=== PATIENT | female | born 1950 | race Caucasian/White ===

== ENCOUNTER → 2017-12-22 08:23 | Outpatient (CLI) | payer MEDICARE, OTHER, SELFPAY ==
--- NOTE | 2017-12-22 08:25 | BI_ITS ---
MAMMOGRAPHY - BILATERAL SCREENING REASON FOR EXAM: Female, 67 years old. Routine annual screening examination. PERTINENT HISTORY: Non-contributory. TECHNIQUE: Digital bilateral breast elisabeth (3D mammographic acquisition) in the CC and MLO projections. 2-D mediolateral oblique (MLO) and craniocaudad (CC) views of both breasts were obtained. CAD: Full Field Digital Mammography with Computer Added Detection was performed. COMPARISON: Comparison is made with prior study dated December 04, 2016 and November 27, 2015. FINDINGS: Breast Composition: The breasts are heterogeneously dense, which may obscure small masses. There are no dominant masses or suspicious calcifications. Stable small bilateral axillary lymph nodes. No other significant abnormalities are identified. There has been no significant change since the prior study. BI/SCREENING MAMM (CAD), BILAT IMPRESSION: Stable bilateral screening mammogram. Yearly follow-up mammogram recommended. (A) ASSESSMENT CATEGORY: BIRADS Category 2: Benign. A letter regarding these results will be sent to the patient by the facility within 30 days. Approximately 10% of breast cancers are not detected by mammography. A normal mammogram should not delay biopsy of a clinically suspicious abnormality. [id number] Electronically Signed: Alvarado Jacobo MD at 9:27 EST Tel [phone], Service support ,
== END ==
PROVIDERS: Family Provider Family Medicine; PCP Family Medicine; Visit Provider Obstetrics & Gynecology
DX: Z12.31 Encounter for screening mammogram for malignant neoplasm of breast (principal)
CPT/HCPCS: 77063; 77067

== ENCOUNTER → 2018-12-23 10:18 | Outpatient (CLI) | payer MEDICARE, OTHER, SELFPAY ==
--- NOTE | 2018-12-23 10:26 | BI_ITS ---
MAMMOGRAPHY - BILATERAL SCREENING REASON FOR EXAM: Female, 68 years old. Routine annual screening examination. PERTINENT HISTORY: Non-contributory. TECHNIQUE: Digital bilateral breast michelle (3D mammographic acquisition) in the CC and MLO projections. 2-D mediolateral oblique (MLO) and craniocaudad (CC) views of both breasts were obtained. CAD: Full Field Digital Mammography with Computer Added Detection was performed. COMPARISON: Comparison is made with prior study dated December 22, 2017 and December 04, 2016. FINDINGS: Breast Composition: The breasts are heterogeneously dense, which may obscure small masses. There are no dominant masses or suspicious calcifications. Stable small benign appearing bilateral axillary lymph nodes. No other significant abnormalities are identified. There has been no significant change since the prior study. BI/SCREEN MAMM (CAD) W/MICHELLE BILAT IMPRESSION: Stable bilateral screening mammogram. Yearly follow-up mammogram recommended. (A) ASSESSMENT CATEGORY: BIRADS Category 2: Benign. A letter regarding these results will be sent to the patient by the facility within 30 days. Approximately 10% of breast cancers are not detected by mammography. A normal mammogram should not delay biopsy of a clinically suspicious abnormality. [id number] Electronically Signed: Alvarado Jacobo, at 12:38 EST , Service support ,
== END ==
PROVIDERS: Family Provider Family Medicine; PCP Family Medicine; Referring Provider Obstetrics & Gynecology; Visit Provider Obstetrics & Gynecology
DX: Z12.31 Encounter for screening mammogram for malignant neoplasm of breast (principal)
CPT/HCPCS: 77063; 77067

== ENCOUNTER → 2019-12-29 09:29 | Outpatient (CLI) | payer MEDICARE, OTHER, SELFPAY ==
--- NOTE | 2019-12-29 09:34 | BI_ITS ---
MAMMOGRAPHY - BILATERAL SCREENING REASON FOR EXAM: Female, 69 years old. Routine annual screening examination. PERTINENT HISTORY: Non-contributory. TECHNIQUE: Digital bilateral breast michelle (3D mammographic acquisition) in the CC and MLO projections. 2-D mediolateral oblique (MLO) and craniocaudad (CC) views of both breasts were obtained. CAD: Full Field Digital Mammography with Computer Added Detection was performed. COMPARISON: Comparison is made with prior study dated 12/23/2018 and 12/22/2017. FINDINGS: Breast Composition: The breasts are heterogeneously dense, which may obscure small masses. There are no dominant masses or suspicious calcifications. Stable small benign appearing bilateral axillary lymph nodes. No other significant abnormalities are identified. There has been no significant change since the prior study. BI/SCREEN MAMM (CAD) W/MICHELLE BILAT IMPRESSION: Stable bilateral screening mammogram. Yearly follow-up mammogram recommended. (A) ASSESSMENT CATEGORY: BIRADS Category 2: Benign. A letter regarding these results will be sent to the patient by the facility within 30 days. Approximately 10% of breast cancers are not detected by mammography. A normal mammogram should not delay biopsy of a clinically suspicious abnormality. [id number] Electronically Signed: Alvarado Jacobo, at 10:32 EST , Service support ,
--- NOTE | 2019-12-29 09:38 | BD_ITS ---
STUDY: DUAL ENERGY X-RAY ABSORPTIOMETRY / DXA REASON FOR EXAM: Female, 69 years old. [employer] -- TAKES MULTIVITAMIN AND HX OF TAKING CALCIUM -- TAKES FOSAMAX- BEEN ON x10 YRS -- DOES MODERATE AMOUNT OF EXERCISE -- FAMILY HX OF OSTEO- AUNT, GRANDMOTHER -- NO RADHA TECHNIQUE: Bone Mineral Density (BMD) measurements of lumbar spine and bilateral hips were obtained. COMPARISON: Comparison is made with prior study dated 05/21/2011. FINDINGS: Lumbar Spine (L1-L4): g/cm2 (1.251) / T-score (0.7) / Z-score (2.3) Findings are suggestive of normal bone density with a low fracture risk. Left Femur Total: g/cm2 (1.014) / T-score (0.0) / Z-score (1.5) Left Femoral Neck: g/cm2 (0.934) / T-score (-0.7) / Z-score (0.9) Right Femur Total: g/cm2 (0.959) / T-score (-0.4) / Z-score (1.0) Right Femoral Neck: g/cm2 (0.920) / T-score (-0.8) / Z-score (0.8) The T-Scores on the most recent prior examination were: Lumbar Spine (L1-L4): There has been improvement of bone density since the previous examination. Left Femur Total: which represents a worsening of 2.8%. Right Femur Total: which represents a worsening of 2.3%. BD/Dexa Bone Density Study IMPRESSION: The patient is considered normal as outlined below according to World Gaurav Organization (WHO) criteria with a low fracture risk. There has been worsening of bone density since the previous examination. Reference Information: The T-score is the number of standard deviations above or below the standard which is normal for young adults at their peak bone mineral density. The World Health Organization (WHO) interprets the T-scores as follows: Above -1 Normal bone density Between -1 and -2.5 Osteopenia Equal to / or below -2.5 Osteoporosis As a practical clinical guideline, osteopenia may be graded as follows: Mild -1 through -1.5 Moderate -1.6 through -2.0 Severe -2.1 through -2.4 The Z-score is the number of standard deviations above or below age-matched controls. A Z-score of less than -1.5 would be considered abnormal. References: 1. NIH Osteoporosis and Related Bone Diseases www osteo.org 2. International Society for Clinical Densitometry www iscd.org 3. National Osteoporosis Foundation www nof.org Electronically Signed: Alvarado Jacobo, at 13:46 EST , Service support ,
== END ==
PROVIDERS: PCP Family Medicine; Referring Provider Obstetrics & Gynecology; Visit Provider Obstetrics & Gynecology
DX: Z12.31 Encounter for screening mammogram for malignant neoplasm of breast (principal); Z78.0 Asymptomatic menopausal state
CPT/HCPCS: 77063; 77067; 77080

== ENCOUNTER → 2020-12-28 07:26 | Outpatient (CLI) | payer MEDICARE, OTHER, SELFPAY ==
--- NOTE | 2020-12-28 07:36 | BI_ITS ---
MAMMOGRAPHY - BILATERAL SCREENING REASON FOR EXAM: Female, 70 years old. Routine annual screening examination. PERTINENT HISTORY: Non-contributory. TECHNIQUE: Digital bilateral breast michelle (3D mammographic acquisition) in the CC and MLO projections. 2-D mediolateral oblique (MLO) and craniocaudad (CC) views of both breasts were obtained. CAD: Full Field Digital Mammography with Computer Added Detection was performed. COMPARISON: Comparison is made with prior study dated 12/29/2019 and 12/23/2018. FINDINGS: Breast Composition: The breasts are heterogeneously dense, which may obscure small masses. There are no is evidence of a cluster microcalcifications seen on the mediolateral oblique view in the deep midportion of the right breast. The patient will be recalled for additional views including an exaggerated craniocaudad view of the right breast. Stable small benign-appearing bilateral axillary lymph nodes. There is also evidence of a 5.4 mm well-defined nodule in the upper lateral portion of the right breast for which ultrasound is recommended. No other significant abnormalities are identified. BI/SCRN MAMM (CAD)W/MICHELLE BILAT IMPRESSION: 5.4 mm well-defined nodule in the upper lateral portion of the right breast. Correlation with ultrasound is recommended. Microcalcifications are seen in the mediolateral oblique view in the deep portion of the right breast. The patient will be recalled for exaggerated craniocaudad view of the right breast. ASSESSMENT CATEGORY: BIRADS Category 0: Incomplete. Need additional imaging evaluation. A letter regarding these results will be sent to the patient by the facility within 30 days. Approximately 10% of breast cancers are not detected by mammography. A normal mammogram should not delay biopsy of a clinically suspicious abnormality. [id number] Electronically Signed: Alvarado Jacobo MD at 8:39 EST , Service support ,
== END ==
PROVIDERS: PCP Family Medicine; Referring Provider Obstetrics & Gynecology; Visit Provider Obstetrics & Gynecology
DX: Z12.31 Encounter for screening mammogram for malignant neoplasm of breast (principal)
CPT/HCPCS: 77063; 77067

== ENCOUNTER → 2021-01-01 08:55 | Outpatient (CLI) | payer MEDICARE, OTHER, SELFPAY ==
--- NOTE | 2021-01-01 08:58 | US_ITS ---
STUDY: ULTRASOUND BREAST - RIGHT REASON FOR EXAM: Female, 70 years old. Evaluation of nodule in the right breast seen on prior screening mammogram. Diagnostic mammogram performed today. TECHNIQUE: Axial and longitudinal images of the RIGHT breast were performed with a high resolution ultrasound transducer. # OF IMAGES: 11 COMPARISON: Screening mammogram dated 12/28/2020. FINDINGS: RIGHT Breast: Lesion at the 9 o''clock position of the right breast 8 cm from the nipple represents a simple cyst measuring 4 mm x 9 mm. US/Breast Limited Unilateral IMPRESSION: Nodule in the right breast represents a simple cyst. ASSESSMENT CATEGORY: BIRADS Category 2: Benign. A letter regarding these results will be sent to the patient by the facility within 30 days. Electronically Signed: Jarad Rowell MD at 10:09 EST , Service support ,
--- NOTE | 2021-01-01 08:58 | BI_ITS ---
MAMMOGRAPHY - UNILATERAL DIAGNOSTIC: RIGHT BREAST REASON FOR EXAM: Female, 70 years old. Workup of microcalcifications and nodule in right breast on prior screening mammogram. PERTINENT HISTORY: Non-contributory. TECHNIQUE: Digital examination. Compression MLO and cc views of the right breast were obtained on 6 images. CAD: CAD was performed on this study. COMPARISON: 12/28/2020. FINDINGS: Breast Composition: There are scattered areas of fibroglandular density. Cluster of microcalcifications 12.6 cm behind the nipple on the MLO view. The coned compression view show these calcifications slightly lateral to the nipple. The nipple is not included on the CC compression view. These calcifications are very close to the chest wall. Needle localization for these calcifications is recommended given their appearance. Nodule in the right breast represents a cyst (see detailed right breast ultrasound report. BI/DIAG MAMM W/CAD, UNILAT IMPRESSION: Cluster of calcifications in the right breast very close to the chest wall for which needle localization and excision are recommended. ASSESSMENT CATEGORY: BIRADS Category 4: Suspicious - Biopsy Should Be Considered. A letter regarding these results will be sent to the patient by the facility within 30 days. FOLLOW-UP RECOMMENDATION: Breast needle localization and biopsy recommended. (M) Approximately 10% of breast cancers are not detected by mammography. A normal mammogram should not delay biopsy of a clinically suspicious abnormality. Electronically Signed: Jarad Rowell MD at 10:08 EST , Service support ,
== END ==
PROVIDERS: PCP Family Medicine; Referring Provider Obstetrics & Gynecology; Visit Provider Obstetrics & Gynecology
DX: R92.8 Other abnormal and inconclusive findings on diagnostic imaging of breast (principal)
CPT/HCPCS: 76642; 77065

== ENCOUNTER → 2021-01-10 09:44 | Outpatient (CLI) | payer MEDICARE, OTHER, SELFPAY ==
--- NOTE | 2021-01-10 09:45 | HP.PCM_ITS ---
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 Abram Velasco MD) Abnormal mammogram of right breast Hyperglycemia Hypoxemia Ketosis MVP (mitral valve prolapse) Nephrolithiasis Thrombocytopenia Surgical History (Updated 01/08/21 @ 09:09 by Jessica Rivero) History of cataract surgery History of mitral valve repair Family History (Updated 01/08/21 @ 09:10 by Jessica Rivero) Father Heart disease Brother Heart disease Social History Smoking Status: Never smoker alcohol intake: never substance use type: does not use HPI HPI HPI: FABY ZAMORA, is a 70 F who presents to the office today for surgical consultation regarding abnormal mammograms BI-RADS Category 4. The patient is referred by Dr. Fermín Sanchez her primary care physician is Dr. Vinayak Ordaz. Written copies of this surgical consultation will be continued deviated to them both. January 03, 2021 diagnostic right mammograms were obtained because of microcalcifications and right breast nodule seen on the screening examination of December 28, 2020. The compression views suggest a cluster of microcalcifications 12.6 cm behind the nipple of the right breast on the MLO view. These may be slightly lateral to the nipple. Very close to the chest wall. BI-RADS Category 4. She had a right breast ultrasound on January 03, 2021 as well. The nodule at the right breast 9 o'clock position 8 cm from the nipple on ultrasound was felt to represent a simple cyst measuring 4 x 9 mm. BI-RADS Category 2 70-year-old female. G0. Menarche at age 13. No previous breast biopsies. Not on estrogen replacement. Family history is negative for breast cancer. The patient however has had trauma to the right breast in the form of a mitral valve minimally invasive surgery requiring a oblique incision in the lateral right breast. She is persistently tender in that area. She had that procedure 5 years ago. She is on a low-dose aspirin. ROS General General: No weight change, appetite, fatigue, colon cancer, breast cancer or weakness HEENT HEENT: Yes eye surgery; No difficulty swallowing, eye injury, swollen glands or hoarseness Endo Endocrine: No thyroid disease, diabetes mellitus, thyroid cancer, Hair loss, heat intolerance or cold intolerance Skin Skin: No rash or changing moles Breast Breast: Yes abnormal mammogram; No left breast lump, right breast lump, nipple discharge, breast pain, abnormal US or breast enlargement Additional Details: Right Musc Musculoskeletal: No back problems, arthritis, rheumatoid arthritis, gout or joint pain Cardio Cardiovascular: No murmur, pacemaker, heart disease, atrial fibrillation, high blood pressure, heart attack, heart stent, palpitations, shortness of breat with exertion or chest pain Psych Psychiatric: No depression, anxiety or hearing voices Resp Respiratory: No shortness of breath, No sleep apnea, No cough, No COPD, No asthma, No emphysema and No wheezing Gastro Gastrointestinal: No abdominal pain, No nausea or vomiting, No diarrhea, No constipation, No blood in stool, No acid reflux, No hemorrhoids, No ulcers, No gallbladder problem and No black,tarry stools Uziel Hematologic: Yes blood thinners, No blood disorders, No bleeding, No anemia and No blood clots Neuro Neurologic: No system reviewed and no additional complaints, except as documented, No as per HPI, No abnormal gait, No abnormal hearing, No abnormal movements, No abnormal speech, No behavioral changes, No burning sensations, No confusion, No convulsions, No disequilibrium, No dizziness, No localized weakness, No frequent falls, No headache(s), No lack of coordination, No loss of vision, No memory loss, No numbness, No other visual disturbances, No radicular pain, No restless legs, No sensory deficit, No syncope, No tingling, No tremor(s), No weakness and No other Exam Const General: cooperative, comfortable and no acute distress Nutritional Appearance: overweight Orientation: alert and awake Chest Other: Right breast: Oblique incision outer right breast. Mildly tender the entire upper outer quadrant right breast. No focal mass. No nipple discharge. No axillary clavicular adenopathy Left breast: No focal mass. No nipple discharge. No axillary clavicular adenopathy Resp Effort & Inspection: normal respiratory effort Auscultation: clear to auscultation bilaterally Cardio Rate: regular rate Rhythm: regular rhythm Assessment and Plan Plan Details Additional Comments: I recommended the patient a stereotactic core biopsy upper outer right breast. I described technique, benefit, risk, alternatives. Based upon her incision for her minimally invasive mitral valve repair I anticipate that these calcifications may be related to cicatrix and related to that procedure. I will temporarily have the patient hold her aspirin as I anticipate the stereotactic biopsy be performed quickly within the next 2 maybe 3 days. She and her have had an opportunity ask and have questions answered. We will schedule and expedite her care. I appreciate the opportunity of assisting with her surgical management. Copy: Dr. Fermín Sanchez and Dr. Vinayak Velasco M.D., F.A.C.S. I have re-examined the patient. There are no clinical changes since date of exam. Abram Velasco M.D., F.A.C.S.
--- NOTE | 2021-01-10 10:15 | BRBX_PTH ---
PATIENT: FABY ZAMORA LOC: DEV U#:[id number] AGE/SX: 74/F ROOM: RE01/10/[address]: Dr. Abram Velasco MD : 1950 BED: DIS: SPEC #: [id number] RECD: 01/10/21 10:42 STATUS: ASHLEY JULIENNE #: [id number] DINORAH: 01/10/21 10:[address]: Abram Velasco DEPT: SURGICAL PATHOLOGY RECD BY: Joan Lyon ENTERED: 01/10/21 11:13 SP TYPE: BREAST BX OTHR DR: Dr. Vinayak Ordaz MD Tissues: Right breast, NOS Procedures: Surgery Specimen Level IV HEADER OPERATION: Right stereotactic breast biopsy PRE-OP DIAGNOSIS: Right lateral posterior depth breast microcalcifications TISSUE SUBMITTED: Right breast core tissue ISCHEMIC TIME: 2 minutes FIXATION TIME: 8 hours MICROSCOPIC DIAGNOSIS Right breast, lateral posterior depth breast microcalcifications, stereotactic core biopsy: Hyalinized fibroadenoma with focal calcifications. Focal fibrocystic changes. Negative for atypia or malignancy. See comment. MICHAEL:coby 01/11/2021 COMMENT Correlation with clinical, radiologic findings and appropriate follow up are necessary. MICROSCOPIC DESCRIPTION Slides are reviewed. GROSS DESCRIPTION Received in fixative is one container labeled with the patient's name and designated right breast. The specimen consists of multiple elongated fragments of velazquez-yellow fibroadipose tissue that in aggregate measure 5 x 3 x 0.3 cm. The entire specimen is submitted in two cassettes. / MICHAEL:coby 01/10/21 TC:1 CPT: 72840
--- NOTE | 2021-01-10 10:23 | OP.PCM_ITS ---
Problems Associated Problem List Diagnoses (1) Abnormal mammogram of right breast: Report of Operation Date of Procedure: 01/10/21 Pre-Operative Diagnosis: Abnormal right mammogram with clustered microcalcifications identified laterally in the mediolateral oblique view only Post-Operative Diagnosis: Same Surgery/Procedure Performed:: Stereotactic needle core biopsy upper outer right breast Description of Surgical Findings:: Timeout informed consent was obtained. 7-year-old female was taken to the mammography suite placed prone table. The right breast was placed in a lateral medial view. The microcalcifications in question rapidly identified. The breast was prepped with Betadine. 1% lidocaine was used as a local anesthetic. Throughout the procedure a total of 9 cc was used. A small stab incision was created. 8 gauge mammotome was advanced to prefire depth. Prefire films were obtained demonstrating adequate localization. The device was fired. 6 cores were obtained. Specimen mammograms demonstrated 3 cores with multiple microcalcifications. A small dumbbell marking clip was left at 12:00. Follow-up imaging demonstrated removal of most but not all of the microcalcifications. Marking clip in good position. She was released from the device. Pressure was held for hemostasis. Steri- Strip Telfa OpSite dressing applied followed by ice pack. She was given activity wound care instructions. The specimens had been immediately transferred to formalin for analysis. Specimen breast cores. Blood loss minimal. Drains none. Abram Velasco M.D., F.A.C.S. Surgeon: Abram Velasco Type of Anesthesia: Local
== END ==
PROVIDERS: PCP Family Medicine; Referring Provider Surgery; Visit Provider Surgery
DX: D24.1 Benign neoplasm of right breast (principal); R92.0 Mammographic microcalcification found on diagnostic imaging of breast; Z79.82 Long term (current) use of aspirin
CPT/HCPCS: 19081; 88305; J7050

== ENCOUNTER → 2022-01-02 | Outpatient (CLI) | payer MEDICARE, OTHER, SELFPAY ==
--- NOTE | 2022-01-02 10:25 | BI_ITS ---
MAMMOGRAPHY - BILATERAL SCREENING REASON FOR EXAM: Female, 71 years old. Routine annual screening examination. PERTINENT HISTORY: No personal history of breast cancer. Negative right stereotactic biopsy on 01/10/2021. Multiple keratosis. TECHNIQUE: Digital bilateral breast michelle (3D mammographic acquisition) in the CC and MLO projections. 2-D mediolateral oblique (MLO) and craniocaudad (CC) views of both breasts were obtained. CAD: Full Field Digital Mammography with Computer Added Detection was performed. COMPARISON: Right breast diagnostic mammogram from 01/01/2021. Bilateral screening mammogram from 12/28/2020, 12/29/2019. FINDINGS: Breast Composition: The breasts are heterogeneously dense, which may obscure small masses. There are a few punctate microcalcifications in the right axillary tail in the area that was previously biopsied on 01/10/2021 and found to be negative. Quantitatively, these do not qualify as a cluster, however, the entirety of the axillary tail is not completely included in [id number] and recurrence of calcifications cannot be excluded without further imaging. Further assessment with magnification views is recommended. No other significant abnormalities are identified. Remainder of the breasts are stable from prior study. BI/SCRN MAMM (CAD)W/MICHELLE BILAT IMPRESSION: Further imaging evaluation recommended, as described above. (E) Recall Side: Right Breast ASSESSMENT CATEGORY: BIRADS Category 0: Incomplete. Need additional imaging evaluation. A letter regarding these results will be sent to the patient by the facility within 30 days. Approximately 10% of breast cancers are not detected by mammography. A normal mammogram should not delay biopsy of a clinically suspicious abnormality. Electronically Signed: Hang Frye, at 15:31 EST ,
== END | disposition home or self-care (01) ==
LOC: OPBI 10:24
PROVIDERS: PCP Family Medicine; Visit Provider Surgery
DX: Z12.31 Encounter for screening mammogram for malignant neoplasm of breast (principal)
CPT/HCPCS: 77063; 77067

== ENCOUNTER → 2022-01-10 | Outpatient (CLI) | payer MEDICARE, OTHER, SELFPAY ==
--- NOTE | 2022-01-10 08:59 | BI_ITS ---
MAMMOGRAPHY - UNILATERAL DIAGNOSTIC: RIGHT BREAST REASON FOR EXAM: Female, 71 years old. Localization of a prior biopsy clip. PERTINENT HISTORY: Non-contributory. Prior right stereotactic breast biopsy. TECHNIQUE: Compression spot magnification views of the right breast were obtained. CAD: Full Field Digital Mammography with Computer Added Detection was performed. COMPARISON: Comparison is made with prior study 01/02/2022. FINDINGS: Breast Composition: The breasts are heterogeneously dense, which may obscure small masses. A tissue clip marker from prior biopsy is seen in the deep slightly lateral aspect of the right breast at the site of the microcalcifications. No other significant abnormalities are identified. BI/DIAG MAMM W/CAD, UNILAT IMPRESSION: Stable unilateral diagnostic mammogram. One year follow-up mammogram recommended. (A) ASSESSMENT CATEGORY: BIRADS Category 2: Benign. A letter regarding these results will be sent to the patient by the facility within 30 days. Approximately 10% of breast cancers are not detected by mammography. A normal mammogram should not delay biopsy of a clinically suspicious abnormality. Electronically Signed: Alvarado Jacobo MD at 10:17 EST ,
== END | disposition home or self-care (01) ==
PROVIDERS: PCP Family Medicine; Visit Provider Surgery
DX: R92.0 Mammographic microcalcification found on diagnostic imaging of breast (principal)
CPT/HCPCS: 77065

== ENCOUNTER → 2023-01-06 | Outpatient (CLI) | payer MEDICARE, OTHER, SELFPAY ==
--- NOTE | 2023-01-06 10:09 | BI_ITS ---
MAMMOGRAPHY - BILATERAL SCREENING REASON FOR EXAM: Female, 72 years old. Routine annual screening examination. PERTINENT HISTORY: Non-contributory. Prior right stereotactic breast biopsy. TECHNIQUE: Digital bilateral breast michelle (3D mammographic acquisition) in the CC and MLO projections. 2-D mediolateral oblique (MLO) and craniocaudad (CC) views of both breasts were obtained. CAD: Full Field Digital Mammography with Computer Added Detection was performed. COMPARISON: Comparison is made with prior examination dated January 02, 2022 and January 10, 2022. FINDINGS: Breast Composition: The breasts are heterogeneously dense, which may obscure small masses. There are no dominant masses or suspicious calcifications. A tissue clip marker is seen in the deep central portion of the right breast. No other significant abnormalities are identified. There has been no significant change since the prior study. BI/SCRN MAMM (CAD)W/MICHELLE BILAT IMPRESSION: Stable bilateral screening mammogram. Yearly follow-up mammogram recommended. (A) ASSESSMENT CATEGORY: BIRADS Category 2: Benign. A letter regarding these results will be sent to the patient by the facility within 30 days. Approximately 10% of breast cancers are not detected by mammography. A normal mammogram should not delay biopsy of a clinically suspicious abnormality. [id number] Electronically Signed: Alvarado Jacobo MD at 13:05 EST ,
== END | disposition home or self-care (01) ==
LOC: OPBI 09:59
PROVIDERS: PCP Family Medicine; Referring Provider Surgery; Visit Provider Surgery
DX: Z12.31 Encounter for screening mammogram for malignant neoplasm of breast (principal)
CPT/HCPCS: 77063; 77067

== ENCOUNTER → 2024-01-09 | Outpatient (CLI) | payer MEDICARE, OTHER, SELFPAY | END | disposition home or self-care (01) | LOC: OPBI 12:40 | PROVIDERS: PCP Family Medicine; Referring Provider Family Medicine; Visit Provider Family Medicine | DX: Z12.31 Encounter for screening mammogram for malignant neoplasm of breast (principal) | CPT/HCPCS: 77063; 77067 ==

== ENCOUNTER → 2025-01-14 | Outpatient (CLI) | payer MEDICARE, OTHER, SELFPAY ==
--- NOTE | 2025-01-14 08:40 | BI_ITS ---
EXAM: SCRN MAMM (CAD)W/MICHELLE BILAT DATE: 01/14/2025 CLINICAL HISTORY: F, Age 74 y/o , SCREENING TECHNIQUE: Procedure Code: [id number] Modality: MG Procedure: SCRN MAMM (CAD)W/MICHELLE BILAT COMPARISON: Prior exam(s) dated 01/09/2024.. FINDINGS: TISSUE DENSITY: There are scattered areas of fibroglandular density. Bilateral Breast Mammographic Findings: Nodular asymmetry is noted at the 3 o'clock location of the left breast at a posterior depth, indeterminate. No suspicious mass, density, or microcalcifications within the right breast. BI/SCRN MAMM (CAD)W/MICHELLE BILAT IMPRESSION: OVERALL FINAL ASSESSMENT BI-RADS 0: INCOMPLETE - NEED ADDITIONAL IMAGING EVALUATION. RECOMMENDATION: Additional Views obtained/call backs Additional Recommendation spot compressed and rolled left mammograms. Possible left breast ultrasound. A letter with findings and recommendations will be mailed to the patient. Reading Location: [id number]
--- OUTSIDE RECORDS SUMMARY | 2025-01-14 09:01 | XMS RPT_ITS | CCD ---
Author Organization [facility] Care Team Providers Care Fabric Worker Name Role Phone DAVID MARTÍNEZ E Unavailable Unavailable DAVID MARTÍNEZ E Unavailable Unavailable GREY MARTÍNEZNETH Unavailable Unavailable GREY MARTÍNEZNETH Unavailable Unavailable DAVID MARTÍNEZ Unavailable Unavailable DAVID MARTÍNEZ Unavailable Unavailable Vinayak Reyes MD Primary Care Provider Vinayak Reyes MD Primary Care Provider Vinayak Reyes MD Primary Care Provider VINAYAK REYES Primary Care Unavailable PINEDA FRENCH Referring Unavailab PINEDA Rodriguez Attending Unavailab Vinayak Luciano MD Primary Care Provider Abram Velasco Attending Unavailable Vinayak Reyes Referring Unavailable Vinayak Reyes Primary Care Unavailable Vinayak Reyes Referring Unavailable Vinayak Reyes Attending Unavailable Vinayak Reyes Primary Care Unavailable Eda WELT BUTTER HAND.ASUNCION Nola Unavailable Suppan WELT BUTTER HAND.ASUNCION, Yoana A Unavailable Suppan WELT BUTTER HAND.LEAD RAMP AGENT, Yoana A Unavailable Suppan WELT BUTTER HAND.ASUNCION, Yoana A Unavailable VINAYAK REYES Primary Care Unavailable VINAYAK REYES Primary Care Unavailable PINEDA FRENCH Referring Unavailab VINAYAK Luciano Primary Care Unavailable VINAYAK REYES Primary Care Unavailable SELF Referring Unavailable JAEL OLSON Attending Unavailable VINAYAK REYES Primary Care Unavailable PINEDA FRENCH Attending Unavailab VINAYAK Luciano Attending Unavailable VINAYAK REYES Primary Care Unavailable VINAYAK REYES Referring Unavailable VINAYAK REYES Primary Care Unavailable VINAYAK REYES Primary Care Unavailable VINAYAK REYES Referring Unavailable VINAYAK REYES Primary Care Unavailable VINAYAK REYES Attending Unavailable Allergies Allergy Classification Reported Allergen(s) Allergy Type Date of Onset Reaction(s) Facility (20 sources) Penicillins; Translations: [PENICILLINS] Propensity to adverse reactions to drug (disorder) 6 [facility] Repository (20 sources) NITROFURANTOIN MONOHYD/M-CRYST; Translations: [NITROFURANTOIN MONOHYD/M-CRYST] Propensity to adverse reactions to drug (disorder) 4 [facility] Repository (4 sources) nitrofurantoin macrocrystalline; Translations: [nitrofurantoin macrocrystalline] Allergy to substance 1 [facility] Medications Current Medications Medication Drug Class(es) Dates Sig (Normalized) Sig (Original) aspirin 81 mg delayed release oral tablet (20 sources) Platelet Aggregation Inhibitor, Nonsteroidal Anti-inflammatory Drug Start: 01-08-2021 take 81 mg by mouth once daily Aspirin Active 81 MG PO DAILY January 08, 2021 12:00am Start: 02-15-2016 take 1 tablet by paramjit th once daily aspirin 81 mg chewable tablet Take 1 tablet by mouth once daily. 0 02/15/2016 Active Comment on above: Take 1 tablet by paramjit th once daily. atorvastatin 10 mg oral tablet (20 sources) HMG-CoA Reductase Inhibitor Start: 3 End: 4 take 1 tablet by mouth once daily atorvastatin (LIPITOR) 10 mg tablet Take 1 tablet by mouth once daily. 90 tablet 3 01/09/2024 Active Start: 11-15-2020 End: 07-15-2022 take 1 tablet by mouth once daily atorvastatin (LIPITOR) 10 mg tablet Take 1 tablet by mouth once daily. 30 tablet 5 01/08/2022 07/15/2022 Discontinued Comment on above: Take 1 tablet by paramjit th once daily. calcium carbonate/vitamin D2 (CALCIUM + VITAMIN D ORAL) (3 sources) calcium carbonate/vitamin D2 (CALCIUM + VITAMIN D ORAL) Take by mouth. Active fluticasone propionate 0.05 mg/actuat metered dose nasal spray (20 sources) Corticosteroid Start: 02-06-20 End: 02-27-19 23 take 2 spray(s) by mouth once daily fluticasone (FLONASE) 50 mcg/actuation nasal spray USE 2 SPRAYS IN EACH NOSTRIL ONCE DAILY. RINSE MOUTH AFTER USE. 16 mL 3 02/27/2022 Active Comment on above: USE 2 SPRAYS IN EACH NOSTRIL ONCE DAILY. RINSE MOUTH AFTER USE. Multivitamin,Tx-Iron- Minerals (Therems-M) 1 TABLET tablet (3 sources) Start: 09-01-19 take 1 tablet by mouth once daily Multivitamin,Tx-Iron -Minerals (Therems-M) 1 TABLET tablet Active 1 TABLET PO DAILY August 30, 2013 11:00pm MV-MN/FA/D3/LYCOPENE/ LUT/COQ10 (DAILY MULTIVITAMIN ORAL) (20 sources) take 1 tablet by mouth once daily MV-MN/FA/D3/LYCOPENE /LUT/COQ10 (DAILY MULTIVITAMIN ORAL) Take 1 tablet by mouth once daily. Active take 1 tablet by paramjit th once daily MV-MN/FA/D3/LYCOPENE/LUT/COQ10 (DAILY MU LTIVITAMIN ORAL) Take 1 tablet by mouth once daily. 0 Active Comment on above: Take 1 tablet by paramjit th once daily. nystatin [id number] unt/ml oral suspension (2 sources) Polyene Antifungal Start: 04-04-2023 End: 04-18-2023 nystatin (MYCOSTATIN) 100,000 unit/mL suspension Indications: Thrush (oral) Take 5 mL by mouth four times daily for 14 days. 1tsp swish in mouth for several minutes, then swallow (or expectorate) 4 times daily until gone. 280 mL 0 04/04/2023 04/18/2023 Active Comment on above: Take 5 mL by mouth f our times daily for 14 days. 1tsp swish in mouth for several minutes, then swallow (or expectorate) 4 times daily until gone. sodium chloride 0.111 meq/ml nasal spray (20 sources) Start: 02-05-2022 sodium chloride (SALINE MIST) 0.65 % nasal spray Use 1 [place] in the nose as needed for cold/allergy symptoms. 15 mL 02/05/2022 Active Start: 01-16-2021 End: 04-17-2022 sodium chloride 0.9 % (flush ) 10 mL (BD POSIFLUSH) Comment on above: Use 1 [place] in the n ose as needed for cold/allergy symptoms. Completed/Discontinued Medications Medication Drug Class(es) Dates Sig (Normalized) Sig (Original) alendronic acid 70 mg oral tablet (3 sources) Bisphosphonate Start: 08-31-2013 End: 01-08-2021 take 70 mg by mouth every week Alendronate Discontinued 70 MG PO Q7D@0700 August 30, 2013 11:00pm January 08, 2021 9:12am Calcium (13 sources) Phosphate Binder, Calcium End: 01-18-2022 take 1 tablet by mouth once daily [id number]- [id number]-[id number] 600 mg calcium- 800 unit-50 mg tab Take 1 tablet by mouth once daily. 0 01/18/2022 Discontinued take 1 tablet by paramjit th once daily [id number] 600 mg ca lcium- 800 unit-50 mg tab Take 1 tablet by mouth once daily. 0 Active Comment on above: Take 1 tablet by paramjit th once daily. cefdinir 300 mg oral capsule (3 sources) Cephalosporin Antibacterial Start: 09-03-19 14 End: 01-09-20 21 take 600 mg by mouth once daily Cefdinir Discontinued 600 MG PO DAILY September 01, 2013 11:00pm January 08, 2021 9:12am clotrimazole 10 mg oral lozenge (4 sources) Azole Antifungal Start: 03-21-19 24 End: 04-04-19 24 clotrimazole (MYCELEX) 10 mg nikki Indications: Thrush Use 1 Nikki as instructed five times a day for 14 days. 70 tablet 0 03/21/2023 04/04/2023 Discontinued (Course of therapy completed) Comment on above: Use 1 Nikki as inst ructed five times a day for 14 days. hydrOXYzine hydrochloride 25 mg oral tablet (3 sources) Antihistamine Start: 09-03-19 14 End: 01-09-20 21 take 1 tablet by mouth three times daily as needed Hydroxyzine (Atarax) 25 MG tablet Discontinued 25 MG PO 3 TIMES DAILY NEEDED September 01, 2013 11:00pm January 08, 2021 9:12am nitrofurantoin, macrocrystals 100 mg oral capsule (3 sources) Nitrofuran Antibacterial Start: 09-01-19 14 End: 09-03-19 14 take 100 mg by mouth every twelve hours Nitrofurantoin Monohyd/M-Cryst Discontinued 100 MG PO EVERY 12 HOURS August 30, 2013 11:00pm September 02, 2013 8:19am perflutren lipid microspheres 1.3 mL in NaCl (PF) 0.9% 10 mL injection (DEFINITY) (16 sources) Start: 01-17-20 21 End: 04-18-19 23 perflutren lipid microspheres 1.3 mL in NaCl (PF) 0.9% 10 mL injection (DEFINITY) predniSONE 20 mg oral tablet (3 sources) Start: 09-03-19 14 End: 01-09-20 21 take 20 mg by mouth once daily Prednisone Discontinued 20 MG PO DAILY@0800 3 September 01, 2013 11:00pm January 08, 2021 9:12am Problems Active Problems Problem Classification Problem Date Documented Date Episodic/Chronic Calculus of urinary tract (3 sources) Kidney stone; Translations: [Calculus of kidney] 01-08-2021 Episodic Coagulation and hemorrhagic disorders (3 sources) Thrombocytopenic disorder; Translations: [Thrombocytopenia, unspecified] 01-08-2021 Chronic Coronary atherosclerosis and other heart disease (20 sources) Coronary atherosclerosis; Translations: [Atherosclerotic heart disease of [place] coronary artery without angina pectoris] Onset: 07-27-2015 02-05-2021 Chronic Diabetes mellitus without complication (20 sources) Hyperglycemia; Translations: [Hyperglycemia, unspecified] Onset: 07-25-2015 Resolved: 07-26-2015 01-08-2021 Episodic Disorders of lipid metabolism (20 sources) Mixed hyperlipidemia; Translations: [Mixed hyperlipidemia] Onset: 11-02-2015 11-02-2015 Chronic Fluid and electrolyte disorders (3 sources) Dehydration; Translations: [Dehydration] 08-31-2013 Episodic Fracture of lower limb (5 sources) Closed fracture of right ankle; Translations: [Other fracture of right lower leg, initial encounter for closed fracture] Episodic Immunizations and screening for infectious disease (1 source) Viral screening status; Translations: [Encounter for screening for other viral diseases] Episodic Mycoses (2 sources) Candidiasis of mouth; Translations: [Candidal stomatitis] 03-21-2023 Episodic Other bone disease and musculoskeletal deformities (3 sources) Disorder of skeletal system; Translations: [Disorder of bone, unspecified] 04-07-2024 Episodic Other congenital anomalies (1 source) Porokeratosis; Translations: [Other specified congenital malformations of skin] 05-15-2023 Chronic Other connective tissue disease (1 source) Muscle pain; Translations: [Myalgia, unspecified site] 03-21-2023 Episodic Other connective tissue disease (1 source) Pain in bilateral legs; Translations: [Pain in right leg] 03-21-2023 Episodic Other connective tissue disease (1 source) Metatarsalgia of right foot; Translations: [Metatarsalgia, right foot] 02-12-2024 Episodic Other connective tissue disease (4 sources) History of osteopenia; Translations: [Personal history of other diseases of the musculoskeletal system and connective tissue] Onset: 10-08-2024 10-08-2024 Episodic Other connective tissue disease (1 source) Personal history of other diseases of the musculoskeletal system and connective tissue; Translations: [History of osteopenia] Onset: 10-08-2024 Episodic Other injuries and conditions due to external causes (1 source) Injury of right ankle; Translations: [Unspecified injury of right ankle, initial encounter] Episodic Other lower respiratory disease (3 sources) Hypoxemia; Translations: [Hypoxemia] 01-08-2021 Episodic Other lower respiratory disease (1 source) Cough; Translations: [Acute cough] 04-08-2023 Episodic Other nutritional; endocrine; and metabolic disorders (3 sources) Ketosis; Translations: [Other specified metabolic disorders] 01-08-2021 Chronic Other screening for suspected conditions (not mental disorders or infectious disease) (9 sources) Mammography abnormal; Translations: [Other abnormal and inconclusive findings on diagnostic imaging of breast] Onset: 01-12-2024 01-06-2023 Episodic Other skin disorders (2 sources) Foot callus; Translations: [Corns and callosities] 05-12-2023 Episodic Other upper respiratory infections (1 source) Acute upper respiratory infection; Translations: [Acute upper respiratory infection, unspecified] Episodic Residual codes; unclassified (2 sources) Postmenopausal state; Translations: [Asymptomatic menopausal state] Episodic Screening and history of mental health and substance abuse codes (2 sources) Patient encounter status; Translations: [Encounter for screening for depression] 04-07-2024 Episodic Unclassified (1 source) Other specified postprocedural states; Translations: [Other specified postprocedural states] Onset: 11-27-2016 Unclassified (1 source) Unknown / UNK(Unknown) Onset: 11-27-2016 Urinary tract infections (3 sources) Lower urinary tract infectious disease; Translations: [Urinary tract infection, site not specified] 09-02-2013 Episodic Past or Other Problems Problem Classification Problem Date Documented Da te Episodic/Chronic Administrative/social admission (17 sources) Discharge status; Translations: [Other problems related to medical facilities and other health care] Onset: 07-20-2015 Resolved: 11-02-2015 02-05-2021 Episodic Allergic reactions (20 sources) Phototoxic drug eruption; Translations: [Drug phototoxic response] Onset: 11-07-2010 Resolved: 11-02-2015 09-02-2013 Episodic Biliary tract disease (20 sources) Cholelithiasis without obstruction; Translations: [Calculus of gallbladder without cholecystitis without obstruction] Onset: 02-25-2017 Resolved: 10-08-2024 02-25-2017 Episodic Heart valve disorders (20 sources) Mitral valve prolapse; Translations: [Nonrheumatic mitral (valve) prolapse] Onset: 07-25-2015 Resolved: 01-13-2019 01-08-2021 Chronic Other and unspecified benign neoplasm (20 sources) History of polyp of colon; Translations: [Personal history of colonic polyps] Onset: 04-30-2023 04-30-2023 Episodic Other and unspecified benign neoplasm (17 sources) Melanocytic nevus of scalp; Translations: [Melanocytic nevi of scalp and neck] Onset: 11-07-2010 Resolved: 11-02-2015 11-02-2015 Episodic Other and unspecified benign neoplasm (17 sources) Senile angioma; Translations: [Hemangioma of skin and subcutaneous tissue] Onset: 11-07-2010 Resolved: 11-02-2015 11-02-2015 Episodic Other and unspecified benign neoplasm (1 source) Benign neoplasm of right breast; Translations: [Benign neoplasm of right breast] Onset: 01-27-2023 Episodic Other bone disease and musculoskeletal deformities (20 sources) Osteopenia; Translations: [Other specified disorders of bone density and structure, unspecified site] Resolved: 10-08-2024 01-14-2020 Episodic Other bone disease and musculoskeletal deformities (1 source) Other specified disorders of bone density and structure, right thigh; Translations: [Osteopenia of neck of right femur] Onset: 04-07-2024 Episodic Other bone disease and musculoskeletal deformities (1 source) Disorder of bone, unspecified; Translations: [Disorder of bone and cartilage] Onset: 05-20-2024 Episodic Other bone disease and musculoskeletal deformities (1 source) Disorder of cartilage, unspecified; Translations: [Disorder of bone and cartilage] Onset: 05-20-2024 Episodic Other lower respiratory disease (20 sources) Multiple nodules of lung; Translations: [Other nonspecific abnormal finding of lung field] Onset: 02-25-2017 01-14-2020 Episodic Other nervous system disorders (17 sources) Postoperative pain ; Translations: [Other acute postprocedural pain] Onset: 07-24-2015 Resolved: 07-27-2015 02-05-2021 Episodic Other skin disorders (20 sources) Actinic keratosis; Translations: [Actinic keratosis] Onset: 11-07-2010 09-25-2011 Episodic Other skin disorders (20 sources) Scar; Translations: [Scar conditions and fibrosis of skin] Onset: 12-16-2010 09-25-2011 Episodic Other skin disorders (17 sources) Inflamed seborrheic keratosis; Translations: [Inflamed seborrheic keratosis] Onset: 11-07-2010 Resolved: 11-02-2015 11-02-2015 Episodic Other skin disorders (17 sources) Solar lentigo; Translations: [Other melanin hyperpigmentation] Onset: 11-07-2010 Resolved: 11-02-2015 11-02-2015 Episodic Other skin disorders (17 sources) Seborrheic keratosis; Translations: [Other seborrheic keratosis] Onset: 11-07-2010 Resolved: 11-02-2015 11-02-2015 Episodic Other skin disorders (17 sources) Skin tag; Translations: [Other hypertrophic disorders of the skin] Onset: 11-07-2010 Resolved: 11-02-2015 11-02-2015 Episodic Other skin disorders (1 source) Actinic keratosis; Translations: [Actinic keratosis] Onset: 01-18-2022 Episodic Pleurisy; pneumothorax; pulmonary collapse (17 sources) Atelectasis; Translations: [Atelectasis] Onset: 07-24-2015 Resolved: 07-27-2015 02-05-2021 Episodic Residual codes; unclassified (20 sources) History of repair of mitral valve; Translations: [Other specified postprocedural states] Onset: 10-06-2015 10-06-2015 Episodic Residual codes; unclassified (2 sources) Other specified postprocedural states; Translations: [S/P MVR (mitral valve repair)] Onset: 10-06-2015 Episodic Residual codes; unclassified (17 sources) Mild memory disturbance ; Translations: [Other amnesia] Onset: 01-17-2021 Resolved: 01-17-2021 01-17-2021 Episodic Unclassified (1 source) Other specified postprocedural states Onset: 11-27-2016 Episodic Unclassified (20 sources) SUMMARY Onset: 07-27-2015 Resolved: 01-18-2022 02-05-2021 Unclassified (1 source) Patient encounter status 10-08-2024 Viral infection (17 sources) Verruca vulgaris; Translations: [Viral wart, unspecified] Onset: 11-07-2010 Resolved: 01-14-2020 01-14-2020 Episodic Results Test Name Value Interpretation Reference Range Facility ECHOon 12-13-2024 Echocardiography Echocardiography Rep ort: Transthoracic Echo [facility] Office Date of service: 12/13/2024 12:53:36 PM CLASSIFIER Ordering physician: PINEDA FRENCH Exam indication: Hx: MVr Technologist: Joan Ferro Interpreting physician: Shane Sargent MD PATIENT: Name: MRS. FABY ZAMORA : 1950 Age: 74 years Gender: F History of dyslipidemia, coronary artery disease and valvular heart disease. Previous cardiovascular interventions: Mitral valve repair (07/24/2015) Primary rhythm: sinus. Height: 165.10 cm BSA: 1.85 m Weight: 74.70 kg BMI: 27.4 kg/m Heart rate 67 bpm Technically difficult exam due to body habitus. Color Doppler was utilized to interrogate the cardiac valves assessed and spectral Doppler was utilized to determine the flow velocities and pressure gradients reported in this exam. Myocardial strain analysis was performed in this exam to aid in the assessment of cardiac function. MEASUREMENTS: Value Indexed Normal Max aortic dimension 3.5 cm Ao < 3.8 Left atrial volume 44 ml (Clayton's) 24 ml/m Sayda <= 34 LV ID (diastole) 4.1 cm (2D) 2.19 cm/m LV ID (systole) 2.7 cm (2D) 1.44 cm/m IVS, leaflet tips 0.7 cm (2D) Posterior wall thickness 1.0 cm (2D) Left ventricular mass 103 g (2D) 55 g/m Global peak long strain -18.6 % LV stroke volume 41 ml (2D biplane) LV end diastolic volume 70 ml (2D biplane) 37.8 ml/m 29<=EDVi<62 LV end systolic volume 29 ml (2D biplane) 15.9 ml/m Ejection Fraction 58 % (2D biplane) EF > 54 FINDINGS: LEFT VENTRICLE The left ventricle is normal in size. Left ventricular systolic function is normal. Global LV myocardial strain is normal. Left ventricular diastolic function was not evaluated due to mitral valve surgery. Mitral annular lateral E/e': 13.4. Mitral annular septal E/e': 22.0. Wall Motion: All scored segments are normal. RIGHT VENTRICLE The right ventricle is normal in size. Right ventricular systolic function is normal. RV systolic tissue Doppler velocity is 12.3 cm/s. Tricuspid annular displacement is 2.8 cm. Estimated right ventricular systolic pressure is not reported due to an insufficient tricuspid regurgitation signal. Estimated right atrial pressure is 3 mmHg based on IVC assessment. LEFT ATRIUM The left atrial cavity is normal in size. RIGHT ATRIUM The right atrial cavity is normal in size (RA area = 14.2 cm ). Inferior Vena Cava: The inferior vena cava appears normal measuring 2.08 cm. The vessel decreases greater than 50 percent with inspiration. MITRAL VALVE Post mitral valve repair. Espino Mitral Valve Annuloplasty Ring size #33. There is trace (trace - 1+) mitral valve regurgitation. The peak valve gradient is 8 mmHg. The mean valve gradient is 3 mmHg. The pressure half time is 68 msec. The peak mitral E/A ratio is 0.74. The average mitral E/e' ratio is 17.7. The mitral flow deceleration time is 235 msec. TRICUSPID VALVE The tricuspid valve leaflets are structurally normal. There is trace tricuspid valve regurgitation. The hepatic venous pattern showed normal systolic flow. AORTIC VALVE The aortic valve cusps are structurally normal. There is no aortic valve regurgitation. Tricuspid aortic valve. The peak gradient is 7 mmHg (peak velocity = 128.0 cm/s). PULMONIC VALVE There is mild (1+) pulmonic valve regurgitation. There is no thickening. AORTA The visualized aorta is normal in size. Measurements - Sinus: 3.2 cm. Mid ascending aorta 3.5 cm. Mid arch 3.1 cm. INTERATRIAL SEPTUM There is no evidence of intracardiac shunting as detected by Doppler. INTERVENTRICULAR SEPTUM There is no flow through the interventricular septum as detected by Doppler. PERICARDIUM There is no pericardial effusion. CONCLUSIONS: - Technically difficult exam due to body habitus. - Exam indication: Hx: MVr - The left ventricle is normal in size. Left ventricular systolic function is normal. EF = 58 5% (2D biplane) Left ventricular diastolic function was not evaluated due to mitral valve surgery. - The right ventricle is normal in size. Right ventricular systolic function is normal. - Post mitral valve repair. Espnio Mitral Valve Annuloplasty Ring (size #33). There is trace (trace - 1+) mitral valve regurgitation. The peak gradient is 8 mmHg and the mean gradient is 3 mmHg. Transmitral gradients obtained at HR of 62 bpm. Prior pk/mn gradients of 8/2 mmHg at HR of 58 bpm. - Estimated right ventricular systolic pressure is not reported due to an insufficient tricuspid regurgitation signal. Estimated right atrial pressure is 3 mmHg based on IVC assessment. - Exam was compared with the prior CC echocardiographic exam performed on 12/17/2021. There is no significant change. * * * Final * * * [employer] Medical Image : [id number]. (more content not included)... Normal [facility] CNOVon 10-08-2024 CNOV Office Visit (FAMPWS ) FABY ZAMORA ([id number]) 1950 F Date Time Provider Department 10/08/24 10:20 AM VINAYAK REYES FAMPWS During your visit today, we recorded the following information about you: Pulse Blood pressure 70/minute 122/82 Vinayak Reyes MD 10/08/2024 12:32 PM Signed Faby Zamora is a 74 year old female here for a Medicare wellness visit. Medicare Health Risk Assessment General Health Good Exercise: Minutes/Day 20 min Exercise: Days/Week 2 days Alcohol: Daily Use Never Alcohol: Drinks/Day Patient does not drink Alcohol: 6 or more drinks Never Feel off balance No Concerns: Teeth/Dentures No Concerns: Sexual function No Troubled by feelings None of the above Frequency: Eating healthy diet Several days ADLs requiring help None of the above Safety precautions in home/vehicle Throw rugs Smoke, vape, chews tobacco No Difficulty hearing No Difficulty seeing No Current Providers Specialists: I have reviewed specialist-related care of the patient in the medical record. Current care team: Patient Care Team: Vinayak Reyes MD as PCP - General (Family Medicine) Nola Veras APRN.LEAD RAMP AGENT as Extrusion Die Repairer (Family Medicine) Yoana Steen APRN.CNP as Extrusion Die Repairer (Family Medicine) [facility] cardiology [facility], Derm. Dr. Alvarez, optometry. Medical/Family history review Reviewed and updated problem list, medical/surgical/family/social history, medications, and allergies. Opioid use review Opioid Medications (last 90 days) No data to display Anxiety/Depression screening PHQ-9 Score: 1 (Minimal Depression) TAYLER-7 Score: 1 (Minimal Anxiety) Recommendation: no further intervention at this time Cognitive screening Mini Cog Score: 5 Cognitive screening reviewed and No further action needed (score 3-5). Functional Observation Was the patient's Timed Up AND Go test unsteady or >= 12 seconds? No Advance Care Planning Patient did not wish or was not able to name a surrogate decision maker or provide an advance care plan ADDITIONAL INFO: Annual Wellness Exam: - Faby Zamora's general health is reported as pretty good. - Faby engages in walking and stays active several days a week. - Faby eats a healthy diet, including salads with vegetables. - Faby denies alcohol consumption, tobacco use, or vaping. - No issues with Faby's balance, hearing, vision, or sexual functioning. - No concerns about Faby's feelings or mental health. - Faby performs all ADLs independently. - Faby uses seatbelts and has adequate lighting and handrails at home. - Faby denies headaches, tremors, or falls. - Faby denies chest pain, dyspnea, abdominal pain, or urinary issues. - Faby denies hematochezia or melena. - Faby denies eyes, ears, or throat issues. - Faby has allergies to Macrobid and penicillin. - No changes in Faby's family history. - Faby has no living will. Coronary Artery Disease: - Mild LAD and moderate RCA disease, managed medically. - No chest pain or dyspnea. - Follow-up with cardiology scheduled in February with Nichole Cruz NP. Mitral Valve Repair: - History of mitral valve repair. Hyperlipidemia: - Managed with Lipitor. Osteopenia: - Previously on Fosamax; currently taking calcium and vitamin D supplements. - Faby engages in regular walking. Post-Nasal Drip: - Faby uses Flonase PRN. - Faby reports persistent morning cough, unsure if related to allergies. ROS: GENERAL: No weight loss, generalized discomfort, or fever. HEENT: Negative for frequent or significant headaches, no changes in vision or hearing, no nosebleeds or other nasal problems. NECK: Negative for lumps, goiter, pain, and significant neck swelling. RESPIRATORY: Positive for morning cough; negative for dyspnea or shortness of breath. CARDIOVASCULAR: Negative for chest pain, leg swelling, CHF, or palpitations. GI: No nausea, vomiting, diarrhea, heartburn, abdominal pain, blood in stool, or black stool. GENITOURINARY: No history of dysuria, frequency, or incontinence. MUSCULOSKELETAL: Negative for joint pain or swelling, or muscle pain. No back pain. SKIN: Negative for lesions, rash, and itching. PSYCH: Negative for anxiety or depression. HEMATOLOGY/LYMPHOLOGY: No bleeding concerns. NEURO: No history of headaches, syncope, paralysis, seizures, tremors, or balance problems. PE: GENERAL: NAD, alert and oriented. SKIN: Unremarkable, no rash or skin lesions. HEAD: Normocephalic. NECK: Supple, no lymphadenopathy, normal thyroid, no carotid bruits. LUNGS: Clear to auscultation bilaterally, no wheezes/rhonchi/rales. HEART: Regular rate and rhythm, no murmurs. No ectopy. EXTREMITIES: Normal, no deformities, no skin discoloration, no edema. NEURO: Awake, alert and oriented x3, cranial nerves II (more content not included)... [facility] FABY ZAMORA ([id number]) 1950 F Date Time Provider Department 10/08/24 VINAYAK REYES [facility] During your visit today, we recorded the following information about you: Allergies As of Date: 10/08/2024 Noted Allergy Reaction MACROBID (NITROFURANTOIN MONOHYD/*08/31/2013 2 - Rash PENICILLINS 04/29/2005 2 - Rash Date Reviewed: 10/08/2024 Reviewed by: Vinayak Reyes MD - Fully Assessed Reason for Visit: Orders [681] Primary Visit Diagnosis:Mixed hyperlipidemia [E78.2] Order(s):COMPLETE BLOOD COUNT AND DIFFERENTIAL [SQCBCDIF] Order #: [id number] FUTURE COMPREHENSIVE METABOLIC PANEL [SQCMP] Order #: [id number] FUTURE LIPID PANEL, FASTING [SQLIPB] Order #: [id number] FUTURE Prescriptions as of 10/08/2024 - calcium carbonate/vitamin D2 (CALCIUM + VITAMIN D ORAL) Take by mouth. - atorvastatin (LIPITOR) 10 mg tablet Take 1 tablet by mouth once daily. - fluticasone (FLONASE) 50 mcg/actuation nasal spray USE 2 SPRAYS IN EACH NOSTRIL ONCE DAILY. RINSE MOUTH AFTER USE. - sodium chloride (SALINE MIST) 0.65 % nasal spray Use 1 [place] in the nose as needed for cold/allergy symptoms. - aspirin 81 mg chewable tablet Take 1 tablet by mouth once daily. - MV-MN/FA/D3/LYCOPENE/LUT/COQ10 (DAILY MULTIVITAMIN ORAL) Take 1 tablet by mouth once daily. Problem List As Of Date 10/08/2024 Noted Resolved Actinic Keratoses (Premalignant AK's [L57.0] 11/07/2010 Irritated//Inflamed Seborrheic Keratoses [L82.0]11/07/2010 11/02/2015 Viral warts, unspecified [B07.9] 11/07/2010 01/14/2020 Solar Lentigines [L81.4] 11/07/2010 11/02/2015 Other Seborrheic Keratoses [L82.1] 11/07/2010 11/02/2015 Actinic skin damage [L57.8] 11/07/2010 11/02/2015 Cutaneous skin tags [L91.8] 11/07/2010 11/02/2015 Melanocytic nevus of scalp: L scalp yarsani hair*11/07/2010 11/02/2015 Beck Angiomas [D18.01] 11/07/2010 11/02/2015 Scars: Cryosurgical [place] [L90.5] 12/16/2010 Osteopenia [M85.80] 10/08/2024 Mitral regurgitation, 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] 01/13/2019 Discharge planning issues [Z75.8] 07/20/2015 11/02/2015 Atelectasis [J98.11] 07/24/2015 07/27/2015 Postoperative pain [G89.18] 07/24/2015 07/27/2015 Non-rheumatic mitral regurgitation [I34.0] 07/25/2015 01/13/2019 Stress hyperglycemia [R73.9] 07/25/2015 07/26/2015 SUMMARY 07/27/2015 01/18/2022 Coronary artery disease involving [place] olson*07/27/2015 S/P MVR (mitral valve repair) [Z98.890] 10/06/2015 Mixed hyperlipidemia [E78.2] 11/02/2015 Calculus of gallbladder without cholecystitis w*02/25/2017 10/08/2024 Lung nodules [R91.8] 02/25/2017 Mild memory disturbances not amounting to demen*01/17/2021 01/17/2021 Prediabetes [R73.03] 03/24/2023 History of colonic polyps [Z86.0100] 04/30/2023 History of osteopenia [Z87.39] 10/08/2024 Encounter Status:Closed by VINAYAK REYES on 10/08/24 Normal [facility] CNCOon 07-23-2024 CNCO Letter Text Letter Text Normal [facility] CNCOon 07-22-2024 CNCO Letter Text Letter Text Normal [facility] BD DXA - AXIAL SKELETONon BD DXA - AXIAL SKELETON * * *Final Report* * * DATE OF EXAM: May 20 2024 8:52AM WRB 0804 - BD DXA - AXIAL SKELETON / PROCEDURE REASON: multiple diagnoses * * * * Physician Interpretation * * * * EXAMINATION: DXA BONE DENSITOMETRY BD DXA - AXIAL SKELETON, BD DXA TRABECLR BONE SCORE (TBS) PATIENT DEMOGRAPHICS: Age: 73 years, Gender: Female SCANNER INFORMATION: DXA Model: [employer] C 32660 Date Scanned: 05/20/2024 8:52 AM CLINICAL HISTORY: SCREENING Osteopenia of neck of right femur Disorder of bone and cartilage. RISK FACTORS FOR OSTEOPOROSIS AND ASSOCIATED FRACTURES REPORTED BY THIS PATIENT: Please refer to Bone Health Questionnaire in the EMR CURRENT THERAPY: Please refer to Bone Health Questionnaire in the EMR TECHNICAL LIMITATIONS: RESULTS: Lumbar spine (L1, L2, L3, L4): 1.088 g/cm2, T-score 0.4 , Z-score 2.7 Lumbar spine: 2022 : 1.075 g/cm2 No statistically significant change Right Femoral Neck: 0.718 g/cm2, T-score -1.2 , Z-score 0.8 Right Femoral Neck: 2022 : 0.738 g/cm2 No statistically significant change Right Total Hip: 0.953 g/cm2, T-score 0.1 , Z-score 1.8 Right Total Hip: 2022 : 0.953 g/cm2 No statistically significant change Left Femoral Neck: 0.786 g/cm2, T-score -0.6 , Z-score 1.4 Left Femoral Neck: 2022 : 0.769 g/cm2 No statistically significant change Left Total Hip: 0.984 g/cm2, T-score 0.3 , Z-score 2.1 Left Total Hip: 2022 : 1.039 g/cm2 Statistically significant decrease CHANGE IS STATISTICALLY SIGNIFICANT IN THE SPINE OR HIP IF GREATER THAN OR EQUAL TO 0.04 g/cm2 VERTEBRAL FRACTURE ASSESSMENT Not performed. TRABECULAR BONE ASSESSMENT TBS score: 1.209 Bone micro-architecture: Partially degraded (1.231 - 1.310) IMPRESSION: THE LOWEST T-SCORE IS -1.2 IN THE RIGHT HIP 1) DIAGNOSIS (based on BMD alone): OSTEOPENIA Caution: Medical conditions other than osteoporosis may cause low bone density, such as osteomalacia or renal osteodystrophy. Clinical correlation is necessary. 2) FRACTURE RISK (Based on TBS adjusted FRAX): 10-year absolute fracture risk: - major osteoporotic fracture = 16 % - hip fracture = 2.6 % - A diagnosis of Osteoporosis, a 10 year probability of hip fracture greater than or equal to 3% or a 10 year probability of any major osteoporosis-related fracture greater than or equal to 20% should be considered for treatment. - DXA scanner generated FRAX calculations may slightly differ from online FRAX calculations due to differences in software versions. - All recommendations and calculations are to be considered as guidelines and should not replace sound clinical judgement - Caution: Fracture risk may be increased independent of BMD in patients with corticosteroid use, age greater than 65 years, or a history of prior fragility fracture. RECOMMENDATIONS: Follow-up in 2 years or as clinically indicated. Patients that are taking corticosteroids, are transplant recipients or have hyperparathyroidism should have annual follow-up. Follow-up scans should always be done on the same machine for accurate comparison. FOR MORE INFORMATION ABOUT DIAGNOSIS AND TREATMENT: [facility]osis and Metabolic Bone Disease:? www.ccf.org/arthritis/osteo National Osteoporosis Foundation:? www.nof.org International Society of Clinical Densitometry www.iscd.org Crew Car Driver: NANCY Transcribe Date/Time: May 23 2024 10:20A Dictated by : CHAR IYER MD This examination was interpreted and the report reviewed and electronically signed by: CHAR IYER MD on May 23 2024 10:22AM EST [id number] -1.2 Normal [facility] BD DXA TRABECLR BONE SCORE ( TBS)on 05-20-2024 BD DXA TRABECLR BONE SCORE (TBS) * * *Final Report* * * DATE OF EXAM: May 20 2024 8:52AM WRB 0801 - BD DXA TRABECLR BONE SCORE (TBS) / PROCEDURE REASON: multiple diagnoses * * * * Physician Interpretation * * * * EXAMINATION: DXA BONE DENSITOMETRY BD DXA - AXIAL SKELETON, BD DXA TRABECLR BONE SCORE (TBS) PATIENT DEMOGRAPHICS: Age: 73 years, Gender: Female SCANNER INFORMATION: DXA Model: [employer] C 13740 Date Scanned: 05/20/2024 8:52 AM CLINICAL HISTORY: SCREENING Osteopenia of neck of right femur Disorder of bone and cartilage. RISK FACTORS FOR OSTEOPOROSIS AND ASSOCIATED FRACTURES REPORTED BY THIS PATIENT: Please refer to Bone Health Questionnaire in the EMR CURRENT THERAPY: Please refer to Bone Health Questionnaire in the EMR TECHNICAL LIMITATIONS: RESULTS: Lumbar spine (L1, L2, L3, L4): 1.088 g/cm2, T-score 0.4 , Z-score 2.7 Lumbar spine: 2022 : 1.075 g/cm2 No statistically significant change Right Femoral Neck: 0.718 g/cm2, T-score -1.2 , Z-score 0.8 Right Femoral Neck: 2022 : 0.738 g/cm2 No statistically significant change Right Total Hip: 0.953 g/cm2, T-score 0.1 , Z-score 1.8 Right Total Hip: 2022 : 0.953 g/cm2 No statistically significant change Left Femoral Neck: 0.786 g/cm2, T-score -0.6 , Z-score 1.4 Left Femoral Neck: 2022 : 0.769 g/cm2 No statistically significant change Left Total Hip: 0.984 g/cm2, T-score 0.3 , Z-score 2.1 Left Total Hip: 2022 : 1.039 g/cm2 Statistically significant decrease CHANGE IS STATISTICALLY SIGNIFICANT IN THE SPINE OR HIP IF GREATER THAN OR EQUAL TO 0.04 g/cm2 VERTEBRAL FRACTURE ASSESSMENT Not performed. TRABECULAR BONE ASSESSMENT TBS score: 1.209 Bone micro-architecture: Partially degraded (1.231 - 1.310) IMPRESSION: THE LOWEST T-SCORE IS -1.2 IN THE RIGHT HIP 1) DIAGNOSIS (based on BMD alone): OSTEOPENIA Caution: Medical conditions other than osteoporosis may cause low bone density, such as osteomalacia or renal osteodystrophy. Clinical correlation is necessary. 2) FRACTURE RISK (Based on TBS adjusted FRAX): 10-year absolute fracture risk: - major osteoporotic fracture = 16 % - hip fracture = 2.6 % - A diagnosis of Osteoporosis, a 10 year probability of hip fracture greater than or equal to 3% or a 10 year probability of any major osteoporosis-related fracture greater than or equal to 20% should be considered for treatment. - DXA scanner generated FRAX calculations may slightly differ from online FRAX calculations due to differences in software versions. - All recommendations and calculations are to be considered as guidelines and should not replace sound clinical judgement - Caution: Fracture risk may be increased independent of BMD in patients with corticosteroid use, age greater than 65 years, or a history of prior fragility fracture. RECOMMENDATIONS: Follow-up in 2 years or as clinically indicated. Patients that are taking corticosteroids, are transplant recipients or have hyperparathyroidism should have annual follow-up. Follow-up scans should always be done on the same machine for accurate comparison. FOR MORE INFORMATION ABOUT DIAGNOSIS AND TREATMENT: [facility] Osteoporosis and Metabolic Bone Disease:? www.ccf.org/arthritis/osteo National Osteoporosis Foundation:? www.nof.org International Society of Clinical Densitometry www.iscd.org Crew Car Driver: NANCY Transcribe Date/Time: May 23 2024 10:20A Dictated by : CHAR IYER MD This examination was interpreted and the report reviewed and electronically signed by: CHAR IYER MD on May 23 2024 10:22AM EST [id number] -1.2 Normal [facility] CBC W Auto Differential pane l (Bld)on 04-07-2024 Basophils (Bld) [#/Vol] 0.04 10*3/uL [facility] Basophils/100 WBC (Bld) 0.5 % [facility] Differential cell count method Nom (Bld) Auto [facility] Eosinophils (Bld) [#/Vol] 0.17 10*3/uL [facility] Eosinophils/100 WBC (Bld) 2.1 % [facility] Erythrocyte distribution width (RBC) [Ratio] 12.2 % 11.5 - 15.0 % [facility] Hematocrit (Bld) [Volume fraction] 45.5 % 36.0 - 46.0 % [facility] Hemoglobin (Bld) [Mass/Vol] 15 g/dL 11.5 - 15.5 g/dL [facility] Immature granulocytes (Bld) [#/Vol] 0.03 10*3/[facility] Immature granulocytes/100 WBC (Bld) 0.4 % [facility] Lymphocytes (Bld) [#/Vol] 2.32 10*3/uL [facility] Lymphocytes/100 WBC (Bld) 28.4 % [facility] MCH (RBC) [Entitic mass] 30.2 pg 26.0 - 34.0 pg [facility] MCHC (RBC) [Mass/Vol] 33 g/dL 30.5 - 36.0 g/dL [facility] MCV (RBC) [Entitic vol] 91.7 fL 80.0 - 100.0 fL [facility] Monocytes (Bld) [#/Vol] 0.48 10*3/uL [facility] Monocytes/100 WBC (Bld) 5.9 % [facility] Neutrophils (Bld) [#/Vol] 5.12 10*3/uL [facility] Neutrophils/100 WBC (Bld) 62.7 % [facility] Nucleated RBC (Bld) [#/Vol] [facility] Nucleated RBC/100 WBC (Bld) [Ratio] 0 % /100 WBC [facility] Platelet mean volume (Bld) [Entitic vol] 11.2 fL 9.0 - 12.7 fL [facility] Platelets (Bld) [#/Vol] 201 10*3/uL [facility] RBC (Bld) [#/Vol] 4.96 10*6/uL 3.90 - 5.20 m/uL [facility] WBC (Bld) [#/Vol] 8.16 10*3/uL [facility] Basophils (Bld) [#/Vol] 0.04 10*3/uL Normal <0.11 [facility] Comment on above: Order Comment: Speci men Type: BLOOD SPECIMENOrdering Facility: [facility] Address: [address] [place], [place] [id number] Performed By: #### 5 7021-8 ####[facility] CENTERJAYSONGIOVANNA [id number] [address] [place] Basophils/100 WBC (Bld) 0.5 % Normal [facility] Comment on above: Order Comment: Speci men Type: BLOOD SPECIMENOrdering Facility: [facility] Address: [address] [place] [address] Performed By: #### 5 7021-8 ####[facility] BOYDWDILLANLIA [id number] [place] [address] [place] Differential cell count method Nom (Bld) Auto Normal [facility] Comment on above: Order Comment: Speci men Type: BLOOD SPECIMENOrdering Facility: [facility] Address: [address] [place] [address] Performed By: #### 5 7021-8 ####[facility] LACYKAUSHALLIA [id number] [place] [address] [place] Eosinophils (Bld) [#/Vol] 0.17 10*3/uL Normal <0.46 [facility] Comment on above: Order Comment: Speci men Type: BLOOD SPECIMENOrdering Facility: [facility] Address: [address] [place] [address] Performed By: #### 5 7021-8 ####[facility]ENTERWDILLANLIA [id number] [place] [address] [place] Eosinophils/100 WBC (Bld) 2.1 % Normal [facility] Comment on above: Order Comment: Speci men Type: BLOOD SPECIMENOrdering Facility: [facility] Address: [address] [place] [address] Performed By: #### 5 7021-8 ####[facility] LACYWNCLIA [id number] [place] [address] [place] Erythrocyte distribution width (RBC) [Ratio] 12.2 % Normal 11.5-15.0 [facility] Comment on above: Order Comment: Speci men Type: BLOOD SPECIMENOrdering Facility: [facility] Address: [address] [place] [address] Performed By: #### 5 7021-8 ####[facility] ORLANDODILLANLIA [id number] [place] [address] [place] Hematocrit (Bld) [Volume fraction] 45.5 % Normal 36.0-46.0 [facility] Comment on above: Order Comment: Speci men Type: BLOOD SPECIMENOrdering Facility: [facility] Address: [address] [place] [address] Performed By: #### 5 7021-8 ####[facility] [id number] [place] [address] [place] Hemoglobin (Bld) [Mass/Vol] 15.0 g/dL Normal 11.5-15.5 [facility] Comment on above: Order Comment: Speci men Type: BLOOD SPECIMENOrdering Facility: [facility] Address: [address] [place] [address] Performed By: #### 5 7021-8 ####[facility] [id number] [place] [address] [place] Immature granulocytes (Bld) [#/Vol] 0.03 10*3/uL Normal <0.10 [facility] Comment on above: Order Comment: Speci men Type: BLOOD SPECIMENOrdering Facility: [facility] Address: [address] [place] [address] Performed By: #### 5 7021-8 ####[facility] [id number] [place] [address] [place] Immature granulocytes/100 WBC (Bld) 0.4 % Normal [facility] Comment on above: Order Comment: Speci men Type: BLOOD SPECIMENOrdering Facility: [facility] Address: [address] [place] [address] Performed By: #### 5 7021-8 ####[facility] [id number] [place] [address] [place] Lymphocytes (Bld) [#/Vol] 2.32 10*3/uL Normal 1.00-4.00 [facility] Comment on above: Order Comment: Speci men Type: BLOOD SPECIMENOrdering Facility: [facility] Address: [address] [place] [address] Performed By: #### 5 7021-8 ####[facility] [id number] [place] [address] [place] Lymphocytes/100 WBC (Bld) 28.4 % Normal [facility] Comment on above: Order Comment: Speci men Type: BLOOD SPECIMENOrdering Facility: [facility] Address: [address] [place] [address] Performed By: #### 5 7021-8 ####[facility] ORLANDONCLI [id number] [place] [address] [place] MCH (RBC) [Entitic mass] 30.2 pg Normal 26.0-34.0 [facility] Comment on above: Order Comment: Speci men Type: BLOOD SPECIMENOrdering Facility: [facility] Address: [address] [place] [address] Performed By: #### 5 7021-8 ####[facility] [id number] [place] [address] [place] MCHC (RBC) [Mass/Vol] 33.0 g/dL Normal 30.5-36.0 [facility] Comment on above: Order Comment: Speci men Type: BLOOD SPECIMENOrdering Facility: [facility] Address: [address] [place] [address] Performed By: #### 5 7021-8 ####[facility] [id number] [place] [address] [place] MCV (RBC) [Entitic vol] 91.7 fL Normal 80.0-100.0 [facility] Comment on above: Order Comment: Speci men Type: BLOOD SPECIMENOrdering Facility: [facility] Address: [address] [place] [address] Performed By: #### 5 7021-8 ####[facility] MILLJAYSONWNCLIA [id number] [place] [address] [place] Monocytes (Bld) [#/Vol] 0.48 10*3/uL Normal <0.87 [facility] Comment on above: Order Comment: Speci men Type: BLOOD SPECIMENOrdering Facility: [facility] Address: [address] [place] [address] Performed By: #### 5 7021-8 ####[facility] MILLWNCLIA [id number] [place] [address] [place] Monocytes/100 WBC (Bld) 5.9 % Normal [facility] Comment on above: Order Comment: Speci men Type: BLOOD SPECIMENOrdering Facility: [facility] Address: [address] [place] [address] Performed By: #### 5 7021-8 ####[facility] LACYWNCLIA [id number] [place] [address] [place] Neutrophils (Bld) [#/Vol] 5.12 10*3/uL Normal 1.45-7.50 [facility] Comment on above: Order Comment: Speci men Type: BLOOD SPECIMENOrdering Facility: [facility] Address: [address] [place] [address] Performed By: #### 5 7021-8 ####[facility] MILLTOWNCLIA [id number] [place] [address] [place] Neutrophils/100 WBC (Bld) 62.7 % Normal [facility] Comment on above: Order Comment: Speci men Type: BLOOD SPECIMENOrdering Facility: [facility] Address: [address] [place] [address] Performed By: #### 5 7021-8 ####[facility] MILLTOWNCLIA [id number] [place] [address] [place] Nucleated RBC (Bld) [#/Vol] 10*3/uL Normal <0.01 [facility] Comment on above: Order Comment: Speci men Type: BLOOD SPECIMENOrdering Facility: [facility] Address: [address] [place] [address] Performed By: #### 5 7021-8 ####[facility] [id number] [place] [address] [place] Nucleated RBC/100 WBC (Bld) [Ratio] 0.0 /100 WBC Normal [facility] Comment on above: Order Comment: Speci men Type: BLOOD SPECIMENOrdering Facility: [facility] Address: [address] [place] [address] Performed By: #### 5 7021-8 ####[facility] [id number] [place] [address] [place] Platelet mean volume (Bld) [Entitic vol] 11.2 fL Normal 9.0-12.7 [facility] Comment on above: Order Comment: Speci men Type: BLOOD SPECIMENOrdering Facility: [facility] Address: [address] [place] [address] Performed By: #### 5 7021-8 ####[facility]PITALJENNIFERA [id number] [place] [address] [place] Platelets (Bld) [#/Vol] 201 10*3/uL Normal 150-400 [facility] Comment on above: Order Comment: Speci men Type: BLOOD SPECIMENOrdering Facility: [facility] Address: [address] [place] [address] Performed By: #### 5 7021-8 ####[facility] [id number] [place] [address] [place] RBC (Bld) [#/Vol] 4.96 10*6/uL Normal 3.90-5.20 [facility] Comment on above: Order Comment: Speci men Type: BLOOD SPECIMENOrdering Facility: [facility] Address: [address] [place] [address] Performed By: #### 5 7021-8 ####[facility] [id number] [place] [address] [facility] [place] WBC (Bld) [#/Vol] 8.16 10*3/uL Normal 3.70-11.00 [facility] Comment on above: Order Comment: Speci men Type: BLOOD SPECIMENOrdering Facility: [facility] Address: [address] [place] [address] Performed By: #### 5 7021-8 ####[facility]LAND[facility]CL[facility] [id number] [address] OF [facility] CNOVon 04-07-2024 [facility] FABY ZAMORA ([id number]) 1950 F Date Time Provider Department 04/07/24 9:00 AM VINAYAK REYESWS During your visit today, we recorded the following information about you: Pulse Blood pressure Weight Height 73/minute 134/72 73.5 kg 1.651 m Vinayak Reyes MD 04/07/2024 9:18 AM Signed Patient presents with: Follow Up HPI: Patient presents today for office visit for routine 6 month follow up. No concerns today. HLD: No myalgias Sees cardiololgy. Remains on asa. No chest pain or shortness of breath. No edema. No dizziness or lightheadedness. MEDICATIONS: Current Outpatient Medications Medication Sig atorvastatin (LIPITOR) 10 mg tablet Take 1 tablet by mouth once daily. fluticasone (FLONASE) 50 mcg/actuation nasal spray USE 2 SPRAYS IN EACH NOSTRIL ONCE DAILY. RINSE MOUTH AFTER USE. sodium chloride (SALINE MIST) 0.65 % nasal spray Use 1 [place] in the nose as needed for cold/allergy symptoms. aspirin 81 mg chewable tablet Take 1 tablet by mouth once daily. MV-MN/FA/D3/LYCOPENE/LUT/COQ10 (DAILY MULTIVITAMIN ORAL) Take 1 tablet by mouth once daily. No current facility-administered medications for this visit. ALLERGIES: ALLERGIES Allergen Reactions Macrobid [Nitrofura* Rash Penicillins Rash PAST MEDICAL HISTORY Diagnosis Date Acute diverticulitis 02/25/2023 Callus of foot Right foot Mitral regurgitation, myxomatous Severe MR (echo 09/30/11) Osteopenia Routine gynecological examination Dr Sanchez PAST SURGICAL HISTORY Procedure Laterality Date APPENDECTOMY HX CATARACT EXTRACTION HX Right 10/29/2019 COLONOSCOPY AND POLYPECTOMY 03/19/2005 Dr Quinn COLONOSCOPY FLX DX W/COLLJ SPEC WHEN PFRMD 07/17/2015 Colonoscopy COLONOSCOPY FLX DX W/COLLJ SPEC WHEN PFRMD 12/07/2018 Colonoscopy PAST SURGICAL HISTORY OF ovarian cyst PAST SURGICAL HISTORY OF 07/24/2015 Mitral Valve Repair FAMILY HISTORY Problem Relation Age of Onset Diabetes Father Ischemic Heart Disease Father Thyroid Mother Alzheimer's Disease Mother Cancer Maternal Grandfather unknown Thyroid Sister x3 Social History Tobacco Use Smoking status: Never Smokeless tobacco: Never Vaping Use Vaping status: Never Used Substance Use Topics Alcohol use: No Drug use: No Reviewed current medications, allergies, past medical history, surgical history, family history and social history today. REVIEW OF SYSTEMS No gi ro gu issues. All other reviewed and negative other than HPI. HEALTH MAINTENANCE: Reviewed health maintenance issues today and recommended the following in detail. Depression Screening Never done Anxiety Screening Never done Shingrix Vaccine(1 of 2) Never done DTaP,Tdap,Td Vaccine(2 - Td or Tdap) due on 09/24/2021 LDL Cholesterol due on 01/23/2024 Advance Directive Discussion due on 02/11/2024 VITALS: BP 134/72 Pulse 73 Ht 165.1 cm (5' 5) Wt 73.5 kg (162 lb) SpO2 99% BMI 26.96 kg/m? Last 4 Encounter Wt Readings: Date: Wt: 04/07/2024 73.5 kg (162 lb) 03/01/2024 74.7 kg (164 lb 10.9 oz) 05/12/2023 74.4 kg (164 lb) 04/30/2023 73.3 kg (161 lb 9.6 oz) PHYSICAL EXAMINATION: General appearance: Well appearing, alert, in no acute distress, well-hydrated, well nourished. Skin: Skin color, texture, turgor normal, no suspicious rashes or lesions Head: Normocephalic, no masses, lesions, tenderness or abnormalities Lungs: Lungs clear to auscultation. No wheezing, rhonchi, rales Heart: RRR without murmur, gallop, or rubs. No ectopy Abdomen: Normal abdominal exam, Abdomen soft, non-tender. Bowel sounds normal. No masses, organomegaly Extremities: No deformities, edema, skin discoloration, clubbing or cyanosis. Good capillary refill. Musculoskeletal: No joint swelling, deformity, or tenderness Peripheral pulses: Normal ASSESSMENT/PLAN: 1. S/P MVR (mitral valve repair) - ICD9: V45.89, ICD10: Z98.890 (primary diagnosis) - per cardiology. Stable. 2. Screening for depression - ICD9: V79.0, ICD10: Z13.31 - DEPRESSION SCREENING 3. Encounter for screening examination for other mental health and behavioral disorders - ICD9: V79.8, ICD10: Z13.39 - ANXIETY SCREENING 4. Coronary artery disease involving [place] coronary artery of [place] heart without angina pectoris - ICD9: 414.01, ICD10: I25.10 - doing well. Continue asa and statin. - LIPID PANEL BASIC 5. Mixed hyperlipidemia - ICD9: 272.2, ICD10: E78.2 - Control undetermined, due for labs - Continue current medications - Counseled on healthy diet and regular exercise - COMPLETE BLOOD COUNT AND DIFFERENTIAL - COMPREHENSIVE METABOLIC PANEL 6. Prediabetes - ICD9: 790.29, ICD10: R73.0 - HEMOGLOBIN A1C 7. Osteopenia of neck of right femur - ICD9: 733.90, ICD10: M85.851 - DXA-AXIAL SKELETON - BD DXA TRABECULAR BONE SCORE (TBS)-will make sure is stable since (more content not included)... Normal [facility] metabolic 2000 panelOrdered By: Rhonda Mars on 04-07-2024 Albumin [Mass/Vol] 4 g/dL 3.9 - 4.9 g/dL [facility] ALP [Catalytic activity/Vol] 81 U/L 34 - 123 U/L [facility] ALT [Catalytic activity/Vol] 18 U/L 7 - 38 U/L [facility] Anion gap [Moles/Vol] 11 mmol/L 8 - 15 mmol/L [facility] AST [Catalytic activity/Vol] 16 U/L 13 - 35 U/L [facility] Bilirubin [Mass/Vol] 0.5 mg/dL 0.2 - 1.3 mg/dL [facility] Calcium [Mass/Vol] 9.5 mg/dL 8.5 - 10. 2 mg/dL [facility] Chloride [Moles/Vol] 100 mmol/L 98 - 107 mmol/L [facility] CO2 [Moles/Vol] 28 mmol/L 22 - 30 mmol/L [facility] Creatinine [Mass/Vol] 0.63 mg/dL 0.58 - 0.96 mg/dL [facility] GFR/1.73 sq M.predicted among non-blacks MDRD (S/P/Bld) [Vol rate/Area] 94 mL/min/{1.73_m2} - PINF [facility] Comment on above: Estimated Glomerular Filtration Rate (eGFR) is calculated using the 2020 CKD-EPI creatinine equation. This equation utilizes serum creatinine, sex, and age as parameters. The creatinine assay has traceable calibration to isotope dilution-mass spectrometry. Refer to KDIGO guidelines for clinical interpretation. In patients with unstable renal function, e.g. those with acute kidney injury, the eGFR may not accurately reflect actual GFR. Glucose [Mass/Vol] 115 mg/dL High 74 - 99 mg/dL [facility] Comment on above: The [place] Diabete s Association (ADA) provides guidance for cutoff values for fasting glucose and random glucose. The ADA defines fasting as no caloric intake for at least 8 hours. Fasting plasma glucose results between 100 to 125 mg/dL indicate increased risk for diabetes (prediabetes). Fasting plasma glucose results greater than or equal to 126 mg/dL meet the criteria for diagnosis of diabetes. In the absence of unequivocal hyperglycemia, results should be confirmed by repeat testing. In a patient with classic symptoms of hyperglycemia or hyperglycemic crisis, random plasma glucose results greater than or equal to 200 mg/dL meet the criteria for diagnosis of diabetes. Reference: Standards of Medical Care in Diabetes 2016, [place] Diabetes Association. Diabetes Care. 2016.39(Suppl 1). Interpretation and review of laboratory results Abnormal [facility] Potassium [Moles/Vol] 4.5 mmol/L 3.7 - 5.1 mmol/L [facility] Protein [Mass/Vol] 6.7 g/dL 6.3 - 8.0 g/dL [facility] Sodium [Moles/Vol] 139 mmol/L 136 - 144 mmol/L [facility] Urea nitrogen [Mass/Vol] 18 mg/dL 7 - 21 mg/dL [facility] Comprehensive metabolic 2000 panelon 04-07-2024 Albumin [Mass/Vol] 4.0 g/dL Normal 3.9-4.9 [facility] Comment on above: Order Comment: Speci men Type: BLOOD SPECIMENOrdering Facility: [facility] Address: [address] [place] [address] Performed By: #### 2 4323-8 ####[facility] MILLTOWNCLIA [id number] [address]#### 28205-0 ####[facility]ORATORYCLIA [id number] [address] [id number] [place] [address] [place] ALP [Catalytic activity/Vol] 81 U/L Normal 34-123 [facility] Comment on above: Order Comment: Speci men Type: BLOOD SPECIMENOrdering Facility: [facility] Address: [address] [place] [address] Performed By: #### 2 4323-8 ####[facility] MILLTOWNCLIA [id number] [place] [address] [place]#### 58889-4 ####[facility]ORATORYCLIA [id number] [address] [id number] [place] [address] [place] ALT [Catalytic activity/Vol] 18 U/L Normal 7-38 [facility] Comment on above: Order Comment: Speci men Type: BLOOD SPECIMENOrdering Facility: [facility] Address: [address] [place] [address] Performed By: #### 2 4323-8 ####[facility] CENTERWNCLIA [id number] [place] [address] [place]#### 18918-1 ####[facility] LABORATORYCLIA [id number] [address] STATES OF [facility] [id number] [place] [address] [place] Anion gap [Moles/Vol] 11 mmol/L Normal 8-15 [facility] Comment on above: Order Comment: Speci men Type: BLOOD SPECIMENOrdering Facility: [facility] Address: [address] [place] [address] Performed By: #### 2 4323-8 ####[facility] [id number] [place] [address] [place]#### 62768-2 ####[facility] LABORATORYCLIA [id number] [address] STATES OF [facility]HABIL[facility]ATIONLIA [id number] [place] [address] [place] AST [Catalytic activity/Vol] 16 U/L Normal 13-35 [facility] Comment on above: Order Comment: Speci men Type: BLOOD SPECIMENOrdering Facility: [facility] Address: [address] [place], [place] [address] Performed By: #### 2 4323-8 ####[facility] CENTERWNCLIA [id number] [address] [place]#### 02104-4 ####[facility]ORATORYCLIA [id number] [address] [id number] [place] [address] [place] Bilirubin [Mass/Vol] 0.5 mg/dL Normal 0.2-1.3 [facility] Comment on above: Order Comment: Speci men Type: BLOOD SPECIMENOrdering Facility: [facility] Address: [address] [place] [address] Performed By: #### 2 4323-8 ####[facility]ITALLIA [id number] [place] [address] [place]#### 69266-7 ####[facility] LABORATORYCLIA [id number] [address] [id number] [place] [address] [place] Calcium [Mass/Vol] 9.5 mg/dL Normal 8.5-10.2 [facility] Comment on above: Order Comment: Speci men Type: BLOOD SPECIMENOrdering Facility: [facility] Address: [address] [place] [address] Performed By: #### 2 4323-8 ####[facility]ITALLIA [id number] [place] [address] [place]#### 51022-0 ####[facility]ORATORYCLIA [id number] [address] OF [facility] [place] [id number] [place] [address] [place] Chloride [Moles/Vol] 100 mmol/L Normal 98-107 [facility] Comment on above: Order Comment: Speci men Type: BLOOD SPECIMENOrdering Facility: [facility] Address: [address] [place] [address] Performed By: #### 2 4323-8 ####[facility] MILLTOWNCLIA [id number] [place] [address] [place]#### 28657-7 ####[facility]ORATORYCLIA [id number] [address] STATES [facility] MILLWVALIA [id number] [place] [address] [place] CO2 [Moles/Vol] 28 mmol/L Normal 22-30 [facility] Comment on above: Order Comment: Speci men Type: BLOOD SPECIMENOrdering Facility: [facility] Address: [address] [place] [address] Performed By: #### 2 4323-8 ####[facility] CENTERWNCLIA [id number] [place] [address] [place]#### 29910-4 ####[facility]ORATORYCLIA [id number] [address] STATES OF [facility] [id number] [place] [address] [place] Creatinine [Mass/Vol] 0.63 mg/dL Normal 0.58-0.96 [facility] Comment on above: Order Comment: Speci men Type: BLOOD SPECIMENOrdering Facility: [facility] Address: [address] [place] [address] Performed By: #### 2 4323-8 ####[facility] MILLWNCLIA [id number] [place] [address] [place]#### 15886-9 ####[facility]ORATORYCLIA [id number] [address] STATES OF [facility] MILLWVALIA [id number] [address] STATES OF [facility] Creatinine and Glomerular filtration rate.predicted panel (S/P/Bld) 94 mL/min/1.73m??? Normal >=60 [facility] Comment on above: Order Comment: Cory irizarry Type: BLOOD SPECIMENOrdering Facility: [facility] Address: [address] [place] [address] Result Comment: [place] mated Glomerular Filtration Rate (eGFR) is calculated using the 2020 CKD-EPI creatinine equation. This equation utilizes serum creatinine, sex, and age as parameters. The creatinine assay has traceable calibration to isotope dilution-mass spectrometry. Refer to KDIGO guidelines for clinical interpretation. In patients with unstable renal function, e.g. those with acute kidney injury, the eGFR may not accurately reflect actual GFR. Performed By: #### 2 4323-8 ####[facility] [id number] [address] OF [facility]#### 88448-8 ####[facility] LABORATORYCLIA [id number] [address] STATES [facility] [id number] [place] [address] [place] Glucose [Mass/Vol] 115 mg/dL High 74-99 [facility] Comment on above: Order Comment: Cory irizarry Type: BLOOD SPECIMENOrdering Facility: [facility] Address: [address] [place] [address] Result Comment: The [place] Diabetes Association (ADA) provides guidance for cutoff values for fasting glucose and random glucose. The ADA defines fasting as no caloric intake for at least 8 hours. Fasting plasma glucose results between 100 to 125 mg/dL indicate increased risk for diabetes (prediabetes). Fasting plasma glucose results greater than or equal to 126 mg/dL meet the criteria for diagnosis of diabetes. In the absence of unequivocal hyperglycemia, results should be confirmed by repeat testing. In a patient with classic symptoms of hyperglycemia or hyperglycemic crisis, random plasma glucose results greater than or equal to 200 mg/dL meet the criteria for diagnosis of diabetes. Reference: Standards of Medical Care in Diabetes 2016, [place] Diabetes Association. Diabetes Care. 2016.39(Suppl 1). Performed By: #### 2 4323-8 ####[facility]ITALLIA [id number] [place] [address] [place]#### 38203-8 ####[facility]ORATORYCLIA [id number] [address] [id number] [place] [address] [place] Potassium [Moles/Vol] 4.5 mmol/L Normal 3.7-5.1 [facility] Comment on above: Order Comment: Speci men Type: BLOOD SPECIMENOrdering Facility: [facility] Address: [address] [place] [address] Performed By: #### 2 4323-8 ####[facility] [id number] [place] [address] [place]#### 33606-0 ####[facility]ORATORYCLIA [id number] [address] [id number] [address] STATES [facility] Protein [Mass/Vol] 6.7 g/dL Normal 6.3-8.0 [facility] Comment on above: Order Comment: Speci men Type: BLOOD SPECIMENOrdering Facility: [facility] Address: [address] [place] [address] Performed By: #### 2 4323-8 ####[facility] [id number] [place] [address] [place]#### 37006-2 ####[facility]ORATORYCLIA [id number] [address] [id number] [place] [address] [place] Sodium [Moles/Vol] 139 mmol/L Normal 136-144 [facility] Comment on above: Order Comment: Speci men Type: BLOOD SPECIMENOrdering Facility: [facility] Address: [address] [place] [address] Performed By: #### 2 4323-8 ####[facility] [id number] [place] [address] [place]#### 14168-7 ####[facility]ORATORYCLIA [id number] [address] [id number] [place] [address] [place] Urea nitrogen [Mass/Vol] 18 mg/dL Normal 7-21 [facility] Comment on above: Order Comment: Speci men Type: BLOOD SPECIMENOrdering Facility: [facility] Address: [address] [place] [address] Performed By: #### 2 4323-8 ####[facility] [id number] [place] [address] [place]#### 52023-1 ####[facility]ORATORYCLIA [id number] [address] STATES OF [facility] [id number] [address] [place] HbA1c (Bld)on 04-07-2024 Average glucose Estimated from glycated hemoglobin (Bld) [Mass/Vol] 111 mg/dL Normal [facility] Comment on above: Order Comment: Speci men Type: BLOOD SPECIMENOrdering Facility: [facility] Address: [address] [place] [address] Result Comment: eAG: (Estimated average glucose) is a calculated value from HgbA1c and is senior patient account representative of the average blood glucose level in the last 2-3 month period. Performed By: #### 5 5454-3 ####[facility] LABCLIA [id number] [place] [address] [place] HbA1c (Bld) [Mass fraction] 5.5 % Normal 4.3-5.6 [facility] Comment on above: Order Comment: Speci men Type: BLOOD SPECIMENOrdering Facility: [facility] Address: [address] [place] [address] Result Comment: [place] Diabetes Association guidelines indicate that patients with HgbA1c in the range 5.7-6.4% are at increased risk for development of diabetes, and intervention by lifestyle modification may be beneficial. HgbA1c greater or equal to 6.5% is considered diagnostic of diabetes. Performed By: #### 5 5454-3 ####[facility] LABCLIA [id number] [place] [address] [place] Lipid 1996 panelon 5 Cholesterol [Mass/Vol] 159 mg/dL Normal <200 [facility] Comment on above: Order Comment: Speci men Type: BLOOD SPECIMENOrdering Facility: [facility] Address: [address] [place] [address] Result Comment: <200 mg/dL, Desirable 200-239 mg/dL, Borderline high >239 mg/dL, High Performed By: #### 2 4323-8 ####[facility] [id number] [place] [address] [place]#### 34481-4 ####[facility] LABORATORYCLIA [id number] [place] [address] [place] [facility] [id number] [place] [address] [place] Cholesterol in HDL [Mass/Vol] 51 mg/dL Normal >39 [facility] Comment on above: Order Comment: Speci men Type: BLOOD SPECIMENOrdering Facility: [facility] Address: [address] [place] [address] Result Comment: 40-5 9 mg/dL, Acceptable >59 mg/dL, High: Negative risk factor for coronary heart disease <40 mg/dL, Low: Positive risk factor for coronary heart disease Performed By: #### 2 4323-8 ####[facility] [id number] [place] [address] [place]#### 91057-9 ####[facility] LABORATORYCLIA [id number] [address] STATES OF [facility] [id number] [place] [address] [place] Cholesterol in LDL [Mass/Vol] 76 mg/dL Normal <100 [facility] Comment on above: Order Comment: Speci men Type: BLOOD SPECIMENOrdering Facility: [facility] Address: [address] [place] [address] Result Comment: <100 mg/dL, Optimal 100-129 mg/dL, Near optimal/above optimal 130-159 mg/dL, Borderline high 160-189 mg/dL, High >189 mg/dL, Very high Secondary prevention optimal LDL Cholesterol levels are recommended to be < 70 mg/dL Performed By: #### 2 4323-8 ####[facility] [id number] [place] [address] [place]#### 78386-0 ####[facility] LABORATORYCLIA [id number] [address] STATES OF [facility] [id number] [place] [address] [place] Cholesterol in LDL/Cholesterol in HDL [Mass ratio] 1.49 {ratio} Normal <2.54 [facility] Comment on above: Order Comment: Speci men Type: BLOOD SPECIMENOrdering Facility: [facility] Address: [address] [place] [address] Result Comment: Philip chatman: 1. National Cholesterol Education Program ATP III Guideline At-A-Glance Quick Desk Reference: National Heart, Lung, and Blood Pierz. National Institutes of Health. 2001: NIH Publication No. 01-3305. 2. An International Atherosclerosis Society position paper: global recommendations for the management of dyslipidemia: executive summary, Atherosclerosis. 2014: 232(2):410-413. Performed By: #### 2 4323-8 ####[facility]CLIA [id number] [address]#### 36466-6 ####[facility]ATORYCLIA [id number] [address] [id number] [address] Cholesterol in VLDL [Mass/Vol] 32 mg/dL High <30 [facility] Comment on above: Order Comment: Speci men Type: BLOOD SPECIMENOrdering Facility: [facility] Address: [address] [place] [address] Performed By: #### 2 4323-8 ####[facility] [id number] [address]#### 01521-7 ####[facility]ORATORYCLIA [id number] [address] [id number] [address] Cholesterol non HDL [Mass/Vol] 108 mg/dL Normal <130 [facility] Comment on above: Order Comment: Cory irizarry Type: BLOOD SPECIMENOrdering Facility: [facility] Address: [address] [place] [address] Result Comment: <130 mg/dL, Optimal 130-159 mg/dL, Near optimal/above optimal 160-189 mg/dL, Borderline high 190-219 mg/dL, High >219 mg/dL, Very high Secondary prevention optimal non HDL Cholesterol levels are recommended to be <100 mg/dL Performed By: #### 2 4323-8 ####[facility] MILLTOWNCLIA [id number] [place] [address] [place]#### 31838-0 ####[facility]ORATORYCLIA [id number] [address] MILLWVALIA [id number] [place] [address] [place] Cholesterol.total/ Cholesterol in HDL [Mass ratio] 3.12 {ratio} Normal <5.10 [facility] Comment on above: Order Comment: Speci men Type: BLOOD SPECIMENOrdering Facility: [facility] Address: [address] [place] [address] Performed By: #### 2 4323-8 ####[facility] CENTERWNCLIA [id number] [address] [place]#### 36521-8 ####[facility]ORATORYCLIA [id number] [address] [id number] [address] [place] FASTING TIME 12 hrs Normal [facility] Comment on above: Order Comment: Speci men Type: BLOOD SPECIMENOrdering Facility: [facility] Address: [address] [place] [address] Performed By: #### 2 4323-8 ####[facility] MILLTOWNCLIA [id number] [place] [address] [place]#### 67997-9 ####[facility]ORATORYCLIA [id number] [address] OF [facility] KALIA MILLWVALIA [id number] [place] [address] [place] Triglyceride [Mass/Vol] 160 mg/dL High <150 [facility] Comment on above: Order Comment: Speci men Type: BLOOD SPECIMENOrdering Facility: [facility] Address: [address] [place] [address] Result Comment: <150 mg/dL, Normal 150-199 mg/dL, Borderline high 200-499 mg/dL, High >499 mg/dL, Very high Performed By: #### 2 4323-8 ####[facility] [id number] [address]#### 08957-5 ####[facility] LABORATORYCLIA [id number] [address] [id number] [address] CNOVon 03-01-2024 CNOV Office Visit (JOSE G ) FABY ZAMORA ([id number]) 1950 F Date Time Provider Department 03/01/24 11:40 AM PINEDA FRENCH During your visit today, we recorded the following information about you: Pulse Blood pressure Weight Height 62/minute 126/62 74.7 kg 1.651 m Pineda French DO 03/01/2024 12:12 PM [facility] SECTION OF REGIONAL CARDIOLOGY [facility] OUTPATIENT VISIT DATE March 01, 2024 PRIMARY CARE PHYSICIAN: Vinayak Reyes [address] [place] [address] HISTORY OF PRESENT ILLNESS: Ms. Zamora is a 73 year old female. The patient turns for her for follow-up secondary to a history of mitral valve repair with plaque coronary disease discovered at the time and additional history of prediabetes and hyperlipidemia. She has not had lipids done in over a year. She denies chest discomfort, dyspnea, orthopnea, paroxysmal nocturnal dyspnea, palpitations, near-syncope or syncope. Currently she is not exercising to any great degree. She is not following that much of a heart healthy diet. She was unaware of her prediabetes and has not been limiting some foods as well. EKG performed today demonstrates sinus rhythm at 62 bpm with an age undetermined septal infarct, similar to previous. PLAN AND RECOMMENDATIONS: The patient from a cardiovascular standpoint appears stable without apparent symptoms that would suggest angina or cardiac decompensation on her current optimal medical therapy. Heart rate and blood pressure are favorable. Cholesterol profile will need updated which we will leave to your discretion. We recommend a target LDL less than 70 given her plaque CAD and prediabetic predisposition. Dietary and more important lifestyle modification was reemphasized to facilitate risk factor reduction. We will look forward to reevaluate her in 1 years time and we will update an echocardiogram prior to that visit. Vitals: BP 126/62 Pulse 62 Ht 165.1 cm (5' 5) Wt 74.7 kg (164 lb 10.9 oz) SpO2 96% BMI 27.40 kg/m? Physical Exam Vitals reviewed. Constitutional: Appearance: She is well-developed. HENT: Head: Normocephalic and atraumatic. Eyes: Pupils: Pupils are equal, round, and reactive to light. Neck: Thyroid: No thyromegaly. Vascular: No JVD. Cardiovascular: Rate and Rhythm: Normal rate and regular rhythm. Heart sounds: Normal heart sounds. No murmur heard. No friction rub. No gallop. Pulmonary: Effort: Pulmonary effort is normal. No respiratory distress. Breath sounds: Normal breath sounds. No wheezing or rales. Abdominal: General: Bowel sounds are normal. Palpations: Abdomen is soft. Musculoskeletal: General: Normal range of motion. Cervical back: Normal range of motion and neck supple. Skin: General: Skin is warm and dry. Coloration: Skin is not pale. Neurological: Mental Status: She is alert and oriented to person, place, and time. Cranial Nerves: No cranial nerve deficit. Psychiatric: Behavior: Behavior normal. Thought Content: Thought content normal. Judgment: Judgment normal. Review of Systems Constitutional: Negative for activity change and fatigue. HENT: Negative for ear pain and facial swelling. Eyes: Negative for pain and discharge. Respiratory: Negative for chest tightness and shortness of breath. Cardiovascular: Negative for chest pain, palpitations and leg swelling. Gastrointestinal: Negative for abdominal pain, blood in stool, nausea and vomiting. Endocrine: Negative for cold intolerance and heat intolerance. Genitourinary: Negative for frequency and hematuria. Musculoskeletal: Negative for arthralgias and gait problem. Skin: Negative for color change, pallor and rash. Allergic/Immunologic: Negative for immunocompromised state. Neurological: Negative for dizziness, syncope, light-headedness and headaches. Hematological: Negative for adenopathy. Does not bruise/bleed easily. Psychiatric/Behavioral: Negative for confusion. The patient is not nervous/anxious. PAST MEDICAL HISTORY Diagnosis Date Acute diverticulitis 02/25/2023 Callus of foot Right foot Mitral regurgitation, myxomatous Severe MR (echo 09/30/11) Osteopenia Routine gynecological examination Dr Sanchez PAST SURGICAL HISTORY Procedure Laterality Date APPENDECTOMY HX CATARACT EXTRACTION HX Right 10/29/2019 COLONOSCOPY AND POLYPECTOMY 03/19/2005 Dr Quinn COLONOSCOPY FLX DX W/COLLJ SPEC WHEN PFRMD 07/17/2015 Colonoscopy COLONOSCOPY FLX DX W/COLLJ SPEC WHEN PFRMD 12/07/2018 Colonoscopy PAST SURGICAL HISTORY OF ovarian cyst PAST SURGICAL HISTORY OF 07/24/2015 Mitral Valve Repair Social History Tobacco Use Smoking status: Never Smokeless tobacco: Never Vaping Use Vaping status: Never Used Substance Use Topics Alcohol (more content not included)... Normal [facility] DOT74gr 03-01-2024 ECG01 Ventricular Rate : 6 2 BPM Atrial Rate : 62 BPM P-R Interval : 142 ms QRS Duration : 76 ms Q-T Interval : 378 ms QTC Calculation(Bazett) : 383 ms Calculated P Morley : 71 degrees Calculated R Morley : 68 degrees Calculated T Morley : 80 degrees NORMAL SINUS RHYTHM Septal Infarct , AGE UNDETERMINED ABNORMAL ECG Confirmed by MD FRENCH GREGORY () on 03/04/2024 12:48:58 PM NAME : FABY ZAMORA PID : [id number] : 1950 Gender : Female Race : ORD : Procedure Date : Mar 01 2024 11:23:38 Edit Date : Mar 04 2024 12:48:59 Diagnosis: NORMAL SINUS RHYTHM Septal Infarct , AGE UNDETERMINED ABNORMAL ECG Confirmed by MD FRENCH GREGORY () on 03/04/2024 12:48:58 PM Test Reason : Location : 211 : MAURY Overread By : MD FRENCH GREGORY Edited By : MD FRENCH GREGORY Referred By : Pineda French Acquired by : Gale MORRIS [facility] CNOVon 02-12-2024 CNOV Office Visit (PODIWS ) FABY ZAMORA ([id number]) 1950 F Date Time Provider Department 02/12/24 3:30 PM JAEL OLSON PODIWS During your visit today, we recorded the following information about you: Jael Olson 02/16/2024 12:46 PM Signed FOLLOW UP PODIATRIC OFFICE VISIT Chief Complaint: This 73 year old who presents for follow up:painful callus of right foot Patient presents to clinic for follow-up callus of right foot Uses inserts and offloading pad and that helps Here for debridement No other complaints PAIN EVALUATION 02/12/2024 1515 Pain Level: 5 Description: Burning;Sharp Duration Units: Months Frequency: Intermittent Comments: when sitting no pain but when walking very painful Hemoglobin A1C Date Value Ref Range Status 03/22/2023 5.8 (H) 4.3 - 5.6 % Final Comment: [place] [employer] guidelines indicate that patients with HgbA1c in the range 5.7-6.4% are at increased risk for development of diabetes, and intervention by lifestyle modification may be beneficial. HgbA1c greater or equal to 6.5% is considered diagnostic of diabetes. PCP: Vinayak Reyes MD PAST MEDICAL HISTORY Diagnosis Date Acute diverticulitis 02/25/2023 Callus of foot Right foot Mitral regurgitation, myxomatous Severe MR (echo 09/30/11) Osteopenia Routine gynecological examination Dr Sanchez Current Outpatient Medications Medication Sig atorvastatin (LIPITOR) 10 mg tablet Take 1 tablet by mouth once daily. fluticasone (FLONASE) 50 mcg/actuation nasal spray USE 2 SPRAYS IN EACH NOSTRIL ONCE DAILY. RINSE MOUTH AFTER USE. sodium chloride (SALINE MIST) 0.65 % nasal spray Use 1 [place] in the nose as needed for cold/allergy symptoms. aspirin 81 mg chewable tablet Take 1 tablet by mouth once daily. MV-MN/FA/D3/LYCOPENE/LUT/COQ10 (DAILY MULTIVITAMIN ORAL) Take 1 tablet by mouth once daily. No current facility-administered medications for this visit. ALLERGIES Allergen Reactions Macrobid [Nitrofura* Rash Penicillins Rash PAST SURGICAL HISTORY Procedure Laterality Date APPENDECTOMY HX CATARACT EXTRACTION HX Right 10/29/2019 COLONOSCOPY AND POLYPECTOMY 03/19/2005 Dr Quinn COLONOSCOPY FLX DX W/COLLJ SPEC WHEN PFRMD 07/17/2015 Colonoscopy COLONOSCOPY FLX DX W/COLLJ SPEC WHEN PFRMD 12/07/2018 Colonoscopy PAST SURGICAL HISTORY OF ovarian cyst PAST SURGICAL HISTORY OF 07/24/2015 Mitral Valve Repair Physical Exam: OBJECTIVE: Constitutional: Pt is a well developed 73 year old female who is alert, oriented, cooperative and in no apparent distress. Eyes: Following during examination. No redness or drainage. Respiratory: RR normal and nonlabored. Even breathing. No evidence of distress. Psychology: Patient is engaged during conversation. Normal affect and mood. Does not appear depressed or anxious. NVSI unchanged from previous visit. Dermatological: Nails 1-5 b/l are normal. Webspaces clean and dry 1-4 b/l. Skin appears well hydrated and supple. good color, texture, turgor. No open lesions present. Callus present to right 2nd metatarsal Musculoskeletal/Orthopaedic: Patient has pain to palpation of right foot along callus of right 2nd/3rd metatarsal ASSESSMENT: Callus of foot (primary encounter diagnosis) Metatarsalgia of right foot PLAN: Callus to right 2nd metatarsal reduced with 15 blade and dremmel Continue with inserts and offloading pad Follow-up prn Jael Olson DPM Referring Provider: SELF [200] Allergies As of Date: 02/12/2024 Noted Allergy Reaction MACROBID (NITROFURANTOIN MONOHYD/*08/31/2013 2 - Rash PENICILLINS 04/29/2005 2 - Rash Date Reviewed: 02/12/2024 Reviewed by: Kari Romero MA - Fully Assessed Reason for Visit: Established Patient [175] Cmt: Callus pain Pain [78] Cmt: Callus pain Primary Visit Diagnosis:Callus of foot [L84] Other Visit Diagnosis:Metatarsalgia of right foot [M77.41] Prescriptions as of 02/16/2024 - atorvastatin (LIPITOR) 10 mg tablet Take 1 tablet by mouth once daily. - fluticasone (FLONASE) 50 mcg/actuation nasal spray USE 2 SPRAYS IN EACH NOSTRIL ONCE DAILY. RINSE MOUTH AFTER USE. - sodium chloride (SALINE MIST) 0.65 % nasal spray Use 1 [place] in the nose as needed for cold/allergy symptoms. - aspirin 81 mg chewable tablet Take 1 tablet by mouth once daily. - MV-MN/FA/D3/LYCOPENE/LUT/COQ10 (DAILY MULTIVITAMIN ORAL) Take 1 tablet by mouth once daily. Problem List As Of Date 02/12/2024 Noted Resolved Actinic Keratoses (Premalignant AK's [L57.0] 11/07/2010 Irritated//Inflamed Seborrheic Keratoses [L82.0]11/07/2010 11/02/2015 Viral warts, unspecified [B07.9] 11/07/2010 01/14/2020 Solar Lentigines [L81.4] 11/07/2010 11/02/2015 Other Seborrheic Keratoses [L82.1] 11/07/2010 11/02/2015 Actinic skin damage [L57.8] 11/07/2010 11/02/2015 Cutaneous skin tags [L91.8] 11/07/2010 (more content not included)... [facility] Tele[facility] (WEND[facility]) FABY ZAMORA ([id number]) 1950 F Date Time Provider Department 01/12/24 VINAYAK REYES During your visit today, we recorded the following information about you: Judy Wakefield MA 01/12/2024 2:44 PM Signed Scan on 01/12/2024 9:20 AM by Provider, SHAYE Pandya: Mammography Vinayak Reyes MD 01/12/2024 2:54 PM Signed Mammogram is ok. Recheck one year. Diana Hamm RN 01/12/2024 3:31 PM Signed Pts called and is notified of providers results and instructions. He voices understanding. Diana Hamm RN Allergies As of Date: 01/12/2024 Noted Allergy Reaction MACROBID (NITROFURANTOIN MONOHYD/*08/31/2013 2 - Rash PENICILLINS 04/29/2005 2 - Rash Date Reviewed: 05/15/2023 Reviewed by: Elen Craft RN - Fully Assessed Reason for Visit: Results [95] Prescriptions as of 01/12/2024 - atorvastatin (LIPITOR) 10 mg tablet Take 1 tablet by mouth once daily. - fluticasone (FLONASE) 50 mcg/actuation nasal spray USE 2 SPRAYS IN EACH NOSTRIL ONCE DAILY. RINSE MOUTH AFTER USE. - sodium chloride (SALINE MIST) 0.65 % nasal spray Use 1 [place] in the nose as needed for cold/allergy symptoms. - aspirin 81 mg chewable tablet Take 1 tablet by mouth once daily. - MV-MN/FA/D3/LYCOPENE/LUT/COQ10 (DAILY MULTIVITAMIN ORAL) Take 1 tablet by mouth once daily. Problem List As Of Date 01/12/2024 Noted Resolved Actinic Keratoses (Premalignant AK's [L57.0] 11/07/2010 Irritated//Inflamed Seborrheic Keratoses [L82.0]11/07/2010 11/02/2015 Viral warts, unspecified [B07.9] 11/07/2010 01/14/2020 Solar Lentigines [L81.4] 11/07/2010 11/02/2015 Other Seborrheic Keratoses [L82.1] 11/07/2010 11/02/2015 Actinic skin damage [L57.8] 11/07/2010 11/02/2015 Cutaneous skin tags [L91.8] 11/07/2010 11/02/2015 Melanocytic nevus of scalp: L scalp yarsani hair*11/07/2010 11/02/2015 Beck Angiomas [D18.01] 11/07/2010 11/02/2015 Scars: Cryosurgical White Scars [L90.5] 12/16/2010 Osteopenia [M85.80] Mitral regurgitation, 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] 01/13/2019 Discharge planning issues [Z75.8] 07/20/2015 11/02/2015 Atelectasis [J98.11] 07/24/2015 07/27/2015 Postoperative pain [G89.18] 07/24/2015 07/27/2015 Non-rheumatic mitral regurgitation [I34.0] 07/25/2015 01/13/2019 Stress hyperglycemia [R73.9] 07/25/2015 07/26/2015 SUMMARY 07/27/2015 01/18/2022 Coronary artery disease involving [place] olson*07/27/2015 S/P MVR (mitral valve repair) [Z98.890] 10/06/2015 Mixed hyperlipidemia [E78.2] 11/02/2015 Calculus of gallbladder without cholecystitis w*02/25/2017 Lung nodules [R91.8] 02/25/2017 Mild memory disturbances not amounting to demen*01/17/2021 01/17/2021 Prediabetes [R73.03] 03/24/2023 History of colonic polyps [Z86.0100] 04/30/2023 Encounter Status:Closed by DIANA HAMM on 01/12/[address] [facility] SCRN MAMM (CAD)W/MICHELLE BILATo n 01-09-2024 SCRN MAMM (CAD)W/MICHELLE BILAT [facility] Imaging Services [address] [place] [id number] SCRN MAMM (CAD)W/MICHELLE BILAT MR#: [id number] Acct: [id number] Name: FABY ZAMORA Rep #: [id number] : 1950 F 73 From: Alvarado carrillo MD PCP: Dr. Vinayak Reyes MD Status: [facility] Study: SCRN MAMM (CAD)W/MICHELLE BILAT Date of Exam: 12/12 11/03 Exam# [id number] Ordering Dr: Vinayak Reyes MD [id number] MAMMOGRAPHY - BILATERAL SCREENING REASON FOR EXAM: Female, 73 years old. Routine annual screening examination. PERTINENT HISTORY: Non-contributory. History of prior right stereotactic breast biopsy. TECHNIQUE: Digital bilateral breast michelle (3D mammographic acquisition) in the CC and MLO projections. 2-D mediolateral oblique (MLO) and craniocaudad (CC) views of both breasts were obtained. CAD: Full Field Digital Mammography with Computer Added Detection was performed. COMPARISON: Comparison is made with prior study January 06, 2023 and January 02, 2022. ___ FINDINGS: Breast Composition: The breasts are heterogeneously dense, which may obscure small masses. There are no dominant masses or suspicious calcifications. A tissue clip marker is once again seen in the central portion of the right breast. No other significant abnormalities are identified. There has been no significant change since the prior study. ___ BI/SCRN MAMM (CAD)W/MICHELLE BILAT IMPRESSION: Stable bilateral screening mammogram. Yearly follow-up mammogram recommended. (A) ___ ASSESSMENT CATEGORY: BIRADS Category 2: Benign. A letter regarding these results will be sent to the patient by the facility within 30 days. Approximately 10% of breast cancers are not detected by mammography. A normal mammogram should not delay biopsy of a clinically suspicious abnormality. [id number] Electronically Signed: Alvarado Jacobo MD at 9:15 EST , CC: Dr. Vinayak Reyes MD Crew Car Driver: Signed Normal [facility] 12-23-2023 [facility] SERAFABY Papi ([id number]) 1950 F Date Time Provider Department 12/23/23 VINAYAK REYES [facility] During your visit today, we recorded the following information about you: Maria Dolores Mosquera RN 12/23/2023 2:46 PM Signed Patient's James calling and requesting non mammogram order be placed for patient. Please fax order to [facility]. Please call James once this has been completed at [phone]. Thank you. Vinayak Reyes MD 12/24/2023 3:36 PM Signed What is a non mammogram??? Judy Wakefield MA 12/24/2023 4:44 PM Signed Typo. Just a mammogram. INGRID Bartholomew William J, MD 12/25/2023 7:26 AM Signed ordered Linda Downey RN 12/25/2023 8:34 AM Signed Patient's James calls and notified that order placed. Faxed order to [facility] as requested. Linda Downey RN Allergies As of Date: 12/23/2023 Noted Allergy Reaction MACROBID (NITROFURANTOIN MONOHYD/*08/31/2013 2 - Rash PENICILLINS 04/29/2005 2 - Rash Date Reviewed: 05/15/2023 Reviewed by: Elen Craft RN - Fully Assessed Reason for Visit: Orders [681] Visit Diagnosis:Encounter for screening mammogram for breast cancer [Z12.31] Order(s):CHRISSIE SCREENING W MICHELLE [[id number]] Order #: [id number] FUTURE Prescriptions as of 12/25/2023 - atorvastatin (LIPITOR) 10 mg tablet Take 1 tablet by mouth once daily. - fluticasone (FLONASE) 50 mcg/actuation nasal spray USE 2 SPRAYS IN EACH NOSTRIL ONCE DAILY. RINSE MOUTH AFTER USE. - sodium chloride (SALINE MIST) 0.65 % nasal spray Use 1 [place] in the nose as needed for cold/allergy symptoms. - aspirin 81 mg chewable tablet Take 1 tablet by mouth once daily. - MV-MN/FA/D3/LYCOPENE/LUT/COQ10 (DAILY MULTIVITAMIN ORAL) Take 1 tablet by mouth once daily. Problem List As Of Date 12/23/2023 Noted Resolved Actinic Keratoses (Premalignant AK's [L57.0] 11/07/2010 Irritated//Inflamed Seborrheic Keratoses [L82.0]11/07/2010 11/02/2015 Viral warts, unspecified [B07.9] 11/07/2010 01/14/2020 Solar Lentigines [L81.4] 11/07/2010 11/02/2015 Other Seborrheic Keratoses [L82.1] 11/07/2010 11/02/2015 Actinic skin damage [L57.8] 11/07/2010 11/02/2015 Cutaneous skin tags [L91.8] 11/07/2010 11/02/2015 Melanocytic nevus of scalp: L scalp yarsani hair*11/07/2010 11/02/2015 Beck Angiomas [D18.01] 11/07/2010 11/02/2015 Scars: Cryosurgical White Scars [L90.5] 12/16/2010 Osteopenia [M85.80] Mitral regurgitation, 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] 01/13/2019 Discharge planning issues [Z75.8] 07/20/2015 11/02/2015 Atelectasis [J98.11] 07/24/2015 07/27/2015 Postoperative pain [G89.18] 07/24/2015 07/27/2015 Non-rheumatic mitral regurgitation [I34.0] 07/25/2015 01/13/2019 Stress hyperglycemia [R73.9] 07/25/2015 07/26/2015 SUMMARY 07/27/2015 01/18/2022 Coronary artery disease involving [place] olson*07/27/2015 S/P MVR (mitral valve repair) [Z98.890] 10/06/2015 Mixed hyperlipidemia [E78.2] 11/02/2015 Calculus of gallbladder without cholecystitis w*02/25/2017 Lung nodules [R91.8] 02/25/2017 Mild memory disturbances not amounting to demen*01/17/2021 01/17/2021 Prediabetes [R73.03] 03/24/2023 History of colonic polyps [Z86.0100] 04/30/2023 Encounter Status:Closed by LINDA DOWNEY on 12/25/23 Normal [facility] Colonoscopy Study observatio non 04-30-2023 [facility] HbA1c (Bld)on 03-23-2023 Average glucose Estimated from glycated hemoglobin (Bld) [Mass/Vol] 120 mg/dL [facility] HbA1c (Bld) [Mass fraction] 5.8 % High 4.3 - 5.6 % [facility] CBC W Auto Differential pane l (Bld)on 03-21-2023 Basophils (Bld) [#/Vol] 0.04 10*3/uL <0.11 k/uL [facility] Basophils/100 WBC (Bld) 0.6 % [facility] Differential cell count method Nom (Bld) Auto [facility] Eosinophils (Bld) [#/Vol] 0.18 10*3/uL <0.46 k/uL [facility] Eosinophils/100 WBC (Bld) 2.5 % [facility] Erythrocyte distribution width (RBC) [Ratio] 12.4 % 11.5 - 15.0 % [facility] Hematocrit (Bld) [Volume fraction] 47.9 % High 36.0 - 46.0 % [facility] Hemoglobin (Bld) [Mass/Vol] 15.7 g/dL High 11.5 - 15.5 g/dL [facility] Immature granulocytes (Bld) [#/Vol] 0.04 10*3/uL <0.10 k/uL [facility] Immature granulocytes/100 WBC (Bld) 0.6 % [facility] Lymphocytes (Bld) [#/Vol] 2.16 10*3/uL 1.00 - 4.00 k/uL [facility] Lymphocytes/100 WBC (Bld) 30.3 % [facility] MCH (RBC) [Entitic mass] 30.3 pg 26.0 - 34.0 pg [facility] MCHC (RBC) [Mass/Vol] 32.8 g/dL 30.5 - 36.0 g/dL [facility] MCV (RBC) [Entitic vol] 92.5 fL 80.0 - 100.0 fL [facility] Monocytes (Bld) [#/Vol] 0.45 10*3/uL <0.87 k/uL [facility] Monocytes/100 WBC (Bld) 6.3 % [facility] Neutrophils (Bld) [#/Vol] 4.26 10*3/uL 1.45 - 7.50 k/uL [facility] Neutrophils/100 WBC (Bld) 59.7 % [facility] Nucleated RBC (Bld) [#/Vol] <0.01 k/uL [facility] Nucleated RBC/100 WBC (Bld) [Ratio] 0.0 /100 WBC [facility] Platelet mean volume (Bld) [Entitic vol] 11.6 fL 9.0 - 12.7 fL [facility] Platelets (Bld) [#/Vol] 194 10*3/uL 150 - 400 k/uL [facility] RBC (Bld) [#/Vol] 5.18 10*6/uL 3.90 - 5.20 m/uL [facility] WBC (Bld) [#/Vol] 7.13 10*3/uL 3.70 - 11.00 k/uL [facility] Surgery Visit Reporton 01-27 Surgery Visit Report [facility] [address] [place] [address] [address] [place] [address] OFFICE VISIT Date of Service: 01/27/23 MR#: [id number] Acct: [id number] Name: FABY ZAMORA Papi Rep #: [id number] : 1950 Provider: Dr. Abram aguilar MD Age/Sex: 72/F Location: [facility] Status: Signed Intake Vital Signs 01/08/21 09:10 01/27/23 12:44 Height 5 ft 5 in 5 ft 5 in Weight: 163 lb 6 oz BMI 27.1 BP 154/74 H Blood Pressure Location Rt brachial Position Sitting Respiration 15 Pulse 76 Pulse Source NIBP Temp 97.1 F L Temp Source Temporal Pulse Oximetry (%) 96 Oxygen Delivery Method room air Intake Visit Reasons: f/u mammo and breast check Chief Complaint: breast check Composite Assembler Required: No Is patient in pain?: No Allergies nitrofurantoin macrocrystalline [From Macrodantin] Allergy (Verified 01/27/23 12:45) Rash Penicillins Allergy (Verified 01/27/23 12:45) Rash Is last menstrual period known: No Post menopausal: Yes Patient : No PFS Medical History (Updated 01/27/23 @ 05:[address] Abram Velasco MD) Abnormal mammogram of right breast Hyperglycemia Hypoxemia Ketosis MVP (mitral valve prolapse) Nephrolithiasis Thrombocytopenia Surgical History (Updated 01/08/21 @ 09:09 by Jessica Rivero) History of cataract surgery History of mitral valve repair Family History (Updated 01/08/21 @ 09:10 by Jessica Rivero) Father Heart disease Brother Heart disease Social History (Updated 01/08/21 @ 09:10 by Jessica Rivero) Smoking Status: Never smoker alcohol intake: never substance use type: does not use HPI HPI HPI: 72-year-old female. My most recent office visit with her was January 10, 2021. I performed a stereotactic needle core biopsy upper outer right breast for microcalcifications for her. Pathology demonstrated hyalinized fibroadenoma with focal calcifications. Fibrocystic change. No atypia or malignancy. She has had updated bilateral screening mammograms January 06, 2023. No change from the prior study. BI-RADS Category 2. I have personally reviewed those images. Has no specific concerns or complaints today. No focal masses. No nipple discharge or bleeding January 06, 2023 MAMMOGRAPHY - BILATERAL SCREENING REASON FOR EXAM: Female, 72 years old. Routine annual screening examination. PERTINENT HISTORY: Non-contributory. Prior right stereotactic breast biopsy. TECHNIQUE: Digital bilateral breast michelle (3D mammographic acquisition) in the CC and MLO projections. 2-D mediolateral oblique (MLO) and craniocaudad (CC) views of both breasts were obtained. CAD: Full Field Digital Mammography with Computer Added Detection was performed. COMPARISON: Comparison is made with prior examination dated January 02, 2022 and January 10, 2022. ___ FINDINGS: Breast Composition: The breasts are heterogeneously dense, which may obscure small masses. There are no dominant masses or suspicious calcifications. A tissue clip marker is seen in the deep central portion of the right breast. No other significant abnormalities are identified. There has been no significant change since the prior study. ___ BI/SCRN MAMM (CAD)W/MICHELLE BILAT IMPRESSION: Stable bilateral screening mammogram. Yearly follow-up mammogram recommended. (A) ___ ASSESSMENT CATEGORY: BIRADS Category 2: Benign. A letter regarding these results will be sent to the patient by the facility within 30 days. Approximately 10% of breast cancers are not detected by mammography. A normal mammogram should not delay biopsy of a clinically suspicious abnormality. [id number] Electronically Signed: lAvarado Jacobo MD at 13:05 EST , ROS General General: Yes fatigue; No weight change, appetite, colon cancer, breast cancer or weakness HEENT HEENT: No difficulty swallowing, eye injury, eye surgery, swollen glands or hoarseness Endo Endocrine: No thyroid disease, diabetes mellitus, thyroid cancer, Hair loss, heat intolerance or cold intolerance Breast Breast: No left breast lump, right breast lump, nipple discharge, breast pain, abnormal mammogram, abnormal US or breast enlargement Musc Musculoskeletal: Yes arthritis; No back problems, rheumatoid arthritis, gout or joint pain Cardio Cardiovascular: No murmur, pacemaker, heart disease, atrial fibrillation, high blood pressure, heart attack, heart stent, palpitations, shortness of breat with exertion or chest pain Psych Psychiatric: No depression, anxiety or hearing voices Resp Respiratory: No shortne (more content not included)... Normal [facility] EKGon 01-22-2023 Electrocardiogram Ventricular Rate : 7 2 BPM Atrial Rate : 72 BPM P-R Interval : 142 ms QRS Duration : 80 ms Q-T Interval : 388 ms QTC Calculation(Bazett) : 424 ms Calculated P Morley : 69 degrees Calculated R Morley : 61 degrees Calculated T Morley : 73 degrees NORMAL SINUS RHYTHM ANTEROSEPTAL INFARCT , AGE UNDETERMINED ABNORMAL ECG NO PREVIOUS ECGS AVAILABLE Confirmed by MD FRENCH GREGORY () on 01/24/2023 4:24:42 PM NAME : FABY ZAMORA PID : [id number] : 1950 Gender : Female Race : ORD : Procedure Date : Jan 21 2023 23:52:52 Edit Date : Jan 24 2023 16:24:45 Diagnosis: NORMAL SINUS RHYTHM ANTEROSEPTAL INFARCT , AGE UNDETERMINED ABNORMAL ECG NO PREVIOUS ECGS AVAILABLE Confirmed by MD FRENCH GREGORY () on 01/24/2023 4:24:42 PM Test Reason : Location : 659 : [facility] Overread By : MD FRENCH GREGORY Edited By : MD FRENCH GREGORY Referred By : PINEDA FRENCH [facility] Office Visit (HANS ) FABY ZAMORA ([id number]) 1950 F Date Time Provider Department 01/21/23 11:20 AM PINEDA FRENCH During your visit today, we recorded the following information about you: Pulse Blood pressure Weight Height 72/minute 120/66 71.7 kg 1.626 m Pineda French DO 01/21/2023 12:20 PM Signed [facility] SECTION [facility] CARDIOLOGY [facility] OUTPATIENT VISIT DATE January 21, 2023 PRIMARY CARE PHYSICIAN: Vinayak Reyes [address] [place] [id number] HISTORY OF PRESENT ILLNESS: Ms. Zamora is a 72 year old female. The patient returns for follow-up second history of mitral valve repair with plaque coronary disease and associated hyperlipidemia. She is with her again today. She denies chest discomfort, dyspnea, orthopnea, paroxysmal nocturnal dyspnea, palpitations, near-syncope or syncope. PLAN AND RECOMMENDATIONS: The patient remained stable without apparent symptoms that would suggest angina or cardiac decompensation. Heart rate, blood pressure are favorable. Cholesterol profile will need updated which she states she is planning on doing next week. Her EKG is stable. We have made no additions or changes. Dietary and lifestyle modification was reemphasized to facilitate risk factor reduction. Will look forward to reevaluating her in 1 years time. Vitals: BP 120/66 Pulse 72 Ht 162.6 cm (5' 4) Wt 71.7 kg (158 lb) SpO2 97% BMI 27.12 kg/m? Physical Exam Vitals reviewed. Constitutional: Appearance: She is well-developed. HENT: Head: Normocephalic and atraumatic. Eyes: Pupils: Pupils are equal, round, and reactive to light. Neck: Thyroid: No thyromegaly. Vascular: No JVD. Cardiovascular: Rate and Rhythm: Normal rate and regular rhythm. Heart sounds: Normal heart sounds. No murmur heard. No friction rub. No gallop. Pulmonary: Effort: Pulmonary effort is normal. No respiratory distress. Breath sounds: Normal breath sounds. No wheezing or rales. Abdominal: General: Bowel sounds are normal. Palpations: Abdomen is soft. Musculoskeletal: General: Normal range of motion. Cervical back: Normal range of motion and neck supple. Skin: General: Skin is warm and dry. Coloration: Skin is not pale. Neurological: Mental Status: She is alert and oriented to person, place, and time. Cranial Nerves: No cranial nerve deficit. Psychiatric: Behavior: Behavior normal. Thought Content: Thought content normal. Judgment: Judgment normal. Review of Systems Constitutional: Negative for activity change and fatigue. HENT: Negative for ear pain and facial swelling. Eyes: Negative for pain and discharge. Respiratory: Negative for chest tightness and shortness of breath. Cardiovascular: Negative for chest pain, palpitations and leg swelling. Gastrointestinal: Negative for abdominal pain, blood in stool, nausea and vomiting. Endocrine: Negative for cold intolerance and heat intolerance. Genitourinary: Negative for frequency and hematuria. Musculoskeletal: Negative for arthralgias and gait problem. Skin: Negative for color change, pallor and rash. Allergic/Immunologic: Negative for immunocompromised state. Neurological: Negative for dizziness, syncope, light-headedness and headaches. Hematological: Negative for adenopathy. Does not bruise/bleed easily. Psychiatric/Behavioral: Negative for confusion. The patient is not nervous/anxious. PAST MEDICAL HISTORY Diagnosis Date Mitral regurgitation, myxomatous Severe MR (echo 09/30/11) Osteopenia Routine gynecological examination Dr Sanchez PAST SURGICAL HISTORY Procedure Laterality Date CATARACT EXTRACTION HX Right 10/29/2019 COLONOSCOPY AND POLYPECTOMY 03/19/2005 Dr Quinn COLONOSCOPY FLX DX W/COLLJ SPEC WHEN PFRMD 07/17/2015 Colonoscopy COLONOSCOPY FLX DX W/COLLJ SPEC WHEN PFRMD 12/07/2018 Colonoscopy PAST SURGICAL HISTORY OF ovarian cyst PAST SURGICAL HISTORY OF 07/24/15 Mitral Valve Repair Social History Tobacco Use Smoking status: Never Smokeless tobacco: Never Vaping Use Vaping Use: Never used Substance Use Topics Alcohol use: No Drug use: No FAMILY HISTORY Problem Relation Age of Onset Diabetes Father Ischemic Heart Disease Father Thyroid Mother Alzheimer's Disease Mother Cancer Maternal Grandfather unknown Thyroid Sister x3 ALLERGIES Allergen Reactions Macrobid [Nitrofura* Rash Penicillins Rash CURRENT MEDICATIONS: atorvastatin (LIPITOR) 10 mg tablet Take 1 tablet by mouth once daily. fluticasone (FLONASE) 50 mcg/actuation nasal spray USE 2 SPRAYS IN EACH NOSTRIL ONCE DAILY. RINSE MOUTH AFTER USE. sodium chloride (SALINE MIST) 0.65 % nasal spray Use 1 [place] in the nose as needed for cold/allergy symptoms. aspirin 81 mg chewable table (more content not included)... Normal [facility] Influenza virus A and B RNA and SARS-CoV-2 (COVID-19) N gene panel TAMARA+probe (Resp)on 03-19-2022 FLUAV RNA TAMARA+probe Ql (Unsp spec) Not detected Not Detected [facility] FLUBV RNA TAMARA+probe Ql (Unsp spec) Not detected Not Detected [facility] SARS-CoV-2 (COVID-19) RNA TAMARA+probe Ql (Resp) Not detected See comment [facility] DXA-AXIAL SKELETONon 023 LOWEST T-SCORE -1.0 [facility] XR ANKLE GENERAL 3V AP/LAT/O BL RIGHTon 07-04-2021 [facility] XR Ankle - right AP and Late ral and obliqueon 07-04-2021 IMPRESSION: Acute, essentially nondisplaced fracture of the lateral malleolus with associated soft tissue swelling. Crew Car Driver: [facility]ITALMargaret Transcribe Date/Time: Jul 04 2021 3:20P Dictated by : GUILLERMINA VIVEROS MD This examination was interpreted and the report reviewed and electronically signed by: GUILLERMINA VIVEROS MD on Jul 04 2021 3:21PM EST ZZZ_DO_NOT _USE_DIVIS ION OF RADIOLOGY * * *Final Report* * * DATE OF EXAM: Jul 04 2021 3:14PM WOX [id number] - XR ANKLE 3V AP/LAT/OBL RT / PROCEDURE REASON: Ankle injuries, right, initial encounter * * * * Physician Interpretation * * * * CLINICAL INDICATION: Ankle injury TECHNIQUE: 3 view radiographic study of the right ankle COMPARISON: None FINDINGS: Marked lateral soft tissue swelling and ankle joint effusion present. Acute, essentially nondisplaced, transverse oblique fracture of the lateral malleolus. No additional acute osseous injury identified. Plantar calcaneal enthesophyte. ZZZ_DO_NOT _USE_DIVIS ION OF RADIOLOGY Provider, [facility] - 07/04/2021 * * *Final Report* * * DATE OF EXAM: Jul 04 2021 3:14PM WOX 5297 - XR ANKLE 3V AP/LAT/OBL RT / PROCEDURE REASON: Ankle injuries, right, initial encounter * * * * Physician Interpretation * * * * CLINICAL INDICATION: Ankle injury TECHNIQUE: 3 view radiographic study of the right ankle COMPARISON: None FINDINGS: Marked lateral soft tissue swelling and ankle joint effusion present. Acute, essentially nondisplaced, transverse oblique fracture of the lateral malleolus. No additional acute osseous injury identified. Plantar calcaneal enthesophyte. IMPRESSION IMPRESSION: Acute, essentially nondisplaced fracture of the lateral malleolus with associated soft tissue swelling. Crew Car Driver: [facility] Transcribe Date/Time: Jul 04 2021 3:20P Dictated by : GUILLERMINA VIVEROS MD This examination was interpreted and the report reviewed and electronically signed by: GUILLERMINA VIVEROS MD on Jul 04 2021 3:21PM EST [facility] Rad[facility]ative) [facility] and Late ral and obliqueOrdered By: [facility] Provider on 07-04-2021 [facility] CNOVon 11-27-2016 CNOV Office Visit (AGCARDWST) FABY AMEZQUITA ([id number]) 1950 FDate Time Provider Pebpubufwg94/18/17 3:00 PM DAVID MARTÍNEZ AGCARDWST During your visit today, we recorded the following information about you: Pulse Blood pressure Weight 74/minute 123/81 74.8 kgDavid Martínez MD 11/27/2016 3:54 PM AddendumPERTINENT CARDIAC HISTORYMitral regurgitation - repair (#33 Espino) 2016Minimal ASHDADHERENCE TO GUIDELINESACE-I or ARB for HF with prior LVEFANDlt;40 (NQF 0081) - N/AASA or Plavix for ASHD (NQF 0067) - metBeta saul for ASHD with prior MD or prior LVEFANDlt;40 (NQF 0070) - N/ABeta saul for HF with prior LVEFANDlt;40 (NQF 0083) - N/AACE-I or ARB for ASHD with DM or prior LVEFANDlt;40 (NQF 0066) - N/AStatin therapy for ASHD or FHL or DM - metBMI documented and plan if ANDgt;25 (NQF 0421) - lifestyle recommendation formTobacco use screening and referral (NQF 0028) - lifestyle recommendation formRecommendation for whole food, plant based diet - lifestyle recommendation formCLINICAL IMPRESSION/PLAN:Faby Zamora is doing well. She's been advised to continue her currentactivity and try to get her weight under better control.She's had a good result from her mitral valve repair. She has been asked tocontinue her current medication.I will see her in 12 months or as needed. If there is increased chest pain orshortness of breath, she has been advised to contact me.Written and verbal health teaching given to patient, patient verbalizesunderstanding and agrees with treatment plan.This note was generated using Currensee voice recognition system, and there may besome incorrect words, spellings, and punctuation that were not noted inchecking the note before saving.DIAGNOSIS FOR VISIT:Mitral valve repairHISTORY OF PRESENT ILLNESSFaby Zamora returns for follow-up of her mitral valve disease. Shereports stable exercise tolerance. She's been walking regularly. She denieschest discomfort. She's had no orthopnea, edema, syncope. She deniespalpitations, TIAs, amaurosis and claudication.ALLERGIES:ALLERGIES Allergen Reactions- Macrobid [Nitrofura* Rash- Penicillins RashCURRENT OUTPATIENT MEDICATIONS:atorvastatin (LIPITOR) 10 mg tablet Take 1 tablet by mouth once daily.aspirin 81 mg chewable tablet Take 1 tablet by mouth once daily.calcium carbonate-vitamin D3 (OSCAL+D) 500 mg(1,250mg) -400 unit chewabletablet Take 1 tablet by mouth twice daily.acetaminophen (TYLENOL) 325 mg tablet Take 2 tablets by mouth every 4 hours asneeded for Pain or Fever.MV-MN/FA/D3/LYCOPENE/LUT/C OQ10 (DAILY MULTIVITAMIN ORAL) Take 1 tablet by mouthonce daily.alendronate (FOSAMAX) 70 mg ORAL Tab Take once per week in the morning with afull glass of water, on an empty stomach, and do not take anything else bymouth or lie down for the next 30 minutes.PHYSICAL EXAMINATION:VITAL SIGNS: BP 123/81 Pulse 74 Wt 164 lb 14.4 oz (74.8kg)Chest: Clear to percussion and auscultation. Trachea is midline. Air entry isequal. Cardiac: Regular rhythm. S1 and S2 are normal. PMI is nondisplaced.There are no murmurs, rubs or gallops. There is no mitral insufficiency murmur. Carotids are brisk without bruits. JVP is less than 10 cm. Abdomen: Soft andnontender. There are no pulsatile masses or bruits. No liver enlargement.Bowel sounds are active. Extremities: No edema. Pulses are intact andsymmetrical.EKG shows sinus rhythm. There is slow R wave progression, similar to tracing of07/24/15. There is no significant change.Electronically Signed:David Martínez MDNovember 27, 2016 3:25 [facility]: Steven Bustos MD 11/27/2016 3:25 PM SignedLIFESTYLE CHANGEA healthy lifestyle is the most important component of your overall treatmentplan. Please give serious thought to the following areas and commit to makinglong term changes.EAT A WHOLE FOOD, PLANT BASED DIETThe nutrition your body gets is more important than the medicine you take.What matters most is the overall way you eat. We encourage you to minimize theuse of animal products (which include dairy and all meats except fatty fish)and use whole, unprocessed plant foods to provide your protein, vitamins andother nutrients. We have a lot of information to share with you on this topic. We also hold Shared Medical Appointments, where you can come visit with in the company of other patients and spend over an hour talking aboutthe challenges of changing the way you eat. This is not a ANDquot;dietANDquot;.It is a way of life that you will keep with you.EXERCISE REGULARLYIt is not important to spend hours in the gym, lifting weights and perspiringheavily. A total of 2-3 hours per week of aerobic (causing you to bemoderately short of breath) exercise is sufficient to improve your health.Talk to us before you begin a new exercise program, if you have heart diseaseor experience shortness of breath or chest pain.REDUCE STRESSChronic emotional and physical stress leads to disease. Ways of reducingstress include meditation, visualization, prayer, yoga and other forms ofrelaxation therapy. Consistency is the skaggs. Find a technique that works foryou and do it every day.CULTIVATE RELATIONSHIPSLoneliness and isolation have a major negative impact on health. Seek outothers who can love, care for and nurture you. Avoid hurtful relationships.MAINTAIN IDEAL BODY WEIGHTThe best way to do this is to do all the things above. Our bodies naturallyfind the right weight if we keep moving and feed ourselves the right food. Ifyour BMI is greater than 25, we strongly recommend a referral to a weightmanagement program. Please speak to us or your family physician aboutavailable programs.AVOID NICOTINE IN ALL FORMSThis includes all tobacco products, whether chewed, smoked, vaped, or rubbed onthe skin. Smoking cessation programs, which can make use of tobaccosubstitutes, medications to suppress cravings and behavior management, areavailable. Please contact your family physician about programs in your area.Referring Provider: DAVID MARTÍNEZ [[id number]]Allergies As of Date: 11/27/2016 Noted Allergy ReactionMACROBID (NITROFURANTOIN MONOHYD/*08/31/2013 2 - RashPENICILLINS 04/29/2005 2 - RashDate Reviewed: 11/27/2016Reviewed by: Poornima (Production Administrator) Lina - Fully AssessedReason for Visit: Recheck [92]Primary Visit Diagnosis:S/P MVR (mitral valve repair) [Z98.890]Order(s):ECG B/O W INTERP (MED OFFICE) [ECG06] Order #: [id number] as of 11/27/2016 Sig: ATORVASTATIN 10 MG TABLET Take 1 tablet by mouth once d* ASPIRIN 81 MG CHEWABLE TABLET Take 1 tablet by mouth once d* CALCIUM CARBONATE 500 MG(1,25* Take 1 tablet by mouth twice * ACETAMINOPHEN 325 MG TABLET Take 2 tablets by mouth every* DAILY MULTIVITAMIN ORAL Take 1 tablet by mouth once d* * FOSAMAX 70 MG TAB Take once per week in the mor*Problem List As Of Date 11/27/2016 Noted Resolved Actinic Keratoses (Premalignant AK's [L57.0] INVALID FOR* Priority: D Irritated//Inflamed Seborrheic Keratoses [L82.0]INVALID FOR*11/02/2015 Priority: D Viral warts, unspecified [B07.9] INVALID FOR* Priority: D Solar Lentigines [L81.4] INVALID FOR*11/02/2015 Priority: D Other Seborrheic Keratoses [L82.1] INVALID FOR*11/02/2015 Priority: D Actinic skin damage [L57.8] INVALID FOR*11/02/2015 Priority: D Cutaneous skin tags [L91.8] INVALID FOR*11/02/2015 Priority: D Melanocytic nevus of scalp: L scalp yarsani hair*INVALID FOR*11/02/2015 Priority: D Beck Angiomas [I78.1] INVALID FOR*11/02/2015 Priority: D Scars: Cryosurgical White Scars [L90.5] INVALID FOR* Priority: D Osteopenia [M85.80] Priority: B Mitral regurgitation, 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 More... Discharge planning issues [Z02.9] INVALID FOR*11/02/2015 Priority: M More... Atelectasis [J98.11] INVALID FOR*07/27/2015 Priority: B More... Postoperative pain [G89.18] INVALID FOR*07/27/2015 Priority: D More... Non-rheumatic mitral regurgitation [I34.0] INVALID FOR* Priority: A More... Stress hyperglycemia [R73.9] INVALID FOR*07/26/2015 Priority: E More... SUMMARY INVALID FOR* Priority: Mild More... CAD (coronary artery disease) [I25.10] INVALID FOR* Priority: A More... More... S/P MVR (mitral valve repair) [Z98.890] INVALID FOR* Mixed hyperlipidemia [E78.2] INVALID FOR* Other instructions from your clinician: LIFESTYLE CHANGE A healthy lifestyle is the most important component of your overall treatment plan. Please give serious thought to the following areas and commit to making chcf changes. EAT A WHOLE FOOD, PLANT BASED DIET The nutrition your body gets is more important than the medicine you take. What matters most is the overall way you eat. We encourage you to minimize the use of animal products (which include dairy and all meats except fatty fish) and use whole, unprocessed plant foods to provide your protein, vitamins and other nutrients. We have a lot of information to share with you on this topic. We also hold Shared Medical Appointments, where you can come visit with Dr. Martínez in the company of other patients and spend over an hour talking about the challenges of changing the way you eat. This is not a diet. It is a way of life that you will keep with you. EXERCISE REGULARLY It is not important to spend hours in the gym, lifting weights and perspiring heavily. A total of 2-3 hours per week of aerobic (causing you to be moderately short of breath) exercise is sufficient to improve your health. Talk to us before you begin a new exercise program, if you have heart disease or experience shortness of breath or chest pain. REDUCE STRESS Chronic emotional and physical stress leads to disease. Ways of reducing stress include meditation, visualization, prayer, yoga and other forms of relaxation therapy. Consistency is the ksaggs. Find a technique that works for you and do it every day. CULTIVATE RELATIONSHIPS Loneliness and isolation have a major negative impact on health. Seek out others who can love, care for and nurture you. Avoid hurtful relationships. MAINTAIN IDEAL BODY WEIGHT The best way to do this is to do all the things above. Our bodies naturally find the right weight if we keep moving and feed ourselves the right food. If your BMI is greater than 25, we strongly recommend a referral to a weight management program. Please speak to us or your family physician about available programs. AVOID NICOTINE IN ALL FORMS This includes all tobacco products, whether chewed, smoked, vaped, or rubbed on the skin. Smoking cessation programs, which can make use of tobacco substitutes, medications to suppress cravings and behavior management, are available. Please contact your family physician about programs in your area. Status:Closed by DAVID MARTÍNEZ MD on 11/27/16 [facility] PROGRESSon 11-27-2016 PROGRESS HNO ID: [id number] thor: David Medrano: (none)Author Type: PhysicianType: Progress NotesFiled: 11/27/2016 3:54 PMNote Text:PERTINENT CARDIAC HISTORYMitral regurgitation - repair (#33 Espino) 2016Minimal ASHDADHERENCE TO GUIDELINESACE-I or ARB for HF with prior LVEF<40 (NQF 0081) - N/AASA or Plavix for ASHD (NQF 0067) - metBeta saul for ASHD with prior MD or prior LVEF<40 (NQF 0070) - N/ABeta saul for HF with prior LVEF<40 (NQF 0083) - N/AACE-I or ARB for ASHD with DM or prior LVEF<40 (NQF 0066) - N/AStatin therapy for ASHD or FHL or DM - metBMI documented and plan if >25 (NQF 0421) - lifestyle recommendation formTobacco use screening and referral (NQF 0028) - lifestyle recommendationformRecommendation for whole food, plant based diet - lifestyle recommendationformCLINICAL IMPRESSION/PLAN:Faby Zamora is doing well. She's been advised to continue hercurrent activity and try to get her weight under better control.She's had a good result from her mitral valve repair. She has been askedto continue her current medication.I will see her in 12 months or as needed. If there is increased chest painor shortness of breath, she has been advised to contact me.Written and verbal health teaching given to patient, patient verbalizesunderstanding and agrees with treatment plan.This note was generated using Currensee voice recognition system, and theremay be some incorrect words, spellings, and punctuation that were notnoted in checking the note before saving.DIAGNOSIS FOR VISIT:Mitral valve repairHISTORY OF PRESENT ILLNESSFaby Zamora returns for follow-up of her mitral valve disease. Shereports stable exercise tolerance. She's been walking regularly. Shedenies chest discomfort. She's had no orthopnea, edema, syncope. Shedenies palpitations, TIAs, amaurosis and claudication.ALLERGIES:ALLERGIES Allergen Reactions- Macrobid [Nitrofura* Rash- Penicillins RashCURRENT OUTPATIENT MEDICATIONS:atorvastatin (LIPITOR) 10 mg tablet Take 1 tablet by mouth once daily.aspirin 81 mg chewable tablet Take 1 tablet by mouth once daily.calcium carbonate-vitamin D3 (OSCAL+D) 500 mg(1,250mg) -400 unit chewabletablet Take 1 tablet by mouth twice daily.acetaminophen (TYLENOL) 325 mg tablet Take 2 tablets by mouth every 4hours as needed for Pain or Fever.MV-MN/FA/D3/LYCOPENE/LUT/C OQ10 (DAILY MULTIVITAMIN ORAL) Take 1 tablet bymouth once daily.alendronate (FOSAMAX) 70 mg ORAL Tab Take once per week in the morningwith a full glass of water, on an empty stomach, and do not take anythingelse by mouth or lie down for the next 30 minutes.PHYSICAL EXAMINATION:VITAL SIGNS: BP 123/81 Pulse 74 Wt 164 lb 14.4 oz (74.8kg)Chest: Clear to percussion and auscultation. Trachea is midline. Airentry is equal. Cardiac: Regular rhythm. S1 and S2 are normal. PMI isnondisplaced. There are no murmurs, rubs or gallops. There is no mitralinsufficiency murmur. Carotids are brisk without bruits. JVP is lessthan 10 cm. Abdomen: Soft and nontender. There are no pulsatile massesor bruits. No liver enlargement. Bowel sounds are active. Extremities:No edema. Pulses are intact and symmetrical.EKG shows sinus rhythm. There is slow R wave progression, similar totracing of 07/24/15. There is no significant change.Electronically Signed:David Martínez MDTr[facility] Health [facility]2016 3:25 PMCC: Vinayak Reyes MD [facility] Vital Signs Date Time Vital Sign Value Performing Clinician Faci lity 10-08-2024 10:32-0400 Diastolic blood pressure 82 mm[Hg] Vinayak Reyes MD Work Phone: [facility] 10-08-2024 10:32-0400 Heart rate 70 /min Vinayak Reyes MD Work Phone: [facility] 10-08-2024 10:32-0400 SaO2% (BldA) [Mass fraction] 100 % Vinayak Reyes MD Work Phone: [facility] 10-08-2024 10:32-0400 Systolic blood pressure 122 mm[Hg] Vinayak Reyes MD Work Phone: [facility] 04-07-2024 08:56-0500 Body height 165.1 cm Vinayak Reyes MD Work Phone: [facility] 04-07-2024 08:56-0500 Body mass index (BMI) [Ratio] 26.96 kg/m2 Vinayak Reyes MD Work Phone: [facility] 04-07-2024 08:56-0500 Body weight 73.48 kg Vinayak Reyes MD Work Phone: [facility] 04-07-2024 08:56-0500 Diastolic blood pressure 72 mm[Hg] Vinayak Reyes MD Work Phone: [facility] 04-07-2024 08:56-0500 Heart rate 73 /min Vinayak Reyes MD Work Phone: [facility] 04-07-2024 08:56-0500 SaO2% (BldA) [Mass fraction] 99 % Vinayak Reyes MD Work Phone: [facility] 04-07-2024 08:56-0500 Systolic blood pressure 134 mm[Hg] Vinayak Reyes MD Work Phone: [facility] 03-01-2024 11:10-0500 Body height 165.1 cm Pineda French DO Work Phone: [facility] 03-01-2024 11:10-0500 Body mass index (BMI) [Ratio] 27.4 kg/m2 Pineda French DO Work Phone: [facility] 03-01-2024 11:10-0500 Body weight 74.7 kg Pineda French DO Work Phone: [facility] 03-01-2024 11:10-0500 Diastolic blood pressure 62 mm[Hg] Pineda French DO Work Phone: [facility] 03-01-2024 11:10-0500 Heart rate 62 /min Pineda French DO Work Phone: [facility] 03-01-2024 11:10-0500 SaO2% (BldA) [Mass fraction] 96 % Pineda French DO Work Phone: [facility] 03-01-2024 11:10-0500 Systolic blood pressure 126 mm[Hg] Pineda French DO Work Phone: [facility] 05-12-2023 11:36-0400 Body weight 74.39 kg Vniayak Reyes MD Work Phone: [facility] 05-12-2023 11:36-0400 Diastolic blood pressure 76 mm[Hg] Vinayak Reyes MD Work Phone: [facility] 05-12-2023 11:36-0400 Heart rate 70 /min Vinayak Reyes MD Work Phone: [facility] 05-12-2023 11:36-0400 SaO2% (BldA) [Mass fraction] 96 % Vinayak Reyes MD Work Phone: [facility] 05-12-2023 11:36-0400 Systolic blood pressure 122 mm[Hg] Vinayak Reyes MD Work Phone: [facility] 04-30-2023 09:03-0400 Diastolic blood pressure 67 mm[Hg] Carmita Lawrence MD Work Phone: [facility] 04-30-2023 09:03-0400 Heart rate 67 /min Carmita Lawrence MD Work Phone: [facility] 04-30-2023 09:03-0400 Respiratory rate 16 /min Carmita Lawrence MD Work Phone: [facility] 04-30-2023 09:03-0400 SaO2% (BldA) [Mass fraction] 97 % Carmita Lawrence MD Work Phone: [facility] 04-30-2023 09:03-0400 Systolic blood pressure 158 mm[Hg] Carmita Lawrence MD Work Phone: [facility] 04-30-2023 07:40-0400 Body temperature 97.5 [degF] Carmita Lawrence MD Work Phone: [facility] 04-30-2023 07:40-0400 Body weight 73.3 kg Carmita Lawrence MD Work Phone: [facility] 04-08-2023 14:56-0500 Body temperature 100.2 [degF] Marianne Stein APRN.LEAD RAMP AGENT Work Phone: [facility] 04-08-2023 14:56-0500 Body weight 73.3 kg Marianne Stein APRN.LEAD RAMP AGENT Work Phone: [facility] 04-08-2023 14:56-0500 Diastolic blood pressure 80 mm[Hg] Marianne Stein APRN.LEAD RAMP AGENT Work Phone: [facility] 04-08-2023 14:56-0500 Heart rate 92 /min Marianne Stein APRN.LEAD RAMP AGENT Work Phone: [facility] 04-08-2023 14:56-0500 Respiratory rate 18 /min Marianne Stein APRN.LEAD RAMP AGENT Work Phone: [facility] 04-08-2023 14:56-0500 SaO2% (BldA) [Mass fraction] 95 % Marianne Stein [employer].LEAD RAMP AGENT Work Phone: [facility] 04-08-2023 14:56-0500 Systolic blood pressure 142 mm[Hg] Marianne Stein W[employer].LEAD RAMP AGENT Work Phone: [facility] 04-04-2023 13:47-0500 Body weight 74.66 kg Yoana Suppan W[employer].PRINT COLOR MATCHER Work Phone: [facility] 04-04-2023 13:47-0500 Diastolic blood pressure 70 mm[Hg] Yoana Suppan W[employer].PRINT COLOR MATCHER Work Phone: [facility] 04-04-2023 13:47-0500 Heart rate 67 /min Yoana Suppan [employer].PRINT COLOR MATCHER Work Phone: [facility] 04-04-2023 13:47-0500 Respiratory rate 16 /min Yoana Suppan [employer].PRINT COLOR MATCHER Work Phone: [facility] 04-04-2023 13:47-0500 SaO2% (BldA) [Mass fraction] 95 % Yoana Suppan [employer].PRINT COLOR MATCHER Work Phone: [facility] 04-04-2023 13:47-0500 Systolic blood pressure 122 mm[Hg] Yoana Suppan [employer].PRINT COLOR MATCHER Work Phone: [facility] 03-21-2023 08:50-0500 Body weight 73.03 kg Vinayak Reyes MD Work Phone: [facility] 03-21-2023 08:50-0500 Diastolic blood pressure 73 mm[Hg] Vinayak Reyes MD Work Phone: [facility] 03-21-2023 08:50-0500 Heart rate 79 /min Vinayak Reyes MD Work Phone: [facility] 03-21-2023 08:50-0500 SaO2% (BldA) [Mass fraction] 92 % Vinayak Reyes MD Work Phone: [facility] 03-21-2023 08:50-0500 Systolic blood pressure 118 mm[Hg] Vinayak Reyes MD Work Phone: [facility] 01-21-2023 11:43-0500 Body height 162.6 cm Pineda French DO Work Phone: [facility] 01-21-2023 11:43-0500 Body weight 71.67 kg Pineda French DO Work Phone: [facility] 01-21-2023 11:43-0500 Diastolic blood pressure 66 mm[Hg] Pineda French DO Work Phone: [facility] 01-21-2023 11:43-0500 Heart rate 72 /min Pineda French DO Work Phone: [facility] 01-21-2023 11:43-0500 SaO2% (BldA) [Mass fraction] 97 % Pineda rFench DO Work Phone: [facility] 01-21-2023 11:43-0500 Systolic blood pressure 120 mm[Hg] Pineda French DO Work Phone: [facility] 01-20-2023 09:44-0500 Body height 162.5 cm Nola Haagen [employer].LEAD RAMP AGENT Work Phone: [facility] 01-20-2023 09:44-0500 Body weight 73.03 kg Nola Haagen [employer].LEAD RAMP AGENT Work Phone: [facility] 01-20-2023 09:44-0500 Diastolic blood pressure 72 mm[Hg] Nola Haagen [employer].LEAD RAMP AGENT Work Phone: [facility] 01-20-2023 09:44-0500 Heart rate 77 /min Nola Haagen [employer].LEAD RAMP AGENT Work Phone: [facility] 01-20-2023 09:44-0500 Respiratory rate 16 /min Nola Haagen [employer].LEAD RAMP AGENT Work Phone: [facility] 01-20-2023 09:44-0500 SaO2% (BldA) [Mass fraction] 96 % Nola Haagen [employer].LEAD RAMP AGENT Work Phone: [facility] 01-20-2023 09:44-0500 Systolic blood pressure 120 mm[Hg] Nola Haagen [employer].LEAD RAMP AGENT Work Phone: [facility] 03-18-2022 14:30-0500 Diastolic blood pressure 84 mm[Hg] Nola Haagen [employer].LEAD RAMP AGENT Work Phone: [facility] 03-18-2022 14:30-0500 Heart rate 81 /min Nola Haagen [employer].LEAD RAMP AGENT Work Phone: [facility] 03-18-2022 14:30-0500 Respiratory rate 18 /min Nola Haagen [employer].LEAD RAMP AGENT Work Phone: [facility] 03-18-2022 14:30-0500 SaO2% (BldA) [Mass fraction] 94 % Nola Haagen [employer].LEAD RAMP AGENT Work Phone: [facility] 03-18-2022 14:30-0500 Systolic blood pressure 122 mm[Hg] Nola Haagen [employer].LEAD RAMP AGENT Work Phone: [facility] 01-18-2022 13:41-0500 Diastolic blood pressure 70 mm[Hg] Vinayak Reyes MD Work Phone: [facility] 01-18-2022 13:41-0500 Systolic blood pressure 132 mm[Hg] Vinayak Reyes MD Work Phone: [facility] 01-18-2022 13:10-0500 Body height 161 cm Vinayak Reyes MD Work Phone: [facility] 01-18-2022 13:10-0500 Body weight 75.3 kg Vinayak Reyes MD Work Phone: [facility] 01-18-2022 13:10-0500 Heart rate 68 /min Vinayak Reyes MD Work Phone: [facility] 01-18-2022 13:10-0500 SaO2% (BldA) [Mass fraction] 99 % Vinayak Reyes MD Work Phone: [facility] 01-16-2022 09:59-0500 Body height 165.1 cm Pineda French DO Work Phone: [facility] 01-16-2022 09:59-0500 Body weight 73.48 kg Pineda French DO Work Phone: [facility] 01-16-2022 09:59-0500 Diastolic blood pressure 70 mm[Hg] Pineda French DO Work Phone: [facility] 01-16-2022 09:59-0500 Heart rate 76 /min Pineda French DO Work Phone: [facility] 01-16-2022 09:59-0500 SaO2% (BldA) [Mass fraction] 96 % Pineda French DO Work Phone: [facility] 01-16-2022 09:59-0500 Systolic blood pressure 114 mm[Hg] Pineda French DO Work Phone: [facility] 07-04-2021 14:54-0400 Body temperature 98.71 [degF] Robert Israel W[employer].LEAD RAMP AGENT Work Phone: [facility] 07-04-2021 14:54-0400 Body weight 74.84 kg Robert Israel [employer].LEAD RAMP AGENT Work Phone: [facility] 07-04-2021 14:54-0400 Diastolic blood pressure 72 mm[Hg] Robert Israel W[employer].LEAD RAMP AGENT Work Phone: [facility] 07-04-2021 14:54-0400 Heart rate 100 /min Robert Israel [employer].LEAD RAMP AGENT Work Phone: [facility] 07-04-2021 14:54-0400 Respiratory rate 18 /min Robert Israel [employer].LEAD RAMP AGENT Work Phone: [facility] 07-04-2021 14:54-0400 SaO2% (BldA) [Mass fraction] 99 % Robert Israel [employer].LEAD RAMP AGENT Work Phone: [facility] 07-04-2021 14:54-0400 Systolic blood pressure 128 mm[Hg] Robert Israel [employer].LEAD RAMP AGENT Work Phone: [facility] Encounters Encounter Date Encounter Type Care Provider Facility Start: 12-17-2024 End: 12-17-2024 ambulatory VINAYAK Gardner ERIC Facility:[facility] Start: 12-13-2024 End: 12-13-2024 ambulatory VINAYAK REYES Facility:[facility] Start: 11-26-2024 End: 11-26-2024 ambulatory VINAYAK Gardner ERIC Facility:[facility] Start: 10-15-2024 End: 10-15-2024 ambulatory Laurie Mclean RN Work Phone: [employer] Comment on above: Primary Care Coordin ator- Other (Chart review) Start: 10-08-2024 End: 10-08-2024 Telephone encounter Vinayak Reyes MD Work Phone: [facility] Comment on above: Orders Start: 10-08-2024 End: 10-08-2024 ambulatory VINAYAK REYES Facility:[facility] Start: 10-08-2024 End: 10-08-2024 Patient encounter procedure Vinayak Reyes MD Work Phone: [facility] [place] Comment on above: Coronary artery dise ase involving [place] coronary artery of [place] heart without angina pectoris (Primary Dx); Medicare annual wellness visit, subsequent; Mixed hyperlipidemia; S/P MVR (mitral valve repair); Actinic Keratoses (Premalignant AK's; History of osteopenia; Prediabetes; Encounter for screening mammogram for breast cancer Start: 05-24-2024 End: 07-24-2024 Follow-up encounter Vinayak Reyes MD Work Phone: [facility] [place] Start: 05-20-2024 End: 05-20-2024 ambulatory VINAYAK REYES Facility:[facility] Start: 05-20-2024 End: 05-20-2024 Subsequent hospital visit by physician [facility] Work Phone: Radiology Comment on above: Osteopenia of neck o f right femur [M85.851] Start: 04-08-2024 End: 06-08-2024 Follow-up encounter Vinayak Reyes MD Work Phone: [facility] [place] Start: 04-07-2024 End: 04-07-2024 ambulatory VINAYAK REYES Facility:[facility] Start: 04-07-2024 End: 04-07-2024 Patient encounter procedure Vinayak Reyes MD Work Phone: [facility] [place] Comment on above: S/P MVR (mitral valv e repair) (Primary Dx); Screening for depression; Encounter for screening examination for other mental health and behavioral disorders; Coronary artery disease involving [place] coronary artery of [place] heart without angina pectoris; Mixed hyperlipidemia; Prediabetes; Osteopenia of neck of right femur; Disorder of bone and cartilage Start: 04-05-2024 End: 04-05-2024 ambulatory Mary Mireles MA [facility] Start: 04-05-2024 End: 04-05-2024 Patient encounter procedure Mary Mireles MA [facility] Comment on above: Population Health Na vigation Outreach ([facility]) Start: 03-01-2024 End: 03-01-2024 ambulatory VINAYAK Gardner ERIC Facility:[facility] Start: 03-01-2024 End: 03-01-2024 Patient encounter procedure Pineda French DO Work Phone: Cardiology Comment on above: S/P MVR (mitral valv e repair) (Primary Dx); Coronary artery disease involving [place] coronary artery of [place] heart without angina pectoris; Mixed hyperlipidemia Start: 02-12-2024 End: 02-12-2024 [facility] Start: 02-12-2024 End: 02-12-2024 Patient encounter procedure Jael Olson Work Phone: Podiatry Comment on above: Callus of foot (Prim tj Dx); Metatarsalgia of right foot Start: 01-12-2024 End: 01-12-2024 Telephone encounter Vinayak Reyes MD Work Phone: [facility] [place] Comment on above: Results Start: 01-09-2024 End: 01-09-2024 Refill Vinayak Reyes MD Work Phone: [facility] Comment on above: Refill Request Start: 01-09-2024 End: 01-09-2024 ambulatory Vinayak Reyes Facility:[facility] Start: 12-23-2023 End: 12-25-2023 Telephone encounter Vinayak Reyes MD Work Phone: [facility] Comment on above: Orders Start: 11-08-2023 End: 11-08-2023 ambulatory [facility] [place] Work Phone: [facility] Start: 11-08-2023 End: 11-08-2023 Patient encounter procedure [facility] [place] Work Phone: [facility] Start: 10-16-2023 End: 10-16-2023 E-mail encounter from caregiver Pineda French DO Work Phone: Cardiology Start: 10-16-2023 End: 10-16-2023 Patient encounter procedure Pineda Andrew French DO Work Phone: Cardiology Comment on above: Appointment Start: 05-15-2023 End: 05-15-2023 Patient encounter procedure Jael Olson Work Phone: Podiatry Comment on above: Porokeratosis (Prima ry Dx) Start: 05-12-2023 End: 05-12-2023 Patient encounter procedure Vinayak Reyes MD Work Phone: [facility] Comment on above: Foot callus (Primary Dx) Start: 04-30-2023 End: 04-30-2023 Subsequent hospital visit by physician Carmita Lawrence MD Work Phone: Ambulatory Surgery Comment on above: History of colonic p olyps [Z86.010] Start: 04-08-2023 End: 04-08-2023 Patient encounter procedure Marianne Stein APRN.LEAD RAMP AGENT Work Phone: [facility] Comment on above: Acute cough (Primary Dx) Start: 04-04-2023 End: 04-04-2023 Office outpatient visit 15 minutes Yoana Steen APRN.PRINT COLOR MATCHER Work Phone: [facility] Comment on above: Thrush (oral) (Prima ry Dx) Start: 04-02-2023 Telephone encounter Vinayak Reyes MD Work Phone: [facility] [place] Comment on above: Thrush persisting Start: 03-21-2023 Telephone encounter Vinayak Reyes MD Work Phone: [facility] [place] Comment on above: Results Start: 03-21-2023 End: 03-21-2023 Patient encounter procedure Vinayak Reyes MD Work Phone: [facility] [place] Comment on above: Myalgia (Primary Dx) ; Pain in both lower extremities; Thrush Start: 03-10-2023 End: 12-16-2023 Telephone encounter Carmita Lawrence MD Work Phone: General Surgery Comment on above: 04/30/2023 [facility] Start: 01-27-2023 End: 01-27-2023 ambulatory Abram Velasco Facility[facility] Start: 01-21-2023 End: 01-21-2023 ambulatory VINAYAK REYES Facility:[facility] Start: 01-21-2023 End: 01-21-2023 Patient encounter procedure Pineda Morales [place] [employer] Work Phone: Cardiology Comment on above: S/P MVR (mitral valv e repair) (Primary Dx); Coronary artery disease involving [place] coronary artery of [place] heart without angina pectoris; Mixed hyperlipidemia Start: 01-20-2023 End: 01-20-2023 Office outpatient visit 25 minutes Nola Veras APRN.CNP Work Phone: [facility] Comment on above: Mixed hyperlipidemia (Primary Dx); Coronary artery disease involving [place] coronary artery of [place] heart without angina pectoris; Osteopenia of neck of right femur Start: 01-06-2023 End: 01-06-2023 ambulatory [facility] Work Phone: Start: 01-06-2023 End: 01-06-2023 Patient encounter procedure [facility] Work Phone: Start: 11-09-2022 End: 11-09-2022 ambulatory [facility] [place] Work Phone: [facility] Start: 07-15-2022 Refill Vinayak Reyes MD Work Phone: [facility] Comment on above: Refill Request Start: 03-18-2022 End: 03-18-2022 Office outpatient visit 15 minutes Nola Vears APRN.LEAD RAMP AGENT Work Phone: [facility] Comment on above: Acute upper respirat ory infection, unspecified (Primary Dx) Start: 02-27-2022 Refill Xin JENNINGSLEAD RAMP AGENT Work Phone: [facility] Comment on above: Refill Request Start: 02-13-2022 End: 02-13-2022 Subsequent hospital visit by physician [facility] Work Phone: Radiology Comment on above: Osteopenia of neck o f right femur [M85.851] Start: 01-18-2022 End: 01-18-2022 Patient encounter procedure Vinayak Reyes MD Work Phone: [facility] Comment on above: S/P MVR (mitral valv e repair) (Primary Dx); Coronary artery disease involving [place] coronary artery of [place] heart without angina pectoris; Mixed hyperlipidemia; Osteopenia of neck of right femur; Asymptomatic postmenopausal status; Need for hepatitis C screening test; Actinic Keratoses (Premalignant AK's Start: 01-16-2022 End: 01-16-2022 Patient encounter procedure Pineda French Work Phone: Cardiology Comment on above: S/P MVR (mitral valv e repair) (Primary Dx); Coronary artery disease involving [place] coronary artery of [place] heart without angina pectoris; Mixed hyperlipidemia Start: 01-10-2022 End: 01-10-2022 ambulatory [facility] Work Phone: Start: 01-10-2022 End: 01-10-2022 Patient encounter procedure [facility] Start: 01-08-2022 Refill Vinayak Reyes MD Work Phone: [facility] Comment on above: Refill Request Start: 01-02-2022 End: 01-02-2022 [facility] Work Phone: Start: 01-02-2022 End: 01-02-2022 [facility] Start: 11-20-2021 Patient encounter status Fredy Reyes MD Work Phone: [facility] [place] Start: 11-20-2021 Telephone encounter Vinayak Reyes MD Work Phone: [facility] [place] Comment on above: Orders (Appointment on 01/18) Start: 11-19-2021 Refill Vinayak Reyes MD Work Phone: [facility] [place] Comment on above: Refill Request Start: 11-03-2021 End: 11-03-2021 ambulatory [facility] [place] Work Phone: [facility] [place] Start: 09-07-2021 End: 09-07-2021 Patient encounter procedure Kadeem Bell DO Work Phone: [facility] [place] Comment on above: Closed nondisplaced fracture of lateral malleolus of right fibula, subsequent (Primary Dx) Start: 08-17-2021 End: 08-17-2021 Patient encounter procedure Kadeem Bell DO Work Phone: [facility] [place] Comment on above: Closed nondisplaced fracture of lateral malleolus of right fibula, subsequent (Primary Dx) Start: 07-27-2021 Telephone encounter Vinayak Reyes MD Work Phone: [facility] [place] Comment on above: Erroneous encounter- disregard Start: 07-26-2021 Orders Only Kadeem William Work Phone: Orthopaedics Comment on above: Closed nondisplaced fracture of lateral malleolus of right fibula, initial encounter (Primary Dx) Start: 07-13-2021 End: 07-13-2021 Patient encounter procedure Kadeem Bell DO Work Phone: [facility] [place] Comment on above: Closed nondisplaced fracture of lateral malleolus of right fibula, initial encounter (Primary Dx) Start: 07-04-2021 End: 07-04-2021 Subsequent hospital visit by physician Xr [facility] [place] Work Phone: Radiology Comment on above: Ankle injuries, righ t, initial encounter [S99.911A] Start: 07-04-2021 End: 07-04-2021 Patient encounter procedure Robert Wood APRN.LEAD RAMP AGENT Work Phone: [facility] Comment on above: Closed fracture of r ight ankle, initial encounter (Primary Dx); Ankle injuries, right, initial encounter Start: 05-21-2021 Refill Vinayak Reyes MD Work Phone: [facility] [place] Comment on above: Refill Request Start: 11-27-2017 Ambulatory DAVID MARTÍNEZ Facility :[facility] Start: 11-27-2016 End: 11-27-2016 Ambulatory DAVID Pedraza MAURICIO [facility] Procedures Date Procedure Procedure Detail Performing Clinician Start: 04-07-2024 Adult depression screening assessment Vinayak Reyes MD Work Phone: Start: 04-07-2024 Lipid 1996 panel - S abbie or Plasma [facility] Work Phone: Start: 03-01-2024 Ecg routine ecg w/le ast 12 lds i&r only [facility] Provider Start: 11-08-2023 PFIZER-BIONTECH COVI D-19 VACCINE AGE 12+ YR (COMIRNATY) Jose Petty MD Work Phone: Start: 04-30-2023 Colonoscopy flx dx w/collj spec when pfrmd Carmita Lawrence MD Work Phone: Start: 04-30-2023 Colonoscopy Carmita Lawrence MD Work Phone: Start: 01-22-2023 Lipid 1996 panel - S abbie or Plasma Vinayak Reyes MD Work Phone: Start: 01-21-2023 Ecg routine ecg w/le ast 12 lds trcg only w/o i&r [facility] Provider Start: 01-06-2023 Screening mammography Start: 11-09-2022 PFIZER-BIONTECH COVI D-19 VACCINE ( SEASON) AGE 12+ YR Jose Petty MD Work Phone: Start: 11-09-2022 INFLUENZA VACCINE, P RSV FREE, AGE 65+ YR, HIGH DOSE, QUADRIVALENT (FLUZONE HIGH-DOSE) Jose Petty MD Work Phone: Start: 03-18-2022 COVID WITH FLUA+B, ROUTINE Nola Veras W[employer].LEAD RAMP AGENT Work Phone: Start: 02-13-2022 Dxa bone density tali dy 1/> sites axial skel Vinayak Reyes MD Work Phone: Start: 01-11-2022 Lipid 1996 panel - S abbie or Plasma [facility] [place] Work Phone: Start: 01-10-2022 End: 01-10-2022 Mammography Start: 01-02-2022 Screening mammography Start: 11-03-2021 [employer] COVI D-19 BIVALENT BOOSTER VACCINE, AGE 12+ YR Vinayak Reyes MD Work Phone: Start: 11-03-2021 INFLUENZA SEASONAL QUADRIVALENT HIGH DOSE AGE 65+ Meghan Rodgers MD Work Phone: Start: 07-04-2021 Radex ankle complete minimum 3 views Robert Wood [employer].LEAD RAMP AGENT Work Phone: Start: 01-01-2021 Mammography Vinayak Samano MD Work Phone: Start: 12-07-2018 Colonoscopy Vinayak Samano MD Work Phone: Start: 08-02-2015 Adult depression screening assessment Vinayak Reyes MD Work Phone: Plan of Treatment Date Care Activity Detail Author Start: 04-07-2029 Lipid panel Lipid Screening [facility] Start: 04-29-2028 Screening for malign ant neoplasm of colon [facility] Start: 01-23-2028 Lipid panel Lipid Screening [facility] Start: 04-07-2027 Diabetes Screening Diabetes Screenin [facility] Start: 01-11-2027 Lipid 1996 panel - S abbie or Plasma Lipid Screening [facility] Start: 01-11-2027 Lipid panel Lipid Screening [facility] Start: 01-11-2027 LIPID SCREEN LIPID SCREEN [facility] Start: 03-22-2026 Diabetes Screening Diabetes Screenin g [facility] Start: 02-24-2026 Diabetes Screening Diabetes Screenin g [facility] Start: 01-09-2026 LIPID SCREEN LIPID SCREEN [facility] Start: 10-08-2025 Annual PCP Team Outside Salesperson abdulkadir Disease Visit Annual PCP Team Chronic Disease Visit [facility] Start: 10-08-2025 Medicare Annual Well ness Visit Medicare Annual Wellness Visit [facility] Start: 2025 RSV Vaccine (1 - 1-d ose 75+ series) RSV Vaccine (1 - 1-dose 75+ series) [facility] [facility] Start: 04-22-2025 End: 04-22-2025 Patient encounter procedure 04/22/2025 9:40 AM EDT Office Visit Family Richi Motta [address] [place], [place] [id number] Vinayak Reyes MD [address] [place], [place] [id number] 6 mo follow up [facility] Richi Motta Comment on above: 6 mo follow up Start: 04-09-2025 End: 07-09-2025 CBC W Auto Differential panel - Blood COMPLETE BLOOD COUNT AND DIFFERENTIAL Lab Routine Mixed hyperlipidemia Expected: 04/09/2025, Expires: 07/09/2025 [facility] Work Phone: Comment on above: Expected: 04/09/2025 , Expires: 07/09/2025 Start: 04-09-2025 End: 07-09-2025 Comprehensive metabolic 2000 panel - Serum or Plasma COMPREHENSIVE METABOLIC PANEL Lab Routine Mixed hyperlipidemia Expected: 04/09/2025, Expires: 07/09/2025 [facility] Comment on above: Expected: 04/09/2025 , Expires: 07/09/2025 Start: 04-09-2025 End: 07-09-2025 Lipid 1996 panel - Serum or Plasma LIPID PANEL, FASTING Lab Routine Mixed hyperlipidemia Expected: 04/09/2025, Expires: 07/09/2025 [facility] Comment on above: Expected: 04/09/2025 , Expires: 07/09/2025 Start: 04-07-2025 Annual PCP Team Outside Salesperson abdulkadir Disease Visit Annual PCP Team Chronic Disease Visit [facility] Start: 04-07-2025 Anxiety Screening Anxiety Screening [facility] Start: 04-07-2025 Depression Screening Depression Scre ening [facility] Start: 04-07-2025 Hepatitis B surface antibody level LDL Cholesterol [facility] Start: 04-07-2025 Shingrix Vaccine (1 of 2) Reyes grix Vaccine (1 of 2) [facility] Comment on above: Postponed from 07/03 (Declined at this time) Start: 04-07-2025 Urine microalbumin profile DTa P,Tdap,Td Vaccine (2 - Td or Tdap) [facility] Comment on above: Postponed from 09/24 (Declined at this time) Start: 03-01-2025 End: 03-01-2025 Patient encounter procedure Cardiology Comment on above: annual follow up Start: 01-11-2025 DIABETES SCREEN DIABETES SCREEN [facility] Start: 01-11-2025 Diabetes Screening Diabetes Screenin g [facility] Start: 01-08-2025 Screening for malign ant neoplasm of breast Mammogram Screening [facility] Start: 12-13-2024 End: 03-01-2025 Echocardiography ECHO Cardiology Routine S/P MVR (mitral valve repair) Coronary artery disease involving [place] coronary artery of [place] heart without angina pectoris Mixed hyperlipidemia Expected: 12/13/2024, Expires: 03/01/2025 [facility] Work Phone: Comment on above: Expected: 12/13/2024 , Expires: 03/01/2025 Start: 12-13-2024 End: 12-13-2024 Patient encounter procedure 12/13/2024 1:00 PM EST Office Visit Cardiology [address] [address] S/P MVR (mitral valve repair) [Z98.890] Cardiology Comment on above: S/P MVR (mitral valv e repair) [Z98.890] Start: 10-11-2024 Influenza vaccination Influenza Vacc ine (#1) [facility] Start: 10-08-2024 End: 10-08-2024 Patient encounter procedure 10/08/2024 10:20 AM EDT Office Visit Family [facility] [place] [address] [place] [address] Vinayak Reyes MD [address] [facility] [place] [address] Medicare Wellness Exam [facility] [place] Comment on above: Medicare Wellness Ex am Start: 05-20-2024 End: 05-20-2024 Patient encounter procedure 05/20/2024 8:20 AM EDT Appointment Radiology [address] [place] [id number] Osteopenia of neck of right femur [M85.851]; Disorder of bone and cartilage [M89.9, M94.9] Radiology Comment on above: Osteopenia of neck o f right femur [M85.851]; Disorder of bone and cartilage [M89.9, M94.9] Start: 05-11-2024 Annual PCP Team Outside Salesperson abdulkadir Disease Visit Annual PCP Team Chronic Disease Visit [facility] Start: 05-07-2024 Covid-19 Vaccine () Covid-19 Vaccine () [facility] Start: 04-07-2024 End: 07-07-2024 Hemoglobin A1c in Blood [facility] Comment on above: Expected: 04/07/2024 , Expires: 07/07/2024 Start: 04-07-2024 End: 07-07-2024 Lipid 1996 panel - Serum or Plasma [facility] Work Phone: Comment on above: Expected: 04/07/2024 , Expires: 07/07/2024 Start: 04-07-2024 End: 04-07-2024 Patient encounter procedure 04/07/2024 9:00 AM EST Office Visit Family Richi [facility] [address] [facility] [place] [address], [place] [id number] Vinayak Reyes MD [address] [facility] [place] [address], [place] [phone] FOLLOW UP Family Richi [facility] Comment on above: FOLLOW UP Start: 03-21-2024 Annual PCP Team Outside Salesperson abdulkadir Disease Visit Annual PCP Team Chronic Disease Visit [facility] Start: 03-21-2024 RSV Vaccine (1 - 1-d ose 60+ series) RSV Vaccine (1 - 1-dose 60+ series) [facility] Comment on above: Postponed from 07/03 (Declined at this time) Start: 03-21-2024 Shingrix Vaccine (1 of 2) Reyes grix Vaccine (1 of 2) [facility] Comment on above: Postponed from 07/03 (Declined at this time) Start: 03-21-2024 Urine microalbumin profile DTa P,Tdap,Td Vaccine (2 - Td or Tdap) [facility] Comment on above: Postponed from 09/24 (Declined at this time) Start: 03-01-2024 End: 03-01-2024 Patient encounter procedure 03/01/2024 11:40 AM EST Office Visit Cardiology [address] [id number] Pineda French, [address] [place] [address] Annunal follow up Cardiology Comment on above: Annunal follow up Start: 02-12-2024 End: 02-12-2024 Patient encounter procedure 02/12/2024 3:30 PM EST Office Visit Podiatry [address] [place] [address] Jael Olson [address] [address] FOOT CALLUS PAIN- Podiatry Comment on above: FOOT CALLUS PAIN- Start: 02-11-2024 Advance Directive Discussion Advance Directive Discussion [facility] Start: 01-23-2024 Hepatitis B surface antibody level LDL Cholesterol [facility] Start: 01-21-2024 Annual PCP Team Outside Salesperson abdulkadir Disease Visit Annual PCP Team Chronic Disease Visit [facility] Start: 01-21-2024 Hepatitis C Screening Hepatitis C [facility] Comment on above: Postponed from 07/03 (Declined at this time) Start: 01-21-2024 Hepatitis C screening Hepatitis C [facility] Comment on above: Postponed from 07/03 (Declined at this time) Start: 01-10-2024 DIABETES SCREEN DIABETES SCREEN [facility] Start: 01-07-2024 Mammography Mammogram Screening [facility] Start: 01-07-2024 Screening for malign ant neoplasm of breast Mammogram Screening [facility] Start: 12-08-2023 Colonoscopy COLONOSCOPY [facility] Start: 12-08-2023 COLORECTAL CANCER SCREENING COLORECTAL CANCER SCREENING [facility] Start: 12-08-2023 Screening for malign ant neoplasm of colon [facility] Start: 11-08-2023 End: 11-08-2023 Patient encounter procedure 11/08/2023 8:30 AM EDT Immunization [facility] [place] [address] [place] [address] [place] Immun[facility] Nurse [address] [place] [address] flu vaccine [facility] [place] Comment on above: flu vaccine Start: 10-12-2023 Covid-19 Vaccine () Covid-19 Vaccine () [facility] Start: 10-12-2023 Influenza vaccination Influenza Vacc ine (#1) [facility] Start: 03-21-2023 End: 06-20-2023 Comprehensive metabolic 2000 panel - Serum or Plasma [facility] Work Phone: Comment on above: Expected: 03/21/2023 , Expires: 06/20/2023 Start: 03-21-2023 End: 06-20-2023 Creatine kinase [Enzymatic activity/volume] in Serum or Plasma [facility] Work Phone: Comment on above: Expected: 03/21/2023 , Expires: 06/20/2023 Start: 03-21-2023 End: 06-20-2023 Magnesium [Mass/volume] in Serum or Plasma [facility] Work Phone: Comment on above: Expected: 03/21/2023 , Expires: 06/20/2023 Start: 03-18-2023 ANNUAL PCP TEAM PIGS FEET FINISHER ABDULKADIR DISEASE VISIT ANNUAL PCP TEAM CHRONIC DISEASE VISIT [facility] Start: 03-11-2023 Covid-19 Vaccine (5 - Pfizer series) Covid-19 Vaccine (5 - Pfizer series) [facility] Start: 02-10-2023 Behavioral Health Screening Behavioral Health Screening [facility] Start: 01-18-2023 ANNUAL PCP TEAM PIGS FEET FINISHER ABDULKADIR DISEASE VISIT ANNUAL PCP TEAM CHRONIC DISEASE VISIT [facility] Start: 01-18-2023 End: 03-20-2023 CBC W Auto Differential panel - Blood CBC + DIFF Lab Routine Coronary artery disease involving [place] coronary artery of [place] heart without angina pectoris Expected: 01/18/2023, Expires: 03/20/2023 [facility] Work Phone: Comment on above: Expected: 01/18/2023 , Expires: 03/20/2023 Start: 01-18-2023 End: 03-20-2023 Comprehensive metabolic 2000 panel - Serum or Plasma COMP METABOLIC PANEL Lab Routine Mixed hyperlipidemia Expected: 01/18/2023, Expires: 03/20/2023 [facility] Work Phone: Comment on above: Expected: 01/18/2023 , Expires: 03/20/2023 Start: 01-18-2023 End: 03-20-2023 Hepatitis C virus Ab [Presence] in Serum HEP C AB IA W/CONF SCRN Lab Routine Need for hepatitis C screening test Expected: 01/18/2023, Expires: 03/20/2023 [facility] Work Phone: Comment on above: Expected: 01/18/2023 , Expires: 03/20/2023 Start: 01-18-2023 End: 03-20-2023 Lipid 1996 panel - Serum or Plasma LIPID PANEL BASIC Lab Routine Mixed hyperlipidemia Expected: 01/18/2023, Expires: 03/20/2023 [facility] Work Phone: Comment on above: Expected: 01/18/2023 , Expires: 03/20/2023 Start: 01-11-2023 Hepatitis B surface antibody level LDL CHOLESTEROL [facility] Start: 01-10-2023 Mammography [facility] Start: 02-10-2022 ADVANCE DIRECTIVE DISCUSSION ADVANCE DIRECTIVE DISCUSSION [facility] Start: 02-10-2022 DEPRESSION ASSESSMENT DEPRESSION ASS ESSMENT [facility] Start: 01-17-2022 ANNUAL PCP TEAM PIGS FEET FINISHER ABDULKADIR DISEASE VISIT ANNUAL PCP TEAM CHRONIC DISEASE VISIT [facility] Start: 01-09-2022 Hepatitis B surface antibody level LDL CHOLESTEROL [facility] Start: 01-01-2022 Mammography MAMMOGRAM [facility] Start: 11-20-2021 End: 11-20-2022 CBC W Auto Differential panel - Blood CBC + DIFF Lab Routine Well adult exam Expected: 11/20/2021, Expires: 11/20/2022 [facility] Work Phone: Comment on above: Expected: 11/20/2021 , Expires: 11/20/2022 Start: 11-20-2021 End: 11-20-2022 Comprehensive metabolic 2000 panel - Serum or Plasma COMP METABOLIC PANEL Lab Routine Well adult exam Expected: 11/20/2021, Expires: 11/20/2022 [facility] Work Phone: Comment on above: Expected: 11/20/2021 , Expires: 11/20/2022 Start: 11-20-2021 End: 11-20-2022 Lipid 1996 panel - Serum or Plasma LIPID PANEL BASIC Lab Routine Well adult exam Expected: 11/20/2021, Expires: 11/20/2022 [facility] Work Phone: Comment on above: Expected: 11/20/2021 , Expires: 11/20/2022 Start: 10-11-2021 Influenza vaccination INFLUENZA (#1) [facility] Start: 09-24-2021 Urine microalbumin profile [facility] Start: 05-18-2021 COVID-19 VACCINE (4 - Booster for Pfizer series) COVID-19 VACCINE (4 - Booster for Pfizer series) [facility] Start: 02-10-2021 ADVANCE DIRECTIVE DISCUSSION ADVANCE DIRECTIVE DISCUSSION [facility] Start: 02-10-2021 DEPRESSION ASSESSMENT DEPRESSION ASS ESSMENT [facility] Start: 08-01-2016 Adult depression scr eening assessment DEPRESSION SCREENING [facility] Start: 06-11-2015 Medicare Annual Well ness Visit Medicare Annual Wellness Visit [facility] Start: 2010 RSV Vaccine (1 - 1-d ose 60+ series) RSV Vaccine (1 - 1-dose 60+ series) [facility] Start: 2000 SHINGRIX VACCINE (1 of 2) REYES GRIX VACCINE (1 of 2) [facility] Start: 07-04-1995 COLOGUARD (FIT-DNA) COLOGUARD (FIT-D NA) [facility] Start: 07-04-[address] COLONOGRAPHY [facility] Start: 07-04-1995 FECAL OCCULT BLOOD FECAL OCCULT BLOO D [facility] Start: 07-04-1995 Screening for malign ant neoplasm of colon [facility] Start: 07-04-1995 SIGMOIDOSCOPY SIGMOIDOSCOPY [facility] Start: 1968 Anxiety Screening Anxiety Screening [facility] Start: 1968 Depression Screening Depression Scre ening [facility] Start: 1968 HEPATITIS C SCREENING HEPATITIS C SC REENING [facility] End: 05-07-2025 BD DXA TRABECULAR BONE SCORE (TBS) BD DXA TRABECULAR BONE SCORE (TBS) Radiology Routine Osteopenia of neck of right femur Disorder of bone and cartilage 1 Occurrences starting 04/07/2024 until 05/07/2025 [facility] Comment on above: 1 Occurrences starti ng 04/07/2024 until 05/07/2025 BD DXA TRABECULAR ARABELLA NE SCORE (TBS) BD DXA TRABECULAR BONE SCORE (TBS) Radiology Routine Osteopenia of neck of right femur Disorder of bone and cartilage 05/20/2024 8:52 AM EDT [facility] COVID & INFLUENZA A/ B & RSV NAAT, ROUTINE COVID & INFLUENZA A/B & RSV NAAT, ROUTINE Microbiology Routine Acute cough 04/08/2023 4:20 PM EST [facility] Work Phone: End: 01-22-2025 DBT Breast - bilateral screening CHRISSIE SCREENING W MICHELLE Radiology Routine Encounter for screening mammogram for breast cancer 1 Occurrences starting 12/25/2023 until 01/22/2025 [facility] Work Phone: Comment on above: 1 Occurrences starti ng 12/25/2023 until 01/22/2025 End: 11-07-2025 DBT Breast - bilateral screening CHRISSIE SCREENING W MICHELLE Radiology Routine Encounter for screening mammogram for breast cancer 1 Occurrences starting 10/08/2024 until 11/07/2025 [facility] Work Phone: Comment on above: 1 Occurrences starti ng 10/08/2024 until 11/07/2025 End: 05-07-2025 DXA Skeletal system.axial Views for bone density DXA-AXIAL SKELETON Radiology Routine Osteopenia of neck of right femur Disorder of bone and cartilage 1 Occurrences starting 04/07/2024 until 05/07/2025 [facility] Comment on above: 1 Occurrences starti ng 04/07/2024 until 05/07/2025 DXA Skeletal system. axial Views for bone density DXA-AXIAL SKELETON Radiology Routine Osteopenia of neck of right femur Disorder of bone and cartilage 05/20/2024 8:52 AM EDT [facility] Work Phone: End: 02-17-2023 DXA-AXIAL SKELETON DXA-AXIAL SKELETON Radiology Routine Osteopenia of neck of right femur Asymptomatic postmenopausal status 1 Occurrences starting 01/18/2022 until 02/17/2023 [facility] Work Phone: Comment on above: 1 Occurrences starti ng 01/18/2022 until 02/17/2023 End: 01-16-2023 ECG COMPLETE ECG COMPLETE ECG Routine Coronary artery disease involving [place] coronary artery of [place] heart without angina pectoris S/P MVR (mitral valve repair) Mixed hyperlipidemia 1 Occurrences starting 01/16/2022 until 01/16/2023 [facility] Work Phone: Comment on above: 1 Occurrences starti ng 01/16/2022 until 01/16/2023 ECG COMPLETE ECG COMPLETE ECG 03/01/2024 11:23 AM EST [facility] Electrocardiogram EKG BIC Routin e 01/21/2023 11:52 PM EST [facility] End: 08-25-2022 XR ANKLE GENERAL 3V AP/LAT/OBL RIGHT XR ANKLE GENERAL 3V AP/LAT/OBL RIGHT Radiology Routine Closed nondisplaced fracture of lateral malleolus of right fibula, initial encounter 1 Occurrences starting 07/26/2021 until 08/25/2022 [facility] Work Phone: Comment on above: 1 Occurrences starti ng 07/26/2021 until 08/25/2022 [facility] Immunizations Immunization Date Immunization Notes Care Provider Adrien nair 12-22-2023 respiratory syncytia l virus (RSV) vaccine, adjuvanted (AREXVY) Vinayak Reyes MD Work Phone: [facility] 11-08-2023 COVID-19 vaccine, ag e 12+ yr ([employer]BION[employer]CH COMIRNATY) Immunization [place] Work Phone: [facility] 11-08-2023 influenza, high dose seasonal, preservative-free Immunization [place] Work Phone: [facility] 11-08-2023 influenza virus vaccine, unspecified formulation Vinayak Reyes MD Work Phone: [facility] 11-09-2022 COVID-19 vaccine, ag e 12+ yr, season ([employer]BIONTECH) Immunization [place] Work Phone: [facility] Work Phone: 11-09-2022 influenza (HD-IIV4) vaccine, age 65+ yr, high dose, quadrivalent, PF (FLUZONE HIGH-DOSE) Immunization [place] Work Phone: [facility] 11-09-2022 influenza virus vaccine, unspecified formulation Pineda French DO Work Phone: [facility] 11-03-2021 COVID-19 booster vaccine, age 12+ yr, bivalent (PFIZER-BIONTECH) Immunization [place] Work Phone: [facility] Work Phone: 11-03-2021 influenza, high-dose , quadrivalent vaccine (FLUZONE HIGH DOSE QUADRIVALENT) Immunization [place] Work Phone: [facility] 01-17-2021 COVID-19 vaccine, ag e 12+ yr (PFIZER-BIONTECH - PURPLE TOP) Vinayak Reyes MD Work Phone: [facility] 11-08-2020 influenza, high-dose , quadrivalent vaccine (FLUZONE HIGH DOSE QUADRIVALENT) Vinayak Reyes MD Work Phone: [facility] 11-13-2019 influenza, high-dose , quadrivalent vaccine (FLUZONE HIGH DOSE QUADRIVALENT) Vinayak Reyes MD Work Phone: [facility] 10-21-2018 influenza, high dose seasonal, preservative-free Vinayak Reyes MD Work Phone: [facility] 10-21-2018 pneumococcal polysaccharide vaccine, 23 valent Vinayak Reyes MD Work Phone: [facility] 11-02-2015 influenza, high dose seasonal, preservative-free Vinayak Reyes MD Work Phone: [facility] 11-02-2015 pneumococcal conjuga te vaccine, 13 valent Vinayak Reyes MD Work Phone: [facility] 01-17-2014 influenza, seasonal, injectable Vinayak Reyes MD Work Phone: [facility] 09-25-2011 tetanus toxoid, redu salima diphtheria toxoid, and acellular pertussis vaccine, adsorbed Vinayak Reyes MD Work Phone: [facility] Work Phone: Payers Date Payer Category Payer Self-pay [id number] 2019 Private Health Insurance MMO MED ICARE SUPPLEMENT [id number] 2019 Unknown MMO MMO MEDICARE SUPPLEMENT [id number] 2019-Present [phone] [address] [place] [address] Indemnity [id number] 2019 Unknown MMO MMO MEDICARE SUPPLEMENT [id number] 2019-Present [phone] [address] [place] [address] Indemnity [id number] 2019 Unknown [id number] 2015 Medicare MEDICARE MEDICAR E A AND B [id number] 2015-Present [phone] [address] [address] [place] [address] Medicare [id number] 2015 Medicare [id number] 2015 Medicare [id number] Medicare [id number] Unknown STATE [employer] OTHER [id number] Unknown [id number] Unknown [id number] Social History Date Type Detail Facility Start: 07-20-2015 Tobacco smoking status NHIS Never smoked tobacco [facility] Start: 01-17-2021 End: 10-08-2024 Alcohol intake Current non-drinker of alcohol (finding) [facility] Start: 1950 Sex Assigned At Female [facility] Start: 06-24-2021 End: 11-03-2021 Exposure to SARS-CoV-2 (event) Not sure [facility] Work Phone: Start: 07-20-2015 Tobacco use and exposure Smokeless tobacco non-user [facility] Work Phone: Start: 01-08-2021 Tobacco smoking status NHIS Unknown if ever smoked [facility] Start: 08-31-2013 Rare [facility] Start: 08-31-2013 None [facility] Start: 08-31-2013 Spouse/ Significant Other [facility] Start: 08-31-2013 Non-smoker [facility] Start: 01-14-2022 History SDOH Alcohol Frequency 1 [facility] Start: 01-14-2022 History SDOH Alcohol Std Drinks 0 [facility] Start: 01-14-2022 History SDOH Social Connections Phone 2 [facility] Start: 01-14-2022 History SDOH Social Connections Get Together 98 [facility] Start: 01-14-2022 History SDOH Social Connections [facility] 3 [facility] Start: 01-14-2022 History SDOH Financial 5 [facility] Start: 01-14-2022 End: 11-09-2022 History of Social function [facility] Start: 01-14-2022 End: 11-09-2022 Social connection and isolation panel [facility] Start: 01-12-2012 How often do you get together with friends or relatives? Patient refused [facility] Do you belong to any clubs or organizations such as shinto groups, unions, fraternal or athletic groups, or school groups? No [facility] Are you now , , , , never or living with a partner? [facility] How often to you hav e a drink containing alcohol? Never [facility] Do you feel stress - tense, restless, nervous, or anxious, or unable to sleep at night because your mind is troubled all the time - these days [OSQ] Not at all [facility] (I/We) worried wheth er (my/our) food would run out before (I/we) got money to buy more. Never true [facility] Start: 01-05-2021 Gender identity Identifies as female gender (finding) [facility] Start: 01-05-2021 Sexual orientation Heterosexual (finding) [facility] Medical Equipment Procedure Code Equipment Code Equipment Origin al Text Equipment Identifier Dates [place] Thk1.65mm P tfe 4x.5in Cardiovascular Sterile - [id number] Start: 07-24-2015 Comment on above: Description: PTFE Fe lt - pledgets Band Espino Ancor e 33mm Annuloplasty Chordal Guide - [id number] Start: 07-24-2015 Comment on above: Description: AnCore Band with Chordal Guide - Mitral Functional Status Date Assessment Result Facility 07-28-2015 Are you deaf, or do you have serious difficulty hearing No 07/28/2015 12:45 PM EDT Anthony Villasenor RN No [facility] 07-28-2015 Are you blind, or do you have serious difficulty seeing, even when wearing glasses No 07/28/2015 12:45 PM EDT Anthony Villasenor RN No [facility] 07-28-2015 Do you have serious difficulty walking or climbing stairs No 07/28/2015 12:45 PM EDT Anthony Villasenor RN No [facility] 07-28-2015 Do you have difficul ty dressing or bathing No 07/28/2015 12:45 PM EDT Anthony Villasenor RN [facility] 07-28-2015 Because of a physica l, mental, or emotional condition, do you have difficulty doing errands alone such as visiting a physician's office or shopping No 07/28/2015 12:45 PM EDT Anthony Villasenor RN No [facility] Mental Status Date Assessment Result Facility 07-28-2015 Because of a physica l, mental, or emotional condition, do you have serious difficulty concentrating, remembering, or making decisions No 07/28/2015 12:45 PM EDT Anthony Villasenor RN [facility] Clinical Notes 01-17-2021 to 10-15-2024 Laurie Mclean RN - 10/15/2024 10:30 AM EDTPatient Vinayak Foreman MD - 10/08/2024 10:44 AM Olu Pickens RT(R) - 05/20/2024 8:20 AM EDTPatient Instructions Note Date & Type Note Facility 10-15-2024 Note HNO ID: [id number] Author: LAURIE MCLEAN RN Service: ? Author Type: Registered Nurse Type: Progress Notes Filed: 10/15/2024 10:31 Note Text: Value Based Care Coordination Chart Review Provider Action / FYI: Upon review of patient chart, the patient is excluded from Chronic Disease Management Patient is not a candidate for CDM at this time and placed in the following status: Deferred Does not meet High Utilization CDM criteria Action taken: No action needed . Laurie Mclean RN October 15, 2024 10:30 AM [facility] 10-15-2024 History of Presen t illness Narrative Value Based Care Coordination Chart Review Provider Action / FYI: Upon review of patient chart, the patient is excluded from Chronic Disease Management Patient is not a candidate for CDM at this time and placed in the following status: Deferred Does not meet High Utilization CDM criteria Action taken: No action needed . Laurie Mclean RN October 15, 2024 10:30 AM documented in this encounter [facility] 10-15-2024 Note Patient Outreach (AM [facility]) FABY ZAMORA ([id number]) 1950 F Date Time Provider Department 10/15/24 LAURIE MCLEANG During your visit today, we recorded the following information about you: Laurie Mclean RN 10/15/2024 10:31 AM Signed Value Based Care Coordination Chart Review Provider Action / FYI: Upon review of patient chart, the patient is excluded from Chronic Disease Management Patient is not a candidate for CDM at this time and placed in the following status: Deferred Does not meet High Utilization CDM criteria Action taken: No action needed . 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 - atorvastatin (LIPITOR) 10 mg tablet Take 1 tablet by mouth once daily. - fluticasone (FLONASE) 50 mcg/actuation nasal spray USE 2 SPRAYS IN EACH NOSTRIL ONCE DAILY. RINSE MOUTH AFTER USE. - sodium chloride (SALINE MIST) 0.65 % nasal spray Use 1 [place] in the nose as needed for cold/allergy symptoms. - aspirin 81 mg chewable tablet Take 1 tablet by mouth once daily. - MV-MN/FA/D3/LYCOPENE/LUT/COQ10 (DAILY MULTIVITAMIN ORAL) Take 1 tablet by mouth once daily. Problem List As Of Date 10/15/2024 Noted Resolved Actinic Keratoses (Premalignant AK's [L57.0] 11/07/2010 Irritated//Inflamed Seborrheic Keratoses [L82.0]11/07/2010 11/02/2015 Viral warts, unspecified [B07.9] 11/07/2010 01/14/2020 Solar Lentigines [L81.4] 11/07/2010 11/02/2015 Other Seborrheic Keratoses [L82.1] 11/07/2010 11/02/2015 Actinic skin damage [L57.8] 11/07/2010 11/02/2015 Cutaneous skin tags [L91.8] 11/07/2010 11/02/2015 Melanocytic nevus of scalp: L scalp yarsani hair*11/07/2010 11/02/2015 Beck Angiomas [D18.01] 11/07/2010 11/02/2015 Scars: Cryosurgical [place] [L90.5] 12/16/2010 Osteopenia [M85.80] 10/08/2024 Mitral regurgitation, 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] 01/13/2019 Discharge planning issues [Z75.8] 07/20/2015 11/02/2015 Atelectasis [J98.11] 07/24/2015 07/27/2015 Postoperative pain [G89.18] 07/24/2015 07/27/2015 Non-rheumatic mitral regurgitation [I34.0] 07/25/2015 01/13/2019 Stress hyperglycemia [R73.9] 07/25/2015 07/26/2015 SUMMARY 07/27/2015 01/18/2022 Coronary artery disease involving [place] olson*07/27/2015 S/P MVR (mitral valve repair) [Z98.890] 10/06/2015 Mixed hyperlipidemia [E78.2] 11/02/2015 Calculus of gallbladder without cholecystitis w*02/25/2017 10/08/2024 Lung nodules [R91.8] 02/25/2017 Mild memory disturbances not amounting to demen*01/17/2021 01/17/2021 Prediabetes [R73.03] 03/24/2023 History of colonic polyps [Z86.0100] 04/30/2023 History of osteopenia [Z87.39] 10/08/2024 Encounter Status:Closed by LAURIE MCLEAN on 10/15/24 [facility] 10-08-2024 Instructions Vinayak Reyes MD - 10/08/2024 11:05 AM EDT - Continue your daily aspirin and Lipitor as prescribed for heart health. - Keep taking your calcium and vitamin D supplements. - Use Flonase nasal spray as needed to relieve your morning cough from post-nasal drip. - Stay active with walking or similar exercise for about 20 minutes a few times each week. - Maintain your healthy diet; when eating salads, limit high-fat dressings and excessive cheese or toppings. - Complete an [place] Living Will form to designate who will make healthcare decisions if you become unable to decide for yourself. - Plan to get your flu shot in early fall (October or November). - Be ready to receive the CDC-recommended COVID-19 vaccine for seniors once it becomes available. - A mammogram order has been placed for your health maintenance--our office will help you schedule it. - Schedule your next routine check-up in six months; we ll arrange blood work to be done beforehand. - Plan to repeat your bone density scan in 2026 to monitor your bone health. documented in this encounter [facility] 10-08-2024 Note HNO ID: [id number] Author: VINAYAK REYES MD Service: ? Author Type: Physician Type: Progress Notes Filed: 10/08/2024 12:32 Note Text: Faby Zamora is a 74 year old female here for a Medicare wellness visit. Medicare Health Risk Assessment General Health Good Exercise: Minutes/Day 20 min Exercise: Days/Week 2 days Alcohol: Daily Use Never Alcohol: Drinks/Day Patient does not drink Alcohol: 6 or more drinks Never Feel off balance No Concerns: Teeth/Dentures No Concerns: Sexual function No Troubled by feelings None of the above Frequency: Eating healthy diet Several days ADLs requiring help None of the above Safety precautions in home/vehicle Throw rugs Smoke, vape, chews tobacco No Difficulty hearing No Difficulty seeing No Current Providers Specialists: I have reviewed specialist-related care of the patient in the medical record. Current care team: Patient Care Team: Vinayak Reyes MD as PCP - General (Family Medicine) Nola Veras APRN.LEAD RAMP AGENT as Extrusion Die Repairer (Family Medicine) Yoana Steen APRN.CNP as Extrusion Die Repairer (Family Medicine) [facility] cardiology [facility], Derm. Dr. Alvarez, optometry. Medical/Family history review Reviewed and updated problem list, medical/surgical/family/social history, medications, and allergies. Opioid use review Opioid Medications (last 90 days) No data to display Anxiety/Depression screening PHQ-9 Score: 1 (Minimal Depression) TAYLER-7 Score: 1 (Minimal Anxiety) Recommendation: no further intervention at this time Cognitive screening Mini Cog Score: 5 Cognitive screening reviewed and No further action needed (score 3-5). Functional Observation Was the patient's Timed Up AND Go test unsteady or >= 12 seconds? No Advance Care Planning Patient did not wish or was not able to name a surrogate decision maker or provide an advance care plan ADDITIONAL INFO: Annual Wellness Exam: - Faby Zamora's general health is reported as pretty good. - Faby engages in walking and stays active several days a week. - Faby eats a healthy diet, including salads with vegetables. - Faby denies alcohol consumption, tobacco use, or vaping. - No issues with Faby's balance, hearing, vision, or sexual functioning. - No concerns about Faby's feelings or mental health. - Faby performs all ADLs independently. - Faby uses seatbelts and has adequate lighting and handrails at home. - Faby denies headaches, tremors, or falls. - Faby denies chest pain, dyspnea, abdominal pain, or urinary issues. - Faby denies hematochezia or melena. - Faby denies eyes, ears, or throat issues. - Faby has allergies to Macrobid and penicillin. - No changes in Faby's family history. - Faby has no living will. Coronary Artery Disease: - Mild LAD and moderate RCA disease, managed medically. - No chest pain or dyspnea. - Follow-up with cardiology scheduled in February with Nichole Cruz NP. Mitral Valve Repair: - History of mitral valve repair. Hyperlipidemia: - Managed with Lipitor. Osteopenia: - Previously on Fosamax; currently taking calcium and vitamin D supplements. - Faby engages in regular walking. Post-Nasal Drip: - Faby uses Flonase PRN. - Faby reports persistent morning cough, unsure if related to allergies. ROS: GENERAL: No weight loss, generalized discomfort, or fever. HEENT: Negative for frequent or significant headaches, no changes in vision or hearing, no nosebleeds or other nasal problems. NECK: Negative for lumps, goiter, pain, and significant neck swelling. RESPIRATORY: Positive for morning cough; negative for dyspnea or shortness of breath. CARDIOVASCULAR: Negative for chest pain, leg swelling, CHF, or palpitations. GI: No nausea, vomiting, diarrhea, heartburn, abdominal pain, blood in stool, or black stool. GENITOURINARY: No history of dysuria, frequency, or incontinence. MUSCULOSKELETAL: Negative for joint pain or swelling, or muscle pain. No back pain. SKIN: Negative for lesions, rash, and itching. PSYCH: Negative for anxiety or depression. HEMATOLOGY/LYMPHOLOGY: No bleeding concerns. NEURO: No history of headaches, syncope, paralysis, seizures, tremors, or balance problems. PE: GENERAL: NAD, alert and oriented. SKIN: Unremarkable, no rash or skin lesions. HEAD: Normocephalic. NECK: Supple, no lymphadenopathy, normal thyroid, no carotid bruits. LUNGS: Clear to auscultation bilaterally, no wheezes/rhonchi/rales. HEART: Regular rate and rhythm, no murmurs. No ectopy. EXTREMITIES: Normal, no deformities, no skin discoloration, no edema. NEURO: Awake, alert and oriented x3, cranial nerves II-XII grossly intact, normal gait, no involuntary motions. Passed get up and go test. Assessment and Plan: 1. Medicare annual wellness visit, subsequent (Z00.00) - Completed Medicare Annual Wellness Visit; patient passed Mini-Cog (5 (more content not included)... [facility] 10-08-2024 History of Presen t illness Narrative Images from the original note were not included. Faby Zamora is a 74 year old female here for a Medicare wellness visit. Medicare Health Risk Assessment General Health Good Exercise: Minutes/Day 20 min Exercise: Days/Week 2 days Alcohol: Daily Use Never Alcohol: Drinks/Day Patient does not drink Alcohol: 6 or more drinks Never Feel off balance No Concerns: Teeth/Dentures No Concerns: Sexual function No Troubled by feelings None of the above Frequency: Eating healthy diet Several days ADLs requiring help None of the above Safety precautions in home/vehicle Throw rugs Smoke, vape, chews tobacco No Difficulty hearing No Difficulty seeing No Current Providers Specialists: I have reviewed specialist-related care of the patient in the medical record. Current care team: Patient Care Team: Vinayak Reyes MD as PCP - General (Family Medicine) Nola Veras APRN.LEAD RAMP AGENT as Extrusion Die Repairer (Family Medicine) Yoana Steen APRN.CNP as Extrusion Die Repairer (Family Medicine) [facility] cardiology [facility], Derm. Dr. Alvarez, optometry. Medical/Family history review Reviewed and updated problem list, medical/surgical/family/social history, medications, and allergies. Opioid use review Opioid Medications (last 90 days) No data to display Anxiety/Depression screening PHQ-9 Score: 1 (Minimal Depression) TAYLER-7 Score: 1 (Minimal Anxiety) Recommendation: no further intervention at this time Cognitive screening Mini Cog Score: 5 Cognitive screening reviewed and No further action needed (score 3-5). Functional Observation Was the patient's Timed Up & Go test unsteady or >= 12 seconds? No Advance Care Planning Patient did not wish or was not able to name a surrogate decision maker or provide an advance care plan ADDITIONAL INFO: Annual Wellness Exam: - Faby Parkss general health is reported as pretty good. - Faby engages in walking and stays active several days a week. - Faby eats a healthy diet, including salads with vegetables. - Faby denies alcohol consumption, tobacco use, or vaping. - No issues with Faby's balance, hearing, vision, or sexual functioning. - No concerns about Faby's feelings or mental health. - Faby performs all ADLs independently. - Faby uses seatbelts and has adequate lighting and handrails at home. - Faby denies headaches, tremors, or falls. - Faby denies chest pain, dyspnea, abdominal pain, or urinary issues. - Faby denies hematochezia or melena. - Faby denies eyes, ears, or throat issues. - Faby has allergies to Macrobid and penicillin. - No changes in Faby's family history. - Faby has no living will. Coronary Artery Disease: - Mild LAD and moderate RCA disease, managed medically. - No chest pain or dyspnea. - Follow-up with cardiology scheduled in February with Nichole Cruz NP. Mitral Valve Repair: - History of mitral valve repair. Hyperlipidemia: - Managed with Lipitor. Osteopenia: - Previously on Fosamax; currently taking calcium and vitamin D supplements. - Faby engages in regular walking. Post-Nasal Drip: - Faby uses Flonase PRN. - Faby reports persistent morning cough, unsure if related to allergies. ROS: GENERAL: No weight loss, generalized discomfort, or fever. HEENT: Negative for frequent or significant headaches, no changes in vision or hearing, no nosebleeds or other nasal problems. NECK: Negative for lumps, goiter, pain, and significant neck swelling. RESPIRATORY: Positive for morning cough; negative for dyspnea or shortness of breath. CARDIOVASCULAR: Negative for chest pain, leg swelling, CHF, or palpitations. GI: No nausea, vomiting, diarrhea, heartburn, abdominal pain, blood in stool, or black stool. GENITOURINARY: No history of dysuria, frequency, or incontinence. MUSCULOSKELETAL: Negative for joint pain or swelling, or muscle pain. No back pain. SKIN: Negative for lesions, rash, and itching. PSYCH: Negative for anxiety or depression. HEMATOLOGY/LYMPHOLOGY: No bleeding concerns. NEURO: No history of headaches, syncope, paralysis, seizures, tremors, or balance problems. PE: GENERAL: NAD, alert and oriented. SKIN: Unremarkable, no rash or skin lesions. HEAD: Normocephalic. NECK: Supple, no lymphadenopathy, normal thyroid, no carotid bruits. LUNGS: Clear to auscultation bilaterally, no wheezes/rhonchi/rales. HEART: Regular rate and rhythm, no murmurs. No ectopy. EXTREMITIES: Normal, no deformities, no skin discoloration, no edema. NEURO: Awake, alert and oriented x3, cranial nerves II-XII grossly intact, normal gait, no involuntary motions. Passed get up and go test. Assessment and Plan: 1. Medicare annual wellness visit, subsequent (Z00.00) - Completed Medicare Annual Wellness Visit; patient passed Mini-Cog (06/14) and Get Up and Go test. - Reviewed and updated problem list, past medical history, allergies, and medications. - Reviewed current specialists: [facility], [facility] (Nichole Cruz NP), and Dr. Milagros Alvarez (Optometry). - Discussed importance of maintaining an active lifestyle and healthy diet. - Advised patient to consider completing a living will. - Follow-up in 6 months with routine blood work prior to visit. 2. Coronary artery disease involving [place] coronary artery of [place] heart without angina pectoris (I25.10) 3. Mixed hyperlipidemia (E78.2) 4. S/P MVR (mitral valve repair) (Z98.890) - Follow-up with [facility] (Nichole Cruz NP) in February. 5. Actinic keratosis (L57.0) - Ongoing dermatology follow-up with Bharti Mendez. 6. History of osteopenia (Z87.39) - Improvement noted on last bone density scan (2023); next scan due in 2026. - Previously treated with Fosamax; currently on calcium and vitamin D supplementation. - Encouraged continuation of weight-bearing exercise. 7. Prediabetes (R73.03) - Last A1c in March was 5.5. - Encouraged continuation of healthy diet and regular exercise. 8. Encounter for screening mammogram for breast cancer (Z12.31) - Last mammogram on 01/09/24; order placed for next screening. Vinayak Reyes MD Recording using mobiDEOS software for draft documentation of the visit was discussed with the patient/authorized senior patient account representative; all questions welcomed and answered. Patient/authorized senior patient account representative agreed to proceed Measurements BP 122/82 Pulse 70 SpO2 100% Vision Screening: Follows with optometry/ophthalmology documented in this encounter [facility] 05-20-2024 History of Presen t illness Narrative Radiology Service Progress Note PATIENT NAME: Faby Zamora DATE OF SERVICE: May 20, 2024 TIME: 8:26 AM PATIENT IDENTITY VERIFICATION COMPLETED USING TWO (2) IDENTIFIERS: Name and Date of confirmed by patient verbally. FALL SCREENING: Has the patient had 2 falls in the last year or 1 fall with injury or currently using an Ambulatory Assistive Device (Walker, Cane, Wheelchair, Crutches, etc.)? No PATIENT GENDER DATA: Assigned female at . status: : No status: NO. PATIENT RELEVANT IMPLANT DATA REVIEWED: Not Applicable PATIENT PRESENTS WITH AN IMPLANTABLE OR ATTACHED AUTOMOBILE MECHANIC RADIATOR: No RADIOLOGY DEPARTMENT: Bone Density PERIPHERAL IV DATA: Not applicable SIGNED BY: RT Erica(Onur) May 20, 2024 8:26 AM documented in this encounter [facility] 05-20-2024 Note HNO ID: [id number] Author: OLU REHMAN RT (R) Service: ? Author Type: Technologist Type: Progress Notes Filed: 05/20/2024 08:35 Note Text: Radiology Service Progress Note PATIENT NAME: Faby Zamora DATE OF SERVICE: May 20, 2024 TIME: 8:26 AM PATIENT IDENTITY VERIFICATION COMPLETED USING TWO (2) IDENTIFIERS: Name and Date of confirmed by patient verbally. FALL SCREENING: Has the patient had 2 falls in the last year or 1 fall with injury or currently using an Ambulatory Assistive Device (Walker, Cane, Wheelchair, Crutches, etc.)? No PATIENT GENDER DATA: Assigned female at . status: : No status: NO. PATIENT RELEVANT IMPLANT DATA REVIEWED: Not Applicable PATIENT PRESENTS WITH AN IMPLANTABLE OR ATTACHED AUTOMOBILE MECHANIC RADIATOR: No RADIOLOGY DEPARTMENT: Bone Density PERIPHERAL IV DATA: Not applicable SIGNED BY: RT Erica(R) May 20, 2024 8:26 AM [facility] 04-07-2024 Instructions Vinayak Reyes MD - 04/07/2024 9:14 AM EST BONE MINERAL DENSITY PATIENT INSTRUCTIONS ========= Bone mineral density testing measures the amount of calcium in certain parts of your bones. This information determines how strong your bones are. The test is used to detect osteoporosis, a disease in which the bone's mineral content and density are low, increasing a person's risk of fractures. The lumbar spine (lower back) and the hip are the skeletal sites usually examined. For the test, remember that: 1. You cannot take this test if you are . 2. Eat a normal diet on the day of the test. 3. Take your medications as you normally would. 4. DO NOT take calcium supplements (such as Tums) for 24 hours before the test. 5. On the day of the test, leave valuables (jewelry or credit cards) at home. 6. The test should be performed prior to oral, rectal or IV contrast studies, or at least 7 days after any of these studies. For the test, you may be asked to wear a hospital gown. You will lie on your back, on a padded table, in a comfortable position. Generally, you can resume your usual activities immediately. documented in this encounter [facility] 04-07-2024 Note HNO ID: [id number] Author: VINAYAK REYES MD Service: ? Author Type: Physician Type: Progress Notes Filed: 04/07/2024 09:18 Note Text: Patient presents with: Follow Up HPI: Patient presents today for office visit for routine 6 month follow up. No concerns today. HLD: No myalgias Sees cardiololgy. Remains on asa. No chest pain or shortness of breath. No edema. No dizziness or lightheadedness. MEDICATIONS: Current Outpatient Medications Medication Sig atorvastatin (LIPITOR) 10 mg tablet Take 1 tablet by mouth once daily. fluticasone (FLONASE) 50 mcg/actuation nasal spray USE 2 SPRAYS IN EACH NOSTRIL ONCE DAILY. RINSE MOUTH AFTER USE. sodium chloride (SALINE MIST) 0.65 % nasal spray Use 1 [place] in the nose as needed for cold/allergy symptoms. aspirin 81 mg chewable tablet Take 1 tablet by mouth once daily. MV-MN/FA/D3/LYCOPENE/LUT/COQ10 (DAILY MULTIVITAMIN ORAL) Take 1 tablet by mouth once daily. No current facility-administered medications for this visit. ALLERGIES: ALLERGIES Allergen Reactions Macrobid [Nitrofura* Rash Penicillins Rash PAST MEDICAL HISTORY Diagnosis Date Acute diverticulitis 02/25/2023 Callus of foot Right foot Mitral regurgitation, myxomatous Severe MR (echo 09/30/11) Osteopenia Routine gynecological examination Dr Sanchez PAST SURGICAL HISTORY Procedure Laterality Date APPENDECTOMY HX CATARACT EXTRACTION HX Right 10/29/2019 COLONOSCOPY AND POLYPECTOMY 03/19/2005 Dr Quinn COLONOSCOPY FLX DX W/COLLJ SPEC WHEN PFRMD 07/17/2015 Colonoscopy COLONOSCOPY FLX DX W/COLLJ SPEC WHEN PFRMD 12/07/2018 Colonoscopy PAST SURGICAL HISTORY OF ovarian cyst PAST SURGICAL HISTORY OF 07/24/2015 Mitral Valve Repair FAMILY HISTORY Problem Relation Age of Onset Diabetes Father Ischemic Heart Disease Father Thyroid Mother Alzheimer's Disease Mother Cancer Maternal Grandfather unknown Thyroid Sister x3 Social History Tobacco Use Smoking status: Never Smokeless tobacco: Never Vaping Use Vaping status: Never Used Substance Use Topics Alcohol use: No Drug use: No Reviewed current medications, allergies, past medical history, surgical history, family history and social history today. REVIEW OF SYSTEMS No gi ro gu issues. All other reviewed and negative other than HPI. HEALTH MAINTENANCE: Reviewed health maintenance issues today and recommended the following in detail. Depression Screening Never done Anxiety Screening Never done Shingrix Vaccine(1 of 2) Never done DTaP,Tdap,Td Vaccine(2 - Td or Tdap) due on 09/24/2021 LDL Cholesterol due on 01/23/2024 Advance Directive Discussion due on 02/11/2024 VITALS: BP 134/72 Pulse 73 Ht 165.1 cm (5' 5) Wt 73.5 kg (162 lb) SpO2 99% BMI 26.96 kg/m? Last 4 Encounter Wt Readings: Date: Wt: 04/07/2024 73.5 kg (162 lb) 03/01/2024 74.7 kg (164 lb 10.9 oz) 05/12/2023 74.4 kg (164 lb) 04/30/2023 73.3 kg (161 lb 9.6 oz) PHYSICAL EXAMINATION: General appearance: Well appearing, alert, in no acute distress, well-hydrated, well nourished. Skin: Skin color, texture, turgor normal, no suspicious rashes or lesions Head: Normocephalic, no masses, lesions, tenderness or abnormalities Lungs: Lungs clear to auscultation. No wheezing, rhonchi, rales Heart: RRR without murmur, gallop, or rubs. No ectopy Abdomen: Normal abdominal exam, Abdomen soft, non-tender. Bowel sounds normal. No masses, organomegaly Extremities: No deformities, edema, skin discoloration, clubbing or cyanosis. Good capillary refill. Musculoskeletal: No joint swelling, deformity, or tenderness Peripheral pulses: Normal ASSESSMENT/PLAN: 1. S/P MVR (mitral valve repair) - ICD9: V45.89, ICD10: Z98.890 (primary diagnosis) - per cardiology. Stable. 2. Screening for depression - ICD9: V79.0, ICD10: Z13.31 - DEPRESSION SCREENING 3. Encounter for screening examination for other mental health and behavioral disorders - ICD9: V79.8, ICD10: Z13.39 - ANXIETY SCREENING 4. Coronary artery disease involving [place] coronary artery of [place] heart without angina pectoris - ICD9: 414.01, ICD10: I25.10 - doing well. Continue asa and statin. - LIPID PANEL BASIC 5. Mixed hyperlipidemia - ICD9: 272.2, ICD10: E78.2 - Control undetermined, due for labs - Continue current medications - Counseled on healthy diet and regular exercise - COMPLETE BLOOD COUNT AND DIFFERENTIAL - COMPREHENSIVE METABOLIC PANEL 6. Prediabetes - ICD9: 790.29, ICD10: R73.0 - HEMOGLOBIN A1C 7. Osteopenia of neck of right femur - ICD9: 733.90, ICD10: M85.851 - DXA-AXIAL SKELETON - BD DXA TRABECULAR BONE SCORE (TBS)-will make sure is stable since has stopped fosamax. 8. Disorder of bone and cartilage - ICD9: 733.90, ICD10: M89.9, M94.9 - DXA-AXIAL SKELETON - BD DXA TRABECULAR BONE SCORE (TBS) Vinayak Reyes MD [facility] 04-07-2024 History of Presen t illness Narrative Patient presents with: Follow Up HPI: Patient presents today for office visit for routine 6 month follow up. No concerns today. HLD: No myalgias Sees cardiololgy. Remains on asa. No chest pain or shortness of breath. No edema. No dizziness or lightheadedness. MEDICATIONS: Current Outpatient Medications Medication Sig atorvastatin (LIPITOR) 10 mg tablet Take 1 tablet by mouth once daily. fluticasone (FLONASE) 50 mcg/actuation nasal spray USE 2 SPRAYS IN EACH NOSTRIL ONCE DAILY. RINSE MOUTH AFTER USE. sodium chloride (SALINE MIST) 0.65 % nasal spray Use 1 [place] in the nose as needed for cold/allergy symptoms. aspirin 81 mg chewable tablet Take 1 tablet by mouth once daily. MV-MN/FA/D3/LYCOPENE/LUT/COQ10 (DAILY MULTIVITAMIN ORAL) Take 1 tablet by mouth once daily. No current facility-administered medications for this visit. ALLERGIES: ALLERGIES Allergen Reactions Macrobid [Nitrofura* Rash Penicillins Rash PAST MEDICAL HISTORY Diagnosis Date Acute diverticulitis 02/25/2023 Callus of foot Right foot Mitral regurgitation, myxomatous Severe MR (echo 09/30/11) Osteopenia Routine gynecological examination Dr Sanchez PAST SURGICAL HISTORY Procedure Laterality Date APPENDECTOMY HX CATARACT EXTRACTION HX Right 10/29/2019 COLONOSCOPY & POLYPECTOMY 03/19/2005 Dr Quinn COLONOSCOPY FLX DX W/COLLJ SPEC WHEN PFRMD 07/17/2015 Colonoscopy COLONOSCOPY FLX DX W/COLLJ SPEC WHEN PFRMD 12/07/2018 Colonoscopy PAST SURGICAL HISTORY OF ovarian cyst PAST SURGICAL HISTORY OF 07/24/2015 Mitral Valve Repair FAMILY HISTORY Problem Relation Age of Onset Diabetes Father Ischemic Heart Disease Father Thyroid Mother Alzheimer's Disease Mother Cancer Maternal Grandfather unknown Thyroid Sister x3 Social History Tobacco Use Smoking status: Never Smokeless tobacco: Never Vaping Use Vaping status: Never Used Substance Use Topics Alcohol use: No Drug use: No Reviewed current medications, allergies, past medical history, surgical history, family history and social history today. REVIEW OF SYSTEMS No gi ro gu issues. All other reviewed and negative other than HPI. HEALTH MAINTENANCE: Reviewed health maintenance issues today and recommended the following in detail. Depression Screening Never done Anxiety Screening Never done Shingrix Vaccine(1 of 2) Never done DTaP,Tdap,Td Vaccine(2 - Td or Tdap) due on 09/24/2021 LDL Cholesterol due on 01/23/2024 Advance Directive Discussion due on 02/11/2024 VITALS: BP 134/72 Pulse 73 Ht 165.1 cm (5' 5) Wt 73.5 kg (162 lb) SpO2 99% BMI 26.96 kg/m Last 4 Encounter Wt Readings: Date: Wt: 04/07/2024 73.5 kg (162 lb) 03/01/2024 74.7 kg (164 lb 10.9 oz) 05/12/2023 74.4 kg (164 lb) 04/30/2023 73.3 kg (161 lb 9.6 oz) PHYSICAL EXAMINATION: General appearance: Well appearing, alert, in no acute distress, well-hydrated, well nourished. Skin: Skin color, texture, turgor normal, no suspicious rashes or lesions Head: Normocephalic, no masses, lesions, tenderness or abnormalities Lungs: Lungs clear to auscultation. No wheezing, rhonchi, rales Heart: RRR without murmur, gallop, or rubs. No ectopy Abdomen: Normal abdominal exam, Abdomen soft, non-tender. Bowel sounds normal. No masses, organomegaly Extremities: No deformities, edema, skin discoloration, clubbing or cyanosis. Good capillary refill. Musculoskeletal: No joint swelling, deformity, or tenderness Peripheral pulses: Normal ASSESSMENT/PLAN: 1. S/P MVR (mitral valve repair) - ICD9: V45.89, ICD10: Z98.890 (primary diagnosis) - per cardiology. Stable. 2. Screening for depression - ICD9: V79.0, ICD10: Z13.31 - DEPRESSION SCREENING 3. Encounter for screening examination for other mental health and behavioral disorders - ICD9: V79.8, ICD10: Z13.39 - ANXIETY SCREENING 4. Coronary artery disease involving [place] coronary artery of [place] heart without angina pectoris - ICD9: 414.01, ICD10: I25.10 - doing well. Continue asa and statin. - LIPID PANEL BASIC 5. Mixed hyperlipidemia - ICD9: 272.2, ICD10: E78.2 - Control undetermined, due for labs - Continue current medications - Counseled on healthy diet and regular exercise - COMPLETE BLOOD COUNT AND DIFFERENTIAL - COMPREHENSIVE METABOLIC PANEL 6. Prediabetes - ICD9: 790.29, ICD10: R73.0 - HEMOGLOBIN A1C 7. Osteopenia of neck of right femur - ICD9: 733.90, ICD10: M85.851 - DXA-AXIAL SKELETON - BD DXA TRABECULAR BONE SCORE (TBS)-will make sure is stable since has stopped fosamax. 8. Disorder of bone and cartilage - ICD9: 733.90, ICD10: M89.9, M94.9 - DXA-AXIAL SKELETON - BD DXA TRABECULAR BONE SCORE (TBS) Vinayak Reyes MD documented in this encounter [facility] 04-05-2024 Note HNO ID: [id number] Author: MARY MIRELES MA Service: ? Author Type: Geospatial Technician Type: Progress Notes Filed: 04/05/2024 13:34 Note Text: POPULATION HEALTH NAVIGATION OUTREACH Action/I Faby son's called and scheduled f/u Reason for Outreach Returned Call/MyChart Patient Contacted: Spoke to patient/parent/or legal guardian Patient identified by name and date of : Yes Returned call/MyChart actions taken: Patient scheduled/pended orders: Follow-up Appointment Navigation Signature: Mary Mireles MA April 05, 2024 1:33 PM [facility] 04-05-2024 History of Presen t illness Narrative POPULATION HEALTH NAVIGATION OUTREACH Action/FYI Faby son's called and scheduled f/u Reason for Outreach Returned Call/MyChart Patient Contacted: Spoke to patient/parent/or legal guardian Patient identified by name and date of : Yes Returned call/MyChart actions taken: Patient scheduled/pended orders: Follow-up Appointment Navigation Signature: Mary Mireles MA April 05, 2024 1:33 PM POPULATION HEALTH NAVIGATION OUTREACH Action/I LVM JamboHART MESSAGE SENT Topic Due (Y or N) Comments Medicare Wellness PCP Follow up Y Colorectal Cancer Screening Controlling Blood Pressure A1C HCC Flu Vaccine Care Everywhere Reviewed MyChart Activation Updated Appointment Note Reason for Outreach Care Gap/HCC or Scheduling Wellness Visits Care Gaps due: Follow-up Appointment Patient Contacted: Unable or unnecessary to reach patient: Left message [employer] message sent Navigation Signature: Mary Mireles MA April 05, 2024 1:19 PM documented in this encounter [facility] 04-05-2024 Note HNO ID: [id number] Author: MARY MIRELES MA Service: ? Author Type: Geospatial Technician Type: Progress Notes Filed: 04/05/2024 13:23 Note Text: POPULATION HEALTH NAVIGATION OUTREACH Action/I LVM MYCHART MESSAGE SENT Topic Due (Y or N) Comments Medicare Wellness PCP Follow up Y Colorectal Cancer Screening Controlling Blood Pressure A1C HCC Flu Vaccine Care Everywhere Reviewed MyChart Activation Updated Appointment Note Reason for Outreach Care Gap/HCC or Scheduling Wellness Visits Care Gaps due: Follow-up Appointment Patient Contacted: Unable or unnecessary to reach patient: Left message Class [employer] message sent Navigation Signature: Mary Mireles MA April 05, 2024 1:19 PM [facility] 04-05-2024 Note Patient Outreach (NE TNAV) FABY ZAMORA ([id number]) 1950 F Date Time Provider Department 04/05/24 MARY MIRELES During your visit today, we recorded the following information about you: Mary Mireles MA 04/05/2024 1:23 PM Signed POPULATION HEALTH NAVIGATION OUTREACH Action/FYI LVM MYCHART MESSAGE SENT Topic Due (Y or N) Comments Medicare Wellness PCP Follow up Y Colorectal Cancer Screening Controlling Blood Pressure A1C HCC Flu Vaccine Care Everywhere Reviewed MyChart Activation Updated Appointment Note Reason for Outreach Care Gap/HCC or Scheduling Wellness Visits Care Gaps due: Follow-up Appointment Patient Contacted: Unable or unnecessary to reach patient: Left message MyChart message sent Navigation Signature: Mary Mireles MA April 05, 2024 1:19 PM Mary Mireles MA 04/05/2024 1:34 PM Signed POPULATION HEALTH NAVIGATION OUTREACH Action/FYI Faby fragoso's called and scheduled f/u Reason for Outreach Returned Call/MyChart Patient Contacted: Spoke to patient/parent/or legal guardian Patient identified by name and date of : Yes Returned call/MyChart actions taken: Patient scheduled/pended orders: Follow-up Appointment Navigation Signature: Mary Mireles MA April 05, 2024 1:33 PM Allergies As of Date: 04/05/2024 Noted Allergy Reaction MACROBID (NITROFURANTOIN MONOHYD/*08/31/2013 2 - Rash PENICILLINS 04/29/2005 2 - Rash Date Reviewed: 03/01/2024 Reviewed by: Pineda French DO - Fully Assessed Reason for Visit: Population Health Navigation Outreach [3910] Cmt: ADRIENNE MOTTA PCSA Prescriptions as of 04/05/2024 - atorvastatin (LIPITOR) 10 mg tablet Take 1 tablet by mouth once daily. - fluticasone (FLONASE) 50 mcg/actuation nasal spray USE 2 SPRAYS IN EACH NOSTRIL ONCE DAILY. RINSE MOUTH AFTER USE. - sodium chloride (SALINE MIST) 0.65 % nasal spray Use 1 [place] in the nose as needed for cold/allergy symptoms. - aspirin 81 mg chewable tablet Take 1 tablet by mouth once daily. - MV-MN/FA/D3/LYCOPENE/LUT/COQ10 (DAILY MULTIVITAMIN ORAL) Take 1 tablet by mouth once daily. Problem List As Of Date 04/05/2024 Noted Resolved Actinic Keratoses (Premalignant AK's [L57.0] 11/07/2010 Irritated//Inflamed Seborrheic Keratoses [L82.0]11/07/2010 11/02/2015 Viral warts, unspecified [B07.9] 11/07/2010 01/14/2020 Solar Lentigines [L81.4] 11/07/2010 11/02/2015 Other Seborrheic Keratoses [L82.1] 11/07/2010 11/02/2015 Actinic skin damage [L57.8] 11/07/2010 11/02/2015 Cutaneous skin tags [L91.8] 11/07/2010 11/02/2015 Melanocytic nevus of scalp: L scalp yarsani hair*11/07/2010 11/02/2015 Beck Angiomas [D18.01] 11/07/2010 11/02/2015 Scars: Cryosurgical [place]ars [L90.5] 12/16/2010 Osteopenia [M85.80] Mitral regurgitation, 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] 01/13/2019 Discharge planning issues [Z75.8] 07/20/2015 11/02/2015 Atelectasis [J98.11] 07/24/2015 07/27/2015 Postoperative pain [G89.18] 07/24/2015 07/27/2015 Non-rheumatic mitral regurgitation [I34.0] 07/25/2015 01/13/2019 Stress hyperglycemia [R73.9] 07/25/2015 07/26/2015 SUMMARY 07/27/2015 01/18/2022 Coronary artery disease involving [place] olson*07/27/2015 S/P MVR (mitral valve repair) [Z98.890] 10/06/2015 Mixed hyperlipidemia [E78.2] 11/02/2015 Calculus of gallbladder without cholecystitis w*02/25/2017 Lung nodules [R91.8] 02/25/2017 Mild memory disturbances not amounting to demen*01/17/2021 01/17/2021 Prediabetes [R73.03] 03/24/2023 History of colonic polyps [Z86.0100] 04/30/2023 Encounter Status:Closed by MARY MIRELES on 04/05/24 [facility] 03-01-2024 Note HNO ID: [id number] Author: PINEDA FRENCH, DO Service: ? Author Type: Physician Type: Progress Notes Filed: 03/01/2024 12:12 Note Text: [facility] SECTION OF [facility] CARDIOLOGY [facility] OUTPATIENT VISIT DATE March 01, 2024 PRIMARY CARE PHYSICIAN: Vinayak Reyes [address] [place] [address] HISTORY OF PRESENT ILLNESS: Ms. Zamora is a 73 year old female. The patient turns for her for follow-up secondary to a history of mitral valve repair with plaque coronary disease discovered at the time and additional history of prediabetes and hyperlipidemia. She has not had lipids done in over a year. She denies chest discomfort, dyspnea, orthopnea, paroxysmal nocturnal dyspnea, palpitations, near-syncope or syncope. Currently she is not exercising to any great degree. She is not following that much of a heart healthy diet. She was unaware of her prediabetes and has not been limiting some foods as well. EKG performed today demonstrates sinus rhythm at 62 bpm with an age undetermined septal infarct, similar to previous. PLAN AND RECOMMENDATIONS: The patient from a cardiovascular standpoint appears stable without apparent symptoms that would suggest angina or cardiac decompensation on her current optimal medical therapy. Heart rate and blood pressure are favorable. Cholesterol profile will need updated which we will leave to your discretion. We recommend a target LDL less than 70 given her plaque CAD and prediabetic predisposition. Dietary and more important lifestyle modification was reemphasized to facilitate risk factor reduction. We will look forward to reevaluate her in 1 years time and we will update an echocardiogram prior to that visit. Vitals: BP 126/62 Pulse 62 Ht 165.1 cm (5' 5) Wt 74.7 kg (164 lb 10.9 oz) SpO2 96% BMI 27.40 kg/m? Physical Exam Vitals reviewed. Constitutional: Appearance: She is well-developed. HENT: Head: Normocephalic and atraumatic. Eyes: Pupils: Pupils are equal, round, and reactive to light. Neck: Thyroid: No thyromegaly. Vascular: No JVD. Cardiovascular: Rate and Rhythm: Normal rate and regular rhythm. Heart sounds: Normal heart sounds. No murmur heard. No friction rub. No gallop. Pulmonary: Effort: Pulmonary effort is normal. No respiratory distress. Breath sounds: Normal breath sounds. No wheezing or rales. Abdominal: General: Bowel sounds are normal. Palpations: Abdomen is soft. Musculoskeletal: General: Normal range of motion. Cervical back: Normal range of motion and neck supple. Skin: General: Skin is warm and dry. Coloration: Skin is not pale. Neurological: Mental Status: She is alert and oriented to person, place, and time. Cranial Nerves: No cranial nerve deficit. Psychiatric: Behavior: Behavior normal. Thought Content: Thought content normal. Judgment: Judgment normal. Review of Systems Constitutional: Negative for activity change and fatigue. HENT: Negative for ear pain and facial swelling. Eyes: Negative for pain and discharge. Respiratory: Negative for chest tightness and shortness of breath. Cardiovascular: Negative for chest pain, palpitations and leg swelling. Gastrointestinal: Negative for abdominal pain, blood in stool, nausea and vomiting. Endocrine: Negative for cold intolerance and heat intolerance. Genitourinary: Negative for frequency and hematuria. Musculoskeletal: Negative for arthralgias and gait problem. Skin: Negative for color change, pallor and rash. Allergic/Immunologic: Negative for immunocompromised state. Neurological: Negative for dizziness, syncope, light-headedness and headaches. Hematological: Negative for adenopathy. Does not bruise/bleed easily. Psychiatric/Behavioral: Negative for confusion. The patient is not nervous/anxious. PAST MEDICAL HISTORY Diagnosis Date Acute diverticulitis 02/25/2023 Callus of foot Right foot Mitral regurgitation, myxomatous Severe MR (echo 09/30/11) Osteopenia Routine gynecological examination Dr Sanchez PAST SURGICAL HISTORY Procedure Laterality Date APPENDECTOMY HX CATARACT EXTRACTION HX Right 10/29/2019 COLONOSCOPY AND POLYPECTOMY 03/19/2005 Dr Quinn COLONOSCOPY FLX DX W/COLLJ SPEC WHEN PFRMD 07/17/2015 Colonoscopy COLONOSCOPY FLX DX W/COLLJ SPEC WHEN PFRMD 12/07/2018 Colonoscopy PAST SURGICAL HISTORY OF ovarian cyst PAST SURGICAL HISTORY OF 07/24/2015 Mitral Valve Repair Social History Tobacco Use Smoking status: Never Smokeless tobacco: Never Vaping Use Vaping status: Never Used Substance Use Topics Alcohol use: No Drug use: No FAMILY HISTORY Problem Relation Age of Onset Diabetes Father Ischemic Heart Disease Father Thyroid Mother Alzheimer's Disease Mother Cancer Maternal Grandfather unknown Thyroid Sister x3 ALLERGIES Allergen Reactions Macrobid [Nitrofura (more content not included)... [facility] 03-01-2024 History of Presen t illness Narrative Images from the original note were not included. [facility] SECTION OF [facility] CARDIOLOGY [facility] OUTPATIENT VISIT DATE March 01, 2024 PRIMARY CARE PHYSICIAN: Vinayak Reyes [address] [place] [address] HISTORY OF PRESENT ILLNESS: Ms. Zamora is a 73 year old female. The patient turns for her for follow-up secondary to a history of mitral valve repair with plaque coronary disease discovered at the time and additional history of prediabetes and hyperlipidemia. She has not had lipids done in over a year. She denies chest discomfort, dyspnea, orthopnea, paroxysmal nocturnal dyspnea, palpitations, near-syncope or syncope. Currently she is not exercising to any great degree. She is not following that much of a heart healthy diet. She was unaware of her prediabetes and has not been limiting some foods as well. EKG performed today demonstrates sinus rhythm at 62 bpm with an age undetermined septal infarct, similar to previous. PLAN AND RECOMMENDATIONS: The patient from a cardiovascular standpoint appears stable without apparent symptoms that would suggest angina or cardiac decompensation on her current optimal medical therapy. Heart rate and blood pressure are favorable. Cholesterol profile will need updated which we will leave to your discretion. We recommend a target LDL less than 70 given her plaque CAD and prediabetic predisposition. Dietary and more important lifestyle modification was reemphasized to facilitate risk factor reduction. We will look forward to reevaluate her in 1 years time and we will update an echocardiogram prior to that visit. Vitals: BP 126/62 Pulse 62 Ht 165.1 cm (5' 5) Wt 74.7 kg (164 lb 10.9 oz) SpO2 96% BMI 27.40 kg/m Physical Exam Vitals reviewed. Constitutional: Appearance: She is well-developed. HENT: Head: Normocephalic and atraumatic. Eyes: Pupils: Pupils are equal, round, and reactive to light. Neck: Thyroid: No thyromegaly. Vascular: No JVD. Cardiovascular: Rate and Rhythm: Normal rate and regular rhythm. Heart sounds: Normal heart sounds. No murmur heard. No friction rub. No gallop. Pulmonary: Effort: Pulmonary effort is normal. No respiratory distress. Breath sounds: Normal breath sounds. No wheezing or rales. Abdominal: General: Bowel sounds are normal. Palpations: Abdomen is soft. Musculoskeletal: General: Normal range of motion. Cervical back: Normal range of motion and neck supple. Skin: General: Skin is warm and dry. Coloration: Skin is not pale. Neurological: Mental Status: She is alert and oriented to person, place, and time. Cranial Nerves: No cranial nerve deficit. Psychiatric: Behavior: Behavior normal. Thought Content: Thought content normal. Judgment: Judgment normal. Review of Systems Constitutional: Negative for activity change and fatigue. HENT: Negative for ear pain and facial swelling. Eyes: Negative for pain and discharge. Respiratory: Negative for chest tightness and shortness of breath. Cardiovascular: Negative for chest pain, palpitations and leg swelling. Gastrointestinal: Negative for abdominal pain, blood in stool, nausea and vomiting. Endocrine: Negative for cold intolerance and heat intolerance. Genitourinary: Negative for frequency and hematuria. Musculoskeletal: Negative for arthralgias and gait problem. Skin: Negative for color change, pallor and rash. Allergic/Immunologic: Negative for immunocompromised state. Neurological: Negative for dizziness, syncope, light-headedness and headaches. Hematological: Negative for adenopathy. Does not bruise/bleed easily. Psychiatric/Behavioral: Negative for confusion. The patient is not nervous/anxious. PAST MEDICAL HISTORY Diagnosis Date Acute diverticulitis 02/25/2023 Callus of foot Right foot Mitral regurgitation, myxomatous Severe MR (echo 09/30/11) Osteopenia Routine gynecological examination Dr Sanchez PAST SURGICAL HISTORY Procedure Laterality Date APPENDECTOMY HX CATARACT EXTRACTION HX Right 10/29/2019 COLONOSCOPY & POLYPECTOMY 03/19/2005 Dr Quinn COLONOSCOPY FLX DX W/COLLJ SPEC WHEN PFRMD 07/17/2015 Colonoscopy COLONOSCOPY FLX DX W/COLLJ SPEC WHEN PFRMD 12/07/2018 Colonoscopy PAST SURGICAL HISTORY OF ovarian cyst PAST SURGICAL HISTORY OF 07/24/2015 Mitral Valve Repair Social History Tobacco Use Smoking status: Never Smokeless tobacco: Never Vaping Use Vaping status: Never Used Substance Use Topics Alcohol use: No Drug use: No FAMILY HISTORY Problem Relation Age of Onset Diabetes Father Ischemic Heart Disease Father Thyroid Mother Alzheimer's Disease Mother Cancer Maternal Grandfather unknown Thyroid Sister x3 ALLERGIES Allergen Reactions Macrobid [Nitrofura* Rash Penicillins Rash CURRENT MEDICATIONS: atorvastatin (LIPITOR) 10 mg tablet Take 1 tablet by mouth once daily. fluticasone (FLONASE) 50 mcg/actuation nasal spray USE 2 SPRAYS IN EACH NOSTRIL ONCE DAILY. RINSE MOUTH AFTER USE. sodium chloride (SALINE MIST) 0.65 % nasal spray Use 1 [place] in the nose as needed for cold/allergy symptoms. aspirin 81 mg chewable tablet Take 1 tablet by mouth once daily. MV-MN/FA/D3/LYCOPENE/LUT/COQ10 (DAILY MULTIVITAMIN ORAL) Take 1 tablet by mouth once daily. Pineda French DO, FAC, [facility] Spot Sprayer, [facility] Ambulatory Cardiology Spot Sprayer, [facility] Cardiac Rehabilitation Spot Sprayer, [facility] Cardiac Rehabilitation Spot Sprayer, [facility] Spot Sprayer, [facility] Ambulatory Cardiology Clinical Division Order Technician Profressor of Medicine, [facility] Staff Application Infrastructure Engineer, Katerin Landis Department of Cardiovascular Medicine/Heart and Vascular [place], [facility] Please note: This note has been produced using speech recognition software and may contain errors related to that system including damon, punctuation, spelling, words, gender and phrases that may be inappropriate. documented in this encounter [facility] 02-16-2024 Note HNO ID: [id number] Author: JAEL OLSON, ? Service: ? Author Type: Physician Type: Progress Notes Filed: 02/16/2024 12:46 Note Text: FOLLOW UP PODIATRIC OFFICE VISIT Chief Complaint: This 73 year old who presents for follow up:painful callus of right foot Patient presents to clinic for follow-up callus of right foot Uses inserts and offloading pad and that helps Here for debridement No other complaints PAIN EVALUATION 02/12/2024 1515 Pain Level: 5 Description: Burning;Sharp Duration Units: Months Frequency: Intermittent Comments: when sitting no pain but when walking very painful Hemoglobin A1C Date Value Ref Range Status 03/22/2023 5.8 (H) 4.3 - 5.6 % Final Comment: [place] [employer] guidelines indicate that patients with HgbA1c in the range 5.7-6.4% are at increased risk for development of diabetes, and intervention by lifestyle modification may be beneficial. HgbA1c greater or equal to 6.5% is considered diagnostic of diabetes. PCP: Vinayak Reyes MD PAST MEDICAL HISTORY Diagnosis Date Acute diverticulitis 02/25/2023 Callus of foot Right foot Mitral regurgitation, myxomatous Severe MR (echo 09/30/11) Osteopenia Routine gynecological examination Dr Sanchez Current Outpatient Medications Medication Sig atorvastatin (LIPITOR) 10 mg tablet Take 1 tablet by mouth once daily. fluticasone (FLONASE) 50 mcg/actuation nasal spray USE 2 SPRAYS IN EACH NOSTRIL ONCE DAILY. RINSE MOUTH AFTER USE. sodium chloride (SALINE MIST) 0.65 % nasal spray Use 1 [place] in the nose as needed for cold/allergy symptoms. aspirin 81 mg chewable tablet Take 1 tablet by mouth once daily. MV-MN/FA/D3/LYCOPENE/LUT/COQ10 (DAILY MULTIVITAMIN ORAL) Take 1 tablet by mouth once daily. No current facility-administered medications for this visit. ALLERGIES Allergen Reactions Macrobid [Nitrofura* Rash Penicillins Rash PAST SURGICAL HISTORY Procedure Laterality Date APPENDECTOMY HX CATARACT EXTRACTION HX Right 10/29/2019 COLONOSCOPY AND POLYPECTOMY 03/19/2005 Dr Quinn COLONOSCOPY FLX DX W/COLLJ SPEC WHEN PFRMD 07/17/2015 Colonoscopy COLONOSCOPY FLX DX W/COLLJ SPEC WHEN PFRMD 12/07/2018 Colonoscopy PAST SURGICAL HISTORY OF ovarian cyst PAST SURGICAL HISTORY OF 07/24/2015 Mitral Valve Repair Physical Exam: OBJECTIVE: Constitutional: Pt is a well developed 73 year old female who is alert, oriented, cooperative and in no apparent distress. Eyes: Following during examination. No redness or drainage. Respiratory: RR normal and nonlabored. Even breathing. No evidence of distress. Psychology: Patient is engaged during conversation. Normal affect and mood. Does not appear depressed or anxious. NVSI unchanged from previous visit. Dermatological: Nails 1-5 b/l are normal. Webspaces clean and dry 1-4 b/l. Skin appears well hydrated and supple. good color, texture, turgor. No open lesions present. Callus present to right 2nd metatarsal Musculoskeletal/Orthopaedic: Patient has pain to palpation of right foot along callus of right 2nd/3rd metatarsal ASSESSMENT: Callus of foot (primary encounter diagnosis) Metatarsalgia of right foot PLAN: Callus to right 2nd metatarsal reduced with 15 blade and dremmel Continue with inserts and offloading pad Follow-up prn Jael Olson, CARMELM [facility] 02-16-2024 History of Presen t illness Narrative FOLLOW UP PODIATRIC OFFICE VISIT Chief Complaint: This 73 year old who presents for follow up:painful callus of right foot Patient presents to clinic for follow-up callus of right foot Uses inserts and offloading pad and that helps Here for debridement No other complaints PAIN EVALUATION 02/12/2024 1515 Pain Level: 5 Description: Burning;Sharp Duration Units: Months Frequency: Intermittent Comments: when sitting no pain but when walking very painful Hemoglobin A1C Date Value Ref Range Status 03/22/2023 5.8 (H) 4.3 - 5.6 % Final Comment: [place] [employer] guidelines indicate that patients with HgbA1c in the range 5.7-6.4% are at increased risk for development of diabetes, and intervention by lifestyle modification may be beneficial. HgbA1c greater or equal to 6.5% is considered diagnostic of diabetes. PCP: Vinayak Reyes MD PAST MEDICAL HISTORY Diagnosis Date Acute diverticulitis 02/25/2023 Callus of foot Right foot Mitral regurgitation, myxomatous Severe MR (echo 09/30/11) Osteopenia Routine gynecological examination Dr Sanchez Current Outpatient Medications Medication Sig atorvastatin (LIPITOR) 10 mg tablet Take 1 tablet by mouth once daily. fluticasone (FLONASE) 50 mcg/actuation nasal spray USE 2 SPRAYS IN EACH NOSTRIL ONCE DAILY. RINSE MOUTH AFTER USE. sodium chloride (SALINE MIST) 0.65 % nasal spray Use 1 [place] in the nose as needed for cold/allergy symptoms. aspirin 81 mg chewable tablet Take 1 tablet by mouth once daily. MV-MN/FA/D3/LYCOPENE/LUT/COQ10 (DAILY MULTIVITAMIN ORAL) Take 1 tablet by mouth once daily. No current facility-administered medications for this visit. ALLERGIES Allergen Reactions Macrobid [Nitrofura* Rash Penicillins Rash PAST SURGICAL HISTORY Procedure Laterality Date APPENDECTOMY HX CATARACT EXTRACTION HX Right 10/29/2019 COLONOSCOPY & POLYPECTOMY 03/19/2005 Dr Quinn COLONOSCOPY FLX DX W/COLLJ SPEC WHEN PFRMD 07/17/2015 Colonoscopy COLONOSCOPY FLX DX W/COLLJ SPEC WHEN PFRMD 12/07/2018 Colonoscopy PAST SURGICAL HISTORY OF ovarian cyst PAST SURGICAL HISTORY OF 07/24/2015 Mitral Valve Repair Physical Exam: OBJECTIVE: Constitutional: Pt is a well developed 73 year old female who is alert, oriented, cooperative and in no apparent distress. Eyes: Following during examination. No redness or drainage. Respiratory: RR normal and nonlabored. Even breathing. No evidence of distress. Psychology: Patient is engaged during conversation. Normal affect and mood. Does not appear depressed or anxious. NVSI unchanged from previous visit. Dermatological: Nails 1-5 b/l are normal. Webspaces clean and dry 1-4 b/l. Skin appears well hydrated and supple. good color, texture, turgor. No open lesions present. Callus present to right 2nd metatarsal Musculoskeletal/Orthopaedic: Patient has pain to palpation of right foot along callus of right 2nd/3rd metatarsal ASSESSMENT: Callus of foot (primary encounter diagnosis) Metatarsalgia of right foot PLAN: Callus to right 2nd metatarsal reduced with 15 blade and dremmel Continue with inserts and offloading pad Follow-up gianni Olson DPM documented in this encounter [facility] 01-12-2024 Telephone encounter Note Pts called and is notified of providers results and instructions. He voices understanding. Diana Hamm RN [facility] 01-12-2024 Miscellaneous Notes Pts called and is notified of providers results and instructions. He voices understanding. Diana Hamm RN Mammogram is ok. Recheck one year. Scan on 01/12/2024 9:20 AM by Provider, SHAYE Pandya: Mammography documented in this encounter [facility] 01-12-2024 Telephone encounter Note Mammogram is ok. Recheck one year. [facility] 01-12-2024 Telephone encounter Note Scan on 01/12/2024 9:20 AM by Provider, SHAYE Pandya: Mammography [facility] 01-09-2024 Telephone encounter Note Prescription Refill Information The patient has been identified by name and date of : Yes Caregiver verified no other encounters exist for this prescription request: Yes Caregiver confirmed with patient/requestor that no other refills are due, in the near future, with this provider at this time: Yes The last office visit in the department: 05/12/23 Does the patient have a future office visit with this provider/department: No Requested Prescriptions Pending Prescriptions Disp Refills atorvastatin (LIPITOR) 10 mg tablet 90 tablet 3 Sig: Take 1 tablet by mouth once daily. Zuly Pedersen MA January 09, 2024 2:11 PM [facility] 01-09-2024 Miscellaneous Notes Prescription Refill Information The patient has been identified by name and date of : Yes Caregiver verified no other encounters exist for this prescription request: Yes Caregiver confirmed with patient/requestor that no other refills are due, in the near future, with this provider at this time: Yes The last office visit in the department: 05/12/23 Does the patient have a future office visit with this provider/department: No Requested Prescriptions Pending Prescriptions Disp Refills atorvastatin (LIPITOR) 10 mg tablet 90 tablet 3 Sig: Take 1 tablet by mouth once daily. Zuly Pedersen MA January 09, 2024 2:11 PM documented in this encounter [facility] 12-25-2023 Telephone encounter Note Patient's James calls and notified that order placed. Faxed order to [facility] as requested. Linda Downey RN [facility] 12-25-2023 Miscellaneous Notes Patient's James calls and notified that order placed. Faxed order to [facility] as requested. Linda Downey RN ordered Typo. Just a mammogram. Judy Wakefield MA What is a non mammogram??? Patient's James calling and requesting non mammogram order be placed for patient. Please fax order to [facility]. Please call [facility] once this has been completed at [phone]. Thank you. documented in this encounter [facility] 12-25-2023 Telephone encounter Note ordered [facility] 12-24-2023 Telephone encounter Note Typo. Just a mammogram. Judy Wakefield MA [facility] 12-24-2023 Telephone encounter Note What is a non mammogram??? [facility] 12-23-2023 Telephone encounter Note Patient's James calling and requesting non mammogram order be placed for patient. Please fax order to [facility]. Please call James once this has been completed at [phone]. Thank you. [facility] 05-15-2023 Instructions Jael Olson - 05/15/2023 9:38 AM EDT Trichloroacetic acid (TCA) has been applied to the plantar warts. Rinse off in 12 hours and keep clean and dry. May bathe and shower normally starting the day after treatment The area is expected to burn and blister in about 1-3 days, if painful soak in plain, cool water. If blistered, you may drain the blister with a clean, STERILIZED needle and apply OTC antibiotic ointment and band aid to area. Repeat 2-3 times daily as needed. Tylenol or Aleve as needed for pain, provided you have no allergies to either of these. Keep scheduled follow up appointment to have wart(s) re-evaluated and/or additional treatments. Powerstep Original Full length. Can purchase at [facility] [employer] and boots,shoes and more here in [place], [employer] in [place] or [place]. Also can find in [employer] in [facility]. Powersteps can also be purchased online, starting around $45.00 If you have a metatarsal or dancer pad for your feet apply the pad directly to the insole so you can interchange between your shoes. Find a shoe with a removable insole and take this out and replace with your powerstep insole. Always bring powersteps with you when shopping for shoes so that you can make sure that everything fits well together documented in this encounter [facility] 05-15-2023 History of Presen t illness Narrative Consultation requested by Dr. Reyes for an opinion regarding callus. My final recommendations will be communicated back to the requesting physician by way of shared Medical record or letter to requesting physician via [place] mail. Initial Podiatric Office Visit: Chief Complaint: This 72 year old female who presents with chief complaint:painful callus of right foot HPI Patient presents to clinic for evaluation of right foot Complains of painful callus of right foot. Has been present x 1 month Patient states the pain in the callus is more severe when walking barefoot. PAIN EVALUATION No data found in the last 1 encounters. Hemoglobin A1C (%) Date Value 03/22/2023 5.8 PCP: Vinayak Reyes MD PAST MEDICAL HISTORY Diagnosis Date Acute diverticulitis 02/25/2023 Mitral regurgitation, myxomatous Severe MR (echo 09/30/11) Osteopenia Routine gynecological examination Dr Sanchez Current Outpatient Medications Medication Sig atorvastatin (LIPITOR) 10 mg tablet Take 1 tablet by mouth once daily. fluticasone (FLONASE) 50 mcg/actuation nasal spray USE 2 SPRAYS IN EACH NOSTRIL ONCE DAILY. RINSE MOUTH AFTER USE. sodium chloride (SALINE MIST) 0.65 % nasal spray Use 1 [place] in the nose as needed for cold/allergy symptoms. aspirin 81 mg chewable tablet Take 1 tablet by mouth once daily. MV-MN/FA/D3/LYCOPENE/LUT/COQ10 (DAILY MULTIVITAMIN ORAL) Take 1 tablet by mouth once daily. No current facility-administered medications for this visit. ALLERGIES Allergen Reactions Macrobid [Nitrofura* Rash Penicillins Rash PAST SURGICAL HISTORY Procedure Laterality Date APPENDECTOMY HX CATARACT EXTRACTION HX Right 10/29/2019 COLONOSCOPY & POLYPECTOMY 03/19/2005 Dr Quinn COLONOSCOPY FLX DX W/COLLJ SPEC WHEN PFRMD 07/17/2015 Colonoscopy COLONOSCOPY FLX DX W/COLLJ SPEC WHEN PFRMD 12/07/2018 Colonoscopy PAST SURGICAL HISTORY OF ovarian cyst PAST SURGICAL HISTORY OF 07/24/2015 Mitral Valve Repair FAMILY HISTORY Problem Relation Age of Onset Diabetes Father Ischemic Heart Disease Father Thyroid Mother Alzheimer's Disease Mother Cancer Maternal Grandfather unknown Thyroid Sister x3 Social History Tobacco Use Smoking status: Never Smokeless tobacco: Never Vaping Use Vaping Use: Never used Substance Use Topics Alcohol use: No Drug use: No REVIEW OF SYSTEMS GENERAL: Negative for Malaise, significant weight loss, fever RESPIRATORY: Negative for cough, wheezing and shortness of breath CARDIOVASCULAR: Negative for chest pain, leg swelling and palpitations GI: Negative for abdominal discomfort, blood in stools or black stools and change in bowel habits : Negative for dysuria, frequency and incontinence MUSCULOSKELETAL: Negative for joint pain or swelling, back pain, and muscle pain. SKIN: Negative for lesions, rash, and itching. HEMATOLOGY/LYMPHOLOGY Negative for prolonged bleeding, bruising easily, and swollen nodes. ENDOCRINE: Negative for cold or heat intolerance, polyuria, polydipsia and goiter. NEURO: negative Physical Exam: Constitutional: Pt is a well developed 72 year old female who is alert, oriented and cooperative Eyes: Following during examination. No redness or drainage. Respiratory: RR normal and nonlabored. Even breathing. No evidence of distress or shortness of breath. Psychology: Patient is engaged during conversation. Normal affect and mood. Does not appear depressed or anxious during encounter. Vascular: Dorsalis pedis and posterior tibial pulses palpable right Capillary Fill time < 5 seconds to digits 1-5 right Skin temperature warm to warm proximal to distal right Hair growth present to digits Neurological: intact light touch/epicritic sensation intact protective sensation no significant neurological deficits Dermatological: Porokeratosis present to right 3rd metatarsal Musculoskeletal/Orthopaedic: Patient has pain to palpation of right 3rd metatarsal at site of porokeratosis Foot type is neutral structurally AJ ROM is full with knee extended and flexed Hallux valgus noted to right foot Hammertoes are present to lesser toes, right foot Radiographs:n/a ASSESSMENT: (Q82.8) Porokeratosis (primary encounter diagnosis) PLAN: 1. History and physical examination performed. 2. Discussed callus of right 3rd metatarsal. Explained the etiology of callus being hammertoe placing pressure on the ball of her foot. Can help to offload this by way of gel insert with offloading pad. These were dispensed. 3. Callus was reduced today with 15 blade and dremmel. Tca applied under occlusion. 4. F/u prn Jael Olson DPM Podiatry [address] [facility] [address] Dept: [phone] Dept documented in this encounter [facility] 05-12-2023 History of Presen t illness Narrative Patient presents with: Wart: right HPI: Patient presents today for office visit for follow up. Patient complains of: believes a plantar. Duration: 1 month Location:right foot Associated Symptoms: pain when walking in house MEDICATIONS: Current Outpatient Medications Medication Sig atorvastatin (LIPITOR) 10 mg tablet Take 1 tablet by mouth once daily. fluticasone (FLONASE) 50 mcg/actuation nasal spray USE 2 SPRAYS IN EACH NOSTRIL ONCE DAILY. RINSE MOUTH AFTER USE. sodium chloride (SALINE MIST) 0.65 % nasal spray Use 1 [place] in the nose as needed for cold/allergy symptoms. aspirin 81 mg chewable tablet Take 1 tablet by mouth once daily. MV-MN/FA/D3/LYCOPENE/LUT/COQ10 (DAILY MULTIVITAMIN ORAL) Take 1 tablet by mouth once daily. No current facility-administered medications for this visit. ALLERGIES: ALLERGIES Allergen Reactions Macrobid [Nitrofura* Rash Penicillins Rash PAST MEDICAL HISTORY Diagnosis Date Acute diverticulitis 02/25/2023 Mitral regurgitation, myxomatous Severe MR (echo 09/30/11) Osteopenia Routine gynecological examination Dr Sanchez PAST SURGICAL HISTORY Procedure Laterality Date APPENDECTOMY HX CATARACT EXTRACTION HX Right 10/29/2019 COLONOSCOPY & POLYPECTOMY 03/19/2005 Dr Quinn COLONOSCOPY FLX DX W/COLLJ SPEC WHEN PFRMD 07/17/2015 Colonoscopy COLONOSCOPY FLX DX W/COLLJ SPEC WHEN PFRMD 12/07/2018 Colonoscopy PAST SURGICAL HISTORY OF ovarian cyst PAST SURGICAL HISTORY OF 07/24/2015 Mitral Valve Repair FAMILY HISTORY Problem Relation Age of Onset Diabetes Father Ischemic Heart Disease Father Thyroid Mother Alzheimer's Disease Mother Cancer Maternal Grandfather unknown Thyroid Sister x3 Social History Tobacco Use Smoking status: Never Smokeless tobacco: Never Vaping Use Vaping Use: Never used Substance Use Topics Alcohol use: No Drug use: No Reviewed current medications, allergies, past medical history, surgical history, family history and social history today. REVIEW OF SYSTEMS All other reviewed and negative other than HPI. HEALTH MAINTENANCE: Reviewed health maintenance issues today and recommended the following in detail. There are no preventive care reminders to display for this patient. VITALS: Wt 74.4 kg (164 lb) BMI 27.29 kg/m Last 4 Encounter Wt Readings: Date: Wt: 05/12/2023 74.4 kg (164 lb) 04/30/2023 73.3 kg (161 lb 9.6 oz) 04/08/2023 73.3 kg (161 lb 9.6 oz) 04/04/2023 74.7 kg (164 lb 9.6 oz) PHYSICAL EXAMINATION: General appearance: Well appearing, alert, in no acute distress, well-hydrated, well nourished. Skin: has what may be a large callus on ball of foot. She was wondering its a plantars wart but unsure given its appearance. No redness or warmth. Normal cap refill. Normal pp's. No signs of infection or trauma. ASSESSMENT/PLAN: 1. Foot callus - ICD9: 700, ICD10: L84 - see podiatry given its size. Good foot wear. Red flags for re-assessment reviewed with patient in detail. \ - CONSULT TO PODIATRY Vinayak Reyes MD documented in this encounter [facility] 04-30-2023 Miscellaneous Notes The patient received a copy of Colonoscopy discharge instructions that contain information for how to contact the physician who performed the procedure and when to seek medical care. documented in this encounter [facility] 04-30-2023 Nurse Note Patient arrived laying on left side. Patient does not appear to be in any pain at this time. Abdomen appears to be nondistended and soft to palpation. Patient encouraged to belch and pass gas as needed. documented in this encounter [facility] 04-30-2023 History and physical note UPDATED PROCEDURAL SEDATION HISTORY AND PHYSICAL EXAMINATION SERVICE DATE: 04/30/2023 SERVICE TIME: 7:33 PHYSICAL EXAM MUST BE COMPLETED ON ADMISSION PROCEDURE: colonoscopy, possible biopsies Procedure Indications: screening for colon cancer, history of colon polyps The History and Physical (completed in the past 30 days) has been reviewed and the patient has been examined. The contents accurately reflect the patient's condition with the following additions or revisions since the H&P was completed. ASA Class: ASA Class:: Patient with mild systemic disease Examination indicates no changes. AIRWAY: Airway Visualization of Uvula: Yes Mouth opening greater than 2 fingerbreadths: Yes Neck Full Range of Motion: Yes LUNGS: Lungs clear to auscultation CARDIAC: Regular rhythm,Regular rate Provisional Diagnosis/Treatment Plan: colonoscopy, possible biopsies SEDATION GOAL: Moderate This H&P can be found in the Electronic Medical Record. SIGNATURE: Carmita Lawrence MD PATIENT NAME: Faby Turpin Sera DATE: April 30, 2023 TIME: 7:34 AM Source Note - Carmita Lawrence MD - 04/30/2023 8:15 AM EDT HISTORY AND PHYSICAL Faby Saucedoiver 1950 REFERRING PHYSICIAN: Nola Veras APRN.C* CHIEF COMPLAINT: Consult (Abnormal CT scan abdomen and pelvis, acute diverticulitis.) HPI: The patient is a 72 year old female referred for endoscopy. Faby notes an episode of acute diverticulitis. This was diagnosed by PE and CT scan on 02/25/2023. She was treated with antibiotics and today, she states that she feels much improved. She denies abdominal pain. She last had a colonoscopy in 2018 - no polyps found, but polyps noted in 2015. She denies noting blood in her stools. She notes no family history of colon cancer. She does have occasional BRBPR. PAST MEDICAL HISTORY PAST MEDICAL HISTORY Diagnosis Date Acute diverticulitis 02/25/2023 Mitral regurgitation, myxomatous Severe MR (echo 09/30/11) Osteopenia Routine gynecological examination Dr Sanchez PAST SURGICAL HISTORY PAST SURGICAL HISTORY Procedure Laterality Date CATARACT EXTRACTION HX Right 10/29/2019 COLONOSCOPY & POLYPECTOMY 03/19/2005 Dr Quinn COLONOSCOPY FLX DX W/COLLJ SPEC WHEN PFRMD 07/17/2015 Colonoscopy COLONOSCOPY FLX DX W/COLLJ SPEC WHEN PFRMD 12/07/2018 Colonoscopy PAST SURGICAL HISTORY OF ovarian cyst PAST SURGICAL HISTORY OF 07/24/15 Mitral Valve Repair CURRENT MEDICATIONS Current Outpatient Medications Medication Sig atorvastatin (LIPITOR) 10 mg tablet Take 1 tablet by mouth once daily. fluticasone (FLONASE) 50 mcg/actuation nasal spray USE 2 SPRAYS IN EACH NOSTRIL ONCE DAILY. RINSE MOUTH AFTER USE. sodium chloride (SALINE MIST) 0.65 % nasal spray Use 1 [place] in the nose as needed for cold/allergy symptoms. aspirin 81 mg chewable tablet Take 1 tablet by mouth once daily. MV-MN/FA/D3/LYCOPENE/LUT/COQ10 (DAILY MULTIVITAMIN ORAL) Take 1 tablet by mouth once daily. peg 3350-Electrolytes (GOLYTELY) 236-22.74-6.74 -5.86 gram suspension Take 4,000 mL by mouth one time only for 1 dose. Refer to printed prep instructions from your provider. No current facility-administered medications for this visit. ALLERGIES: Macrobid [Nitrofurantoin Monohyd/M-Cryst] and Penicillins PERSONAL HISTORY: SOCIAL HISTORY Social History Tobacco Use Smoking status: Never Smokeless tobacco: Never Vaping Use Vaping Use: Never used Substance Use Topics Alcohol use: No Drug use: No FAMILY HISTORY FAMILY HISTORY Problem Relation Age of Onset Diabetes Father Ischemic Heart Disease Father Thyroid Mother Alzheimer's Disease Mother Cancer Maternal Grandfather unknown Thyroid Sister x3 The review of systems data was entered by the nurse and reviewed by ny Nursing Notes: Emelina Hay RN 03/10/2023 3:38 PM Signed REVIEW OF SYSTEMS: General: The patient denies fatigue, denies weight loss, denies weight gain, denies feeling hot, and denies feelings of cold. Eyes: The patient denies glaucoma, NOTES eye injury/surgery, does not wear glasses or contacts. Ear/Nose/Throat: The patient NOTES allergies, denies hayfever, denies ear infections, and denies bloody noses. Cardiovascular: The patient denies chest pain, NOTES heart disease, denies high blood pressure,denies cardiac stent, denies prior heart attack, denies irregular heart beat, NOTES high cholesterol, denies poor circulation, NOTES heart failure, other cardiac issues, denies claudication, denies cold feet, denies peripheral arterial stent. Respiratory: The patient denies tuberculosis, denies pneumonia, denies frequent cough, denies pulmonary embolism, denies shortness of breath, and denies coughing up blood. Gastrointestinal: The patient denies difficulty swallowing, denies acid reflux, denies ulcers, denies vomiting, denies jaundice/hepatitis, NOTES gallbladder problems, denies black or tarry stools, denies hemorrhoids, denies bleeding from rectum, NOTES diverticulitis, denies constipation, denies diarrhea, denies loss of stool control, and denies hernias. Kidney/Bladder: The patient denies kidney stones, denies urine infections, and denies bloody urine. Skin: The patient denies a history of skin cancer, denies bleeding/changing moles, and denies a history of skin rash. Neurologic: The patient denies a history of epilepsy/convulsions, denies headaches, denies head/spinal injuries, and denies stroke/TIA. Psychiatric: The patient denies psychiatric medications, denies depression, and denies voices, denies substance abuse. Endocrine: The patient denies thyroid disorders, denies diabetes, and denies hormonal problems. Hematologic: The patient denies a history of bruising, denies bleeding, and denies anemia, denies blood clots. Infections: The patient denies a history of measles and mumps, denies rheumatic fever, and denies sexually transmitted diseases. Musculoskeletal: The patient denies back pain/injury, denies back problems, denies sciatica, denies knee/foot trouble, denies arthritis, or denies gout. When was patient's last Mammogram screening? 01/06/2023 Last Colonoscopy: 12/07/2018 Emelina Hay RN PHYSICAL EXAMINATION: General: The patient is 72 year old female, well nourished, well hydrated in no acute distress. The patient is oriented to time, place, and person. VITALS: Blood pressure 138/76, pulse 86, temperature 36.1 C (97 F), height 165.1 cm (5' 5), weight 74.8 kg (164 lb 12.8 oz), SpO2 98%. Body mass index is 27.42 kg/m . Head - Normocephalic. EOM intact with sclera clear and no icterus noted. Mouth with mucus membranes moist. Neck - supple with no jugular venous distention noted. Trachea is midline. Lungs - clear to auscultation. Normal breath sounds. No rales/rhonchi/wheezing noted. No labored breathing noted, such as retractions. No cough heard. Heart - normal S1 and S2 auscultated. No rubs/clicks/murmurs noted. Regular rate. Abdomen - soft and benign. Normal bowel sounds. No abdominal bruits noted. Difficult to determine if any masses or organomegaly due to body habitus. Extremities - no calf tenderness noted. No pitting edema noted. Skin - normal skin integrity. Neurological - gait normal, no focal deficits noted. Psych - calm and appropriate IMPRESSION: abnormal CT scan of GI tract - episode of acute diverticulitis - resolved, history of colon polyps, occasional rectal bleeding PLAN: I have discussed the above with the patient. I have offered colonoscopy, possible biopsies I have explained the procedure to the patient. I have counseled the patient as to the risks of the procedure, including but not limited to: infection, bleeding, injury to any intrabdominal organs such as liver/spleen, perforation of the GI tract, inability to complete the procedure, complications of anesthesia, etc. - the patient understands. She agrees to proceed. Diagnoses: (K57.32) Sigmoid diverticulitis (Z12.11) Screening for colon cancer HISTORY AND PHYSICAL Faby Zamora 1950 REFERRING PHYSICIAN: Nola Veras APRN.C* CHIEF COMPLAINT: Consult (Abnormal CT scan abdomen and pelvis, acute diverticulitis.) HPI: The patient is a 72 year old female referred for endoscopy. Faby notes an episode of acute diverticulitis. This was diagnosed by PE and CT scan on 02/25/2023. She was treated with antibiotics and today, she states that she feels much improved. She denies abdominal pain. She last had a colonoscopy in 2019 - no polyps found, but polyps noted in 2016. She denies noting blood in her stools. She notes no family history of colon cancer. She does have occasional BRBPR. PAST MEDICAL HISTORY PAST MEDICAL HISTORY Diagnosis Date Acute diverticulitis 02/25/2023 Mitral regurgitation, myxomatous Severe MR (echo 09/30/11) Osteopenia Routine gynecological examination Dr Sanchez PAST SURGICAL HISTORY PAST SURGICAL HISTORY Procedure Laterality Date CATARACT EXTRACTION HX Right 10/29/2019 COLONOSCOPY & POLYPECTOMY 03/19/2005 Dr Quinn COLONOSCOPY FLX DX W/COLLJ SPEC WHEN PFRMD 07/17/2015 Colonoscopy COLONOSCOPY FLX DX W/COLLJ SPEC WHEN PFRMD 12/07/2018 Colonoscopy PAST SURGICAL HISTORY OF ovarian cyst PAST SURGICAL HISTORY OF 07/24/15 Mitral Valve Repair CURRENT MEDICATIONS Current Outpatient Medications Medication Sig atorvastatin (LIPITOR) 10 mg tablet Take 1 tablet by mouth once daily. fluticasone (FLONASE) 50 mcg/actuation nasal spray USE 2 SPRAYS IN EACH NOSTRIL ONCE DAILY. RINSE MOUTH AFTER USE. sodium chloride (SALINE MIST) 0.65 % nasal spray Use 1 [place] in the nose as needed for cold/allergy symptoms. aspirin 81 mg chewable tablet Take 1 tablet by mouth once daily. MV-MN/FA/D3/LYCOPENE/LUT/COQ10 (DAILY MULTIVITAMIN ORAL) Take 1 tablet by mouth once daily. peg 3350-Electrolytes (GOLYTELY) 236-22.74-6.74 -5.86 gram suspension Take 4,000 mL by mouth one time only for 1 dose. Refer to printed prep instructions from your provider. No current facility-administered medications for this visit. ALLERGIES: Macrobid [Nitrofurantoin Monohyd/M-Cryst] and Penicillins PERSONAL HISTORY: SOCIAL HISTORY Social History Tobacco Use Smoking status: Never Smokeless tobacco: Never Vaping Use Vaping Use: Never used Substance Use Topics Alcohol use: No Drug use: No FAMILY HISTORY FAMILY HISTORY Problem Relation Age of Onset Diabetes Father Ischemic Heart Disease Father Thyroid Mother Alzheimer's Disease Mother Cancer Maternal Grandfather unknown Thyroid Sister x3 The review of systems data was entered by the nurse and reviewed by [place] Nursing Notes: Emelina Hay RN 03/10/2023 3:38 PM Signed REVIEW OF SYSTEMS: General: The patient denies fatigue, denies weight loss, denies weight gain, denies feeling hot, and denies feelings of cold. Eyes: The patient denies glaucoma, NOTES eye injury/surgery, does not wear glasses or contacts. Ear/Nose/Throat: The patient NOTES allergies, denies hayfever, denies ear infections, and denies bloody noses. Cardiovascular: The patient denies chest pain, NOTES heart disease, denies high blood pressure,denies cardiac stent, denies prior heart attack, denies irregular heart beat, NOTES high cholesterol, denies poor circulation, NOTES heart failure, other cardiac issues, denies claudication, denies cold feet, denies peripheral arterial stent. Respiratory: The patient denies tuberculosis, denies pneumonia, denies frequent cough, denies pulmonary embolism, denies shortness of breath, and denies coughing up blood. Gastrointestinal: The patient denies difficulty swallowing, denies acid reflux, denies ulcers, denies vomiting, denies jaundice/hepatitis, NOTES gallbladder problems, denies black or tarry stools, denies hemorrhoids, denies bleeding from rectum, NOTES diverticulitis, denies constipation, denies diarrhea, denies loss of stool control, and denies hernias. Kidney/Bladder: The patient denies kidney stones, denies urine infections, and denies bloody urine. Skin: The patient denies a history of skin cancer, denies bleeding/changing moles, and denies a history of skin rash. Neurologic: The patient denies a history of epilepsy/convulsions, denies headaches, denies head/spinal injuries, and denies stroke/TIA. Psychiatric: The patient denies psychiatric medications, denies depression, and denies voices, denies substance abuse. Endocrine: The patient denies thyroid disorders, denies diabetes, and denies hormonal problems. Hematologic: The patient denies a history of bruising, denies bleeding, and denies anemia, denies blood clots. Infections: The patient denies a history of measles and mumps, denies rheumatic fever, and denies sexually transmitted diseases. Musculoskeletal: The patient denies back pain/injury, denies back problems, denies sciatica, denies knee/foot trouble, denies arthritis, or denies gout. When was patient's last Mammogram screening? 01/06/2023 Last Colonoscopy: 12/07/2018 Emelina Hay RN PHYSICAL EXAMINATION: General: The patient is 72 year old female, well nourished, well hydrated in no acute distress. The patient is oriented to time, place, and person. VITALS: Blood pressure 138/76, pulse 86, temperature 36.1 C (97 F), height 165.1 cm (5' 5), weight 74.8 kg (164 lb 12.8 oz), SpO2 98%. Body mass index is 27.42 kg/m . Head - Normocephalic. EOM intact with sclera clear and no icterus noted. Mouth with mucus membranes moist. Neck - supple with no jugular venous distention noted. Trachea is midline. Lungs - clear to auscultation. Normal breath sounds. No rales/rhonchi/wheezing noted. No labored breathing noted, such as retractions. No cough heard. Heart - normal S1 and S2 auscultated. No rubs/clicks/murmurs noted. Regular rate. Abdomen - soft and benign. Normal bowel sounds. No abdominal bruits noted. Difficult to determine if any masses or organomegaly due to body habitus. Extremities - no calf tenderness noted. No pitting edema noted. Skin - normal skin integrity. Neurological - gait normal, no focal deficits noted. Psych - calm and appropriate IMPRESSION: abnormal CT scan of GI tract - episode of acute diverticulitis - resolved, history of colon polyps, occasional rectal bleeding PLAN: I have discussed the above with the patient. I have offered colonoscopy, possible biopsies I have explained the procedure to the patient. I have counseled the patient as to the risks of the procedure, including but not limited to: infection, bleeding, injury to any intrabdominal organs such as liver/spleen, perforation of the GI tract, inability to complete the procedure, complications of anesthesia, etc. - the patient understands. She agrees to proceed. Diagnoses: (K57.32) Sigmoid diverticulitis (Z12.11) Screening for colon cancer documented in this encounter [facility] 04-08-2023 History of Presen t illness Narrative CC: Patient presents with: Cough: Cough, ST, bodyaches, chills and fever x 2 days Patient reports she started feeling sick on Friday with a scratchy throat. Throat symptoms have improved however she still feels achy with fever and chills. Her tested positive for COVID this morning. HPI: Faby Zamora is a 72 year old female who presents to the office with complaint of respiratory symptoms, cough, nonproductive, and fever for 2 days. Symptoms are staying the same. Associated symptoms includes sore throat, body aches, fever, cough, and fatigue. Denies facial pain/pressure, rash, dyspnea, nausea, vomiting , and diarrhea. Treatments tried include nothing so far. with no relief of symptoms. Sick contacts: yes. History of asthma, frequent episodes of bronchitis, chronic bronchitis, bronchiectasis or COPD: No Smoker: No Seasonal/environmental allergies: No The ROS is otherwise negative. The patient's pmh, medications, allergies, and past visits are reviewed. PHYSICAL EXAM: BP 142/80 Pulse 92 Temp 37.9 C (100.2 F) (Tympanic) Resp 18 Wt 73.3 kg (161 lb 9.6 oz) SpO2 95% BMI 26.89 kg/m General appearance: alert, cooperative, pleasant, in no acute distress Head: Normocephalic Eyes: PERRLA, EOM's intact, conjunctiva pink and moist, no icterus, sclera white, non-injected Ears: Right ear: External ear/canal- Normal, TM - clear with good landmarks. Left ear: External ear/canal- Normal, TM - clear with good landmarks Nose: clear. Oropharynx:moist without lesions, mild erythema, without exudates present Neck:supple and no adenopathy Heart: Negative. RRR without obvious murmur, gallop, or rubs. No ectopy. Lungs: clear to auscultation, without rales or wheeze, good air exchange PAST MEDICAL HISTORY Diagnosis Date Acute diverticulitis 02/25/2023 Mitral regurgitation, myxomatous Severe MR (echo 09/30/11) Osteopenia Routine gynecological examination Dr Sanchez PAST SURGICAL HISTORY Procedure Laterality Date CATARACT EXTRACTION HX Right 10/29/2019 COLONOSCOPY & POLYPECTOMY 03/19/2005 Dr Quinn COLONOSCOPY FLX DX W/COLLJ SPEC WHEN PFRMD 07/17/2015 Colonoscopy COLONOSCOPY FLX DX W/COLLJ SPEC WHEN PFRMD 12/07/2018 Colonoscopy PAST SURGICAL HISTORY OF ovarian cyst PAST SURGICAL HISTORY OF 07/24/15 Mitral Valve Repair ALLERGIES Macrobid [Nitrofurantoin Monohyd/M-Cryst] and Penicillins MEDICATIONS nystatin (MYCOSTATIN) 100,000 unit/mL suspension Take 5 mL by mouth four times daily for 14 days. 1tsp swish in mouth for several minutes, then swallow (or expectorate) 4 times daily until gone. atorvastatin (LIPITOR) 10 mg tablet Take 1 tablet by mouth once daily. fluticasone (FLONASE) 50 mcg/actuation nasal spray USE 2 SPRAYS IN EACH NOSTRIL ONCE DAILY. RINSE MOUTH AFTER USE. sodium chloride (SALINE MIST) 0.65 % nasal spray Use 1 [place] in the nose as needed for cold/allergy symptoms. aspirin 81 mg chewable tablet Take 1 tablet by mouth once daily. MV-MN/FA/D3/LYCOPENE/LUT/COQ10 (DAILY MULTIVITAMIN ORAL) Take 1 tablet by mouth once daily. FAMILY HISTORY Problem Relation Age of Onset Diabetes Father Ischemic Heart Disease Father Thyroid Mother Alzheimer's Disease Mother Cancer Maternal Grandfather unknown Thyroid Sister x3 Social History Tobacco Use Smoking status: Never Smokeless tobacco: Never Vaping Use Vaping Use: Never used Substance Use Topics Alcohol use: No Drug use: No DATA REVIEWED: No new labs ASSESSMENT/PLAN: 1. Acute cough - ICD9: 786.2, ICD10: R05.1 - Encouraged supportive care with fluids, rest, analgesia PRN - COVID & INFLUENZA A/B & RSV NAAT, ROUTINE Discussed antivirals with patient she was not interested at this time. Potential red flag symptoms discussed with the patient. Reviewed appropriate action plan to take if red flag symptoms occur. Patient agreeable to treatment plan. Yulisa Medina Supervising provider was present and guided the care of the patient for the entire session on this date. All documentation was reviewed and agreed upon. Marianne Stein APRN.ASUNCION documented in this encounter [facility] 04-04-2023 Instructions Yoana Steen APRN.CNS - 04/04/2023 2:08 PM EST 1) Start nystatin 1 tsp. 4 x day after meals and bedtime. Swish and swallow. 2) Please update me with MyChart once nystatin complete to make certain resolved 3) Follow up in 12m documented in this encounter [facility] 04-04-2023 History of Presen t illness Narrative This is a 72 year old female who presents today with: Patient presents with: Mouth/Lip Problem: Thrush HISTORY OF PRESENT ILLNESS: Faby Zamora is a 72 year old female. Patient presents with: Mouth/Lip Problem: Thrush Recently DX with thrush. Treated with clotrimazole troches. White coating on tongue. No pain. The troches did not help at all. No fever or chills. Never had this before. Had a bout of diverticulitis and was treated with 2 antibiotics. That is when Sx started. Brushed tongue. PAST MEDICAL HISTORY: PAST MEDICAL HISTORY Diagnosis Date Acute diverticulitis 02/25/2023 Mitral regurgitation, myxomatous Severe MR (echo 09/30/11) Osteopenia Routine gynecological examination Dr Sanchez PAST SURGICAL HISTORY Procedure Laterality Date CATARACT EXTRACTION HX Right 10/29/2019 COLONOSCOPY & POLYPECTOMY 03/19/2005 Dr Quinn COLONOSCOPY FLX DX W/COLLJ SPEC WHEN PFRMD 07/17/2015 Colonoscopy COLONOSCOPY FLX DX W/COLLJ SPEC WHEN PFRMD 12/07/2018 Colonoscopy PAST SURGICAL HISTORY OF ovarian cyst PAST SURGICAL HISTORY OF 07/24/15 Mitral Valve Repair ALLERGIES Macrobid [Nitrofurantoin Monohyd/M-Cryst] and Penicillins MEDICATIONS Current Outpatient Medications Medication Sig atorvastatin (LIPITOR) 10 mg tablet Take 1 tablet by mouth once daily. fluticasone (FLONASE) 50 mcg/actuation nasal spray USE 2 SPRAYS IN EACH NOSTRIL ONCE DAILY. RINSE MOUTH AFTER USE. sodium chloride (SALINE MIST) 0.65 % nasal spray Use 1 [place] in the nose as needed for cold/allergy symptoms. aspirin 81 mg chewable tablet Take 1 tablet by mouth once daily. MV-MN/FA/D3/LYCOPENE/LUT/COQ10 (DAILY MULTIVITAMIN ORAL) Take 1 tablet by mouth once daily. clotrimazole (MYCELEX) 10 mg nikki Use 1 Nikki as instructed five times a day for 14 days. (Patient not taking: Reported on 04/04/2023) No current facility-administered medications for this visit. FAMILY HISTORY Problem Relation Age of Onset Diabetes Father Ischemic Heart Disease Father Thyroid Mother Alzheimer's Disease Mother Cancer Maternal Grandfather unknown Thyroid Sister x3 Social History Tobacco Use Smoking status: Never Smokeless tobacco: Never Vaping Use Vaping Use: Never used Substance Use Topics Alcohol use: No Drug use: No EXAM: BP 122/70 Pulse 67 Resp 16 Wt 74.7 kg (164 lb 9.6 oz) SpO2 95% BMI 27.39 kg/m PHYSICAL EXAM: General Appearance: Well appearing, alert, in no acute distress, well-hydrated, well nourished.. Oropharynx: Thick white plaque on tongue. No palpable nodes in cervical chain. Lungs: Lungs clear to auscultation. No wheezing, rhonchi, rales.. Heart: RRR without murmur, gallop, or rubs. No ectopy. ASSESSMENT/PLAN: 1. Thrush (oral) - ICD9: 112.0, ICD10: B37.0 Persists - NYSTATIN 100,000 UNIT/ML ORAL SUSPENSION 4 x day for 14 days - Educated on use, states understanding and recited back Discussed treatment plan and patient voices understanding. Patient's questions answered appropriately. Medications and potential side effects were discussed and patient voices understanding. Return to the office as scheduled or as needed for worsening/no improvement. Yoana Steen APRN.PRINT COLOR MATCHER The patient indicates understanding of these issues and agrees with the plan. documented in this encounter [facility] 04-02-2023 Miscellaneous Notes Scheduled visit to check on Friday. She has a couple of pills left. Follow up with one of us. If that is not helping, may not be thrush. Spouse calling to report has thrush and the lozengers are not helping. Pt's tongue is still coated. Please advise. Pharmacy updated. Fiona Andrade LPN documented in this encounter [facility] 03-22-2023 Miscellaneous Notes Phoned patient and went over results, notes from Dr Reyes with understanding. Patient said she had come into the lab today and had the HGBA1C drawn. Labs are ok other than sugars are slightly up. Recheck A1c in one to two weeks documented in this encounter [facility] 03-21-2023 History of Presen t illness Narrative Patient presents with: Leg Pain HPI: Patient presents today for office visit for follow up. Patient complains of: bilateral leg pain. Duration: couple of days Location:states they were equal pain [place] Associated Symptoms: aching pain Aggravating factors:Sitting seemed to make them worse. Things that improve symptoms :didn't take anything. When she would get up to walk seemed to be better. Denies any swelling, redness, warmth, cramping. Feels well currently. No back pain. No chest pain or shortness of breath. Recently treated for diverticulitis with flagyl and cipro. Now with a coating on her tongue. Not bothersome. Feeling better from episode of diverticulitis. Tongue is not sore. Stomach feels fine. MEDICATIONS: Current Outpatient Medications Medication Sig atorvastatin (LIPITOR) 10 mg tablet Take 1 tablet by mouth once daily. fluticasone (FLONASE) 50 mcg/actuation nasal spray USE 2 SPRAYS IN EACH NOSTRIL ONCE DAILY. RINSE MOUTH AFTER USE. sodium chloride (SALINE MIST) 0.65 % nasal spray Use 1 [place] in the nose as needed for cold/allergy symptoms. aspirin 81 mg chewable tablet Take 1 tablet by mouth once daily. MV-MN/FA/D3/LYCOPENE/LUT/COQ10 (DAILY MULTIVITAMIN ORAL) Take 1 tablet by mouth once daily. No current facility-administered medications for this visit. ALLERGIES: ALLERGIES Allergen Reactions Macrobid [Nitrofura* Rash Penicillins Rash PAST MEDICAL HISTORY Diagnosis Date Acute diverticulitis 02/25/2023 Mitral regurgitation, myxomatous Severe MR (echo 09/30/11) Osteopenia Routine gynecological examination Dr Sanchez PAST SURGICAL HISTORY Procedure Laterality Date CATARACT EXTRACTION HX Right 10/29/2019 COLONOSCOPY & POLYPECTOMY 03/19/2005 Dr Quinn COLONOSCOPY FLX DX W/COLLJ SPEC WHEN PFRMD 07/17/2015 Colonoscopy COLONOSCOPY FLX DX W/COLLJ SPEC WHEN PFRMD 12/07/2018 Colonoscopy PAST SURGICAL HISTORY OF ovarian cyst PAST SURGICAL HISTORY OF 07/24/15 Mitral Valve Repair FAMILY HISTORY Problem Relation Age of Onset Diabetes Father Ischemic Heart Disease Father Thyroid Mother Alzheimer's Disease Mother Cancer Maternal Grandfather unknown Thyroid Sister x3 Social History Tobacco Use Smoking status: Never Smokeless tobacco: Never Vaping Use Vaping Use: Never used Substance Use Topics Alcohol use: No Drug use: No Reviewed current medications, allergies, past medical history, surgical history, family history and social history today. REVIEW OF SYSTEMS All other reviewed and negative other than HPI. HEALTH MAINTENANCE: Reviewed health maintenance issues today and recommended the following in detail. Shingrix Vaccine(1 of 2) Never done RSV Vaccine(1 - 1-dose 60+ series) Never done DTaP,Tdap,Td Vaccine(2 - Td or Tdap) due on 09/24/2021 Advance Directive Discussion due on 02/10/2023 Depression Assessment due on 02/10/2023 VITALS: BP 118/73 Pulse 79 Wt 73 kg (161 lb) SpO2 92% BMI 26.79 kg/m Last 4 Encounter Wt Readings: Date: Wt: 03/10/2023 74.8 kg (164 lb 12.8 oz) 01/21/2023 71.7 kg (158 lb) 01/20/2023 73 kg (161 lb) 02/05/2022 76 kg (167 lb 9.6 oz) PHYSICAL EXAMINATION: General appearance: Well appearing, alert, in no acute distress, well-hydrated, well nourished. Skin: Skin color, texture, turgor normal, no suspicious rashes or lesions Head: Normocephalic, no masses, lesions, tenderness or abnormalities Oropharynx: thick white coating on tongue, appears to be possible thrush following antibiotic usage. Neck: Supple, no adenopathy; thyroid symmetric, normal size, no bruits Back: Normal exam Lungs: Lungs clear to auscultation. No wheezing, rhonchi, rales Heart: RRR without murmur, gallop, or rubs. No ectopy Abdomen: Normal abdominal exam, Abdomen soft, non-tender. Bowel sounds normal. No masses, organomegaly Extremities: No deformities, edema, skin discoloration, clubbing or cyanosis. Good capillary refill. No calf tenderness. No signs of dvt. ASSESSMENT/PLAN: 1. Myalgia - ICD9: 729.1, ICD10: M79.10 (primary diagnosis) - now resolved. Push fluids. Call if recurs. Vinayak Reyes MD [facility] - CBC + DIFF - CK CREATINE KINASE - COMP METABOLIC PANEL - MAGNESIUM BLD 2. Pain in both lower extremities - ICD9: 729.5, ICD10: M79.604, M79.605 - resolved. Red flags for re-assessment reviewed with patient in detail. 3. Thrush - ICD9: 112.0, ICD10: B37.0 - Discussed risks and benefits of new medication with the patient. Advised them to call if any side effects or questions. Red flags for re-assessment reviewed with patient in detail. Call if symptoms worsen at all or if not better in one to two weeks Reviewed diagnosis and treatment options in detail. Questions were answered. Patient expressed understanding of treatment plan. - CLOTRIMAZOLE 10 MG NIKKI Vinayak Reyes MD documented in this encounter [facility] 03-10-2023 Telephone encounter Note 04/30/[address] LAWRENCE April TO HEAL FROM DIVERTICULITIS [facility] 03-10-2023 Miscellaneous Notes 04/30/[address] LAWRENCE April TO HEAL FROM DIVERTICULITIS documented in this encounter [facility] 01-21-2023 Note HNO ID: [id number] Author: Pineda French, DO Service: ? Author Type: Physician Type: Progress Notes Filed: 01/21/2023 12:20 PM Note Text: [facility] OUTPATIENT VISIT DATE January 21, 2023 PRIMARY CARE PHYSICIAN: Vinayak Reyes [address] [place] [address] HISTORY OF PRESENT ILLNESS: Ms. Zamora is a 72 year old female. The patient returns for follow-up second history of mitral valve repair with plaque coronary disease and associated hyperlipidemia. She is with her again today. She denies chest discomfort, dyspnea, orthopnea, paroxysmal nocturnal dyspnea, palpitations, near-syncope or syncope. PLAN AND RECOMMENDATIONS: The patient remained stable without apparent symptoms that would suggest angina or cardiac decompensation. Heart rate, blood pressure are favorable. Cholesterol profile will need updated which she states she is planning on doing next week. Her EKG is stable. We have made no additions or changes. Dietary and lifestyle modification was reemphasized to facilitate risk factor reduction. Will look forward to reevaluating her in 1 years time. Vitals: BP 120/66 Pulse 72 Ht 162.6 cm (5' 4) Wt 71.7 kg (158 lb) SpO2 97% BMI 27.12 kg/m? Physical Exam Vitals reviewed. Constitutional: Appearance: She is well-developed. HENT: Head: Normocephalic and atraumatic. Eyes: Pupils: Pupils are equal, round, and reactive to light. Neck: Thyroid: No thyromegaly. Vascular: No JVD. Cardiovascular: Rate and Rhythm: Normal rate and regular rhythm. Heart sounds: Normal heart sounds. No murmur heard. No friction rub. No gallop. Pulmonary: Effort: Pulmonary effort is normal. No respiratory distress. Breath sounds: Normal breath sounds. No wheezing or rales. Abdominal: General: Bowel sounds are normal. Palpations: Abdomen is soft. Musculoskeletal: General: Normal range of motion. Cervical back: Normal range of motion and neck supple. Skin: General: Skin is warm and dry. Coloration: Skin is not pale. Neurological: Mental Status: She is alert and oriented to person, place, and time. Cranial Nerves: No cranial nerve deficit. Psychiatric: Behavior: Behavior normal. Thought Content: Thought content normal. Judgment: Judgment normal. Review of Systems Constitutional: Negative for activity change and fatigue. HENT: Negative for ear pain and facial swelling. Eyes: Negative for pain and discharge. Respiratory: Negative for chest tightness and shortness of breath. Cardiovascular: Negative for chest pain, palpitations and leg swelling. Gastrointestinal: Negative for abdominal pain, blood in stool, nausea and vomiting. Endocrine: Negative for cold intolerance and heat intolerance. Genitourinary: Negative for frequency and hematuria. Musculoskeletal: Negative for arthralgias and gait problem. Skin: Negative for color change, pallor and rash. Allergic/Immunologic: Negative for immunocompromised state. Neurological: Negative for dizziness, syncope, light-headedness and headaches. Hematological: Negative for adenopathy. Does not bruise/bleed easily. Psychiatric/Behavioral: Negative for confusion. The patient is not nervous/anxious. PAST MEDICAL HISTORY Diagnosis Date Mitral regurgitation, myxomatous Severe MR (echo 09/30/11) Osteopenia Routine gynecological examination Dr Sanchez PAST SURGICAL HISTORY Procedure Laterality Date CATARACT EXTRACTION HX Right 10/29/2019 COLONOSCOPY AND POLYPECTOMY 03/19/2005 Dr Quinn COLONOSCOPY FLX DX W/COLLJ SPEC WHEN PFRMD 07/17/2015 Colonoscopy COLONOSCOPY FLX DX W/COLLJ SPEC WHEN PFRMD 12/07/2018 Colonoscopy PAST SURGICAL HISTORY OF ovarian cyst PAST SURGICAL HISTORY OF 07/24/15 Mitral Valve Repair Social History Tobacco Use Smoking status: Never Smokeless tobacco: Never Vaping Use Vaping Use: Never used Substance Use Topics Alcohol use: No Drug use: No FAMILY HISTORY Problem Relation Age of Onset Diabetes Father Ischemic Heart Disease Father Thyroid Mother Alzheimer's Disease Mother Cancer Maternal Grandfather unknown Thyroid Sister x3 ALLERGIES Allergen Reactions Macrobid [Nitrofura* Rash Penicillins Rash CURRENT MEDICATIONS: atorvastatin (LIPITOR) 10 mg tablet Take 1 tablet by mouth once daily. fluticasone (FLONASE) 50 mcg/actuation nasal spray USE 2 SPRAYS IN EACH NOSTRIL ONCE DAILY. RINSE MOUTH AFTER USE. sodium chloride (SALINE MIST) 0.65 % nasal spray Use 1 [place] in the nose as needed for cold/allergy symptoms. aspirin 81 mg chewable tablet Take 1 tablet by mouth once daily. MV-MN/FA/D3/LYCOPENE/LUT/COQ10 (DAILY MULTIVITAMIN ORAL) Take 1 tablet by mouth once daily. EKG performed today demonstrates sinus rhythm at 72 beats minute with age-indeterminate anterior septal infarct, similar to previous (more content not included)... [facility] 01-21-2023 History of Presen t illness Narrative Images from the original note were not included. [facility] SECTION OF [facility]IONAL CARDIOLOGY [facility] OUTPATIENT VISIT DATE January 21, 2023 PRIMARY CARE PHYSICIAN: Vinayak Reyes [address] [place] [address] HISTORY OF PRESENT ILLNESS: Ms. Zamora is a 72 year old female. The patient returns for follow-up second history of mitral valve repair with plaque coronary disease and associated hyperlipidemia. She is with her again today. She denies chest discomfort, dyspnea, orthopnea, paroxysmal nocturnal dyspnea, palpitations, near-syncope or syncope. PLAN AND RECOMMENDATIONS: The patient remained stable without apparent symptoms that would suggest angina or cardiac decompensation. Heart rate, blood pressure are favorable. Cholesterol profile will need updated which she states she is planning on doing next week. Her EKG is stable. We have made no additions or changes. Dietary and lifestyle modification was reemphasized to facilitate risk factor reduction. Will look forward to reevaluating her in 1 years time. Vitals: BP 120/66 Pulse 72 Ht 162.6 cm (5' 4) Wt 71.7 kg (158 lb) SpO2 97% BMI 27.12 kg/m Physical Exam Vitals reviewed. Constitutional: Appearance: She is well-developed. HENT: Head: Normocephalic and atraumatic. Eyes: Pupils: Pupils are equal, round, and reactive to light. Neck: Thyroid: No thyromegaly. Vascular: No JVD. Cardiovascular: Rate and Rhythm: Normal rate and regular rhythm. Heart sounds: Normal heart sounds. No murmur heard. No friction rub. No gallop. Pulmonary: Effort: Pulmonary effort is normal. No respiratory distress. Breath sounds: Normal breath sounds. No wheezing or rales. Abdominal: General: Bowel sounds are normal. Palpations: Abdomen is soft. Musculoskeletal: General: Normal range of motion. Cervical back: Normal range of motion and neck supple. Skin: General: Skin is warm and dry. Coloration: Skin is not pale. Neurological: Mental Status: She is alert and oriented to person, place, and time. Cranial Nerves: No cranial nerve deficit. Psychiatric: Behavior: Behavior normal. Thought Content: Thought content normal. Judgment: Judgment normal. Review of Systems Constitutional: Negative for activity change and fatigue. HENT: Negative for ear pain and facial swelling. Eyes: Negative for pain and discharge. Respiratory: Negative for chest tightness and shortness of breath. Cardiovascular: Negative for chest pain, palpitations and leg swelling. Gastrointestinal: Negative for abdominal pain, blood in stool, nausea and vomiting. Endocrine: Negative for cold intolerance and heat intolerance. Genitourinary: Negative for frequency and hematuria. Musculoskeletal: Negative for arthralgias and gait problem. Skin: Negative for color change, pallor and rash. Allergic/Immunologic: Negative for immunocompromised state. Neurological: Negative for dizziness, syncope, light-headedness and headaches. Hematological: Negative for adenopathy. Does not bruise/bleed easily. Psychiatric/Behavioral: Negative for confusion. The patient is not nervous/anxious. PAST MEDICAL HISTORY Diagnosis Date Mitral regurgitation, myxomatous Severe MR (echo 09/30/11) Osteopenia Routine gynecological examination Dr Sanchez PAST SURGICAL HISTORY Procedure Laterality Date CATARACT EXTRACTION HX Right 10/29/2019 COLONOSCOPY & POLYPECTOMY 03/19/2005 Dr Quinn COLONOSCOPY FLX DX W/COLLJ SPEC WHEN PFRMD 07/17/2015 Colonoscopy COLONOSCOPY FLX DX W/COLLJ SPEC WHEN PFRMD 12/07/2018 Colonoscopy PAST SURGICAL HISTORY OF ovarian cyst PAST SURGICAL HISTORY OF 07/24/15 Mitral Valve Repair Social History Tobacco Use Smoking status: Never Smokeless tobacco: Never Vaping Use Vaping Use: Never used Substance Use Topics Alcohol use: No Drug use: No FAMILY HISTORY Problem Relation Age of Onset Diabetes Father Ischemic Heart Disease Father Thyroid Mother Alzheimer's Disease Mother Cancer Maternal Grandfather unknown Thyroid Sister x3 ALLERGIES Allergen Reactions Macrobid [Nitrofura* Rash Penicillins Rash CURRENT MEDICATIONS: atorvastatin (LIPITOR) 10 mg tablet Take 1 tablet by mouth once daily. fluticasone (FLONASE) 50 mcg/actuation nasal spray USE 2 SPRAYS IN EACH NOSTRIL ONCE DAILY. RINSE MOUTH AFTER USE. sodium chloride (SALINE MIST) 0.65 % nasal spray Use 1 [place] in the nose as needed for cold/allergy symptoms. aspirin 81 mg chewable tablet Take 1 tablet by mouth once daily. MV-MN/FA/D3/LYCOPENE/LUT/COQ10 (DAILY MULTIVITAMIN ORAL) Take 1 tablet by mouth once daily. EKG performed today demonstrates sinus rhythm at 72 beats minute with age-indeterminate anterior septal infarct, similar to previous. Pineda French, DO, FACC, FAC Spot [facility], [facility] Spot [facility], [facility] Cardiac [facility] Spot [facility], [facility] Cardiac Rehabilitation Spot [facility], [facility] Cong[facility] Spot [facility], [facility] Ambulatory Cardiology Clinical Division Order Technician Profressor of Medicine, [facility] Staff Application Infrastructure Engineer, Katerin Landis Department of Cardiovascular Medicine/Heart and Vascular [place], [facility] Please note: This note has been produced using speech recognition software and may contain errors related to that system including damon, punctuation, spelling, words, gender and phrases that may be inappropriate. documented in this encounter [facility] 01-20-2023 Instructions Nola Veras APRN.CNP - 01/20/2023 10:14 AM EST Continue the same medication. Health Promotion: - Eat healthy -- go to [employer] to get started - Have a yearly physical - Mammogram yearly after age 40 - Get at least 30 minutes of physical activity daily - Get at least 7 to 8 hours of sleep each night - Reach and maintain a healthy weight - Get help to quit or don't start smoking - Limit alcohol use to one drink or less - Do not use illegal drugs or misuse prescription drugs - Wear a helmet when riding a bike and wear protective gear for sports - Wear a seatbelt in cars and not text and drive - Wear sunscreen documented in this encounter [facility] 01-20-2023 History of Presen t illness Narrative This is a 72 year old female who presents today with: Patient presents with: Yearly Exam HISTORY OF PRESENT ILLNESS: Faby Zamora is a 72 year old female. Patient presents with: Yearly Exam Pt presents today for yearly follow-up. HYPERLIPIDEMIA: Patient is taking medications: Yes. Patient is watching diet: No. Patient denies myalgias: Yes. Patient denies gi upset: Yes CAD: Follows with cardiology yearly. No CP/SOB. REVIEW OF SYSTEMS GENERAL: No weight loss, malaise or fevers/chills HEENT: Negative for frequent or significant headaches, No changes in hearing or vision. NECK: Negative for lumps, goiter, pain and significant neck swelling RESPIRATORY: Negative for cough, hemoptysis, wheezing, dyspnea or shortness of breath CARDIOVASCULAR: Negative for chest pain, leg swelling, orthopnea, or palpitations GI: No nausea, vomiting, or diarrhea/constipation. No hematochezia/melena. No heartburn or reflux symptoms. : No history of dysuria, frequency or incontinence MUSCULOSKELETAL: Negative for joint pain or swelling. SKIN: Negative for lesions, rash, and itching ENDOCRINE: Negative for cold or heat intolerance, polyuria, polydipsia and goiter NEURO: No history of headaches, syncope, paralysis, seizures or tremors PAST MEDICAL HISTORY: PAST MEDICAL HISTORY Diagnosis Date Mitral regurgitation, myxomatous Severe MR (echo 09/30/11) Osteopenia Routine gynecological examination Dr Sanchez PAST SURGICAL HISTORY Procedure Laterality Date CATARACT EXTRACTION HX Right 10/29/2019 COLONOSCOPY & POLYPECTOMY 03/19/2005 Dr Quinn COLONOSCOPY FLX DX W/COLLJ SPEC WHEN PFRMD 07/17/2015 Colonoscopy COLONOSCOPY FLX DX W/COLLJ SPEC WHEN PFRMD 12/07/2018 Colonoscopy PAST SURGICAL HISTORY OF ovarian cyst PAST SURGICAL HISTORY OF 07/24/15 Mitral Valve Repair ALLERGIES Macrobid [Nitrofurantoin Monohyd/M-Cryst] and Penicillins MEDICATIONS Current Outpatient Medications Medication Sig atorvastatin (LIPITOR) 10 mg tablet Take 1 tablet by mouth once daily. fluticasone (FLONASE) 50 mcg/actuation nasal spray USE 2 SPRAYS IN EACH NOSTRIL ONCE DAILY. RINSE MOUTH AFTER USE. sodium chloride (SALINE MIST) 0.65 % nasal spray Use 1 [place] in the nose as needed for cold/allergy symptoms. aspirin 81 mg chewable tablet Take 1 tablet by mouth once daily. MV-MN/FA/D3/LYCOPENE/LUT/COQ10 (DAILY MULTIVITAMIN ORAL) Take 1 tablet by mouth once daily. No current facility-administered medications for this visit. FAMILY HISTORY Problem Relation Age of Onset Diabetes Father Ischemic Heart Disease Father Thyroid Mother Alzheimer's Disease Mother Cancer Maternal Grandfather unknown Thyroid Sister x3 Social History Tobacco Use Smoking status: Never Smokeless tobacco: Never Vaping Use Vaping Use: Never used Substance Use Topics Alcohol use: No Drug use: No EXAM: BP 120/72 Pulse 77 Resp 16 Ht 162.5 cm (5' 3.98) Wt 73 kg (161 lb) SpO2 96% BMI 27.66 kg/m PHYSICAL EXAM: General Appearance: Well appearing, alert, in no acute distress, well-hydrated, well nourished.. Skin: Skin color, texture, turgor normal, no suspicious rashes or lesions. Head: Normocephalic, no masses, lesions, tenderness or abnormalities. Eyes: Anicteric sclera. Pupils are equally round and reactive to light. Extraocular movements are intact. . Ears: External ears normal, canals clear. Normal TMs bilaterally. Oropharynx: Lips, mucosa, and tongue normal, teeth and gums normal, oropharynx normal. Neck: Supple, no adenopathy; thyroid symmetric, normal size, no bruits. Lungs: Lungs clear to auscultation. No wheezing, rhonchi, rales.. Heart: RRR without murmur, gallop, or rubs. No ectopy. Abdomen: Normal abdominal exam, Abdomen soft, non-tender. Bowel sounds normal. No masses, organomegaly. Extremities: No deformities, edema, skin discoloration, clubbing or cyanosis. Good capillary refill. Neurologic: Gait normal. ASSESSMENT/PLAN: 1. Mixed hyperlipidemia - ICD9: 272.2, ICD10: E78.2 (primary diagnosis) - Control undetermined, due for labs Continue the lipitor. Tolerating well. - Continue current medications - Counseled on healthy diet and regular exercise 2. Coronary artery disease involving [place] coronary artery of [place] heart without angina pectoris - ICD9: 414.01, ICD10: I25.10 Asymptomatic. Continue to follow with cardiology. 3. Osteopenia of neck of right femur - ICD9: 733.90, ICD10: M85.851 Last dexa 02/2022 -- normal. - Reviewed the need for Calcium and Vitamin D supplements and weight bearing exercise as tolerated Discussed treatment plan and patient voices understanding. Patient's questions answered appropriately. Medications and potential side effects were discussed and patient voices understanding. Return to the office as scheduled or as needed for worsening/no improvement. Nola Veras APRN.LEAD RAMP AGENT documented in this encounter [facility] 07-15-2022 Miscellaneous Notes SAVANNAH 03/18/22 NOV 01/20/23 Margaux Johnson MA Pharmacy verified in Epic Patient has been identified by name and date of : Yes Patient aware RX will be sent to pharmacy. No need to notify patient. Spouse phones for refill(s): Requested Prescriptions Pending Prescriptions Disp Refills atorvastatin (LIPITOR) 10 mg tablet 30 tablet 5 Sig: Take 1 tablet by mouth once daily. Date of last office visit : 03/18/2022 Date of next office visit : Visit date not found Last 2 Encounter Wt Readings: Date: Wt: 02/05/2022 76 kg (167 lb 9.6 oz) 01/18/2022 75.3 kg (166 lb) Please advise. Milagros Taylor Pss documented in this encounter [facility] 03-18-2022 Instructions Nola Veras APRN.LEAD RAMP AGENT - 03/18/2022 2:47 PM EST Continue mucinex. Continue nasal spray. Stay hydrated. If no improvement by the end of the week, or if any worsening symptoms, let me know. Home going instructions for Viral Upper Respiratory Infections In General: - Drink lots of fluids - at least one gallon of non-caffeinated liquids per day - Make sure you are eating well - Get plenty of rest - at least 8 hours of sleep per night for adults - ibuprofen 600mg every 8 hours as needed for discomfort - acetaminophen 500mg every 4-6 hours as needed for fever and discomfort. - may alternate ibuprofen and acetaminophen For nasal congestion try: -Vaporizers, Neti Pot, humidifiers, hot showers, and hot fluids help open respiratory and sinus passages. - [place] Nasal [place] may offer relief of nasal and head congestion 2-3 times per day as needed. - Sudafed is a safe and effective decongestant for people who do not have high blood pressure. Do not take Sudafed if you have ever been told that you have high blood pressure or hypertension. General dosing guidelines: Immediate release: 60 mg every 4-6 hours; Extended release: 120 mg every 12 hours or 240 mg every 24 hours; maximum: 240 mg/24 hours. For Sore Throat try: - Salt water gargles every 2-3 hours as needed for discomfort - Chloraceptic spray or throat lozenges (Cepacol) For Cough and chest congestion try one of the following: - Mucinex or Robitussin are expectorants. You may take 200-400 mg every 4 hours to a not to exceed 2,400 mg/day OR Extended release tablet: 600-1200 mg every 12 hours, not to exceed 2,400 mg/day - Delsym is a cough suppressant: Oral: 10-20 mg every 4 hours or 30 mg every 6-8 hours OR Extended release: 60 mg twice daily; maximum: 120 mg/day - If you have high blood pressure or hypertension it is safe to take Coricidin HBP Cough & Cold. If you smoke it is advised that you quit smoking. CONTACT YOUR DOCTOR IF: You have fevers for longer than five days or a fever more than 102 degrees You are still sick after 10 days After several days you are getting worse rather than better 4. You develop nausea, vomiting, diarrhea, or a rash. Go to the ER if you - experience pressure or pain in your chest - experience difficulty swallowing - experience difficulty breathing Follow up in 7-10 days or before if your symptoms get worse. documented in this encounter [facility] 03-18-2022 History of Presen t illness Narrative 71 year old female with c/o URI sx over the last couple of days with cold/cough. Refers in January, she had an upper resp infection. Sore throat: Yes - gone now. Runny/stuffy nose: Yes. Postnasal drip: No. Throat clearing: Yes. Sinus pain/ pressure: No. Teeth pain: No. Headache Yes, but improved. Body aches Yes. Ear pain: No. Cough: Yes. Production: Yes - dark yellow. Fever: Yes - slight. Hx asthma No. Hx pneumonia No. Smoker: No. OTC meds tried: mucinex. ACTIVE PROBLEM LIST Actinic Keratoses (Premalignant AK's Scars: Cryosurgical [place] Osteopenia Coronary Artery Disease Involving [place] Coronary Artery of [place] Heart Without Angina Pectoris S/P Mvr (Mitral Valve Repair) Mixed Hyperlipidemia Calculus of Gallbladder Without Cholecystitis Without Obstruction Lung Nodules Current Outpatient Medications Medication Sig Dispense Refill fluticasone (FLONASE) 50 mcg/actuation nasal spray USE 2 SPRAYS IN EACH NOSTRIL ONCE DAILY. RINSE MOUTH AFTER USE. 16 mL 3 sodium chloride (SALINE MIST) 0.65 % nasal spray Use 1 [place] in the nose as needed for cold/allergy symptoms. 15 mL 0 atorvastatin (LIPITOR) 10 mg tablet Take 1 tablet by mouth once daily. 30 tablet 5 aspirin 81 mg chewable tablet Take 1 tablet by mouth once daily. 0 MV-MN/FA/D3/LYCOPENE/LUT/COQ10 (DAILY MULTIVITAMIN ORAL) Take 1 tablet by mouth once daily. Current Facility-Administered Medications Medication Dose Route Frequency Provider Last Rate Last Admin perflutren lipid microspheres 1.3 mL in NaCl (PF) 0.9% 10 mL injection (DEFINITY) INTRAVENOUS DIRECTED PRN Pineda French DO sodium chloride 0.9 % (flush) 10 mL (BD POSIFLUSH) 10 mL INTRAVENOUS DIRECTED PRN Pineda French DO OBJECTIVE: BP 122/84 Pulse 81 Resp 18 SpO2 94% General Appearance: Well appearing, alert, in no acute distress, well-hydrated, well nourished.. Skin: Skin color, texture, turgor normal, no suspicious rashes or lesions. Head: Normocephalic, no masses, lesions, tenderness or abnormalities. Eyes: Anicteric sclera. Pupils are equally round and reactive to light. Extraocular movements are intact. Ears: External ears normal, canals clear, Normal TMs bilaterally. Nose/Sinuses: Nares normal, septum midline, mucosa normal, no drainage or sinus tenderness. Oropharynx: Lips, mucosa, and tongue normal, teeth and gums normal, oropharynx normal. Neck: Supple, no adenopathy Lungs: Lungs clear to auscultation. No wheezing, rhonchi, rales.. Heart: RRR without murmur, gallop, or rubs. No ectopy. Neurologic: Gait normal. ASSESSMENT/PLAN: 1. Acute upper respiratory infection, unspecified - ICD9: 465.9, ICD10: J06.9 - Discussed viral etiology and rationale for treatment. - Symptomatic treatment with prn analgesia - Supportive care with fluids and rest - COVID WITH FLUA+B, ROUTINE Discussed symptomatic treatment. If no improvement by the end of the week, or any worsening, notify provider. Plan: Nasal saline, decongestant, cool mist, rest , fluids, good nutrition Observation 5-7 days for improvment If worse, fever > 101F : call or return See orders and/or patient instructions. Patient ( or Guardian) expressed understanding of instructions on review. Discussed treatment plan and patient voices understanding. Patient's questions answered appropriately. Medications and potential side effects were discussed and patient voices understanding. Return to the office as scheduled or as needed for worsening/no improvement. Nola Veras APRN.ASUNCION This note was partially generated using [employer] voice recognition system. Note was reviewed for accuracy. There may be minor misspellings or grammar miscues with [employer] voice recognition. documented in this encounter [facility] 02-27-2022 Miscellaneous Notes Patient has been identified by name and date of : Yes Pharmacy phones for refill(s): Requested Prescriptions Pending Prescriptions Disp Refills fluticasone (FLONASE) 50 mcg/actuation nasal spray [Pharmacy Med Name: FLUTICASONE PROP 50 MCG SPRAY] 16 mL Sig: USE 2 SPRAYS IN EACH NOSTRIL ONCE DAILY. RINSE MOUTH AFTER USE. Date of last office visit in primary care: 01/18/22 Please advise. Thank you. Yoana Tolentino LPN documented in this encounter [facility] 02-13-2022 History of Presen t illness Narrative Radiology Service Progress Note PATIENT NAME: Faby Zamora DATE OF SERVICE: February 13, 2022 TIME: 9:30 AM PATIENT IDENTITY VERIFICATION COMPLETED USING TWO (2) IDENTIFIERS: Name and Date of confirmed by patient verbally. FALL SCREENING: Has the patient had 2 falls in the last year or 1 fall with injury or currently using an Ambulatory Assistive Device (Walker, Cane, Wheelchair, Crutches, etc.)? No PATIENT GENDER DATA: Female. status: : No status: NO. PATIENT RELEVANT IMPLANT DATA REVIEWED: Not Applicable RADIOLOGY DEPARTMENT: Bone Density PERIPHERAL IV DATA: Not applicable SIGNED BY: RT Erica(R) February 13, 2022 9:30 AM documented in this encounter [facility] 01-18-2022 Instructions Vinayak Reyes MD - 01/18/2022 1:31 PM EST BONE MINERAL DENSITY PATIENT INSTRUCTIONS ========= Bone mineral density testing measures the amount of calcium in certain parts of your bones. This information determines how strong your bones are. The test is used to detect osteoporosis, a disease in which the bone's mineral content and density are low, increasing a person's risk of fractures. The lumbar spine (lower back) and the hip are the skeletal sites usually examined. For the test, remember that: 1. You cannot take this test if you are . 2. Eat a normal diet on the day of the test. 3. Take your medications as you normally would. 4. DO NOT take calcium supplements (such as Tums) for 24 hours before the test. 5. On the day of the test, leave valuables (jewelry or credit cards) at home. 6. The test should be performed prior to oral, rectal or IV contrast studies, or at least 7 days after any of these studies. For the test, you may be asked to wear a hospital gown. You will lie on your back, on a padded table, in a comfortable position. Generally, you can resume your usual activities immediately. documented in this encounter [facility] 01-18-2022 History of Presen t illness Narrative Patient presents with: Medicare Wellness Exam HPI: Patient presents today for office visit for check up. Not a medicare wellness. Feeling well. Still seeing cardiology. No chest pain or shortness of breath. No edema. No palpitations. Cholesterol is doing well. No myalgias. Ldl is close to goal of less than 70 Discussed watching diet. Component Latest Ref Rng & Units 01/11/2022 WBC 3.70 - 11.00 k/uL 8.13 RBC 3.90 - 5.20 m/uL 5.12 Hemoglobin 11.5 - 15.5 g/dL 15.3 Hematocrit 36.0 - 46.0 % 48.2 (H) MCV 80.0 - 100.0 fL 94.1 MCH 26.0 - 34.0 pg 29.9 MCHC 30.5 - 36.0 g/dL 31.7 RDW-CV 11.5 - 15.0 % 12.3 Platelet Count 150 - 400 k/uL 200 MPV 9.0 - 12.7 fL 11.7 Neut% % 54.1 Abs Neut (ANC) 1.45 - 7.50 k/uL 4.40 Lymph% % 34.8 Abs Lymph 1.00 - 4.00 k/uL 2.83 Tyrrell% % 7.1 Abs Tyrrell <0.87 k/uL 0.58 Eosin% % 3.2 Abs Eosin <0.46 k/uL 0.26 Baso% % 0.4 Abs Baso <0.11 k/uL 0.03 Immature Gran % % 0.4 IMMATURE GRANS (ABS) <0.10 k/uL 0.03 NRBC /100 WBC 0.0 Absolute nRBC <0.01 k/uL <0.01 DTYPE Auto Protein, Total 6.3 - 8.0 g/dL 6.9 Albumin 3.9 - 4.9 g/dL 4.2 Calcium 8.5 - 10.2 mg/dL 9.3 Bilirubin, Total 0.2 - 1.3 mg/dL 0.5 Alkaline Phosphatase 34 - 123 U/L 80 AST 13 - 35 U/L 21 ALT 7 - 38 U/L 26 Glucose 74 - 99 mg/dL 103 (H) BUN 7 - 21 mg/dL 18 Creatinine 0.58 - 0.96 mg/dL 0.73 Sodium 136 - 144 mmol/L 142 Potassium 3.7 - 5.1 mmol/L 4.1 Chloride 97 - 105 mmol/L 102 CO2 22 - 30 mmol/L 30 Anion Gap 9 - 18 mmol/L 10 eGFR >=60 mL/min/1.73m 88 Cholesterol, Total <200 mg/dL 177 Triglyceride <150 mg/dL 191 (H) HDL Cholesterol >39 mg/dL 52 Non HDL Cholesterol <130 mg/dL 125 Fasting Time hrs 13 VLDL Cholesterol <30 mg/dL 38 (H) TC:HDL Ratio <5.10 3.40 LDL Cholesterol <100 mg/dL 87 LDL:HDL Ratio <2.54 1.67 MEDICATIONS: Current Outpatient Medications Medication Sig atorvastatin (LIPITOR) 10 mg tablet Take 1 tablet by mouth once daily. aspirin 81 mg chewable tablet Take 1 tablet by mouth once daily. MV-MN/FA/D3/LYCOPENE/LUT/COQ10 (DAILY MULTIVITAMIN ORAL) Take 1 tablet by mouth once daily. [id number] 600 mg calcium- 800 unit-50 mg tab Take 1 tablet by mouth once daily. (Patient not taking: No sig reported) Current Facility-Administered Medications Medication Dose Route Frequency perflutren lipid microspheres 1.3 mL in NaCl (PF) 0.9% 10 mL injection (DEFINITY) INTRAVENOUS DIRECTED PRN sodium chloride 0.9 % (flush) 10 mL (BD POSIFLUSH) 10 mL INTRAVENOUS DIRECTED PRN ALLERGIES: ALLERGIES Allergen Reactions Macrobid [Nitrofura* Rash Penicillins Rash PAST MEDICAL HISTORY Diagnosis Date Mitral regurgitation, myxomatous Severe MR (echo 09/30/11) Osteopenia Routine gynecological examination Dr Sanchez PAST SURGICAL HISTORY Procedure Laterality Date CATARACT EXTRACTION HX Right 10/29/2019 COLONOSCOPY & POLYPECTOMY 03/19/2005 Dr Quinn COLONOSCOPY FLX DX W/COLLJ SPEC WHEN PFRMD 07/17/2015 Colonoscopy COLONOSCOPY FLX DX W/COLLJ SPEC WHEN PFRMD 12/07/2018 Colonoscopy PAST SURGICAL HISTORY OF ovarian cyst PAST SURGICAL HISTORY OF 07/24/15 Mitral Valve Repair FAMILY HISTORY Problem Relation Age of Onset Diabetes Father Ischemic Heart Disease Father Thyroid Mother Alzheimer's Disease Mother Cancer Maternal Grandfather unknown Thyroid Sister x3 Social History Tobacco Use Smoking status: Never Smokeless tobacco: Never Vaping Use Vaping Use: Never used Substance Use Topics Alcohol use: No Drug use: No Reviewed current medications, allergies, past medical history, surgical history, family history and social history today. 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 HEALTH MAINTENANCE: Reviewed health maintenance issues today and recommended the following in detail. SHINGRIX VACCINE(1 of 2) Never done ADVANCE DIRECTIVE DISCUSSION - discussed. No poa DEPRESSION ASSESSMENT Never done DTAP,TDAP,TD(2 - Td or Tdap) due on 09/24/2021 MAMMOGRAM -just done. Sees Dr Velasco VITALS: BP 140/82 Pulse 68 Ht 161 cm (5' 3.39) Wt 75.3 kg (166 lb) SpO2 99% BMI 29.05 kg/m Last 4 Encounter Wt Readings: Date: Wt: 01/18/2022 75.3 kg (166 lb) 01/16/2022 73.5 kg (162 lb) 07/04/2021 74.8 kg (165 lb) 01/17/2021 73.9 kg (163 lb) PHYSICAL EXAMINATION: General appearance: Well appearing, alert, in no acute distress, well-hydrated, well nourished. Skin: Skin color, texture, turgor normal, no suspicious rashes or lesions Head: Normocephalic, no masses, lesions, tenderness or abnormalities Neck: Supple, no adenopathy; thyroid symmetric, normal size, no bruits Back: Normal exam Lungs: Lungs clear to auscultation. No wheezing, rhonchi, rales Heart: RRR without murmur, gallop, or rubs. No ectopy Abdomen: Normal abdominal exam, Abdomen soft, non-tender. Bowel sounds normal. No masses, organomegaly Extremities: No deformities, edema, skin discoloration, clubbing or cyanosis. Good capillary refill. Musculoskeletal: No joint swelling, deformity, or tenderness ASSESSMENT/PLAN: 1. S/P MVR (mitral valve repair) - ICD9: V45.89, ICD10: Z98.890 (primary diagnosis) - continue to follow with cardiology. 2. Coronary artery disease involving [place] coronary artery of [place] heart without angina pectoris - ICD9: 414.01, ICD10: I25.10 - follow labs. Call if any issues. 3. Mixed hyperlipidemia - ICD9: 272.2, ICD10: E78.2 - good control - Continue current medication. - Encouraged following a low fat, low cholesterol diet. 4. Osteopenia of neck of right femur - ICD9: 733.90, ICD10: M85.851 - Reviewed the need for Calcium and Vitamin D supplements and weight bearing exercise as tolerated Bone density. iVnayak Reyes MD RTO annually with labs. Medical Decision Making: Problems: Moderate: 2+ stable chronic illnesses Data: Unique test result(s) reviewed: 3+ Unique test(s) ordered: 3+ Risk: Moderate: Drug management Medical Decision Making Level: 4 - Moderate documented in this encounter [facility] 01-16-2022 History of Presen t illness Narrative Images from the original note were not included. [facility] SECTION OF [facility]IOLOGY [facility] OUTPATIENT VISIT DATE January 16, 2022 PRIMARY CARE PHYSICIAN: Vinayak Reyes [address] [place] [address] HISTORY OF PRESENT ILLNESS: Ms. Zamora is a 71 year old female. The patient returns for follow-up second history of plaque coronary disease status post mitral valve repair with additional history of hyperlipidemia. She denies chest discomfort, dyspnea, orthopnea, paroxysmal nocturnal dyspnea, palpitations, near-syncope or syncope. Recent echocardiogram demonstrates normal functioning of her repaired mitral valve. Recent LDL cholesterol was at goal at 87. PLAN AND RECOMMENDATIONS: Patient remained stable without symptoms that would suggest angina or cardiac decompensation. Heart rate, blood pressure and recent cholesterol profile are favorable. Recent echocardiogram was favorable as well. We have therefore made no additions or changes. Dietary and lifestyle modification was reemphasized to facilitate risk factor reduction. We will look forward to reevaluating her in 1 years time. Vitals: BP 114/70 Pulse 76 Ht 165.1 cm (5' 5) Wt 73.5 kg (162 lb) SpO2 96% BMI 26.96 kg/m Physical Exam Vitals reviewed. Constitutional: Appearance: She is well-developed. HENT: Head: Normocephalic and atraumatic. Eyes: Pupils: Pupils are equal, round, and reactive to light. Neck: Thyroid: No thyromegaly. Vascular: No JVD. Cardiovascular: Rate and Rhythm: Normal rate and regular rhythm. Heart sounds: Normal heart sounds. No murmur heard. No friction rub. No gallop. Pulmonary: Effort: Pulmonary effort is normal. No respiratory distress. Breath sounds: Normal breath sounds. No wheezing or rales. Abdominal: General: Bowel sounds are normal. Palpations: Abdomen is soft. Musculoskeletal: General: Normal range of motion. Cervical back: Normal range of motion and neck supple. Skin: General: Skin is warm and dry. Coloration: Skin is not pale. Neurological: Mental Status: She is alert and oriented to person, place, and time. Cranial Nerves: No cranial nerve deficit. Psychiatric: Behavior: Behavior normal. Thought Content: Thought content normal. Judgment: Judgment normal. Review of Systems Constitutional: Negative for activity change and fatigue. HENT: Negative for ear pain and facial swelling. Eyes: Negative for pain and discharge. Respiratory: Negative for chest tightness and shortness of breath. Cardiovascular: Negative for chest pain, palpitations and leg swelling. Gastrointestinal: Negative for abdominal pain, blood in stool, nausea and vomiting. Endocrine: Negative for cold intolerance and heat intolerance. Genitourinary: Negative for frequency and hematuria. Musculoskeletal: Negative for arthralgias and gait problem. Skin: Negative for color change, pallor and rash. Allergic/Immunologic: Negative for immunocompromised state. Neurological: Negative for dizziness, syncope, light-headedness and headaches. Hematological: Negative for adenopathy. Does not bruise/bleed easily. Psychiatric/Behavioral: Negative for confusion. The patient is not nervous/anxious. PAST MEDICAL HISTORY Diagnosis Date Mitral regurgitation, myxomatous Severe MR (echo 09/30/11) Osteopenia Routine gynecological examination Dr Sanchez PAST SURGICAL HISTORY Procedure Laterality Date CATARACT EXTRACTION HX Right 10/29/2019 COLONOSCOPY & POLYPECTOMY 03/19/2005 Dr Quinn COLONOSCOPY FLX DX W/COLLJ SPEC WHEN PFRMD 07/17/2015 Colonoscopy COLONOSCOPY FLX DX W/COLLJ SPEC WHEN PFRMD 12/07/2018 Colonoscopy PAST SURGICAL HISTORY OF ovarian cyst PAST SURGICAL HISTORY OF 07/24/15 Mitral Valve Repair Social History Tobacco Use Smoking status: Never Smokeless tobacco: Never Vaping Use Vaping Use: Never used Substance Use Topics Alcohol use: No Drug use: No FAMILY HISTORY Problem Relation Age of Onset Diabetes Father Ischemic Heart Disease Father Thyroid Mother Alzheimer's Disease Mother Cancer Maternal Grandfather unknown Thyroid Sister x3 ALLERGIES Allergen Reactions Macrobid [Nitrofura* Rash Penicillins Rash CURRENT MEDICATIONS: atorvastatin (LIPITOR) 10 mg tablet^Take 1 tablet by mouth once daily.^Disp: 30 tablet^Rfl: 5 aspirin 81 mg chewable tablet^Take 1 tablet by mouth once daily.^Disp: ^Rfl: 0 MV-MN/FA/D3/LYCOPENE/LUT/COQ10 (DAILY MULTIVITAMIN ORAL)^Take 1 tablet by mouth once daily.^Disp: ^Rfl: [id number] 600 mg calcium- 800 unit-50 mg tab^Take 1 tablet by mouth once daily.^Disp: ^Rfl: (Patient not taking: No sig reported) EKG performed today demonstrates sinus rhythm with age-indeterminate anterior infarct. Heart rate of 74 bpm. Similar to previous. Pineda French DO, FACC, FACOI Clinical and Preventive Cardiology Department of Medicine and Division of Cardiology, [facility] Spot Sprayerglass bulb machine adjuster [facility] Spot Sprayer of Congestive Heart Failure Clinic [facility] Cardiology Office Spot Sprayer [facility] Staff Application Infrastructure Engineer, Katerin Landis Department of Cardiovascular Medicine/Heart and Vascular [place], [facility] Clinical Division Order Technician Profressor of Medicine, [facility] of Medicine - [facility] Please note: This note has been produced using speech recognition software and may contain errors related to that system including damon, punctuation, spelling, words, gender and phrases that may be inappropriate. documented in this encounter [facility] 01-08-2022 Miscellaneous Notes Last office visit: 01/17/21 F/u scheduled: 01/18/22 Gudelia Shah Ma Patient has been identified by name and date of : Yes Requested Prescriptions Pending Prescriptions Disp Refills atorvastatin (LIPITOR) 10 mg tablet 30 tablet 5 Sig: Take 1 tablet by mouth once daily. RX INSTRUCTIONS: Patient aware RX will be sent to pharmacy. No need to notify patient. Radha Andrade Pss documented in this encounter [facility] 11-20-2021 Miscellaneous Notes PATIENT NOTIFIED OF SAME. Lab orders placed. Faby Zamora is a patient Vinayak Reyes MD today spouse James called to check on medication renewal; notified sent to the Pharmacy with day/time; notified she needs an appointment and labs; scheduled patient on 01/18/[address]. [address] necessary labs and call patient/spouse with instructions. Patient has been identified by name and birthdate. Duration of symptoms: N/A Person calling: spouse: Call patient at: on cell [phone] (home) [phone] (cell) Was an appointment scheduled: 01/18/22 Closing statement: Results or non-symptom based questions: Thank you for calling [facility], your call will be returned within the next business day. Elaine Caal Pss documented in this encounter [facility] 11-19-2021 Miscellaneous Notes Labs are ordered for Jan. Needs visit with PCP team(will be 1 year in Jan). Scheduled with cardio for follow up. Patient has been identified by name and date of : Yes Requested Prescriptions Pending Prescriptions Disp Refills atorvastatin (LIPITOR) 10 mg tablet 30 tablet 5 Sig: Take 1 tablet by mouth once daily. RX INSTRUCTIONS: Patient aware RX will be sent to pharmacy. No need to notify patient. Deirdre Rivas Pss documented in this encounter [facility] 09-07-2021 Instructions Kadeem Bell V, DO - 09/07/2021 10:41 AM EDT Thank you for choosing the [facility] for your acute care needs. [facility] treats minor infections, rashes and injuries. It is our mission for our patients to be healthy. A primary care relationship with the physician allows for continuity of care, counseling, and maintenance of preventive health care needs. [facility] does not replace the relationship or need for a primary care physician. For information about establishing with a primary care physician or booking an appointment, please call [phone] or speak with any Patient Director Of Hotel. Hours: Friday through Friday 7:30 am to 7:00 pm. Friday and Friday: 8:00 am to 2:30 pm. documented in this encounter [facility] 09-07-2021 History of Presen t illness Narrative FRACTURE FOLLOW-UP Ms. Zamora presents today for her follow-up visit from: Right distal fibula fracture She is 9 weeks and 2 days post-injury and was last seen four weeks ago. History: her pain intensity is 0/10. She is doing great, walking in normal shoe, no concerning issues other than soft tissue swelling that develops as the day goes by. She reports no change in past medical & surgical history, medications, allergies, social history, family history and review of systems since last visit, with the exception of the following: None Physical Examination: No tenderness about medial malleolus, lateral malleolus, syndesmosis Positive EHL, FHL, AT, GS, Quads, and HS Positive distal pulses Negative Tal's, calf tenderness or palpable cords PROCEDURE: Not applicable Impression: Closed fracture lateral malleolus right ankle with routine healing Plan: Released for activity as tolerated Encouraged to continue with calf muscle strengthening exercises Follow-up as needed Kadeem Bell DO documented in this encounter [facility] 08-17-2021 Instructions Kadeem Bell V, DO - 08/17/2021 10:42 AM EDT Thank you for choosing the [facility] for your acute care needs. [facility] treats minor infections, rashes and injuries. It is our mission for our patients to be healthy. A primary care relationship with the physician allows for continuity of care, counseling, and maintenance of preventive health care needs. [facility] does not replace the relationship or need for a primary care physician. For information about establishing with a primary care physician or booking an appointment, please call [phone] or speak with any Patient Director Of Hotel. Hours: Friday through Friday 7:30 am to 7:00 pm. Friday and Friday: 8:00 am to 2:30 pm. documented in this encounter [facility] 08-17-2021 History of Presen t illness Narrative FRACTURE FOLLOW-UP Ms. Zamora presents today for her follow-up visit from: Right distal fibula fracture She is 6 weeks post-injury and was last seen three weeks ago. History: her pain intensity is 0/10. The patient denies swelling, warmth, discharge, drainage, fevers, chills, sweats. She reports compliance with therapy, sling/splint/ambulatory device/dressing/wound care, and the use of medications. She reports no change in past medical & surgical history, medications, allergies, social history, family history and review of systems since last visit, with the exception of the following: None Radiographs: Radiographs today revealed no change in position or alignment of distal fibula fracture. Evidence of further healing with increased sclerosis. Physical Examination: No tenderness about medial malleolus, lateral malleolus, syndesmosis Positive EHL, FHL, AT, GS, Quads, and HS Positive distal pulses Negative Tal's, calf tenderness or palpable cords PROCEDURE: Not applicable Impression: Closed fracture lateral malleolus right ankle with routine healing Plan: Continue in fracture boot for extended walking or walking on uneven surfaces. May remove at home to do range of motion exercises as directed. Recheck in 3 to 4 weeks Kadeem Bell DO AMB ROOMING INTAKE FLOWSHEET DATA Risk Screening Do you have concerns about personal safety or safety in the home?: No documented in this encounter [facility] 07-13-2021 Instructions Kadeem Bell V, DO - 07/13/2021 12:01 PM EDT Thank you for choosing the [facility] for your acute care needs. [facility] treats minor infections, rashes and injuries. It is our mission for our patients to be healthy. A primary care relationship with the physician allows for continuity of care, counseling, and maintenance of preventive health care needs. [facility] does not replace the relationship or need for a primary care physician. For information about establishing with a primary care physician or booking an appointment, please call [phone] or speak with any Patient Director Of Hotel. Hours: Friday through Friday 7:30 am to 7:00 pm. Friday and Friday: 8:00 am to 2:30 pm. documented in this encounter [facility] 07-13-2021 History of Presen t illness Narrative SUBJECTIVE: Faby Zamora is a 71 year old female who is here for a right ankle injury. It occurred days ago when he stepped in a hole and rolled her ankle. Symptoms include pain, bruising, swelling along the ankle and foot. [facility], has tried fracture boot and wheeled walker. PAST MEDICAL HISTORY Diagnosis Date Mitral regurgitation, myxomatous Severe MR (echo 09/30/11) Osteopenia Routine gynecological examination Dr Sanchez PAST SURGICAL HISTORY Procedure Laterality Date CATARACT EXTRACTION HX Right 10/29/2019 COLONOSCOPY & POLYPECTOMY 03/19/2005 Dr Thomee COLONOSCOPY FLX DX W/COLLJ SPEC WHEN PFRMD 07/17/2015 Colonoscopy COLONOSCOPY FLX DX W/COLLJ SPEC WHEN PFRMD 12/07/2018 Colonoscopy PAST SURGICAL HISTORY OF ovarian cyst PAST SURGICAL HISTORY OF 07/24/15 Mitral Valve Repair Current Outpatient Medications on File Prior to Visit Medication Sig atorvastatin (LIPITOR) 10 mg tablet Take 1 tablet by mouth once daily. aspirin 81 mg chewable tablet Take 1 tablet by mouth once daily. MV-MN/FA/D3/LYCOPENE/LUT/COQ10 (DAILY MULTIVITAMIN ORAL) Take 1 tablet by mouth once daily. [id number] 600 mg calcium- 800 unit-50 mg tab Take 1 tablet by mouth once daily. (Patient not taking: Reported on 01/16/2021 ) Current Facility-Administered Medications on File Prior to Visit Medication perflutren lipid microspheres 1.3 mL in NaCl (PF) 0.9% 10 mL injection (DEFINITY) sodium chloride 0.9 % (flush) 10 mL (BD POSIFLUSH) EXAM: General: cooperative and NAD Location: Right ankle-ecchymosis soft tissue swelling and tenderness along the lateral ankle. No significant pain over the proximal fibula. No significant pain over the fifth metatarsal.: Negative for: deformity or crepitation Neurovascular: intact X-ray: Acute, essentially nondisplaced fracture of the lateral malleolus with associated soft tissue swelling. IMPRESSION: Closed fracture lateral malleolus right ankle PLAN: Continue in fracture boot with reduced weightbearing, walker for ambulation Recheck in 2 weeks with repeat x-ray Kadeem Bell DO AMB ROOMING INTAKE FLOWSHEET DATA Risk Screening Do you have concerns about personal safety or safety in the home?: No Pain Pain Level: 5 Pain Location: Ankle-Right Description: Sharp Duration Amount of Time: 9 Duration Units: Days Frequency: Continuous Intervention/Comfort measure: Other: See comment, Medication (fracture boot) documented in this encounter [facility] 07-04-2021 History of Presen t illness Narrative Subjective HPI HPI Faby Zamora is a 71 year old female who presents today for CC of right ankle pain after falling into hole today. Has tried nothing for relief. Symptoms are worsened by rom/walking. Denies history of surgery or injury to right ankle/foot. Denies numbness/tingling of right foot. .Patient presents with: Ankle Injury: right, fell and twisted x this afternoon PAST MEDICAL HISTORY Diagnosis Date Mitral regurgitation, myxomatous Severe MR (echo 09/30/11) Osteopenia Routine gynecological examination Dr Sanchez PAST SURGICAL HISTORY Procedure Laterality Date CATARACT EXTRACTION HX Right 10/29/2019 COLONOSCOPY & POLYPECTOMY 03/19/2005 Dr Quinn COLONOSCOPY FLX DX W/COLLJ SPEC WHEN PFRMD 07/17/2015 Colonoscopy COLONOSCOPY FLX DX W/COLLJ SPEC WHEN PFRMD 12/07/2018 Colonoscopy PAST SURGICAL HISTORY OF ovarian cyst PAST SURGICAL HISTORY OF 07/24/15 Mitral Valve Repair ALLERGIES Macrobid [Nitrofurantoin Monohyd/M-Cryst] and Penicillins MEDICATIONS atorvastatin (LIPITOR) 10 mg tablet Take 1 tablet by mouth once daily. aspirin 81 mg chewable tablet Take 1 tablet by mouth once daily. MV-MN/FA/D3/LYCOPENE/LUT/COQ10 (DAILY MULTIVITAMIN ORAL) Take 1 tablet by mouth once daily. [id number] 600 mg calcium- 800 unit-50 mg tab Take 1 tablet by mouth once daily. FAMILY HISTORY Problem Relation Age of Onset Diabetes Father Ischemic Heart Disease Father Thyroid Mother Alzheimer's Disease Mother Cancer Maternal Grandfather unknown Thyroid Sister x3 Social History Tobacco Use Smoking status: Never Smoker Smokeless tobacco: Never Used Substance Use Topics Alcohol use: No Drug use: No ROS Objective Blood pressure 128/72, pulse 100, temperature 37.1 C (98.7 F), resp. rate 18, weight 74.8 kg (165 lb), SpO2 99 %. Physical Exam Constitutional: General: She is not in acute distress. Appearance: She is not toxic-appearing or diaphoretic. HENT: Head: Normocephalic and atraumatic. Cardiovascular: Pulses: Dorsalis pedis pulses are 2+ on the right side. Posterior tibial pulses are 2+ on the right side. Pulmonary: Effort: Pulmonary effort is normal. No accessory muscle usage or respiratory distress. Musculoskeletal: Right knee: Normal. Right ankle: Swelling present. No deformity, ecchymosis or lacerations. Tenderness present over the lateral malleolus. Decreased range of motion. Right Achilles Tendon: Normal. Right foot: Normal. Neurological: Mental Status: She is alert and oriented to person, place, and time. ASSESSMENT/PLAN: 1. Closed fracture of right ankle, initial encounter - ICD9: 824.8, ICD10: S82.891A (primary diagnosis) Boot applied Consult to ortho placed Pain relief discussed May need to use walker for ambulation Return for severe/worsening s/s. - CONSULT TO ORTHOPAEDICS 2. Ankle injuries, right, initial encounter - ICD9: 959.7, ICD10: S99.911A As above. - XR ANKLE GENERAL 3V AP/LAT/OBL RIGHT IMPRESSION: Acute, essentially nondisplaced fracture of the lateral malleolus with associated soft tissue swelling. Dictated by : GUILLERMINA VIVEROS MD Agrees to plan Robert Wood APRN.ASUNCION documented in this encounter [facility] 05-21-2021 Miscellaneous Notes Patient has been identified by name and date of : Yes Pending Prescriptions Disp Refills ATORVASTATIN 10 MG TABLET 30 tablet 5 Sig: Take 1 tablet by mouth once daily. KODAK: No RX INSTRUCTIONS: Patient aware RX will be sent to pharmacy. No need to notify patient. Yeni Stein MA [place]: 01/2021 No appointment scheduled Last refill; 11/2020 Patient has been identified by name and date of : Yes Pending Prescriptions Disp Refills ATORVASTATIN 10 MG TABLET 30 tablet 5 Sig: Take 1 tablet by mouth once daily. KODAK: No RX INSTRUCTIONS: Patient aware RX will be sent to pharmacy. No need to notify patient. Gilma Fritz documented in this encounter [facility] 01-17-2021 History of Past i llness Narrative Problem Noted Date Resolved Date Mild memory disturbances not amounting to thien ia 01/17/2021 01/17/2021 Non-rheumatic mitral regurgitation 07/25/2015 01/13/2019 Overview: History: Severe, asymptomatic mitral regurgitation due to prolapse with possible flail leaflet Assessment: Right thoracotomy - MV repair (P2 triangular resection, #33 espino band) Plan: daily ASA; post op echo complete Stress hyperglycemia 07/25/2015 07/26/2015 Overview: A/P: transition rhi drip to ssi, no lantus needed Atelectasis 07/24/2015 07/27/2015 Overview: History: post op Assessment: 2 liters nc, atelectasis on xray, no SOB Plan: OOB/ambulate, PEP, C&DB Postoperative pain 07/24/2015 07/27/2015 Overview: History: post op OHS Assessment: denies pain Plan: dc CONSUMER MARKETING ANALYST, acetaminophen, lidoderm patches, Oxy/ultram PRN Discharge planning issues 07/20/20152015 Overview: 65 yr old F from [place], [place] ([place] No skilled needs. Follow up CT in 6-12 months for pulmonary nodules Irritated//Inflamed Seborrheic Keratoses 011 11/02/2015 Viral warts, unspecified 11/07/2010 020 Solar Lentigines 11/07/2010 11/02/2015 Other Seborrheic Keratoses 11/07/201011/01 Actinic skin damage 11/07/2010 11/02/2015 Cutaneous skin tags 11/07/2010 11/02/2015 Melanocytic nevus of scalp: L scalp yarsani hairl ine 11/07/2010 11/02/2015 Beck Angiomas 11/07/2010 11/02/2015 Mitral regurgitation, myxomatous 01/13/2019 Overview: Severe MR (echo 09/30/11) documented as of this encounter (statuses as of 05/21/2021) [facility] History of Past illness Narrative* Problem Noted Date Resolved Date Mild memory disturbances not amounting to thien ia 01/17/2021 01/17/2021 Non-rheumatic mitral regurgitation 07/25/2015 01/13/2019 Overview: History: Severe, asymptomatic mitral regurgitation due to prolapse with possible flail leaflet Assessment: Right thoracotomy - MV repair (P2 triangular resection, #33 espino band) Plan: daily ASA; post op echo complete Stress hyperglycemia 07/25/2015 07/26/2015 Overview: A/P: transition rhi drip to ssi, no lantus needed Atelectasis 07/24/2015 07/27/2015 Overview: History: post op Assessment: 2 liters nc, atelectasis on xray, no SOB Plan: OOB/ambulate, PEP, C&DB Postoperative pain 07/24/2015 07/27/2015 Overview: History: post op OHS Assessment: denies pain Plan: dc [employer], acetaminophen, lidoderm patches, Oxy/ultram PRN Discharge planning issues 07/20/20152015 Overview: 65 yr old F from [place], [place] ([place] No skilled needs. Follow up CT in 6-12 months for pulmonary nodules Irritated//Inflamed Seborrheic Keratoses 011 11/02/2015 Viral warts, unspecified 11/07/2010 020 Solar Lentigines 11/07/2010 11/02/2015 Other Seborrheic Keratoses 11/07/201011/01 Actinic skin damage 11/07/2010 11/02/2015 Cutaneous skin tags 11/07/2010 11/02/2015 Melanocytic nevus of scalp: L scalp yarsani hairl ine 11/07/2010 11/02/2015 Beck Angiomas 11/07/2010 11/02/2015 Mitral regurgitation, myxomatous 01/13/2019 Overview: Severe MR (echo 09/30/11) documented as of this encounter (statuses as of 07/04/2021) [facility]12-08-2021 History of Past illness Narrative* Problem Noted Date Resolved Date Mild memory disturbances not amounting to thien ia 01/17/2021 01/17/2021 Non-rheumatic mitral regurgitation 07/25/2015 01/13/2019 Overview: History: Severe, asymptomatic mitral regurgitation due to prolapse with possible flail leaflet Assessment: Right thoracotomy - MV repair (P2 triangular resection, #33 espino band) Plan: daily ASA; post op echo complete Stress hyperglycemia 07/25/2015 07/26/2015 Overview: A/P: transition rhi drip to ssi, no lantus needed Atelectasis 07/24/2015 07/27/2015 Overview: History: post op Assessment: 2 liters nc, atelectasis on xray, no SOB Plan: OOB/ambulate, PEP, C&DB Postoperative pain 07/24/2015 07/27/2015 Overview: History: post op OHS Assessment: denies pain Plan: dc [employer], acetaminophen, lidoderm patches, Oxy/ultram PRN Discharge planning issues 07/20/20152015 Overview: 65 yr old F from [place], [place] ([place] No skilled needs. Follow up CT in 6-12 months for pulmonary nodules Irritated//Inflamed Seborrheic Keratoses 011 11/02/2015 Viral warts, unspecified 11/07/2010 020 Solar Lentigines 11/07/2010 11/02/2015 Other Seborrheic Keratoses 11/07/201011/01 Actinic skin damage 11/07/2010 11/02/2015 Cutaneous skin tags 11/07/2010 11/02/2015 Melanocytic nevus of scalp: L scalp yarsani hairl ine 11/07/2010 11/02/2015 Beck Angiomas 11/07/2010 11/02/2015 Mitral regurgitation, myxomatous 01/13/2019 Overview: Severe MR (echo 8/20/12) documented as of this encounter (statuses as of 07/13/2021) [facility]12-08-[facility]21 History of Past illness Narrative* Problem Noted Date Resolved Date Mild memory disturbances not amounting to thien ia 01/17/2021 01/17/2021 Non-rheumatic mitral regurgitation 07/25/2015 01/13/2019 Overview: History: Severe, asymptomatic mitral regurgitation due to prolapse with possible flail leaflet Assessment: Right thoracotomy - MV repair (P2 triangular resection, #33 espino band) Plan: daily ASA; post op echo complete Stress hyperglycemia 07/25/2015 07/26/2015 Overview: A/P: transition rhi drip to ssi, no lantus needed Atelectasis 07/24/2015 07/27/2015 Overview: History: post op Assessment: 2 liters nc, atelectasis on xray, no SOB Plan: OOB/ambulate, PEP, C&DB Postoperative pain 07/24/2015 07/27/2015 Overview: History: post op OHS Assessment: denies pain Plan: dc [employer], acetaminophen, lidoderm patches, Oxy/ultram PRN Discharge planning issues 07/20/20152015 Overview: 65 yr old F from [place], [place] ([place] No skilled needs. Follow up CT in 6-12 months for pulmonary nodules Irritated//Inflamed Seborrheic Keratoses 011 11/02/2015 Viral warts, unspecified 11/07/2010 020 Solar Lentigines 11/07/2010 11/02/2015 Other Seborrheic Keratoses 11/07/201011/01 Actinic skin damage 11/07/2010 11/02/2015 Cutaneous skin tags 11/07/2010 11/02/2015 Melanocytic nevus of scalp: L scalp yarsani hairl ine 11/07/2010 11/02/2015 Beck Angiomas 11/07/2010 11/02/2015 Mitral regurgitation, myxomatous 01/13/2019 Overview: Severe MR (echo 09/30/11) documented as of this encounter (statuses as of 07/26/2021) [facility]12[facility] History of Past illness Narrative* Problem Noted Date Resolved Date Mild memory disturbances not amounting to thien ia 01/17/2021 01/17/2021 Non-rheumatic mitral regurgitation 07/25/2015 01/13/2019 Overview: History: Severe, asymptomatic mitral regurgitation due to prolapse with possible flail leaflet Assessment: Right thoracotomy - MV repair (P2 triangular resection, #33 espino band) Plan: daily ASA; post op echo complete Stress hyperglycemia 07/25/2015 07/26/2015 Overview: A/P: transition rhi drip to ssi, no lantus needed Atelectasis 07/24/2015 07/27/2015 Overview: History: post op Assessment: 2 liters nc, atelectasis on xray, no SOB Plan: OOB/ambulate, PEP, C&DB Postoperative pain 07/24/2015 07/27/2015 Overview: History: post op OHS Assessment: denies pain Plan: dc [employer], acetaminophen, lidoderm patches, Oxy/ultram PRN Discharge planning issues 07/20/20152015 Overview: 65 yr old F from [place], [place] ([place] No skilled needs. Follow up CT in 6-12 months for pulmonary nodules Irritated//Inflamed Seborrheic Keratoses 011 11/02/2015 Viral warts, unspecified 11/07/2010 020 Solar Lentigines 11/07/2010 11/02/2015 Other Seborrheic Keratoses 11/07/201011/01 Actinic skin damage 11/07/2010 11/02/2015 Cutaneous skin tags 11/07/2010 11/02/2015 Melanocytic nevus of scalp: L scalp yarsani hairl ine 11/07/2010 11/02/2015 Beck Angiomas 11/07/2010 11/02/2015 Mitral regurgitation, myxomatous 01/13/2019 Overview: Severe MR (echo 09/30/11) documented as of this encounter (statuses as of 07/27/2021) [facility] History of Past illness Narrative* Problem Noted Date Resolved Date Mild memory disturbances not amounting to thien ia 01/17/2021 01/17/2021 Non-rheumatic mitral regurgitation 07/25/2015 01/13/2019 Overview: History: Severe, asymptomatic mitral regurgitation due to prolapse with possible flail leaflet Assessment: Right thoracotomy - MV repair (P2 triangular resection, #33 espino band) Plan: daily ASA; post op echo complete Stress hyperglycemia 07/25/2015 07/26/2015 Overview: A/P: transition rhi drip to ssi, no lantus needed Atelectasis 07/24/2015 07/27/2015 Overview: History: post op Assessment: 2 liters nc, atelectasis on xray, no SOB Plan: OOB/ambulate, PEP, C&DB Postoperative pain 07/24/2015 07/27/2015 Overview: History: post op OHS Assessment: denies pain Plan: dc [employer], acetaminophen, lidoderm patches, Oxy/ultram PRN Discharge planning issues 07/20/20152015 Overview: 65 yr old F from [place] ([place] No skilled needs. Follow up CT in 6-12 months for pulmonary nodules Irritated//Inflamed Seborrheic Keratoses 011 11/02/2015 Viral warts, unspecified 11/07/2010 020 Solar Lentigines 11/07/2010 11/02/2015 Other Seborrheic Keratoses 11/07/201011/01 Actinic skin damage 11/07/2010 11/02/2015 Cutaneous skin tags 11/07/2010 11/02/2015 Melanocytic nevus of scalp: L scalp yarsani hairl ine 11/07/2010 11/02/2015 Beck Angiomas 11/07/2010 11/02/2015 Mitral regurgitation, myxomatous 01/13/2019 Overview: Severe MR (echo 09/30/11) documented as of this encounter (statuses as of 08/17/2021) [facility]12[facility] History of Past illness Narrative* Problem Noted Date Resolved Date Mild memory disturbances not amounting to thien ia 01/17/2021 01/17/2021 Non-rheumatic mitral regurgitation 07/25/2015 01/13/2019 Overview: History: Severe, asymptomatic mitral regurgitation due to prolapse with possible flail leaflet Assessment: Right thoracotomy - MV repair (P2 triangular resection, #33 espino band) Plan: daily ASA; post op echo complete Stress hyperglycemia 07/25/2015 07/26/2015 Overview: A/P: transition rhi drip to ssi, no lantus needed Atelectasis 07/24/2015 07/27/2015 Overview: History: post op Assessment: 2 liters nc, atelectasis on xray, no SOB Plan: OOB/ambulate, PEP, C&DB Postoperative pain 07/24/2015 07/27/2015 Overview: History: post op OHS Assessment: denies pain Plan: dc [employer], acetaminophen, lidoderm patches, Oxy/ultram PRN Discharge planning issues 07/20/20152015 Overview: 65 yr old F from [place], [place] ([place] No skilled needs. Follow up CT in 6-12 months for pulmonary nodules Irritated//Inflamed Seborrheic Keratoses 011 11/02/2015 Viral warts, unspecified 11/07/2010 020 Solar Lentigines 11/07/2010 11/02/2015 Other Seborrheic Keratoses 11/07/201011/01 Actinic skin damage 11/07/2010 11/02/2015 Cutaneous skin tags 11/07/2010 11/02/2015 Melanocytic nevus of scalp: L scalp yarsani hairl ine 11/07/2010 11/02/2015 Beck Angiomas 11/07/2010 11/02/2015 Mitral regurgitation, myxomatous 01/13/2019 Overview: Severe MR (echo 09/30/11) documented as of this encounter (statuses as of 09/07/2021) [facility]12[facility] History of Past illness Narrative* Problem Noted Date Resolved Date Mild memory disturbances not amounting to thien ia 01/17/2021 01/17/2021 Non-rheumatic mitral regurgitation 07/25/2015 01/13/2019 Overview: History: Severe, asymptomatic mitral regurgitation due to prolapse with possible flail leaflet Assessment: Right thoracotomy - MV repair (P2 triangular resection, #33 espino band) Plan: daily ASA; post op echo complete Stress hyperglycemia 07/25/2015 07/26/2015 Overview: A/P: transition rhi drip to ssi, no lantus needed Atelectasis 07/24/2015 07/27/2015 Overview: History: post op Assessment: 2 liters nc, atelectasis on xray, no SOB Plan: OOB/ambulate, PEP, C&DB Postoperative pain 07/24/2015 07/27/2015 Overview: History: post op OHS Assessment: denies pain Plan: dc [employer], acetaminophen, lidoderm patches, Oxy/ultram PRN Discharge planning issues 07/20/20152015 Overview: 65 yr old F from [place] No skilled needs. Follow up CT in 6-12 months for pulmonary nodules Irritated//Inflamed Seborrheic Keratoses 011 11/02/2015 Viral warts, unspecified 11/07/2010 020 Solar Lentigines 11/07/2010 11/02/2015 Other Seborrheic Keratoses 11/07/201011/01 Actinic skin damage 11/07/2010 11/02/2015 Cutaneous skin tags 11/07/2010 11/02/2015 Melanocytic nevus of scalp: L scalp yarsani hairl ine 11/07/2010 11/02/2015 Beck Angiomas 11/07/2010 11/02/2015 Mitral regurgitation, myxomatous 01/13/2019 Overview: Severe MR (echo 09/30/11) documented as of this encounter (statuses as of 11/03/2021) [facility] History of Past illness Narrative* Problem Noted Date Resolved Date Mild memory disturbances not amounting to thien ia 01/17/2021 01/17/2021 Non-rheumatic mitral regurgitation 07/25/2015 01/13/2019 Overview: History: Severe, asymptomatic mitral regurgitation due to prolapse with possible flail leaflet Assessment: Right thoracotomy - MV repair (P2 triangular resection, #33 espino band) Plan: daily ASA; post op echo complete Stress hyperglycemia 07/25/2015 07/26/2015 Overview: A/P: transition rhi drip to ssi, no lantus needed Atelectasis 07/24/2015 07/27/2015 Overview: History: post op Assessment: 2 liters nc, atelectasis on xray, no SOB Plan: OOB/ambulate, PEP, C&DB Postoperative pain 07/24/2015 07/27/2015 Overview: History: post op OHS Assessment: denies pain Plan: dc [employer], acetaminophen, lidoderm patches, Oxy/ultram PRN Discharge planning issues 07/20/20152015 Overview: 65 yr old F from [place] No skilled needs. Follow up CT in 6-12 months for pulmonary nodules Irritated//Inflamed Seborrheic Keratoses 011 11/02/2015 Viral warts, unspecified 11/07/2010 020 Solar Lentigines 11/07/2010 11/02/2015 Other Seborrheic Keratoses 11/07/201011/01 Actinic skin damage 11/07/2010 11/02/2015 Cutaneous skin tags 11/07/2010 11/02/2015 Melanocytic nevus of scalp: L scalp yarsani hairl ine 11/07/2010 11/02/2015 Beck Angiomas 11/07/2010 11/02/2015 Mitral regurgitation, myxomatous 01/13/2019 Overview: Severe MR (echo 09/30/11) documented as of this encounter (statuses as of 11/19/2021) [facility] History of Past illness Narrative* Problem Noted Date Resolved Date Mild memory disturbances not amounting to thien ia 01/17/2021 01/17/2021 Non-rheumatic mitral regurgitation 07/25/2015 01/13/2019 Overview: History: Severe, asymptomatic mitral regurgitation due to prolapse with possible flail leaflet Assessment: Right thoracotomy - MV repair (P2 triangular resection, #33 espino band) Plan: daily ASA; post op echo complete Stress hyperglycemia 07/25/2015 07/26/2015 Overview: A/P: transition rhi drip to ssi, no lantus needed Atelectasis 07/24/2015 07/27/2015 Overview: History: post op Assessment: 2 liters nc, atelectasis on xray, no SOB Plan: OOB/ambulate, PEP, C&DB Postoperative pain 07/24/2015 07/27/2015 Overview: History: post op OHS Assessment: denies pain Plan: dc [employer], acetaminophen, lidoderm patches, Oxy/ultram PRN Discharge planning issues 07/20/20152015 Overview: 65 yr old F from [place], [place] No skilled needs. Follow up CT in 6-12 months for pulmonary nodules Irritated//Inflamed Seborrheic Keratoses 011 11/02/2015 Viral warts, unspecified 11/07/2010 020 Solar Lentigines 11/07/2010 11/02/2015 Other Seborrheic Keratoses 11/07/201011/01 Actinic skin damage 11/07/2010 11/02/2015 Cutaneous skin tags 11/07/2010 11/02/2015 Melanocytic nevus of scalp: L scalp yarsani hairl ine 11/07/2010 11/02/2015 Beck Angiomas 11/07/2010 11/02/2015 Mitral regurgitation, myxomatous 01/13/2019 Overview: Severe MR (echo 09/30/11) documented as of this encounter (statuses as of 11/20/2021) [facility] History of Past illness Narrative* Problem Noted Date Resolved Date Mild memory disturbances not amounting to thien ia 01/17/2021 01/17/2021 Non-rheumatic mitral regurgitation 07/25/2015 01/13/2019 Overview: History: Severe, asymptomatic mitral regurgitation due to prolapse with possible flail leaflet Assessment: Right thoracotomy - MV repair (P2 triangular resection, #33 espino band) Plan: daily ASA; post op echo complete Stress hyperglycemia 07/25/2015 07/26/2015 Overview: A/P: transition rhi drip to ssi, no lantus needed Atelectasis 07/24/2015 07/27/2015 Overview: History: post op Assessment: 2 liters nc, atelectasis on xray, no SOB Plan: OOB/ambulate, PEP, C&DB Postoperative pain 07/24/2015 07/27/2015 Overview: History: post op OHS Assessment: denies pain Plan: dc [employer], acetaminophen, lidoderm patches, Oxy/ultram PRN Discharge planning issues 07/20/20152015 Overview: 65 yr old F from [place], [place] No skilled needs. Follow up CT in 6-12 months for pulmonary nodules Irritated//Inflamed Seborrheic Keratoses 011 11/02/2015 Viral warts, unspecified 11/07/2010 020 Solar Lentigines 11/07/2010 11/02/2015 Other Seborrheic Keratoses 11/07/201011/01 Actinic skin damage 11/07/2010 11/02/2015 Cutaneous skin tags 11/07/2010 11/02/2015 Melanocytic nevus of scalp: L scalp yarsani hairl ine 11/07/2010 11/02/2015 Beck Angiomas 11/07/2010 11/02/2015 Mitral regurgitation, myxomatous 01/13/2019 Overview: Severe MR (echo 09/30/11) documented as of this encounter (statuses as of 01/08/2022) [facility] History of Past illness Narrative* Problem Noted Date Resolved Date Mild memory disturbances not amounting to thien ia 01/17/2021 01/17/2021 Non-rheumatic mitral regurgitation 07/25/2015 01/13/2019 Overview: History: Severe, asymptomatic mitral regurgitation due to prolapse with possible flail leaflet Assessment: Right thoracotomy - MV repair (P2 triangular resection, #33 espino band) Plan: daily ASA; post op echo complete Stress hyperglycemia 07/25/2015 07/26/2015 Overview: A/P: transition rhi drip to ssi, no lantus needed Atelectasis 07/24/2015 07/27/2015 Overview: History: post op Assessment: 2 liters nc, atelectasis on xray, no SOB Plan: OOB/ambulate, PEP, C&DB Postoperative pain 07/24/2015 07/27/2015 Overview: History: post op OHS Assessment: denies pain Plan: dc [employer], acetaminophen, lidoderm patches, Oxy/ultram PRN Discharge planning issues 07/20/20152015 Overview: 65 yr old F from [place], [place] ([place] No skilled needs. Follow up CT in 6-12 months for pulmonary nodules Irritated//Inflamed Seborrheic Keratoses 011 11/02/2015 Viral warts, unspecified 11/07/2010 020 Solar Lentigines 11/07/2010 11/02/2015 Other Seborrheic Keratoses 11/07/201011/01 Actinic skin damage 11/07/2010 11/02/2015 Cutaneous skin tags 11/07/2010 11/02/2015 Melanocytic nevus of scalp: L scalp yarsani hairl ine 11/07/2010 11/02/2015 Beck Angiomas 11/07/2010 11/02/2015 Mitral regurgitation, myxomatous 01/13/2019 Overview: Severe MR (echo 09/30/11) documented as of this encounter (statuses as of 01/16/2022) [facility] History of Past illness Narrative* Problem Noted Date Resolved Date Mild memory disturbances not amounting to thien ia 01/17/2021 01/17/2021 SUMMARY 07/27/2015 01/18/2022 Overview: Indication for hospital admission/procedure: MV regurgitation LVEF: 60% RVF: Normal Cath: Mild disease of LAD; moderate disease of RCA Cards: Dr Margaret Mccoy MD PMH/PSH: MV regurgitation/ LV enlargement/LA enlargement/Pulm HTN Surgeries: 07/24/2015 MV repair OR Course: Uncomplicated A/P: -No wires, stable post-op echo -DC right pleural CT, stable post-pull CXR -Disp: from [place], [place]. DC in am. Follow up appts requested Non-rheumatic mitral regurgitation 07/25/2015 01/13/2019 Overview: History: Severe, asymptomatic mitral regurgitation due to prolapse with possible flail leaflet Assessment: Right thoracotomy - MV repair (P2 triangular resection, #33 espino band) Plan: daily ASA; post op echo complete Stress hyperglycemia 07/25/2015 07/26/2015 Overview: A/P: transition rhi drip to ssi, no lantus needed Atelectasis 07/24/2015 07/27/2015 Overview: History: post op Assessment: 2 liters nc, atelectasis on xray, no SOB Plan: OOB/ambulate, PEP, C&DB Postoperative pain 07/24/2015 07/27/2015 Overview: History: post op OHS Assessment: denies pain Plan: dc [employer], acetaminophen, lidoderm patches, Oxy/ultram PRN Discharge planning issues 07/20/20152015 Overview: 65 yr old F from [place], [place] No skilled needs. Follow up CT in 6-12 months for pulmonary nodules Irritated//Inflamed Seborrheic Keratoses 011 11/02/2015 Viral warts, unspecified 11/07/2010 020 Solar Lentigines 11/07/2010 11/02/2015 Other Seborrheic Keratoses 11/07/201011/01 Actinic skin damage 11/07/2010 11/02/2015 Cutaneous skin tags 11/07/2010 11/02/2015 Melanocytic nevus of scalp: L scalp yarsani hairl ine 11/07/2010 11/02/2015 Beck Angiomas 11/07/2010 11/02/2015 Mitral regurgitation, myxomatous 01/13/2019 Overview: Severe MR (echo 09/30/11) documented as of this encounter (statuses as of 01/18/2022) [facility] History of Past illness Narrative* Problem Noted Date Resolved Date Mild memory disturbances not amounting to thien ia 01/17/2021 01/17/2021 SUMMARY 07/27/2015 01/18/2022 Overview: Indication for hospital admission/procedure: MV regurgitation LVEF: 60% RVF: Normal Cath: Mild disease of LAD; moderate disease of RCA Cards: Dr Margaret Mccoy MD PMH/PSH: MV regurgitation/ LV enlargement/LA enlargement/Pulm HTN Surgeries: 07/24/2015 MV repair OR Course: Uncomplicated A/P: -No wires, stable post-op echo -DC right pleural CT, stable post-pull CXR -Disp: from [place], [place]. DC in am. Follow up appts requested Non-rheumatic mitral regurgitation 07/25/2015 01/13/2019 Overview: History: Severe, asymptomatic mitral regurgitation due to prolapse with possible flail leaflet Assessment: Right thoracotomy - MV repair (P2 triangular resection, #33 espino band) Plan: daily ASA; post op echo complete Stress hyperglycemia 07/25/2015 07/26/2015 Overview: A/P: transition rhi drip to ssi, no lantus needed Atelectasis 07/24/2015 07/27/2015 Overview: History: post op Assessment: 2 liters nc, atelectasis on xray, no SOB Plan: OOB/ambulate, PEP, C&DB Postoperative pain 07/24/2015 07/27/2015 Overview: History: post op OHS Assessment: denies pain Plan: dc [employer], acetaminophen, lidoderm patches, Oxy/ultram PRN Discharge planning issues 07/20/20152015 Overview: 65 yr old F from [place], [place] No skilled needs. Follow up CT in 6-12 months for pulmonary nodules Irritated//Inflamed Seborrheic Keratoses 011 11/02/2015 Viral warts, unspecified 11/07/2010 020 Solar Lentigines 11/07/2010 11/02/2015 Other Seborrheic Keratoses 11/07/201011/01 Actinic skin damage 11/07/2010 11/02/2015 Cutaneous skin tags 11/07/2010 11/02/2015 Melanocytic nevus of scalp: L scalp yarsani hairl ine 11/07/2010 11/02/2015 Beck Angiomas 11/07/2010 11/02/2015 Mitral regurgitation, myxomatous 01/13/2019 Overview: Severe MR (echo 09/30/11) documented as of this encounter (statuses as of 02/27/2022) [facility] History of Past illness Narrative* Problem Noted Date Resolved Date Mild memory disturbances not amounting to thien ia 01/17/2021 01/17/2021 SUMMARY 07/27/2015 01/18/2022 Overview: Indication for hospital admission/procedure: MV regurgitation LVEF: 60% RVF: Normal Cath: Mild disease of LAD; moderate disease of RCA Cards: Dr Margaret Mccoy MD PMH/PSH: MV regurgitation/ LV enlargement/LA enlargement/Pulm HTN Surgeries: 07/24/2015 MV repair OR Course: Uncomplicated A/P: -No wires, stable post-op echo -DC right pleural CT, stable post-pull CXR -Disp: from [place], [place]. DC in am. Follow up appts requested Non-rheumatic mitral regurgitation 07/25/2015 01/13/2019 Overview: History: Severe, asymptomatic mitral regurgitation due to prolapse with possible flail leaflet Assessment: Right thoracotomy - MV repair (P2 triangular resection, #33 espino band) Plan: daily ASA; post op echo complete Stress hyperglycemia 07/25/2015 07/26/2015 Overview: A/P: transition rhi drip to ssi, no lantus needed Atelectasis 07/24/2015 07/27/2015 Overview: History: post op Assessment: 2 liters nc, atelectasis on xray, no SOB Plan: OOB/ambulate, PEP, C&DB Postoperative pain 07/24/2015 07/27/2015 Overview: History: post op OHS Assessment: denies pain Plan: dc [employer], acetaminophen, lidoderm patches, Oxy/ultram PRN Discharge planning issues 07/20/20152015 Overview: 65 yr old F from [place], [place] No skilled needs. Follow up CT in 6-12 months for pulmonary nodules Irritated//Inflamed Seborrheic Keratoses 011 11/02/2015 Viral warts, unspecified 11/07/2010 020 Solar Lentigines 11/07/2010 11/02/2015 Other Seborrheic Keratoses 11/07/201011/01 Actinic skin damage 11/07/2010 11/02/2015 Cutaneous skin tags 11/07/2010 11/02/2015 Melanocytic nevus of scalp: L scalp yarsani hairl ine 11/07/2010 11/02/2015 Beck Angiomas 11/07/2010 11/02/2015 Mitral regurgitation, myxomatous 01/13/2019 Overview: Severe MR (echo 09/30/11) documented as of this encounter (statuses as of 03/19/2022) [facility] of Past illness Narrative* Problem Noted Date Resolved Date Mild memory disturbances not amounting to thien ia 01/17/2021 01/17/2021 SUMMARY 07/27/2015 01/18/2022 Overview: Indication for hospital admission/procedure: MV regurgitation LVEF: 60% RVF: Normal Cath: Mild disease of LAD; moderate disease of RCA Cards: Dr Margaret Mccoy MD PMH/PSH: MV regurgitation/ LV enlargement/LA enlargement/Pulm HTN Surgeries: 07/24/2015 MV repair OR Course: Uncomplicated A/P: -No wires, stable post-op echo -DC right pleural CT, stable post-pull CXR -Disp: from [place], [place]. DC in am. Follow up appts requested Non-rheumatic mitral regurgitation 07/25/2015 01/13/2019 Overview: History: Severe, asymptomatic mitral regurgitation due to prolapse with possible flail leaflet Assessment: Right thoracotomy - MV repair (P2 triangular resection, #33 espino band) Plan: daily ASA; post op echo complete Stress hyperglycemia 07/25/2015 07/26/2015 Overview: A/P: transition rhi drip to ssi, no lantus needed Atelectasis 07/24/2015 07/27/2015 Overview: History: post op Assessment: 2 liters nc, atelectasis on xray, no SOB Plan: OOB/ambulate, PEP, C&DB Postoperative pain 07/24/2015 07/27/2015 Overview: History: post op OHS Assessment: denies pain Plan: dc [employer], acetaminophen, lidoderm patches, Oxy/ultram PRN Discharge planning issues 07/20/20152015 Overview: 65 yr old F from [place], [place] ([place] No skilled needs. Follow up CT in 6-12 months for pulmonary nodules Irritated//Inflamed Seborrheic Keratoses 011 11/02/2015 Viral warts, unspecified 11/07/2010 020 Solar Lentigines 11/07/2010 11/02/2015 Other Seborrheic Keratoses 11/07/201011/01 Actinic skin damage 11/07/2010 11/02/2015 Cutaneous skin tags 11/07/2010 11/02/2015 Melanocytic nevus of scalp: L scalp yarsani hairl ine 11/07/2010 11/02/2015 Beck Angiomas 11/07/2010 11/02/2015 Mitral regurgitation, myxomatous 01/13/2019 Overview: Severe MR (echo 09/30/11) documented as of this encounter (statuses as of 07/15/2022) [facility]12-08-2021 History of Past illness Narrative* Problem Noted Date Diagnosed Date Resolved Date 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 DC in am. Follow up appts requested Non-rheumatic mitral regurgitation 07/25/2015 01/13/2019 Overview: History: Severe, asymptomatic mitral regurgitation due to prolapse with possible flail leaflet Assessment: Right thoracotomy - MV repair (P2 triangular resection, #33 espino band) Plan: daily ASA; post op echo complete Stress hyperglycemia 07/25/2015 016 Overview: A/P: transition rhi drip to ssi, no lantus needed Atelectasis 07/24/2015 07/27/2015 Overview: History: post op Assessment: 2 liters nc, atelectasis on xray, no SOB Plan: OOB/ambulate, PEP, C&DB Postoperative pain 07/24/2015 6 Overview: History: post op OHS Assessment: denies pain Plan: dc [employer] MARK[employer]ST, acetaminophen, lidoderm patches, Oxy/ultram PRN Discharge planning issues 07/20/2015 Overview: 65 yr old F from [place], [place] ([place] No skilled needs. Follow up CT in 6-12 months for pulmonary nodules Irritated//Inflamed Seborrheic Keratoses 11/07/2010 11/02/2015 Viral warts, unspecified 11/07/201005/2019 Solar Lentigines 11/07/2010 11/02/2015 Other Seborrheic Keratoses 11/07/2010 0 11/02/2015 Actinic skin damage 11/07/2010 11/02/19 16 Cutaneous skin tags 11/07/2010 11/02/19 16 Melanocytic nevus of scalp: L scalp yarsani hairline 11/07/2010 11/02/2015 Beck Angiomas 11/07/2010 11/02/2015 Mitral regurgitation, myxomatous 01/13/2019 Overview: Severe MR (echo 09/30/11) documented as of this encounter (statuses as of 11/09/2022) [facility]12-08-2021 History of Past illness Narrative* Problem Noted Date Diagnosed Date Resolved Date 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 DC in am. Follow up appts requested Non-rheumatic mitral regurgitation 07/25/2015 01/13/2019 Overview: History: Severe, asymptomatic mitral regurgitation due to prolapse with possible flail leaflet Assessment: Right thoracotomy - MV repair (P2 triangular resection, #33 espino band) Plan: daily ASA; post op echo complete Stress hyperglycemia 07/25/2015 016 Overview: A/P: transition rhi drip to ssi, no lantus needed Atelectasis 07/24/2015 07/27/2015 Overview: History: post op Assessment: 2 liters nc, atelectasis on xray, no SOB Plan: OOB/ambulate, PEP, C&DB Postoperative pain 07/24/2015 6 Overview: History: post op OHS Assessment: denies pain Plan: dc [employer]ST, acetaminophen, lidoderm patches, Oxy/ultram PRN Discharge planning issues 07/20/2015 Overview: 65 yr old F from [place] ([place] No skilled needs. Follow up CT in 6-12 months for pulmonary nodules Irritated//Inflamed Seborrheic Keratoses 11/07/2010 11/02/2015 Viral warts, unspecified 11/07/201005/2019 Solar Lentigines 11/07/2010 11/02/2015 Other Seborrheic Keratoses 11/07/2010 0 11/02/2015 Actinic skin damage 11/07/2010 11/02/19 16 Cutaneous skin tags 11/07/2010 11/02/19 16 Melanocytic nevus of scalp: L scalp yarsani hairline 11/07/2010 11/02/2015 Beck Angiomas 11/07/2010 11/02/2015 Mitral regurgitation, myxomatous 01/13/2019 Overview: Severe MR (echo 09/30/11) documented as of this encounter (statuses as of 12/15/2022) [facility]12-08-2021 History of Past illness Narrative* Problem Noted Date Diagnosed Date Resolved Date 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 DC in am. Follow up appts requested Non-rheumatic mitral regurgitation 07/25/2015 01/13/2019 Overview: History: Severe, asymptomatic mitral regurgitation due to prolapse with possible flail leaflet Assessment: Right thoracotomy - MV repair (P2 triangular resection, #33 espino band) Plan: daily ASA; post op echo complete Stress hyperglycemia 07/25/2015 016 Overview: A/P: transition rhi drip to ssi, no lantus needed Atelectasis 07/24/2015 07/27/2015 Overview: History: post op Assessment: 2 liters nc, atelectasis on xray, no SOB Plan: OOB/ambulate, PEP, C&DB Postoperative pain 07/24/2015 6 Overview: History: post op OHS Assessment: denies pain Plan: dc [employer]ST, acetaminophen, lidoderm patches, Oxy/ultram PRN Discharge planning issues 07/20/2015 Overview: 65 yr old F from [place] ([place] No skilled needs. Follow up CT in 6-12 months for pulmonary nodules Irritated//Inflamed Seborrheic Keratoses 11/07/2010 11/02/2015 Viral warts, unspecified 11/07/201005/2019 Solar Lentigines 11/07/2010 11/02/2015 Other Seborrheic Keratoses 11/07/2010 0 11/02/2015 Actinic skin damage 11/07/2010 11/02/19 16 Cutaneous skin tags 11/07/2010 11/02/19 16 Melanocytic nevus of scalp: L scalp yarsani hairline 11/07/2010 11/02/2015 Beck Angiomas 11/07/2010 11/02/2015 Mitral regurgitation, myxomatous 01/13/2019 Overview: Severe MR (echo 09/30/11) documented as of this encounter (statuses as of 01/20/2023) [facility]12-08-[facility]21 History of Past illness Narrative* Problem Noted Date Diagnosed Date Resolved Date 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 DC in am. Follow up appts requested Non-rheumatic mitral regurgitation 07/25/2015 01/13/2019 Overview: History: Severe, asymptomatic mitral regurgitation due to prolapse with possible flail leaflet Assessment: Right thoracotomy - MV repair (P2 triangular resection, #33 espino band) Plan: daily ASA; post op echo complete Stress hyperglycemia 07/25/2015 06/2 016 Overview: A/P: transition rhi drip to ssi, no lantus needed Atelectasis 07/24/2015 07/27/2015 Overview: History: post op Assessment: 2 liters nc, atelectasis on xray, no SOB Plan: OOB/ambulate, PEP, C&DB Postoperative pain 07/24/2015 6 Overview: History: post op OHS Assessment: denies pain Plan: dc [employer], acetaminophen, lidoderm patches, Oxy/ultram PRN Discharge planning issues 07/20/2015 Overview: 65 yr old F from [place], [place] ([place] No skilled needs. Follow up CT in 6-12 months for pulmonary nodules Irritated//Inflamed Seborrheic Keratoses 11/07/2010 11/02/2015 Viral warts, unspecified 11/07/201005/2019 Solar Lentigines 11/07/2010 11/02/2015 Other Seborrheic Keratoses 11/07/2010 0 11/02/2015 Actinic skin damage 11/07/2010 11/02/19 16 Cutaneous skin tags 11/07/2010 11/02/19 16 Melanocytic nevus of scalp: L scalp yarsani hairline 11/07/2010 11/02/2015 Beck Angiomas 11/07/2010 11/02/2015 Mitral regurgitation, myxomatous 01/13/2019 Overview: Severe MR (echo 09/30/11) documented as of this encounter (statuses as of 01/22/2023) [facility]12-08-[facility] History of Past illness Narrative* Problem Noted Date Diagnosed Date Resolved Date 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 DC in am. Follow up appts requested Non-rheumatic mitral regurgitation 07/25/2015 01/13/2019 Overview: History: Severe, asymptomatic mitral regurgitation due to prolapse with possible flail leaflet Assessment: Right thoracotomy - MV repair (P2 triangular resection, #33 espino band) Plan: daily ASA; post op echo complete Stress hyperglycemia 07/25/2015 016 Overview: A/P: transition rhi drip to ssi, no lantus needed Atelectasis 07/24/2015 07/27/2015 Overview: History: post op Assessment: 2 liters nc, atelectasis on xray, no SOB Plan: OOB/ambulate, PEP, C&DB Postoperative pain 07/24/2015 6 Overview: History: post op OHS Assessment: denies pain Plan: dc [employer], acetaminophen, lidoderm patches, Oxy/ultram PRN Discharge planning issues 07/20/2015 Overview: 65 yr old F from [place] ([place] No skilled needs. Follow up CT in 6-12 months for pulmonary nodules Irritated//Inflamed Seborrheic Keratoses 11/07/2010 11/02/2015 Viral warts, unspecified 11/07/201005/2019 Solar Lentigines 11/07/2010 11/02/2015 Other Seborrheic Keratoses 11/07/2010 0 11/02/2015 Actinic skin damage 11/07/2010 11/02/19 16 Cutaneous skin tags 11/07/2010 11/02/19 16 Melanocytic nevus of scalp: L scalp yarsani hairline 11/07/2010 11/02/2015 Beck Angiomas 11/07/2010 11/02/2015 Mitral regurgitation, myxomatous 01/13/2019 Overview: Severe MR (echo 09/30/11) documented as of this encounter (statuses as of 03/21/2023) [facility]12-[facility] History of Past illness Narrative* Problem Noted Date Diagnosed Date Resolved Date 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 DC in am. Follow up appts requested Non-rheumatic mitral regurgitation 07/25/2015 01/13/2019 Overview: History: Severe, asymptomatic mitral regurgitation due to prolapse with possible flail leaflet Assessment: Right thoracotomy - MV repair (P2 triangular resection, #33 espino band) Plan: daily ASA; post op echo complete Stress hyperglycemia 07/25/2015 016 Overview: A/P: transition rhi drip to ssi, no lantus needed Atelectasis 07/24/2015 07/27/2015 Overview: History: post op Assessment: 2 liters nc, atelectasis on xray, no SOB Plan: OOB/ambulate, PEP, C&DB Postoperative pain 07/24/2015 6 Overview: History: post op OHS Assessment: denies pain Plan: dc [employer], acetaminophen, lidoderm patches, Oxy/ultram PRN Discharge planning issues 07/20/2015 Overview: 65 yr old F from [place] No skilled needs. Follow up CT in 6-12 months for pulmonary nodules Irritated//Inflamed Seborrheic Keratoses 11/07/2010 11/02/2015 Viral warts, unspecified 11/07/201005/2019 Solar Lentigines 11/07/2010 11/02/2015 Other Seborrheic Keratoses 11/07/2010 0 11/02/2015 Actinic skin damage 11/07/2010 11/02/19 16 Cutaneous skin tags 11/07/2010 11/02/19 16 Melanocytic nevus of scalp: L scalp yarsani hairline 11/07/2010 11/02/2015 Beck Angiomas 11/07/2010 11/02/2015 Mitral regurgitation, myxomatous 01/13/2019 Overview: Severe MR (echo 09/30/11) documented as of this encounter (statuses as of 03/25/2023) [facility] History of Past illness Narrative* Problem Noted Date Diagnosed Date Resolved Date 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 DC in am. Follow up appts requested Non-rheumatic mitral regurgitation 07/25/2015 01/13/2019 Overview: History: Severe, asymptomatic mitral regurgitation due to prolapse with possible flail leaflet Assessment: Right thoracotomy - MV repair (P2 triangular resection, #33 espino band) Plan: daily ASA; post op echo complete Stress hyperglycemia 07/25/2015 016 Overview: A/P: transition rhi drip to ssi, no lantus needed Atelectasis 07/24/2015 07/27/2015 Overview: History: post op Assessment: 2 liters nc, atelectasis on xray, no SOB Plan: OOB/ambulate, PEP, C&DB Postoperative pain 07/24/2015 6 Overview: History: post op OHS Assessment: denies pain Plan: dc [employer], acetaminophen, lidoderm patches, Oxy/ultram PRN Discharge planning issues 07/20/2015 Overview: 65 yr old F from [place] No skilled needs. Follow up CT in 6-12 months for pulmonary nodules Irritated//Inflamed Seborrheic Keratoses 11/07/2010 11/02/2015 Viral warts, unspecified 11/07/201005/2019 Solar Lentigines 11/07/2010 11/02/2015 Other Seborrheic Keratoses 11/07/2010 0 11/02/2015 Actinic skin damage 11/07/2010 11/02/19 16 Cutaneous skin tags 11/07/2010 11/02/19 16 Melanocytic nevus of scalp: L scalp yarsani hairline 11/07/2010 11/02/2015 Beck Angiomas 11/07/2010 11/02/2015 Mitral regurgitation, myxomatous 01/13/2019 Overview: Severe MR (echo 09/30/11) documented as of this encounter (statuses as of 04/02/2023) [facility] History of Past illness Narrative* Problem Noted Date Diagnosed Date Resolved Date 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 DC in am. Follow up appts requested Non-rheumatic mitral regurgitation 07/25/2015 01/13/2019 Overview: History: Severe, asymptomatic mitral regurgitation due to prolapse with possible flail leaflet Assessment: Right thoracotomy - MV repair (P2 triangular resection, #33 espino band) Plan: daily ASA; post op echo complete Stress hyperglycemia 07/25/2015 016 Overview: A/P: transition rhi drip to ssi, no lantus needed Atelectasis 07/24/2015 07/27/2015 Overview: History: post op Assessment: 2 liters nc, atelectasis on xray, no SOB Plan: OOB/ambulate, PEP, C&DB Postoperative pain 07/24/2015 6 Overview: History: post op OHS Assessment: denies pain Plan: dc [employer], acetaminophen, lidoderm patches, Oxy/ultram PRN Discharge planning issues 07/20/2015 Overview: 65 yr old F from [place] No skilled needs. Follow up CT in 6-12 months for pulmonary nodules Irritated//Inflamed Seborrheic Keratoses 11/07/2010 11/02/2015 Viral warts, unspecified 11/07/201005/2019 Solar Lentigines 11/07/2010 11/02/2015 Other Seborrheic Keratoses 11/07/2010 0 11/02/2015 Actinic skin damage 11/07/2010 11/02/19 16 Cutaneous skin tags 11/07/2010 11/02/19 16 Melanocytic nevus of scalp: L scalp yarsani hairline 11/07/2010 11/02/2015 Beck Angiomas 11/07/2010 11/02/2015 Mitral regurgitation, myxomatous 01/13/2019 Overview: Severe MR (echo 09/30/11) documented as of this encounter (statuses as of 04/04/2023) [facility] History of Past illness Narrative* Problem Noted Date Diagnosed Date Resolved Date 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 DC in am. Follow up appts requested Non-rheumatic mitral regurgitation 07/25/2015 01/13/2019 Overview: History: Severe, asymptomatic mitral regurgitation due to prolapse with possible flail leaflet Assessment: Right thoracotomy - MV repair (P2 triangular resection, #33 espino band) Plan: daily ASA; post op echo complete Stress hyperglycemia 07/25/2015 016 Overview: A/P: transition rhi drip to ssi, no lantus needed Atelectasis 07/24/2015 07/27/2015 Overview: History: post op Assessment: 2 liters nc, atelectasis on xray, no SOB Plan: OOB/ambulate, PEP, C&DB Postoperative pain 07/24/2015 6 Overview: History: post op OHS Assessment: denies pain Plan: dc [employer], acetaminophen, lidoderm patches, Oxy/ultram PRN Discharge planning issues 07/20/2015 Overview: 65 yr old F from [place] No skilled needs. Follow up CT in 6-12 months for pulmonary nodules Irritated//Inflamed Seborrheic Keratoses 11/07/2010 11/02/2015 Viral warts, unspecified 11/07/201005/2019 Solar Lentigines 11/07/2010 11/02/2015 Other Seborrheic Keratoses 11/07/2010 0 11/02/2015 Actinic skin damage 11/07/2010 11/02/19 16 Cutaneous skin tags 11/07/2010 11/02/19 16 Melanocytic nevus of scalp: L scalp yarsani hairline 11/07/2010 11/02/2015 Beck Angiomas 11/07/2010 11/02/2015 Mitral regurgitation, myxomatous 01/13/2019 Overview: Severe MR (echo 09/30/11) documented as of this encounter (statuses as of 04/09/2023) [facility] History of Past illness Narrative* Problem Noted Date Diagnosed Date Resolved Date 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 DC in am. Follow up appts requested Non-rheumatic mitral regurgitation 07/25/2015 01/13/2019 Overview: History: Severe, asymptomatic mitral regurgitation due to prolapse with possible flail leaflet Assessment: Right thoracotomy - MV repair (P2 triangular resection, #33 espino band) Plan: daily ASA; post op echo complete Stress hyperglycemia 07/25/2015 016 Overview: A/P: transition rhi drip to ssi, no lantus needed Atelectasis 07/24/2015 07/27/2015 Overview: History: post op Assessment: 2 liters nc, atelectasis on xray, no SOB Plan: OOB/ambulate, PEP, C&DB Postoperative pain 07/24/2015 6 Overview: History: post op OHS Assessment: denies pain Plan: dc [employer], acetaminophen, lidoderm patches, Oxy/ultram PRN Discharge planning issues 07/20/2015 Overview: 65 yr old F from [place] No skilled needs. Follow up CT in 6-12 months for pulmonary nodules Irritated//Inflamed Seborrheic Keratoses 11/07/2010 11/02/2015 Viral warts, unspecified 11/07/201005/2019 Solar Lentigines 11/07/2010 11/02/2015 Other Seborrheic Keratoses 11/07/2010 0 11/02/2015 Actinic skin damage 11/07/2010 11/02/19 16 Cutaneous skin tags 11/07/2010 11/02/19 16 Melanocytic nevus of scalp: L scalp yarsani hairline 11/07/2010 11/02/2015 Beck Angiomas 11/07/2010 11/02/2015 Mitral regurgitation, myxomatous 01/13/2019 Overview: Severe MR (echo 09/30/11) documented as of this encounter (statuses as of 05/01/2023) [facility] History of Past illness Narrative* Problem Noted Date Diagnosed Date Resolved Date 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 DC in am. Follow up appts requested Non-rheumatic mitral regurgitation 07/25/2015 01/13/2019 Overview: History: Severe, asymptomatic mitral regurgitation due to prolapse with possible flail leaflet Assessment: Right thoracotomy - MV repair (P2 triangular resection, #33 espino band) Plan: daily ASA; post op echo complete Stress hyperglycemia 07/25/2015 016 Overview: A/P: transition rhi drip to ssi, no lantus needed Atelectasis 07/24/2015 07/27/2015 Overview: History: post op Assessment: 2 liters nc, atelectasis on xray, no SOB Plan: OOB/ambulate, PEP, C&DB Postoperative pain 07/24/2015 6 Overview: History: post op OHS Assessment: denies pain Plan: dc [employer], acetaminophen, lidoderm patches, Oxy/ultram PRN Discharge planning issues 07/20/2015 Overview: 65 yr old F from [place] No skilled needs. Follow up CT in 6-12 months for pulmonary nodules Irritated//Inflamed Seborrheic Keratoses 11/07/2010 11/02/2015 Viral warts, unspecified 11/07/201005/2019 Solar Lentigines 11/07/2010 11/02/2015 Other Seborrheic Keratoses 11/07/2010 0 11/02/2015 Actinic skin damage 11/07/2010 11/02/19 16 Cutaneous skin tags 11/07/2010 11/02/19 16 Melanocytic nevus of scalp: L scalp yarsani hairline 11/07/2010 11/02/2015 Beck Angiomas 11/07/2010 11/02/2015 Mitral regurgitation, myxomatous 01/13/2019 Overview: Severe MR (echo 09/30/11) documented as of this encounter (statuses as of 05/12/2023) [facility] History of Past illness Narrative* Problem Noted Date Diagnosed Date Resolved Date 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 DC in am. Follow up appts requested Non-rheumatic mitral regurgitation 07/25/2015 01/13/2019 Overview: History: Severe, asymptomatic mitral regurgitation due to prolapse with possible flail leaflet Assessment: Right thoracotomy - MV repair (P2 triangular resection, #33 espino band) Plan: daily ASA; post op echo complete Stress hyperglycemia 07/25/2015 016 Overview: A/P: transition rhi drip to ssi, no lantus needed Atelectasis 07/24/2015 07/27/2015 Overview: History: post op Assessment: 2 liters nc, atelectasis on xray, no SOB Plan: OOB/ambulate, PEP, C&DB Postoperative pain 07/24/2015 6 Overview: History: post op OHS Assessment: denies pain Plan: dc CONSUMER MARKETING ANALYST, acetaminophen, lidoderm patches, Oxy/ultram PRN Discharge planning issues 07/20/2015 Overview: 65 yr old F from [place], [place] ([place] No skilled needs. Follow up CT in 6-12 months for pulmonary nodules Irritated//Inflamed Seborrheic Keratoses 11/07/2010 11/02/2015 Viral warts, unspecified 11/07/201005/2019 Solar Lentigines 11/07/2010 11/02/2015 Other Seborrheic Keratoses 11/07/2010 0 11/02/2015 Actinic skin damage 11/07/2010 11/02/19 16 Cutaneous skin tags 11/07/2010 11/02/19 16 Melanocytic nevus of scalp: L scalp yarsani hairline 11/07/2010 11/02/2015 Beck Angiomas 11/07/2010 11/02/2015 Mitral regurgitation, myxomatous 01/13/2019 Overview: Severe MR (echo 09/30/11) documented as of this encounter (statuses as of 05/15/2023) [facility] Closed fracture of right ankle, initial encounter- Primary Ankle injuries, right, initial encounter [facility]* Diagnosis Closed nondisplaced fracture of lateral malleolus of right fibula, initial encounter- Primary [facility] Diagnosis Closed nondisplaced fracture of lateral malleolus of right fibula, initial encounter- Primary [facility] Diagnosis Closed nondisplaced fracture of lateral malleolus of right fibula, subsequent- Primary [facility] Diagnosis Closed nondisplaced fracture of lateral malleolus of right fibula, subsequent- Primary [facility] [place] [facility]* Diagnosis Well adult exam- Primary Routine general medical examination at a health care facility documented [facility] this [facility] noteNo assessment information availableWCorey [facility] Work Phone: Evaluation note* Diagnosis S/P MVR (mitral valve repair)- Primary Other postprocedural status Coronary artery disease involving [place] coronary artery of [place] heart without angina pectoris Mixed hyperlipidemia [facility]* Diagnosis S/P MVR (mitral valve repair)- Primary Other postprocedural status Coronary artery disease involving [place] coronary artery of [place] heart without angina pectoris Mixed hyperlipidemia Osteopenia of neck of right femur Asymptomatic postmenopausal status Need for hepatitis C screening test Special screening examination for other specified viral diseases Actinic Keratoses (Premalignant AK's Actinic keratosis [facility] Diagnosis Acute upper respiratory infection, unspecified- Primary [facility] Diagnosis Osteopenia of neck of right femur Asymptomatic postmenopausal status [facility]* Diagnosis Mixed hyperlipidemia- Primary Coronary artery disease involving [place] coronary artery of [place] heart without angina pectoris Osteopenia of neck of right femur [facility] [place] [facility]* Diagnosis S/P MVR (mitral valve repair)- Primary Other postprocedural status Coronary artery disease involving [place] coronary artery of [place] heart without angina pectoris Mixed hyperlipidemia [facility]* Diagnosis Myalgia- Primary Mylagia and myositis, unspecified Pain in both lower extremities Thrush Candidiasis of mouth [facility]* Diagnosis Hyperglycemia- Primary Other abnormal glucose [facility]* Diagnosis Thrush (oral)- Primary [facility]* Diagnosis Acute cough- Primary [facility] [place]* Diagnosis Screening for colon cancer- Primary Special screening for malignant neoplasms, colon History of colonic polyps Personal history of colonic polyps [facility] [place] [facility]* Diagnosis Foot callus- Primary Corns and callosities [facility]* Diagnosis Porokeratosis- Primary Other specified congenital anomaly of skin [facility]* Diagnosis Encounter for screening mammogram for breast cancer [facility]* Diagnosis Callus of foot- Primary Corns and callosities Metatarsalgia of right foot Enthesopathy of ankle and tarsus, unspecified [facility]* Diagnosis S/P MVR (mitral valve repair)- Primary Other postprocedural status Coronary artery disease involving [place] coronary artery of [place] heart without angina pectoris Mixed hyperlipidemia [facility] Diagnosis S/P MVR (mitral valve repair)- Primary Other postprocedural status Screening for depression Encounter for screening examination for other mental health and behavioral disorders Coronary artery disease involving [place] coronary artery of [place] heart without angina pectoris Mixed hyperlipidemia Prediabetes Other abnormal glucose Osteopenia of neck of right femur Disorder of bone and cartilage Disorder of bone and cartilage, unspecified [facility]* Diagnosis Osteopenia of neck of right femur Disorder of bone and cartilage Disorder of bone and cartilage, unspecified [facility] [place] [facility]* Diagnosis Mixed hyperlipidemia- Primary [facility] Diagnosis Coronary artery disease involving [place] coronary artery of [place] heart without angina pectoris- Primary Medicare annual wellness visit, subsequent Routine general medical examination at a health care facility Mixed hyperlipidemia S/P MVR (mitral valve repair) Other postprocedural status Actinic Keratoses (Premalignant AK's Actinic keratosis History of osteopenia Personal history of other musculoskeletal disorders Prediabetes Other abnormal glucose Encounter for screening mammogram for breast cancer [facility] Diagnostic Procedure Only (Routine) - Pending Review Specialty Diagnoses / Procedures Referred By Majo marhs Referred To Contact XR IMAGING Diagnoses Closed nondisplaced fracture of lateral malleolus of right fibula, initial encounter Procedures XR ANKLE GENERAL 3V AP/LAT/OBL RIGHT RADEX ANKLE COMPLETE MINIMUM 3 VIEWS Kadeem Bell V, DO [address] [place] [address] Xr Imaging Referral ID Status Reason Start Date Expiration Date Visits Requested Visits Authorized [id number] Pending Review Auto-Generat ed Referral 07/26/2021 08/25/2022 1 1 [facility] Outpatient Procedure (Routine) - Closed Specialty Diagnoses / Procedures Referred By Majo marsh Referred To [facility] Diagnoses Coronary artery disease involving [place] coronary artery of [place] heart without angina pectoris S/P MVR (mitral valve repair) Mixed hyperlipidemia Procedures ECG COMPLETE ECG ROUTINE ECG W/LEAST 12 LDS W/I&R Pineda French DO [address] [place] [address] [facility] [address] [place] [address] Referral ID Status Reason Start Date Expiration Date V isits Requested Visits Authorized [id number] Closed Auto-Generate d Referral 01/16/2022 01/16/2023 1 1 [facility] for referral (narrative)* Outpatient Procedure (Routine) - Closed Specialty Diagnoses / Procedures Referred By Derrickac t Referred To Contact [facility] Diagnoses History of colonic polyps Procedures COLONOSCOPY SCREENING COLONOSCOPY FLX DX W/COLLJ SPEC WHEN Carmita Yang MD [address] [place] [address] [facility] [address] [place] [address] Referral ID Status Reason Start Date Expiration Date V isits Requested Visits Authorized [id number] Closed Auto-Generate d Referral 03/10/2023 03/10/2024 1 1 [facility] for referral (narrative)* Diagnostic Procedure Only (Routine) - New Request Specialty Diagnoses / Procedures Referred By Majo marsh Referred To Contact BR IMAGING Diagnoses Encounter for screening mammogram for breast cancer Procedures CHRISSIE SCREENING W MICHELLE SCREENING DIGITAL BREAST TOMOSYNTHESIS BI SCREENING MAMMOGRAPHY BI 2-VIEW BREAST INC CAD Vinayak Reyes MD [address] [place] [address] [facility] [address] [place] [phone] Referral ID Status Reason Start Date Expiration Date Visits Requested Visits Authorized [id number] New Request Auto-Generat ed Referral 4 01/22/2025 1 1 [facility] for referral (narrative)* Outpatient Procedure (Routine) - Authorized Specialty Diagnoses / Procedures Referred By Majo marsh Referred To [facility] Diagnoses S/P MVR (mitral valve repair) Coronary artery disease involving [place] coronary artery of [place] heart without angina pectoris Mixed hyperlipidemia Procedures ECHO ECHO TTHRC R-T 2D W/WOM-MODE COMPL SPEC&COLR Pineda De Anda DO [address] [place] [address] [facility] [address] [place] [id number] Referral ID Status Reason Start Date Expiration Date Visits Requested Visits Authorized [id number] Authorized Auto-Generat ed Referral 12/13/2024 03/01/2025 1 1 [facility] for visit Narrative* Outpatient Procedure (Routine) - Closed Specialty Diagnoses / Procedures Referred By Contac t Referred To Contact [facility] Diagnoses History of colonic polyps Procedures COLONOSCOPY SCREENING COLONOSCOPY FLX DX W/COLLJ SPEC WHEN Carmita Yang MD [address] [facility] [place] [place] [address] [facility] [address] [place] [address] Referral ID Status Reason Start Date Expiration Date V isits Requested Visits Authorized [id number] Closed Auto-Generate d Referral 03/10/2023 03/10/2024 1 1 [facility] for visit Narrative* Diagnostic Procedure Only (Urgent) - Closed Specialty Diagnoses / Procedures Referred By Contac t Referred To Contact XR IMAGING Diagnoses Ankle injuries, right, initial encounter Procedures XR ANKLE GENERAL 3V AP/LAT/OBL RIGHT RADEX ANKLE COMPLETE MINIMUM 3 VIEWS Robert Wood APRN.CNP [address] [place] [address] [place] [address] Referral ID Status Reason Start Date Expiration Date V isits Requested Visits Authorized [id number] Closed Auto-Generate d Referral 07/04/2021 08/03/2022 1 1 [facility] for visit Narrative* Diagnostic Procedure Only (Routine) - Closed Specialty Diagnoses / Procedures Referred By Contac t Referred To Contact XR IMAGING Diagnoses Osteopenia of neck of right femur Disorder of bone and cartilage Procedures DXA-AXIAL SKELETON DXA BONE DENSITY STUDY 1/> SITES AXIAL Vinayak Castro MD [address] [place] [address] Phone: tel: fax: [place] [address] Referral ID Status Reason Start Date Expiration Date V isits Requested Visits Authorized [id number] Closed Auto-Generate d Referral 04/07/2024 05/07/2025 1 1 [facility] Summary Purpose Family History No Family History Records Found Relationship Condition Age at Onset Recorded Date/T gregorio father Cardiac disease Unknown brother Cardiac disease Unknown Advance Directives No Advanced Directives Records FoundDocuments on File Type Date Recorded Patient Community Specialist Expl anation Advance Directive(s) 12/07/2018 1:19 PM Advance Directive(s) 11/24/2018 10:06 AM Advance Directive(s) 07/20/2015 5:43 PM Advance Directive(s) 07/19/2015 9:20 AM Advance Directive(s) 07/17/2015 1:03 PM Advance Directive(s) 07/14/2015 5:09 PM Documents on File Type Date Recorded Patient Community Specialist Expl anation Advance Directive(s) 12/07/2018 1:19 PM Advance Directive(s) 11/24/2018 10:06 AM Advance Directive(s) 07/20/2015 5:43 PM Advance Directive(s) 07/19/2015 9:20 AM Advance Directive(s) 07/17/2015 1:03 PM Advance Directive(s) 07/14/2015 5:09 PM Advance Directive Response Recorded Date/ Time Advance Directives No August 31 12:04pm Living Will No August 31, 2013 12:04pm Power of Cinder Man No August 31, 4 12:04pm Reason for Referral Specialty Diagnoses / Procedures Referred By Majo t Referred To Contact Orthopedics Diagnoses Closed fracture of right ankle, initial encounter Procedures CONSULT TO ORTHOPAEDICS OFFICE/OUTPATIENT [facility] MDM 60-74 MINUTES Robert Wood, SHAMIR.LEAD RAMP AGENT [address] [place] [address] Referral ID Status Reason Start Date Expiration Date Visits Requested Visits Authorized [id number] Authorized PCP Requested Referral 07/04/2021 07/04/2022 1 1 Specialty Diagnoses / Procedures Referred By Majo marsh Referred To Contact XR IMAGING Diagnoses Ankle injuries, right, initial encounter Procedures XR ANKLE GENERAL 3V AP/LAT/OBL RIGHT RADEX ANKLE COMPLETE MINIMUM 3 VIEWS Robert Wood, SHAMIR.LEAD RAMP AGENT [address] [place] [address] Xr Imaging Referral ID Status Reason Start Date Expiration Date V isits Requested Visits Authorized [id number] Closed Auto-Generate d Referral 07/04/2021 08/03/2022 1 1 Specialty Diagnoses / Procedures Referred By Contac t Referred To Contact Podiatry Diagnoses Foot callus Procedures CONSULT TO PODIATRY OFFICE/OUTPATIENT [facility] 60 MINUTES Vinayak Reyes MD [address] [place] [address] Referral ID Status Reason Start Date Expiration Date Visits Requested Visits Authorized [id number] Authorized PCP Requested Referral 05/12/2023 05/11/2024 1 1 Chief Complaint and Reason for Visit Chief Complaint SCREENING Chief Complaint SCREENING ABNORMAL MAMMOGRAM Chief Complaint ABNORMAL MAMMOGRAMS Additional Source Comments INFORMATION SOURCE (unrecogn ized section and content) DATE CREATED AUTHOR 08/05/2017 [facility] DATE CREATED AUTHOR AUTHOR'S ORGANIZ ATION 08/05/2017 [facility] DATE CREATED AUTHOR AUTHOR'S ORGANIZ ATION 01/26/2023 [facility] DATE CREATED AUTHOR AUTHOR'S ORGANIZ ATION 01/13/2024 [facility] DATE CREATED AUTHOR AUTHOR'S ORGANIZ ATION 12/19/2024 [facility] Source Comments (unrecognize d section and content) In the event this informatio n is protected by the Federal Confidentiality of Alcohol and Drug Abuse Patient Records regulations: The Federal rules restrict any use of the information to criminally investigate or prosecute any alcohol or drug abuse patient.[facility] the event this information is protected by the Federal Confidentiality of Alcohol and Drug Abuse Patient Records regulations: The Federal rules restrict any use of the information to criminally investigate or prosecute any alcohol or drug abuse patient.[facility] Center[facility] the event this information is protected by the Federal Confidentiality of Alcohol and Drug Abuse Patient Records regulations: The Federal rules restrict any use of the information to criminally investigate or prosecute any alcohol or drug abuse patient.[facility] the event this information is protected by the Federal Confidentiality of Alcohol and Drug Abuse Patient Records regulations: The Federal rules restrict any use of the information to criminally investigate or prosecute any alcohol or drug abuse patient.[facility] Center[facility] the event this information is protected by the Federal Confidentiality of Alcohol and Drug Abuse Patient Records regulations: The Federal rules restrict any use of the information to criminally investigate or prosecute any alcohol or drug abuse patient.[facility] Center[facility] the event this information is protected by the Federal Confidentiality of Alcohol and Drug Abuse Patient Records regulations: The Federal rules restrict any use of the information to criminally investigate or prosecute any alcohol or drug abuse patient.[facility] the event this information is protected by the Federal Confidentiality of Alcohol and Drug Abuse Patient Records regulations: The Federal rules restrict any use of the information to criminally investigate or prosecute any alcohol or drug abuse patient.[facility] Center[facility] the event this information is protected by the Federal Confidentiality of Alcohol and Drug Abuse Patient Records regulations: The Federal rules restrict any use of the information to criminally investigate or prosecute any alcohol or drug abuse patient.[facility] Center[facility] the event this information is protected by the Federal Confidentiality of Alcohol and Drug Abuse Patient Records regulations: The Federal rules restrict any use of the information to criminally investigate or prosecute any alcohol or drug abuse patient.[facility] CenterIn the event this information is protected by the Federal Confidentiality of Alcohol and Drug Abuse Patient Records regulations: The Federal rules restrict any use of the information to criminally investigate or prosecute any alcohol or drug abuse patient.[facility] CenterIn the event this information is protected by the Federal Confidentiality of Alcohol and Drug Abuse Patient Records regulations: The Federal rules restrict any use of the information to criminally investigate or prosecute any alcohol or drug abuse patient.[facility] Center[facility] the event this information is protected by the Federal Confidentiality of Alcohol and Drug Abuse Patient Records regulations: The Federal rules restrict any use of the information to criminally investigate or prosecute any alcohol or drug abuse patient.[facility] the event this information is protected by the Federal Confidentiality of Alcohol and Drug Abuse Patient Records regulations: The Federal rules restrict any use of the information to criminally investigate or prosecute any alcohol or drug abuse patient.[facility] CenterIn the event this information is protected by the Federal Confidentiality of Alcohol and Drug Abuse Patient Records regulations: The Federal rules restrict any use of the information to criminally investigate or prosecute any alcohol or drug abuse patient.[facility] CenterIn the event this information is protected by the Federal Confidentiality of Alcohol and Drug Abuse Patient Records regulations: The Federal rules restrict any use of the information to criminally investigate or prosecute any alcohol or drug abuse patient.[facility] CenterIn the event this information is protected by the Federal Confidentiality of Alcohol and Drug Abuse Patient Records regulations: The Federal rules restrict any use of the information to criminally investigate or prosecute any alcohol or drug abuse patient.[facility] CenterIn the event this information is protected by the Federal Confidentiality of Alcohol and Drug Abuse Patient Records regulations: The Federal rules restrict any use of the information to criminally investigate or prosecute any alcohol or drug abuse patient.[facility] CenterIn the event this information is protected by the Federal Confidentiality of Alcohol and Drug Abuse Patient Records regulations: The Federal rules restrict any use of the information to criminally investigate or prosecute any alcohol or drug abuse patient.[facility] CenterIn the event this information is protected by the Federal Confidentiality of Alcohol and Drug Abuse Patient Records regulations: The Federal rules restrict any use of the information to criminally investigate or prosecute any alcohol or drug abuse patient.[facility] CenterIn the event this information is protected by the Federal Confidentiality of Alcohol and Drug Abuse Patient Records regulations: The Federal rules restrict any use of the information to criminally investigate or prosecute any alcohol or drug abuse patient.[facility] CenterIn the event this information is protected by the Federal Confidentiality of Alcohol and Drug Abuse Patient Records regulations: The Federal rules restrict any use of the information to criminally investigate or prosecute any alcohol or drug abuse patient.[facility] CenterIn the event this information is protected by the Federal Confidentiality of Alcohol and Drug Abuse Patient Records regulations: The Federal rules restrict any use of the information to criminally investigate or prosecute any alcohol or drug abuse patient.[facility] CenterIn the event this information is protected by the Federal Confidentiality of Alcohol and Drug Abuse Patient Records regulations: The Federal rules restrict any use of the information to criminally investigate or prosecute any alcohol or drug abuse patient.[facility] CenterIn the event this information is protected by the Federal Confidentiality of Alcohol and Drug Abuse Patient Records regulations: The Federal rules restrict any use of the information to criminally investigate or prosecute any alcohol or drug abuse patient.[facility] CenterIn the event this information is protected by the Federal Confidentiality of Alcohol and Drug Abuse Patient Records regulations: The Federal rules restrict any use of the information to criminally investigate or prosecute any alcohol or drug abuse patient.[facility] CenterIn the event this information is protected by the Federal Confidentiality of Alcohol and Drug Abuse Patient Records regulations: The Federal rules restrict any use of the information to criminally investigate or prosecute any alcohol or drug abuse patient.[facility] CenterIn the event this information is protected by the Federal Confidentiality of Alcohol and Drug Abuse Patient Records regulations: The Federal rules restrict any use of the information to criminally investigate or prosecute any alcohol or drug abuse patient.[facility] CenterIn the event this information is protected by the Federal Confidentiality of Alcohol and Drug Abuse Patient Records regulations: The Federal rules restrict any use of the information to criminally investigate or prosecute any alcohol or drug abuse patient.[facility] CenterIn the event this information is protected by the Federal Confidentiality of Alcohol and Drug Abuse Patient Records regulations: The Federal rules restrict any use of the information to criminally investigate or prosecute any alcohol or drug abuse patient.[facility] CenterIn the event this information is protected by the Federal Confidentiality of Alcohol and Drug Abuse Patient Records regulations: The Federal rules restrict any use of the information to criminally investigate or prosecute any alcohol or drug abuse patient.[facility] Medical CenterIn the event this information is protected by the Federal Confidentiality of Alcohol and Drug Abuse Patient Records regulations: The Federal rules restrict any use of the information to criminally investigate or prosecute any alcohol or drug abuse patient.[facility] Center[facility] the event this information is protected by the Federal Confidentiality of Alcohol and Drug Abuse Patient Records regulations: The Federal rules restrict any use of the information to criminally investigate or prosecute any alcohol or drug abuse patient.[facility] CenterIn the event this information is protected by the Federal Confidentiality of Alcohol and Drug Abuse Patient Records regulations: The Federal rules restrict any use of the information to criminally investigate or prosecute any alcohol or drug abuse patient.[facility] CenterIn the event this information is protected by the Federal Confidentiality of Alcohol and Drug Abuse Patient Records regulations: The Federal rules restrict any use of the information to criminally investigate or prosecute any alcohol or drug abuse patient.[facility] CenterIn the event this information is protected by the Federal Confidentiality of Alcohol and Drug Abuse Patient Records regulations: The Federal rules restrict any use of the information to criminally investigate or prosecute any alcohol or drug abuse patient.[facility] CenterIn the event this information is protected by the Federal Confidentiality of Alcohol and Drug Abuse Patient Records regulations: The Federal rules restrict any use of the information to criminally investigate or prosecute any alcohol or drug abuse patient.[facility] CenterIn the event this information is protected by the Federal Confidentiality of Alcohol and Drug Abuse Patient Records regulations: The Federal rules restrict any use of the information to criminally investigate or prosecute any alcohol or drug abuse patient.[facility] CenterIn the event this information is protected by the Federal Confidentiality of Alcohol and Drug Abuse Patient Records regulations: The Federal rules restrict any use of the information to criminally investigate or prosecute any alcohol or drug abuse patient.[facility] CenterIn the event this information is protected by the Federal Confidentiality of Alcohol and Drug Abuse Patient Records regulations: The Federal rules restrict any use of the information to criminally investigate or prosecute any alcohol or drug abuse patient.[facility] CenterIn the event this information is protected by the Federal Confidentiality of Alcohol and Drug Abuse Patient Records regulations: The Federal rules restrict any use of the information to criminally investigate or prosecute any alcohol or drug abuse patient.[facility] CenterIn the event this information is protected by the Federal Confidentiality of Alcohol and Drug Abuse Patient Records regulations: The Federal rules restrict any use of the information to criminally investigate or prosecute any alcohol or drug abuse patient.[facility] CenterIn the event this information is protected by the Federal Confidentiality of Alcohol and Drug Abuse Patient Records regulations: The Federal rules restrict any use of the information to criminally investigate or prosecute any alcohol or drug abuse patient.[facility] CenterIn the event this information is protected by the Federal Confidentiality of Alcohol and Drug Abuse Patient Records regulations: The Federal rules restrict any use of the information to criminally investigate or prosecute any alcohol or drug abuse patient.[facility] CenterIn the event this information is protected by the Federal Confidentiality of Alcohol and Drug Abuse Patient Records regulations: The Federal rules restrict any use of the information to criminally investigate or prosecute any alcohol or drug abuse patient.[facility] CenterIn the event this information is protected by the Federal Confidentiality of Alcohol and Drug Abuse Patient Records regulations: The Federal rules restrict any use of the information to criminally investigate or prosecute any alcohol or drug abuse patient.[facility] Reason for Visit (unrecogniz ed section and content) Reason Onset Date Comments Refill Request 05/21/2021 Reason Comments Ankle Injury right, fell and twis twila x this afternoon Reason Comments New Patient Right ankle fracture REF: [facility] x-ray: 07/04/2021 Reason Comments Erroneous encounter-disregard Reason Comments Established Patient 6 week 2 days post r ight fibula fx Reason Comments Follow Up R ankle fracture Reason Onset Date Comments Refill Request 11/19/2021 Reason Comments Orders Appointment on 01/18 Reason Comments Refill Request Reason Comments Established Patient Follow-Up Annual vis it. No current concerns Reason Comments Medicare Wellness Exam Reason Comments Cough Started with a sore throat a few days ago then turned into a productive cough with chest congestion, + wheezing, no shortness of breath. Temp was 99 the last few days. Using mucinex Reason Onset Date Comments Refill Request 07/15/2022 Reason Comments Yearly Exam Reason Comments Established Patient Follow-Up Annual fol low upEKG completed today Room 1No current cardiac concerns Reason Comments Leg Pain Reason Comments Results Reason Comments Thrush persisting Reason Comments Mouth/Lip Problem Thrush Reason Comments Cough Cough, ST, bodyaches , chills and fever x 2 days Reason Comments Wart right Reason Comments New Callous Specialty Diagnoses / Procedures Referred By Majo t Referred To Contact Podiatry Diagnoses Foot callus Procedures CONSULT TO PODIATRY OFFICE/OUTPATIENT NEW HIGH MDM 60 MINUTES Vinayak Reyes MD [address] [place] [address] Referral ID Status Reason Start Date Expiration Date V isits Requested Visits Authorized [id number] Closed PCP Requested Referral 05/12/2023 05/11/2024 1 1 Reason Comments 04/30/2023 [facility] Reason Comments Orders Reason Onset Date Comments Refill Request 01/09/2024 Reason Comments Established Patient Callus pain Pain Callus pain Reason Comments Follow Up Room 10AnnualEKG Tod ay Reason Onset Date Comments Population Health Navigation Outreach 04/05/2024 [facility] [place] [facility] Reason Comments Follow Up Reason Comments Orders Reason Comments Medicare Wellness Exam 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 Care Teams (unrecognized sec tion and content) Fabric Worker Relationship Specialty Start Date End Date Vinayak Reyes MD [address] [place] [address] PCP - General Family Practice 07/19/15 Fabric Worker Relationship Specialty Start Date End Date Vinayak Reyes MD [address] [place] [address] PCP - General Family Practice 07/19/15 Fabric Worker Relationship Specialty Start Date End Date Vinayak Reyes MD [address] [place] [address] PCP - General Family Practice 07/19/15 Fabric Worker Relationship Specialty Start Date End Date Vinayak Reyes MD [address] [place] [address] PCP - General Family Practice 07/19/15 Fabric Worker Relationship Specialty Start Date End Date Vinayak Reyes MD [address] [place] [address] PCP - General Family Practice 07/19/15 Fabric Worker Relationship Specialty Start Date End Date Vinayak Reyes MD [address] [place] [address] PCP - General Family Practice 07/19/15 Fabric Worker Relationship Specialty Start Date End Date Vinayak Reyes MD [address] [place] [address] PCP - General Family Medicine 07/19/15 Fabric Worker Relationship Specialty Start Date End Date Vinayak Reyes MD [address] [facility] [place] [address] PCP - General Family Medicine 07/19/15 Fabric Worker Relationship Specialty Start Date End Date Vinayak Reyes MD [address] [place] [address] PCP - General Family Medicine 07/19/15 Fabric Worker Relationship Specialty Start Date End Date Vinayak Reyes MD [address] [place] [address] PCP - General Family Medicine 07/19/15 Fabric Worker Relationship Specialty Start Date End Date Vinayak Reyes MD [address] [place] [address] PCP - General Family Medicine 07/19/15 Fabric Worker Relationship Specialty Start Date End Date Vinayak Reyes MD [address] [place] [address] PCP - General Family Medicine 07/19/15 Fabric Worker Relationship Specialty Start Date End Date Vinayak Reyes MD [address] [place] [address] PCP - General Family Medicine 07/19/15 Fabric Worker Relationship Specialty Start Date End Date Vinayak Reyes MD [address] [place] [address] PCP - General Family Medicine 07/19/15 Fabric Worker Relationship Specialty Start Date End Date Vinayak Reyes MD [address] [place] [address] PCP - General Family Medicine 07/19/15 Team Status: Active Member Role Status Dates Dr. Vinayak Reyes MD Family Provider Active Dr. Vinayak Reyes MD Primary Care Provider Active Team Status: Inactive Member Role Status Dates Dr. Vinayak Reyes MD Primary Care Provider Active Dr. Abram Velasco MD Attending Provider, Referring Provider Active Fabric Worker Relationship Specialty Start Date End Date Vinayak Reyes MD [address] [place] [address] PCP - General Family Medicine 07/19/15 Fabric Worker Relationship Specialty Start Date End Date Vinayak Reyes MD [address] [place] [address] PCP - General Family Medicine 07/19/15 Fabric Worker Relationship Specialty Start Date End Date Vinayak Reyes MD [address] [place] [address] PCP - General Family Medicine 07/19/15 Fabric Worker Relationship Specialty Start Date End Date Vinayak Reyes MD [address] [place] [address] PCP - General Family Medicine 07/19/15 Fabric Worker Relationship Specialty Start Date End Date Vinayak Reyes MD [address] [place] [address] PCP - General Family Medicine 07/19/15 Fabric Worker Relationship Specialty Start Date End Date Vinayak Reyes MD [address] [place] [address] PCP - General Family Medicine 07/19/15 Fabric Worker Relationship Specialty Start Date End Date Vinayak Reyes MD [address] [place], [place] [address] PCP - General Family Medicine 07/19/15 Fabric Worker Relationship Specialty Start Date End Date Vinayak Reyes MD [address] [place], [place] [address] PCP - General Family Medicine 07/19/15 Fabric Worker Relationship Specialty Start Date End Date Vinayak Reyes MD [address] [place] [address] PCP - General Family Medicine 07/19/15 Fabric Worker Relationship Specialty Start Date End Date Vinayak Reyes MD [address] [place] [address] PCP - General Family Medicine 07/19/15 Fabric Worker Relationship Specialty Start Date End Date Vinayak Reyes MD [address] [place] [address] PCP - General Family Medicine 07/19/15 Fabric Worker Relationship Specialty Start Date End Date Vinayak Reyes MD [address] [place] [address] PCP - General Family Medicine 07/19/15 Fabric Worker Relationship Specialty Start Date End Date Vinayak Reyes MD [address] [place] [address] PCP - General Family Medicine 07/19/15 Fabric Worker Relationship Specialty Start Date End Date Vinayak Reyes MD [address] [place] [address] PCP - General Family Medicine 07/19/15 Nola Veras APRN.LEAD RAMP AGENT [address] [place] [address] Extrusion Die Repairer Family Medicine 01/19/24 Yoana Steen APRN.LEAD RAMP AGENT [address] [place] [address] Extrusion Die Repairer Family Medicine 01/19/24 Fabric Worker Relationship Specialty Start Date End Date Vinayak Reyes MD [address] [place] [address] PCP - General Family Medicine 07/19/15 Nola Veras, WELT BUTTER HAND.LEAD RAMP AGENT [address] [facility] [place] [address] Extrusion Die Repairer Family Medicine 01/19/24 Yoana Steen WELT BUTTER HAND.LEAD RAMP AGENT [address] [facility] [place] [address] Extrusion Die Repairer Family Medicine 01/19/24 Fabric Worker Relationship Specialty Start Date End Date Vinayak Reyes MD [address] [facility] [place] [address] PCP - General Family Medicine 07/19/15 Nola Veras, WELT BUTTER HAND.LEAD RAMP AGENT [address] [facility] [place] [address] Extrusion Die Repairer Family Medicine 01/19/24 Yoana Steen WELT BUTTER HAND.LEAD RAMP AGENT [address] [facility] [place] [address] Extrusion Die Repairer Family Medicine 01/19/24 Fabric Worker Relationship Specialty Start Date End Date Vinayak Reyes MD [address] [facility] [place] [address] PCP - General Family Medicine 07/19/15 Nola Veras, WELT BUTTER HAND.LEAD RAMP AGENT [address] [facility] [place] [address] [facility] 01/19/24 Yoana Steen APRN.LEAD RAMP AGENT [address] [facility] [place] [address] [facility] 01/19/24 Fabric Worker Relationship Specialty Start Date End Date Vinayak Reyes MD [address] [facility] [place] [address] PCP - General Family Medicine 07/19/15 Nola Veras APRN.LEAD RAMP AGENT [address] [facility] [place] [address] [facility] 01/19/24 Yoana Steen WELT BUTTER HAND.LEAD RAMP AGENT [address] [facility] [place] [address] [facility] 01/19/24 Fabric Worker Relationship Specialty Start Date End Date Vinayak Reyes MD [address] [facility] [place] [address] PCP - General Family Medicine 07/19/15 Nola Veras APRN.LEAD RAMP AGENT [address] [facility] [place] [address] [facility] 01/19/24 Yoana Steen WELT BUTTER HAND.LEAD RAMP AGENT [address] [facility] [place] [address] [facility] 01/19/24 Fabric Worker Relationship Specialty Start Date End Date Vinayak Reyes MD [address] [facility] [place] [address] PCP - General Family Medicine 07/19/15 Nola Veras APRN.LEAD RAMP AGENT [address] [facility] [address] Extrusion Die Repairer Family Medicine 01/19/24 Yoana Steen APRN.LEAD RAMP AGENT [address] [place] [address] Extrusion Die Repairer Family Medicine 01/19/24 Fabric Worker Relationship Specialty Start Date End Date Vinayak Reyes MD [address] [facility] [place] [address] PCP - General Family Medicine 07/19/15 Nola Veras APRN.LEAD RAMP AGENT [address] [facility] [address] Extrusion Die Repairer Family Medicine 01/19/24 Yoana Steen APRN.LEAD RAMP AGENT [address] [facility] [place] [address] Extrusion Die Repairer Family Medicine 01/19/24 Fabric Worker Relationship Specialty Start Date End Date Vinayak Reyes MD [address] [place] [address] PCP - General Family Medicine 07/19/15 Nola Veras APRN.LEAD RAMP AGENT [address] [facility] [place] [address] Extrusion Die Repairer Family Medicine 01/19/24 Yoana Steen APRN.LEAD RAMP AGENT [address] [facility] [place] [address] Extrusion Die Repairer Family Medicine 01/19/24 Fabric Worker Relationship Specialty Start Date End Date Vinayak Reyes MD [address] [place] [address] PCP - General Family Medicine 07/19/15 Nola Veras APRN.LEAD RAMP AGENT [address] [place] [address] [facility]24 Yoana Steen APRN.LEAD RAMP AGENT [address] [place] [address] [facility] 01/19/24 Goals (unrecognized section and content) Goals may be documented in a n alternate sectionGoals may be documented in an alternate sectionGoals may be documented in an alternate section Inactive Administered Medications - up to 3 most recent administrations Administered Medications (un recognized section and content) Medication Order MAR Action Action Date Dose Rate Site diphenhydrAMINE 12.5-50 mg injection (BENADRYL) 12.5-50 mg, INTRAVENOUS, DIRECTED, Starting on Fri04/30/23 at 0830, Until Fri04/30/23 at 1229, DOSING DIRECTED BY PHYSICIAN FOR PROCEDURAL SEDATION ONLY, Intraprocedure Given 04/30/2023 8:09 AM EDT 50 mg fentaNYL 50 mcg/mL 25-100 mcg injection (SUBLIMAZE) 25-100 mcg, INTRAVENOUS, DIRECTED, Starting on Fri04/30/23 at 0830, Until Fri04/30/23 at 1229, DOSING DIRECTED BY PHYSICIAN FOR PROCEDURAL SEDATION ONLY, Intraprocedure Given 04/30/2023 8:07 AM EDT 50 mcg lactated ringers iv infusion 75 mL/hr, INTRAVENOUS, CONTINUOUS, Starting on Fri04/30/23 at 0730, Until Fri04/30/23 at 0838, Preprocedure New Bag/Syringe/Eduard le 04/30/2023 7:45 AM EDT 75 mL/hr 75 mL/hr Hand, Right midazolam (PF) 1-5 mg injection (VERSED) 1-5 mg, INTRAVENOUS, DIRECTED, Starting on Fri04/30/23 at 0830, Until Fri04/30/23 at 1229, DOSING DIRECTED BY PHYSICIAN FOR PROCEDURAL SEDATION ONLY, Intraprocedure Given 04/30/2023 8:14 AM EDT 1 mg Given 04/30/2023 8:07 AM EDT 3 mg FOR RECORDS PERTAINING TO PATIENTS WHO ARE OR HAVE BEEN ENROLLED IN A CHEMICAL DEPENDENCY/SUBSTANCEABUSE PROGRAM, SOME INFORMATION MAY BE OMITTED. This clinical summary was aggregated from multiple sources. Caution should be exercised in using it in the provision of clinical care. This summary normalizes information from multiple sources, and as a consequence, information in this document may materially change the coding, format and clinical context of patient data. In addition, data may be omitted in some cases. CLINICAL DECISIONS SHOULD BE BASED ON THE PRIMARY CLINICAL RECORDS. [facility]. provides no warranty or guarantee of the accuracy or completeness of information in this document.
== END | disposition home or self-care (01) ==
LOC: OPBI 08:38
PROVIDERS: PCP Family Medicine; Referring Provider Family Medicine; Visit Provider Family Medicine
DX: Z12.31 Encounter for screening mammogram for malignant neoplasm of breast (principal)
CPT/HCPCS: 77063; 77067

== ENCOUNTER → 2025-01-24 | Outpatient (CLI) | payer MEDICARE, OTHER, SELFPAY ==
--- NOTE | 2025-01-24 09:29 | US_ITS ---
PROCEDURE: BREAST LIMITED UNILATERAL N/A REASON FOR EXAM: F, Age 74 y/o , ABN MAMM Left breast mass. Inconclusive mammogram. Evaluate. COMPARISON: Mammogram dated 01/24/2025, 01/14/2025, 01/09/2024, 01/06/2023 and 01/02/2022.. TECHNIQUE: Procedure Code: USBRSTLIMIT Modality: US Procedure: BREAST LIMITED UNILATERAL FINDINGS: There is a solid hypoechoic mass identified in the left breast at the 3 o'clock, 11 cm from the nipple position measuring 9 x 9 x 6 mm. The mass is wider than it is tall. It does not produce any posterior shadowing. There is no blood flow to the mass. The mass does correlate to the mass seen on the most recent mammogram studies. The mass may represent a fibroadenoma however malignancy is another consideration. Biopsy is warranted. US/Breast Limited Unilateral IMPRESSION: There is a solid hypoechoic mass identified in the left breast at the 3 o'clock , 11 cm from the nipple position measuring 9 x 9 x 6 mm. The mass is wider than it is tall. It does not produce any posterior sh adowing. There is no blood flow to the mass. The mass does correlate to the mass seen on the most recent mammogram studies. The mass may represent a fibroadenoma however malignancy is another consideration. Biopsy is warranted. BI-RADS 4: SUSPICIOUS RECOMMENDATION: Biopsy Recommended Reading Location: [id number]
--- NOTE | 2025-01-24 09:29 | BI_ITS ---
EXAM: DIAG MAMM W/CAD, UNILAT 01/24/2025 CLINICAL HISTORY: F, Age 74 y/o , ABN MAMM. Left breast asymmetric density. Evaluate. TECHNIQUE: Procedure Code: [id number] Modality: MG Procedure: DIAG MAMM W/CAD, UNILAT. COMPARISON: Prior exam(s) dated 01/14/2025, 01/09/2024, and 01/06/2023. FINDINGS: TISSUE DENSITY: There are scattered areas of fibroglandular density. Bilateral Breast Mammographic Findings: The asymmetric density in the superior outer aspect of the left breast does persist on the LM view and does not disperse on spot compression views. There is a 9 mm mass at this location. Further workup with ultrasound will be performed for further evaluation. BI/DIAG MAMM W/CAD, UNILAT IMPRESSION: The asymmetric density in the superior outer aspect of the left breast does per sist on the LM view and does not disperse on spot compression views. There is a 9 mm mass at this location. Further workup with ultrasound will be performed for further evaluation. OVERALL FINAL ASSESSMENT BI-RADS 0: INCOMPLETE - NEED ADDITIONAL IMAGING EVALUATION. RECOMMENDATION: Ultrasound Recommended Additional Recommendation none A letter with findings and recommendations will be mailed to the patient. Reading Location: [id number]
== END | disposition home or self-care (01) ==
PROVIDERS: PCP Family Medicine; Referring Provider Family Medicine; Visit Provider Family Medicine
DX: R92.8 Other abnormal and inconclusive findings on diagnostic imaging of breast (principal)
CPT/HCPCS: 76642; 77065